=== PATIENT | male | born 1995 | race Caucasian/White ===

== ENCOUNTER 2017-08-02 13:32 | Emergency (ER) | payer BC, OTHER ==
[~2017-08-02] VITALS: Ht 172.7 cm; Wt 63.0 kg
[~2017-08-02 13:32] MED LIST: AMOCLASUA; CEPH500 PO; CODACEE120; CODACEE120 PO; HYDACE5 PO; IBUP400 PO; INSN100I; INSU7030P SC; INSUASPI; INSUASPI SC; INSULANI SC; METPHE20CR PO; METPHE20ER PO; MUPI2TC TOP; ONDA4ODT MM; OXYACE5T PO; Percocet 5-3251 EACH PO; RXOXYACE PO; SILSUL1TC TOP
[2017-08-02 14:15] LABS: Base Excess Venous -14.7 mmol/L; Bicarbonate Venous 15.2 mmol/L (24.0-30.0); PCO2 Venous 21.5 mmHg (38-42); PO2 Venous 147 mmHg (38-42); pH Blood Venous 7.33 (7.34-7.37)
[2017-08-02 14:25] LABS: BASOPHILS ABSOLUTE AUTO 0.03 K/mm3 (0.00-0.23); BASOPHILS PERCENT AUTO 0 % (0-2); EOSINOPHILS ABSOLUTE AUTO 0.01 K/mm3 (0.00-0.68); EOSINOPHILS PERCENT AUTO 0 % (0-6); IMMATURE GRAN ABSOLUTE AUTO 0.04 K/mm3 (0.00-0.10); IMMATURE GRAN PERCENT AUTO 1 % (0-1); LYMPHOCYTES ABSOLUTE AUTO 2.33 K/mm3 (0.84-5.20); LYMPHOCYTES PERCENT AUTO 30 % (21-46); MONOCYTES ABSOLUTE AUTO 0.41 K/mm3 (0.16-1.47); MONOCYTES PERCENT AUTO 5 % (4-13); Mean Corpuscular HGB 30.8 pg (26.0-34.0); Mean Corpuscular HGB Conc 33.3 g/dL (31.5-36.5); Mean Corpuscular Volume 92 fL (80-100); NEUTROPHILS ABSOLUTE AUTO 5.07 K/mm3 (1.96-9.15); NEUTROPHILS PERCENT AUTO 64 % (41-73); Platelet Count 312 K/mm3 (150-400); RDW Coefficient Variation 12.1 % (11.7-14.2); RDW Standard Deviation 42.2 fL (35.1-46.3); Red Blood Cell Count 4.87 M/mm3 (4.30-5.90); White Blood Cell Count 7.89 K/mm3 (4.00-11.30)
[2017-08-02 14:36] LABS: Source, Urine Clean Catch
[2017-08-02 14:39] LABS: Alanine Aminotransfer (ALT/SGP 100 U/L (12-78); Albumin, Blood 3.7 g/dL (3.4-5.0); Alk Phos 101 U/L (50-136); Anion Gap 22 mmol/L (6-16); Aspartate Aminotrans (AST/SGOT 56 U/L (12-37); Beta-hydroxybutyrate 0.1 mg/dL (0.2-2.8); Blood Urea Nitrogen 8 mg/dL (8-24); Bun/Creatinine Ratio 11.9 (12.0-20.0); CO2, Blood 12 mmol/L (21-32); Calcium, Blood 8.5 mg/dL (8.5-10.1); Chloride, Blood 100 mmol/L (98-108); Creatinine, Blood 0.67 mg/dL (0.60-1.20); Globulin, Blood 3.6 g/dL (2.2-4.0); Glomerular Filtration Rate >60 (60-); Glucose, Blood 234 mg/dL (70-99); Sodium, Blood 134 mmol/L (136-145); Total Protein, Blood 7.3 g/dL (6.4-8.2)
[2017-08-02 14:44] LABS: Appearance, Urine Clear (Clear); Bilirubin, Urine Neg (Neg); Blood, Urine Neg (Neg); Color, Urine Yellow (P-Yellow); Glucose Qualitative, Urine 4+ (Neg); Ketones, Urine 4+ (Neg); Leukocyte Esterase, Urine Neg (Neg); Nitrite, Urine Neg (Neg); Protein, Urine 1+ (Neg); Specific Gravity, Urine 1.025 (1.003-1.022); Urobilinogen, Urine NORM (Normal)
[2017-08-02] MEDS ORDERED: Zofran4 MG PO (15:10)
[2017-08-02] MEDS ORDERED: INSULANPEN SC (15:22)
[2017-08-02] MEDS ORDERED: Novolog100 UNIT/2 (15:23)
[2017-08-02 16:15] LABS: Calcium, Ionized (POC) 1.09 mmol/L (1.10-1.46); Chloride (POC) 105 mmol/L (98-108); Creatinine (POC) 0.6 mg/dL (0.8-1.3); Glucose (ISTAT POC) 133 mg/dL (70-99); Hemoglobin (POC) 12.6 g/dL (13.5-17.5); Potassium (POC) 3.7 mmol/L (3.5-5.5); Sodium (POC) 136 mmol/L (135-148); Total CO2 (POC) 16 mmol/L (21-32)
== END 2017-08-02 16:35 | disposition home or self-care (01) ==
LOC: ER 13:32
PROVIDERS: Emergency Medicine; Physician Assistant
DX: E10.65 Type 1 diabetes mellitus with hyperglycemia (principal); E86.0 Dehydration; Z79.4 Long term (current) use of insulin; Z79.899 Other long term (current) drug therapy
CPT/HCPCS: 36415; 80047; 80053; 82010; 82803; 82947; 85014; 85025; 96360; 96361; 99283; J7030

== ENCOUNTER 2018-07-15 21:24 | Observation (INO) | payer BC, OTHER ==
[~2018-07-15] VITALS: Ht 172.7 cm; Wt 65.5 kg
[~2018-07-15 21:24] MED LIST changes: +INSULANPEN SC; +Novolog100 UNIT/2; +Zofran4 MG PO
[2018-07-15 21:48] LABS: BASOPHILS ABSOLUTE AUTO 0.07 K/mm3 (0.00-0.23); BASOPHILS PERCENT AUTO 1 % (0-2); EOSINOPHILS ABSOLUTE AUTO 0.08 K/mm3 (0.00-0.68); EOSINOPHILS PERCENT AUTO 1 % (0-6); Hematocrit 47.1 % (37.0-53.0); Hemoglobin 15.7 g/dL (13.5-17.5); IMMATURE GRAN ABSOLUTE AUTO 0.04 K/mm3 (0.00-0.10); IMMATURE GRAN PERCENT AUTO 0 % (0-1); LYMPHOCYTES ABSOLUTE AUTO 4.93 K/mm3 (0.84-5.20); LYMPHOCYTES PERCENT AUTO 43 % (21-46); MONOCYTES ABSOLUTE AUTO 0.58 K/mm3 (0.16-1.47); MONOCYTES PERCENT AUTO 5 % (4-13); Mean Corpuscular HGB 30.8 pg (26.0-34.0); Mean Corpuscular HGB Conc 33.3 g/dL (31.5-36.5); Mean Corpuscular Volume 92 fL (80-100); Mean Platelet Volume 9.4 fL (9.1-12.4); NEUTROPHILS ABSOLUTE AUTO 5.76 K/mm3 (1.96-9.15); NEUTROPHILS PERCENT AUTO 50 % (41-73); Platelet Count 337 K/mm3 (150-400); RDW Coefficient Variation 11.9 % (11.7-14.2); RDW Standard Deviation 41.1 fL (35.1-46.3); White Blood Cell Count 11.46 K/mm3 (4.00-11.30)
[2018-07-15 22:10] LABS: Alanine Aminotransfer (ALT/SGP 63 U/L (12-78); Albumin, Blood 3.9 g/dL (3.4-5.0); Albumin/Globulin Ratio 1.3 (0.8-1.8); Alk Phos 109 U/L (50-136); Anion Gap 23 mmol/L (6-16); Aspartate Aminotrans (AST/SGOT 43 U/L (12-37); Bilirubin, Total 1.2 mg/dL (0.1-1.0); Blood Urea Nitrogen 13 mg/dL (8-24); Bun/Creatinine Ratio 17.1 (12.0-20.0); CO2, Blood 15 mmol/L (21-32); Calcium, Blood 8.7 mg/dL (8.5-10.1); Chloride, Blood 95 mmol/L (98-108); Creatinine, Blood 0.76 mg/dL (0.60-1.20); Glomerular Filtration Rate >60 (60-); Glucose, Blood 402 mg/dL (70-99); Potassium, Blood 3.6 mmol/L (3.5-5.5); Sodium, Blood 133 mmol/L (136-145); Total Protein, Blood 6.9 g/dL (6.4-8.2)
--- NOTE | 2018-07-16 00:55 | NUR ---
ASSUMED PT CARE AT 0015 PT TRANSFERRED FROM ED ON STRETCHER. PT ADMITTED SECONDARY TO DKA. PER REPORT PT'S LAST BLOOD SUGARS WAS 350 AT 2330 AND PT WAS STARTED ON INSULIN GTT AT 3 UNITS/HR. UPON ARRIVAL TO ICU; REPORTING OFF RN STATED PT'S LAST BS WAS 241. INSULIN TITRATED DOWN TO 1 UNIT/HR AND D5 1/2NS STARTED AT 75MLS/HR. PT ARRIVED WITH 20G TO UPPER RIGHT FOREARM; PATENT AND INFUSING. A SECOND 20G IV WAS STARTED TO PT'S RIGHT LOWER FOREARM D/T ORDERS FOR POTASSIUM, INSULIN, AND FLUIDS. SBP 110-120'S. NSR WITH HR 80'S. AFEBRILE 97.8. LUNG SOUNDS CLEAR T/O WITH NORMAL RESPIRATORY EFFORT. ABDOMEN IS SOFT, NON-TENDER WITH ACTIVE BTX4; PT STATES HE IS VERY HUNGRY, BUT HAS BEEN EDUCATED ABOUT NPO STATUS UNTIL BLOOD SUGARS STABILIZE. NO EDEMA NOTED. PERIPHERAL PULSES ARE PALPABLE AND STRONG. DENIES ANY NUMBNESS/TINGLING. PT'S MOM AT BEDSIDE TO ANSWER HEALTH HISTORY QUESTIONS. PT STATES HE BARELY CHECKS HIS BS AT HOME AND THAT HE JUST ADMINISTERS HIS NOVOLOG TWICE DAILY WITH ADDITIONAL NOVOLOG ACCORDING TO HIS CARB COUNTING, WHICH PT STATES HE HASN'T BEEN COUNTING CARBS MUCH LATELY. PT ALSO STATES HE TAKES LANTUS AT BEDTIME. PT DENIES ANY RECENT SICKNESS AND STATES THIS IS HIS FIRST TIME "FEELING LIKE THIS". PT IS CURRENTLY RESTING IN BED WITH CALL LIGHT IN REACH.
[2018-07-16 04:17] LABS: Hematocrit 42.3 % (37.0-53.0); Hemoglobin 14.3 g/dL (13.5-17.5); Mean Corpuscular HGB 31.1 pg (26.0-34.0); Mean Corpuscular HGB Conc 33.8 g/dL (31.5-36.5); Mean Corpuscular Volume 92 fL (80-100); Mean Platelet Volume 9.1 fL (9.1-12.4); Platelet Count 264 K/mm3 (150-400); RDW Coefficient Variation 11.9 % (11.7-14.2); RDW Standard Deviation 40.6 fL (35.1-46.3); White Blood Cell Count 9.09 K/mm3 (4.00-11.30)
[2018-07-16 04:36] LABS: Anion Gap 12 mmol/L (6-16); Blood Urea Nitrogen 11 mg/dL (8-24); Bun/Creatinine Ratio 15.9 (12.0-20.0); CO2, Blood 22 mmol/L (21-32); Calcium, Blood 8.1 mg/dL (8.5-10.1); Chloride, Blood 103 mmol/L (98-108); Creatinine, Blood 0.69 mg/dL (0.60-1.20); Glomerular Filtration Rate >60 (60-); Glucose, Blood 154 mg/dL (70-99); Potassium, Blood 4.3 mmol/L (3.5-5.5); Sodium, Blood 137 mmol/L (136-145)
[2018-07-16 04:40] LABS: Alanine Aminotransfer (ALT/SGP 55 U/L (12-78); Albumin, Blood 3.3 g/dL (3.4-5.0); Albumin/Globulin Ratio 1.3 (0.8-1.8); Alk Phos 86 U/L (50-136); Anion Gap 11 mmol/L (6-16); Aspartate Aminotrans (AST/SGOT 35 U/L (12-37); Bilirubin, Total 0.8 mg/dL (0.1-1.0); Blood Urea Nitrogen 11 mg/dL (8-24); Bun/Creatinine Ratio 15.9 (12.0-20.0); CO2, Blood 22 mmol/L (21-32); Chloride, Blood 103 mmol/L (98-108); Creatinine, Blood 0.69 mg/dL (0.60-1.20); Globulin, Blood 2.6 g/dL (2.2-4.0); Glomerular Filtration Rate >60 (60-); Glucose, Blood 152 mg/dL (70-99); Potassium, Blood 4.3 mmol/L (3.5-5.5); Sodium, Blood 136 mmol/L (136-145); Total Protein, Blood 5.9 g/dL (6.4-8.2)
--- NOTE | 2018-07-16 06:23 | NUR ---
CALL OUT TO DR. ZAMUDIO CONTINUE INSULIN GTT AND D5 1/2NS UNTIL NEXT ANION GAP RESULTS. NO NEW ORDERS
--- NOTE | 2018-07-16 07:01 | NUR ---
END OF SHIFT SUMMARY PT HAS REMAINED ON INSULIN GTT AND D5 1/2 NS AT 75MLS/HR. PT HAS SLEPT T/O SHIFT. ANION GAP IS NOW CLOSED WITH CO2>20. DR. ZAMUDIO AWARE AND WANTS TO WAIT TO DISCONTINUE FLUIDS UNTIL NEXT ANION GAP LAB DRAW. PT APPEARS COMFORTABLE AT THIS TIME.
--- NOTE | 2018-07-16 08:08 | NUR ---
CONSENT FOR CARE Obtained consent from pt to assist in care with primary RN for DOS 07/16/18
--- NOTE | 2018-07-16 09:16 | NUR ---
0730: CARE ASSUMED. 0800: ASSESSMENT COMPLETED, PT AWAKE, ORIENTED X4, CALM AND COOPERATIVE WITH CARE. VSS, PT DENIES NAUSEA, ABD PAIN, OR OTHER C/O, STATES HE IS FEELING BETTER THIS AM. INSULIN GTT AT 1U/HR, D5 0.45%NS 75ML/HR, BOTH INFUSING WITHOUT DIFFICULTY. CBG'S STABLE, WILL CONTINUE TO MONITOR ORDERED. PT DENIES NEEDS.
--- NOTE | 2018-07-16 10:15 | NUR ---
1000: PT RESTING IN BED, SLEEPING ON AND OFF. VSS, PT DENIES C/O, CBG'S 120-140 WITH INSULIN GTT AT 1U/HR, D5 0.45%NS CONTINUES TO INFUSE AT 75ML/HR. 1015: DR. PATEL AT BEDSIDE.
[2018-07-16 11:11] LABS: Anion Gap 12 mmol/L (6-16); Blood Urea Nitrogen 10 mg/dL (8-24); Bun/Creatinine Ratio 14.3 (12.0-20.0); CO2, Blood 22 mmol/L (21-32); Calcium, Blood 8.1 mg/dL (8.5-10.1); Chloride, Blood 104 mmol/L (98-108); Glomerular Filtration Rate >60 (60-); Glucose, Blood 138 mg/dL (70-99); Potassium, Blood 4.1 mmol/L (3.5-5.5); Sodium, Blood 138 mmol/L (136-145)
--- NOTE | 2018-07-16 11:34 | NUR ---
1130: LAB RESULTS RECEIVED, DR. PATEL NOTIFIED, NEW ORDERS. INSULIN GTT DC'D AT THIS TIME, CBG 145. PT SITTING IN BED WATCHING TV, MOM AT BEDSIDE. LUNCH TRAY GIVEN, AC/HS INSULIN ORDERS INITIATED. PT DENIES NEEDS OR C/O AT THIS TIME, VSS.
--- NOTE | 2018-07-16 13:10 | NUR ---
PATIENT CALLED STATING THAT HE FELT LIKE HIS BLOOD SUGAR WAS HIGH. BS TAKEN- 416. INFORMED PRIMARY NURSE AND CALLED DR. PATEL TO INFORM. ALSO INFORMED THAT IT DID NOT LOOK LIKE PATIENT HAD RECEIVED ANY LONG ACTING INSULIN PRIOR TO INSULIN DRIP BEING TURNED OFF. ORDERED TO GIVE 15 UNITS OF REGULAR INSULIN AND RECHECK BLOOD SUGAR IN ONE HOUR.
--- NOTE | 2018-07-16 14:25 | NUR ---
1415: CBG DOWN TO 353 AFTER 15U HUMALOG, PT DENIES NAUSEA, STATES HE IS FEELING BETTER. WILL RECHECK CBG IN 1 HOUR.
--- NOTE | 2018-07-16 15:54 | NUR ---
1520: CBG 200 AT THIS TIME, PT SLEEPING, RESPIRATIONS EVEN AND UNLABORED. MOM AT BEDSIDE.
[2018-07-16 16:44] LABS: Anion Gap 11 mmol/L (6-16); Blood Urea Nitrogen 11 mg/dL (8-24); Bun/Creatinine Ratio 13.9 (12.0-20.0); CO2, Blood 24 mmol/L (21-32); Calcium, Blood 8.6 mg/dL (8.5-10.1); Chloride, Blood 103 mmol/L (98-108); Creatinine, Blood 0.79 mg/dL (0.60-1.20); Glomerular Filtration Rate >60 (60-); Glucose, Blood 177 mg/dL (70-99); Potassium, Blood 4.2 mmol/L (3.5-5.5); Sodium, Blood 138 mmol/L (136-145)
--- NOTE | 2018-07-16 16:46 | NUR ---
1645: CBG 151 AT THIS TIME, NO ADDITIONAL INSULIN ADMINISTERED. VSS, PT UP TO VOID, DENIES NAUSEA OR C/O AT THIS TIME. PT WATCHING TV, MOM REMAINS AT BEDSIDE.
--- NOTE | 2018-07-16 17:52 | NUR ---
1750: PT SITTING UP IN BED EATING DINNER, STATES HIS BG "FEELS HIGH." CBG CHECKED, NOW 236 PT IS IN THE MIDDLE OF EATING DINNER, NO INTERVENTIONS AT THIS TIME. WILL CONTINUE TO MONITOR. PT DENIES OTHER NEEDS, IS ALERT AND ORIENTED X4.
--- NOTE | 2018-07-16 18:39 | NUR ---
1835: PT SITTING IN BED WATCHING TV, DENIES C/O, STATES HE IS FEELING FINE. ATE 100% OF DINNER WITHOUT C/O NAUSEA OR ABDOMINAL PAIN, DENIES NEEDS OR C/O AT THIS TIME. REPORT TO ONCOMING SHIFT.
--- NOTE | 2018-07-16 19:38 | NUR ---
ASSUMED PT CARE AT 1915 PT HAD A CHANGE IN STATUS TO MED NO TELE; PT REQUESTED TO TAKE A SHOWER. RETRIEVED VS AND SET UP SHOWER ROOM. HAD PT PLACE NON-SKID SOCKS ON FEET AND WALKED TO SHOWER. WRAPPED PERIPHERAL IV'S ON RIGHT ARM AND ASKED PT TO CALL WHEN HE WAS DONE SO HE COULD BE ASSISTED BACK TO BED. CHECK BS; 343; PT HAS LONG ACTING INSULIN COVERAGE, WELL HUMALOG LOW SS COVERAGE. PT DENIES PAIN OR ANY DISCOMFORT AT THIS TIME.
[2018-07-16 22:30] LABS: Anion Gap 10 mmol/L (6-16); Blood Urea Nitrogen 13 mg/dL (8-24); Bun/Creatinine Ratio 15.1 (12.0-20.0); CO2, Blood 26 mmol/L (21-32); Calcium, Blood 8.7 mg/dL (8.5-10.1); Chloride, Blood 101 mmol/L (98-108); Creatinine, Blood 0.86 mg/dL (0.60-1.20); Glomerular Filtration Rate >60 (60-); Glucose, Blood 198 mg/dL (70-99); Potassium, Blood 4.1 mmol/L (3.5-5.5); Sodium, Blood 137 mmol/L (136-145)
--- NOTE | 2018-07-16 23:22 | NUR ---
PLACED CALL TO HOSPITALIST PT ASKED IF HIS BLOOD SUGAR COULD BE CHECKED BECAUSE HE FELT IT WAS HIGH. BLOOD SUGAR WAS 245; CALLED HOSPITALIST FOR INSULIN COVERAGE. TELEPHONE ORDERS TO ADMINSITER SHORT ACTING ACCORDING TO LOW SS. PT RECEIVED 2 UNITS OF HUMALOG FOR COVERAGE.
[2018-07-17 04:19] LABS: Hematocrit 44.6 % (37.0-53.0); Hemoglobin 14.6 g/dL (13.5-17.5); Mean Corpuscular HGB 30.6 pg (26.0-34.0); Mean Corpuscular HGB Conc 32.7 g/dL (31.5-36.5); Mean Corpuscular Volume 94 fL (80-100); Mean Platelet Volume 8.9 fL (9.1-12.4); Platelet Count 239 K/mm3 (150-400); RDW Coefficient Variation 12.2 % (11.7-14.2); RDW Standard Deviation 42.5 fL (35.1-46.3); Red Blood Cell Count 4.77 M/mm3 (4.30-5.90)
[2018-07-17 04:44] LABS: Albumin, Blood 3.2 g/dL (3.4-5.0); Anion Gap 6 mmol/L (6-16); Anion Gap 7 mmol/L (6-16); Blood Urea Nitrogen 14 mg/dL (8-24); Bun/Creatinine Ratio 17.4 (12.0-20.0); Bun/Creatinine Ratio 18.1 (12.0-20.0); CO2, Blood 29 mmol/L (21-32); CO2, Blood 30 mmol/L (21-32); Calcium, Blood 8.4 mg/dL (8.5-10.1); Calcium, Blood 8.5 mg/dL (8.5-10.1); Chloride, Blood 106 mmol/L (98-108); Creatinine, Blood 0.77 mg/dL (0.60-1.20); Glomerular Filtration Rate >60 (60-); Glucose, Blood 91 mg/dL (70-99); Glucose, Blood 93 mg/dL (70-99); Phosphorus, Blood 4.7 mg/dL (2.5-4.9); Potassium, Blood 3.7 mmol/L (3.5-5.5); Potassium, Blood 3.8 mmol/L (3.5-5.5); Sodium, Blood 142 mmol/L (136-145)
--- NOTE | 2018-07-17 05:47 | NUR ---
END OF SHIFT SUMMARY CHECK BLOOD SUGAR TWICE DURING SHIFT; ONE AT 1999, WHICH WAS 343; RECEIVED LONG ACTING INSULIN, WELL 6 UNITS SHORT ACTING. PT CALLED ME IN ABOUT 2300 AND STATED HIS BLOOD SUGAR WAS HIGH AGAIN; RECHECKED AND BS WAS 245. CALLED HOSPITALIST FOR INSULIN ORDERS; RECEIVED ORDERS TO GIVE A ONE TIME DOSE OF SHORT ACTING ACCORDING TO LOW COVERAGE CHART; THEREFORE, PT RECEIVED TWO UNITS OF SHORT ACTING INSULIN. NO OTHER ISSUES ALL NIGHT. GLUCOSE ON THIS AM LABS WERE IN THE 90'S. PT RECEIVED A SHOWER AT THE BEGINNING OF SHIFT, LINENS WERE CHANGED, AND ONE PERIPHERAL IV WAS D/C'D. PT REMAINS MEDICAL FLOOR STATUS WITH NO TELE. PT HOPES TO BE DISCHARGED HOME TODAY. PT SLEEPING COMFORTABLY; ABLE TO REPOSITION SELF, WELL UTILIZE CALL LIGHT APPROPRIATELY. NO SIGNS OF DISTRESS OR DISCOMFORT AT THIS TIME.
--- NOTE | 2018-07-17 07:32 | NUR ---
START OF SHIFT NOTE: PATIENT IS A+Ox4, DENIES PAIN, SMILING, INDEPENDENT IN ROOM, LS CLEAR, NSR, VSS, AFEBRILE, CALL LIGHT IN REACH, WILL CONTINUE TO MONITOR.
--- NOTE | 2018-07-17 09:00 | NUR ---
DR. HOTRATE IN TO SEE PATIENT, POSSIBLE DISCHARGE TO HOME.
[2018-07-17] MEDS ORDERED: ACET325 PO (09:16)
[2018-07-17] MEDS ORDERED: ONDA4ODT PO (09:19)
[2018-07-17] MEDS ORDERED: LISI5 PO (09:21)
--- NOTE | 2018-07-17 09:57 | NUR ---
PATIENT DISCHARGED TO HOME, RECEIVED DISCHARGE INSTRUCTIONS, VERBAL AND WRITTEN WERE EXPLAINED, PATIENT VERBALIZED UNDERSTANDING AND SIGNED DISCHARGE INSTRUCTIONS, PIV REMOVED, PATIENT TOLERATED WELL, AWAITING HIS MOTHER'S ARRIVAL TO PROVIDE RIDE HOME.
--- NOTE | 2018-07-17 10:22 | NUR ---
PATIENT WAS PICKED UP BY HIS MOTHER AND LEFT THE HOSPITAL INDEPENDENTLY AT 10:21, ALL BELONGINGS WITH PATIENT.
== END 2018-07-17 10:28 | disposition home or self-care (01) ==
LOC: ER 21:24 → ICUW 21:25
PROVIDERS: Emergency Medicine; Family Medicine; ADMIT Internal Medicine
DX: E10.10 Type 1 diabetes mellitus with ketoacidosis without coma (principal); E86.0 Dehydration; E87.6 Hypokalemia; Z23 Encounter for immunization
CPT/HCPCS: 36415; 80048; 80053; 80069; 82947; 83036; 84443; 85025; 85027; 90686; 96372; 99285; G0008; G0378; J1650; J1815; J3480; J7030; J7042

== ENCOUNTER 2019-05-15 01:21 | Emergency (ER) | payer BC, OTHER ==
[~2019-05-15] VITALS: Ht 175.3 cm; Wt 70.3 kg
[~2019-05-15 01:21] MED LIST changes: +ACET325 PO; +LISI5 PO; +ONDA4ODT PO
[2019-05-15 01:45] LABS: Source, Urine Clean Catch
[2019-05-15 01:47] LABS: Bilirubin, Urine Neg (Neg); Blood, Urine 4+ (Neg); Glucose Qualitative, Urine 4+ (Neg); Ketones, Urine 4+ (Neg); Leukocyte Esterase, Urine Neg (Neg); Nitrite, Urine Neg (Neg); Protein, Urine 1+ (Neg); Urobilinogen, Urine NORM (Normal)
[2019-05-15] MEDS ORDERED: NOVOLOG FL100 UNIT/1 SC (01:48)
[2019-05-15] MEDS ORDERED: BASAGLAR K100 UNIT/1 SC (01:49)
[2019-05-15 01:57] LABS: Appearance, Urine Clear (Clear); Bacteria Few /hpf; Color, Urine Yellow (P-Yellow); Red Blood Cells, Urine 25-50 /hpf (0-2); Squamous Epithelial Cells Not Seen /hpf (Few); White Blood Cells, Urine 0-2 /hpf (0-5)
[2019-05-15 02:15] LABS: Base Excess Venous -3.6 mmol/L; PCO2 Venous 35.7 mmHg (38-42); PO2 Venous 136 mmHg (38-42); pH Blood Venous 7.39 (7.34-7.37)
[2019-05-15 02:18] LABS: BASOPHILS ABSOLUTE AUTO 0.03 K/mm3 (0.00-0.23); BASOPHILS PERCENT AUTO 0 % (0-2); EOSINOPHILS ABSOLUTE AUTO 0.02 K/mm3 (0.00-0.68); EOSINOPHILS PERCENT AUTO 0 % (0-6); Hemoglobin 15.1 g/dL (13.5-17.5); IMMATURE GRAN ABSOLUTE AUTO 0.04 K/mm3 (0.00-0.10); IMMATURE GRAN PERCENT AUTO 0 % (0-1); LYMPHOCYTES ABSOLUTE AUTO 2.38 K/mm3 (0.84-5.20); LYMPHOCYTES PERCENT AUTO 27 % (21-46); MONOCYTES ABSOLUTE AUTO 0.48 K/mm3 (0.16-1.47); MONOCYTES PERCENT AUTO 5 % (4-13); Mean Corpuscular HGB Conc 33.6 g/dL (31.5-36.5); Mean Corpuscular Volume 92 fL (80-100); Mean Platelet Volume 9.3 fL (9.1-12.4); NEUTROPHILS PERCENT AUTO 67 % (41-73); Platelet Count 329 K/mm3 (150-400); RDW Coefficient Variation 11.9 % (11.7-14.2); RDW Standard Deviation 41.1 fL (35.1-46.3); Red Blood Cell Count 4.87 M/mm3 (4.30-5.90); White Blood Cell Count 8.95 K/mm3 (4.00-11.30)
[2019-05-15 02:38] LABS: Alanine Aminotransfer (ALT/SGP 71 U/L (12-78); Albumin, Blood 3.7 g/dL (3.4-5.0); Albumin/Globulin Ratio 1.1 (0.8-1.8); Alk Phos 99 U/L (50-136); Anion Gap 12 mmol/L (6-16); Aspartate Aminotrans (AST/SGOT 38 U/L (12-37); Beta-hydroxybutyrate 19.8 mg/dL (0.2-2.8); Bilirubin, Total 0.8 mg/dL (0.1-1.0); Blood Urea Nitrogen 13 mg/dL (8-24); Bun/Creatinine Ratio 18.8 (12.0-20.0); CO2, Blood 22 mmol/L (21-32); Calcium, Blood 8.8 mg/dL (8.5-10.1); Chloride, Blood 101 mmol/L (98-108); Creatinine, Blood 0.69 mg/dL (0.60-1.20); Globulin, Blood 3.3 g/dL (2.2-4.0); Glomerular Filtration Rate >60 (60-); Glucose, Blood 262 mg/dL (70-99); Sodium, Blood 135 mmol/L (136-145)
[2019-05-15 02:40] LABS: Calcium, Ionized (POC) 1.14 mmol/L (1.10-1.46); Chloride (POC) 99 mmol/L (98-108); Creatinine (POC) 0.6 mg/dL (0.8-1.3); Glucose (ISTAT POC) 228 mg/dL (70-99); Hemoglobin (POC) 15.3 g/dL (13.5-17.5); Potassium (POC) 3.9 mmol/L (3.5-5.5); Sodium (POC) 136 mmol/L (135-148); Total CO2 (POC) 21 mmol/L (21-32)
[2019-05-15 04:35] LABS: Calcium, Ionized (POC) 1.09 mmol/L (1.10-1.46); Chloride (POC) 104 mmol/L (98-108); Creatinine (POC) 0.6 mg/dL (0.8-1.3); Glucose (ISTAT POC) 203 mg/dL (70-99); Hemoglobin (POC) 12.9 g/dL (13.5-17.5); Potassium (POC) 3.6 mmol/L (3.5-5.5); Sodium (POC) 138 mmol/L (135-148); Total CO2 (POC) 21 mmol/L (21-32)
== END 2019-05-15 05:15 | disposition home or self-care (01) ==
LOC: ER 01:21
PROVIDERS: Emergency Medicine
DX: E10.65 Type 1 diabetes mellitus with hyperglycemia (principal); Z79.899 Other long term (current) drug therapy
CPT/HCPCS: 36415; 80047; 80053; 81001; 82010; 82803; 82947; 85014; 85025; 96360; 96361; 99283-25; J1815; J7030

== ENCOUNTER 2019-05-22 06:11 | Emergency (ER) | payer BC, OTHER ==
[~2019-05-22] VITALS: Ht 177.8 cm; Wt 70.3 kg
[~2019-05-22 06:11] MED LIST changes: +BASAGLAR K100 UNIT/1 SC; +NOVOLOG FL100 UNIT/1 SC
[2019-05-22 06:53] LABS: BASOPHILS ABSOLUTE AUTO 0.03 K/mm3 (0.00-0.23); BASOPHILS PERCENT AUTO 0 % (0-2); EOSINOPHILS ABSOLUTE AUTO 0.07 K/mm3 (0.00-0.68); EOSINOPHILS PERCENT AUTO 1 % (0-6); Hematocrit 44.3 % (37.0-53.0); Hemoglobin 14.8 g/dL (13.5-17.5); IMMATURE GRAN ABSOLUTE AUTO 0.02 K/mm3 (0.00-0.10); IMMATURE GRAN PERCENT AUTO 0 % (0-1); LYMPHOCYTES ABSOLUTE AUTO 1.96 K/mm3 (0.84-5.20); LYMPHOCYTES PERCENT AUTO 22 % (21-46); MONOCYTES ABSOLUTE AUTO 0.42 K/mm3 (0.16-1.47); MONOCYTES PERCENT AUTO 5 % (4-13); Mean Corpuscular HGB 31.3 pg (26.0-34.0); Mean Corpuscular HGB Conc 33.4 g/dL (31.5-36.5); Mean Corpuscular Volume 94 fL (80-100); NEUTROPHILS ABSOLUTE AUTO 6.57 K/mm3 (1.96-9.15); NEUTROPHILS PERCENT AUTO 73 % (41-73); Platelet Count 347 K/mm3 (150-400); RDW Coefficient Variation 12.1 % (11.7-14.2); RDW Standard Deviation 42.1 fL (35.1-46.3); Red Blood Cell Count 4.73 M/mm3 (4.30-5.90); White Blood Cell Count 9.07 K/mm3 (4.00-11.30)
[2019-05-22 06:55] LABS: Chloride (POC) 100 mmol/L (98-108); Creatinine (POC) 0.7 mg/dL (0.8-1.3); Glucose (ISTAT POC) 271 mg/dL (70-99); Potassium (POC) 3.8 mmol/L (3.5-5.5); Sodium (POC) 137 mmol/L (135-148); Total CO2 (POC) 23 mmol/L (21-32)
[2019-05-22 06:55] LABS: Base Excess Venous -1.6 mmol/L; Bicarbonate Venous 23.1 mmol/L (24.0-30.0); PCO2 Venous 40.9 mmHg (38-42); PO2 Venous 157 mmHg (38-42); pH Blood Venous 7.37 (7.34-7.37)
[2019-05-22 07:07] LABS: Alanine Aminotransfer (ALT/SGP 63 U/L (12-78); Albumin, Blood 3.9 g/dL (3.4-5.0); Albumin/Globulin Ratio 1.1 (0.8-1.8); Alk Phos 103 U/L (50-136); Anion Gap 8 mmol/L (6-16); Aspartate Aminotrans (AST/SGOT 33 U/L (12-37); Bilirubin, Total 0.7 mg/dL (0.1-1.0); Blood Urea Nitrogen 27 mg/dL (8-24); Bun/Creatinine Ratio 32.8 (12.0-20.0); CO2, Blood 26 mmol/L (21-32); Chloride, Blood 103 mmol/L (98-108); Creatinine, Blood 0.82 mg/dL (0.60-1.20); Globulin, Blood 3.4 g/dL (2.2-4.0); Glomerular Filtration Rate >60 (60-); Glucose, Blood 265 mg/dL (70-99); Potassium, Blood 3.8 mmol/L (3.5-5.5); Sodium, Blood 137 mmol/L (136-145); Total Protein, Blood 7.3 g/dL (6.4-8.2)
[2019-05-22] MEDS ORDERED: ONDA4ODT SL (07:52)
[2019-05-22 08:14] LABS: U Amphetamine Screen Not Detected; U Barbituate Screen Not Detected; U Benzodiazapine Screen Not Detected; U Buprenorphine Screen Not Detected; U Cannabinoids Screen DETECTED; U Cocaine Screen Not Detected; U Methadone Screen Not Detected; U Methamphetamine Screen Not Detected; U Opiates Screen Not Detected; U Oxycodone Screen Not Detected; U Phencyclidine Screen Not Detected; U Propoxyphene Screen Not Detected
== END 2019-05-22 08:10 | disposition home or self-care (01) ==
LOC: ER 06:11
PROVIDERS: Emergency Medicine
DX: E10.65 Type 1 diabetes mellitus with hyperglycemia (principal); F90.9 Attention-deficit hyperactivity disorder, unspecified type; Z79.899 Other long term (current) drug therapy
CPT/HCPCS: 36415; 80047; 80053; 82803; 82947; 85014; 85025; 96361; 96374; 99284-25; J1815; J2405; J7030

== ENCOUNTER 2019-06-05 10:42 | Emergency (ER) | payer BC, OTHER ==
[~2019-06-05] VITALS: Ht 177.8 cm; Wt 70.3 kg
[~2019-06-05 10:42] MED LIST changes: +ONDA4ODT SL
[2019-06-05 11:08] LABS: BASOPHILS ABSOLUTE AUTO 0.02 K/mm3 (0.00-0.23); BASOPHILS PERCENT AUTO 0 % (0-2); EOSINOPHILS PERCENT AUTO 0 % (0-6); Hematocrit 46.9 % (37.0-53.0); Hemoglobin 15.6 g/dL (13.5-17.5); IMMATURE GRAN ABSOLUTE AUTO 0.03 K/mm3 (0.00-0.10); IMMATURE GRAN PERCENT AUTO 0 % (0-1); LYMPHOCYTES ABSOLUTE AUTO 1.17 K/mm3 (0.84-5.20); LYMPHOCYTES PERCENT AUTO 12 % (21-46); MONOCYTES ABSOLUTE AUTO 0.18 K/mm3 (0.16-1.47); MONOCYTES PERCENT AUTO 2 % (4-13); Mean Corpuscular HGB 30.7 pg (26.0-34.0); Mean Corpuscular HGB Conc 33.3 g/dL (31.5-36.5); Mean Corpuscular Volume 92 fL (80-100); NEUTROPHILS ABSOLUTE AUTO 8.04 K/mm3 (1.96-9.15); NEUTROPHILS PERCENT AUTO 85 % (41-73); Platelet Count 408 K/mm3 (150-400); RDW Coefficient Variation 11.8 % (11.7-14.2); RDW Standard Deviation 40.2 fL (35.1-46.3); Red Blood Cell Count 5.08 M/mm3 (4.30-5.90); White Blood Cell Count 9.44 K/mm3 (4.00-11.30)
[2019-06-05 11:15] LABS: Base Excess Venous -1.5 mmol/L; Bicarbonate Venous 23.7 mmol/L (24.0-30.0); PCO2 Venous 34.6 mmHg (38-42); PO2 Venous 140 mmHg (38-42); pH Blood Venous 7.43 (7.34-7.37)
[2019-06-05 11:28] LABS: Alanine Aminotransfer (ALT/SGP 82 U/L (12-78); Albumin/Globulin Ratio 1.1 (0.8-1.8); Alk Phos 119 U/L (50-136); Anion Gap 10 mmol/L (6-16); Aspartate Aminotrans (AST/SGOT 60 U/L (12-37); Beta-hydroxybutyrate 17.4 mg/dL (0.2-2.8); Bilirubin, Total 0.8 mg/dL (0.1-1.0); Blood Urea Nitrogen 15 mg/dL (8-24); Bun/Creatinine Ratio 25.3 (12.0-20.0); CO2, Blood 23 mmol/L (21-32); Calcium, Blood 9.7 mg/dL (8.5-10.1); Chloride, Blood 104 mmol/L (98-108); Creatinine, Blood 0.59 mg/dL (0.60-1.20); Globulin, Blood 3.8 g/dL (2.2-4.0); Glomerular Filtration Rate >60 (60-); Glucose, Blood 174 mg/dL (70-99); Sodium, Blood 137 mmol/L (136-145); Total Protein, Blood 7.8 g/dL (6.4-8.2)
[2019-06-05] MEDS ORDERED: PROM25 PO (12:44)
[2019-06-05] MEDS ORDERED: Omeprazole20 M1 PO (15:24)
== END 2019-06-05 12:54 | disposition home or self-care (01) ==
LOC: ER 10:42
PROVIDERS: Emergency Medicine
DX: E10.65 Type 1 diabetes mellitus with hyperglycemia (principal); Z79.899 Other long term (current) drug therapy
CPT/HCPCS: 36415; 80053; 82010; 82803; 82947; 85025; 96361; 96374; 96375; 99284-25; J2405; J2550; J7030

== ENCOUNTER 2019-06-05 14:18 | Emergency (ER) | payer BC, OTHER ==
[~2019-06-05] VITALS: Ht 177.8 cm; Wt 74.8 kg
[~2019-06-05 14:18] MED LIST changes: +PROM25 PO
[2019-06-05] MEDS ORDERED: Omeprazole20 M1 PO (15:24)
== END 2019-06-05 15:24 | disposition home or self-care (01) ==
LOC: ER 14:18
DX: K21.9 Gastro-esophageal reflux disease without esophagitis (principal); E11.9 Type 2 diabetes mellitus without complications; Z79.899 Other long term (current) drug therapy; Z79.4 Long term (current) use of insulin
CPT/HCPCS: 99284

== ENCOUNTER 2019-06-05 20:06 | Emergency (ER) | payer BC, OTHER ==
[~2019-06-05] VITALS: Ht 175.3 cm; Wt 68.0 kg
[~2019-06-05 20:06] MED LIST changes: +Omeprazole20 M1 PO
[2019-06-05 21:46] LABS: BASOPHILS ABSOLUTE AUTO 0.01 K/mm3 (0.00-0.23); BASOPHILS PERCENT AUTO 0 % (0-2); EOSINOPHILS PERCENT AUTO 0 % (0-6); Hemoglobin 14.3 g/dL (13.5-17.5); IMMATURE GRAN ABSOLUTE AUTO 0.02 K/mm3 (0.00-0.10); IMMATURE GRAN PERCENT AUTO 0 % (0-1); LYMPHOCYTES ABSOLUTE AUTO 1.19 K/mm3 (0.84-5.20); LYMPHOCYTES PERCENT AUTO 11 % (21-46); MONOCYTES ABSOLUTE AUTO 0.23 K/mm3 (0.16-1.47); MONOCYTES PERCENT AUTO 2 % (4-13); Mean Corpuscular HGB 31.1 pg (26.0-34.0); Mean Corpuscular HGB Conc 33.3 g/dL (31.5-36.5); Mean Corpuscular Volume 94 fL (80-100); Mean Platelet Volume 9.1 fL (9.1-12.4); NEUTROPHILS ABSOLUTE AUTO 9.06 K/mm3 (1.96-9.15); NEUTROPHILS PERCENT AUTO 86 % (41-73); Platelet Count 337 K/mm3 (150-400); RDW Coefficient Variation 11.9 % (11.7-14.2); RDW Standard Deviation 41.4 fL (35.1-46.3); White Blood Cell Count 10.51 K/mm3 (4.00-11.30)
[2019-06-05 22:10] LABS: Alanine Aminotransfer (ALT/SGP 67 U/L (12-78); Albumin, Blood 3.6 g/dL (3.4-5.0); Albumin/Globulin Ratio 1.1 (0.8-1.8); Alk Phos 107 U/L (50-136); Anion Gap 11 mmol/L (6-16); Aspartate Aminotrans (AST/SGOT 39 U/L (12-37); Blood Urea Nitrogen 14 mg/dL (8-24); Bun/Creatinine Ratio 17.5 (12.0-20.0); CO2, Blood 21 mmol/L (21-32); Calcium, Blood 9.1 mg/dL (8.5-10.1); Chloride, Blood 103 mmol/L (98-108); Globulin, Blood 3.3 g/dL (2.2-4.0); Glomerular Filtration Rate >60 (60-); Glucose, Blood 243 mg/dL (70-99); Potassium, Blood 3.9 mmol/L (3.5-5.5); Sodium, Blood 135 mmol/L (136-145); Total Protein, Blood 6.9 g/dL (6.4-8.2)
[2019-06-05 22:18] LABS: Beta-hydroxybutyrate 25.1 mg/dL (0.2-2.8)
== END 2019-06-05 22:44 | disposition home or self-care (01) ==
LOC: ER 20:06
PROVIDERS: Physician Assistant
DX: E10.65 Type 1 diabetes mellitus with hyperglycemia (principal); K52.9 Noninfective gastroenteritis and colitis, unspecified; K20.9 Esophagitis, unspecified; Z79.899 Other long term (current) drug therapy
CPT/HCPCS: 36415; 80053; 82010; 82947; 83690; 85025; 96360; 99284-25; J7120

== ENCOUNTER 2019-06-07 08:08 | Emergency (ER) | payer BC, OTHER ==
[~2019-06-07] VITALS: Ht 175.3 cm; Wt 68.0 kg
[2019-06-07 09:19] LABS: Source, Urine Clean Catch
[2019-06-07 09:22] LABS: Bilirubin, Urine Neg (Neg); Blood, Urine Neg (Neg); Glucose Qualitative, Urine 4+ (Neg); Ketones, Urine 4+ (Neg); Leukocyte Esterase, Urine Neg (Neg); Nitrite, Urine Neg (Neg); Protein, Urine 1+ (Neg); Specific Gravity, Urine 1.015 (1.003-1.022); Urobilinogen, Urine 1+ (Normal)
[2019-06-07 09:24] LABS: BASOPHILS ABSOLUTE AUTO 0.01 K/mm3 (0.00-0.23); BASOPHILS PERCENT AUTO 0 % (0-2); EOSINOPHILS PERCENT AUTO 0 % (0-6); Hematocrit 41.1 % (37.0-53.0); Hemoglobin 13.5 g/dL (13.5-17.5); IMMATURE GRAN ABSOLUTE AUTO 0.03 K/mm3 (0.00-0.10); IMMATURE GRAN PERCENT AUTO 0 % (0-1); LYMPHOCYTES ABSOLUTE AUTO 1.06 K/mm3 (0.84-5.20); LYMPHOCYTES PERCENT AUTO 11 % (21-46); MONOCYTES ABSOLUTE AUTO 0.19 K/mm3 (0.16-1.47); MONOCYTES PERCENT AUTO 2 % (4-13); Mean Corpuscular HGB 30.9 pg (26.0-34.0); Mean Corpuscular HGB Conc 32.8 g/dL (31.5-36.5); Mean Corpuscular Volume 94 fL (80-100); Mean Platelet Volume 9.1 fL (9.1-12.4); NEUTROPHILS ABSOLUTE AUTO 8.43 K/mm3 (1.96-9.15); NEUTROPHILS PERCENT AUTO 87 % (41-73); Platelet Count 304 K/mm3 (150-400); RDW Coefficient Variation 11.8 % (11.7-14.2); RDW Standard Deviation 40.8 fL (35.1-46.3); Red Blood Cell Count 4.37 M/mm3 (4.30-5.90); White Blood Cell Count 9.72 K/mm3 (4.00-11.30)
[2019-06-07 09:30] LABS: Appearance, Urine Clear (Clear); Color, Urine Yellow (P-Yellow)
[2019-06-07 09:41] LABS: U Amphetamine Screen Not Detected; U Barbituate Screen DETECTED; U Benzodiazapine Screen Not Detected; U Buprenorphine Screen Not Detected; U Cannabinoids Screen DETECTED; U Cocaine Screen Not Detected; U Methadone Screen Not Detected; U Methamphetamine Screen Not Detected; U Opiates Screen Not Detected; U Oxycodone Screen Not Detected; U Phencyclidine Screen Not Detected; U Propoxyphene Screen Not Detected
[2019-06-07 09:48] LABS: Alanine Aminotransfer (ALT/SGP 59 U/L (12-78); Albumin, Blood 3.4 g/dL (3.4-5.0); Albumin/Globulin Ratio 1.1 (0.8-1.8); Alk Phos 95 U/L (50-136); Anion Gap 10 mmol/L (6-16); Aspartate Aminotrans (AST/SGOT 42 U/L (12-37); Bilirubin, Total 0.7 mg/dL (0.1-1.0); Blood Urea Nitrogen 18 mg/dL (8-24); Bun/Creatinine Ratio 25.8 (12.0-20.0); CO2, Blood 23 mmol/L (21-32); Calcium, Blood 8.4 mg/dL (8.5-10.1); Chloride, Blood 103 mmol/L (98-108); Glomerular Filtration Rate >60 (60-); Glucose, Blood 209 mg/dL (70-99); Potassium, Blood 3.9 mmol/L (3.5-5.5); Sodium, Blood 136 mmol/L (136-145); Total Protein, Blood 6.4 g/dL (6.4-8.2)
[2019-06-07] MEDS ORDERED: Norco 5-325 Ta1 EACH PO (11:05)
== END 2019-06-07 11:32 | disposition home or self-care (01) ==
LOC: ER 08:08
PROVIDERS: Emergency Medicine; Physician Assistant
DX: R07.81 Pleurodynia (principal); E10.65 Type 1 diabetes mellitus with hyperglycemia; Z79.899 Other long term (current) drug therapy; F90.9 Attention-deficit hyperactivity disorder, unspecified type
CPT/HCPCS: 36415; 71046; 80053; 82947; 84484; 85025; 93005; 93010; 96361; 96374; 96375; 99285-25; J1170; J2405; J7120

== ENCOUNTER 2019-08-01 08:28 | Emergency (ER) | payer BC, OTHER ==
[~2019-08-01] VITALS: Ht 177.8 cm; Wt 68.0 kg
[~2019-08-01 08:28] MED LIST changes: +Norco 5-325 Ta1 EACH PO
[2019-08-01 09:17] LABS: Source, Urine Clean Catch
[2019-08-01 09:18] LABS: BASOPHILS ABSOLUTE AUTO 0.02 K/mm3 (0.00-0.23); BASOPHILS PERCENT AUTO 0 % (0-2); EOSINOPHILS ABSOLUTE AUTO 0.02 K/mm3 (0.00-0.68); EOSINOPHILS PERCENT AUTO 0 % (0-6); Hematocrit 43.6 % (37.0-53.0); Hemoglobin 14.5 g/dL (13.5-17.5); IMMATURE GRAN ABSOLUTE AUTO 0.01 K/mm3 (0.00-0.10); IMMATURE GRAN PERCENT AUTO 0 % (0-1); LYMPHOCYTES ABSOLUTE AUTO 1.41 K/mm3 (0.84-5.20); LYMPHOCYTES PERCENT AUTO 20 % (21-46); MONOCYTES ABSOLUTE AUTO 0.33 K/mm3 (0.16-1.47); MONOCYTES PERCENT AUTO 5 % (4-13); Mean Corpuscular HGB 30.2 pg (26.0-34.0); Mean Corpuscular HGB Conc 33.3 g/dL (31.5-36.5); Mean Corpuscular Volume 91 fL (80-100); Mean Platelet Volume 9.5 fL (9.1-12.4); NEUTROPHILS ABSOLUTE AUTO 5.27 K/mm3 (1.96-9.15); NEUTROPHILS PERCENT AUTO 75 % (41-73); Platelet Count 304 K/mm3 (150-400); RDW Coefficient Variation 11.6 % (11.7-14.2); RDW Standard Deviation 39.1 fL (35.1-46.3); White Blood Cell Count 7.06 K/mm3 (4.00-11.30)
[2019-08-01 09:19] LABS: Bicarbonate Venous 26.6 mmol/L (24.0-30.0); PCO2 Venous 44.2 mmHg (38-42); PO2 Venous 130 mmHg (38-42); pH Blood Venous 7.41 (7.34-7.37)
[2019-08-01 09:21] LABS: Appearance, Urine Clear (Clear); Bilirubin, Urine Neg (Neg); Blood, Urine Neg (Neg); Color, Urine Yellow (P-Yellow); Glucose Qualitative, Urine 4+ (Neg); Ketones, Urine Neg (Neg); Leukocyte Esterase, Urine Neg (Neg); Nitrite, Urine Neg (Neg); Protein, Urine 1+ (Neg); Urobilinogen, Urine NORM (Normal); pH, Urine 6.5 (5.0-8.0)
[2019-08-01 09:42] LABS: Alanine Aminotransfer (ALT/SGP 49 U/L (12-78); Albumin, Blood 3.6 g/dL (3.4-5.0); Albumin/Globulin Ratio 1.1 (0.8-1.8); Alk Phos 103 U/L (50-136); Anion Gap 6 mmol/L (6-16); Aspartate Aminotrans (AST/SGOT 34 U/L (12-37); Bilirubin, Total 0.5 mg/dL (0.1-1.0); Blood Urea Nitrogen 20 mg/dL (8-24); Bun/Creatinine Ratio 34.9 (12.0-20.0); CO2, Blood 26 mmol/L (21-32); Calcium, Blood 8.6 mg/dL (8.5-10.1); Chloride, Blood 105 mmol/L (98-108); Creatinine, Blood 0.57 mg/dL (0.60-1.20); Globulin, Blood 3.3 g/dL (2.2-4.0); Glomerular Filtration Rate >60 (60-); Glucose, Blood 170 mg/dL (70-99); Potassium, Blood 4.1 mmol/L (3.5-5.5); Sodium, Blood 137 mmol/L (136-145); Total Protein, Blood 6.9 g/dL (6.4-8.2)
[2019-08-01] MEDS ORDERED: ONDA4ODT MM (10:02)
[2019-08-01] MEDS ORDERED: SUCR1 PO (13:35)
== END 2019-08-01 10:22 | disposition home or self-care (01) ==
LOC: ER 08:28
PROVIDERS: Emergency Medicine
DX: E10.65 Type 1 diabetes mellitus with hyperglycemia (principal); K52.9 Noninfective gastroenteritis and colitis, unspecified; Z79.899 Other long term (current) drug therapy
CPT/HCPCS: 36415; 80053; 82010; 82803; 85025; 96361; 96374; 99283-25; J2405; J7030

== ENCOUNTER 2019-08-01 12:56 | Emergency (ER) | payer BC, OTHER ==
[~2019-08-01] VITALS: Ht 177.8 cm; Wt 70.3 kg
[2019-08-01] MEDS ORDERED: SUCR1 PO (13:35)
== END 2019-08-01 13:40 | disposition home or self-care (01) ==
LOC: ER 12:56
DX: K20.9 Esophagitis, unspecified (principal); E11.9 Type 2 diabetes mellitus without complications; Z79.899 Other long term (current) drug therapy; Z79.4 Long term (current) use of insulin
CPT/HCPCS: 99283

== ENCOUNTER 2019-08-13 06:07 | Emergency (ER) | payer BC, OTHER ==
[~2019-08-13] VITALS: Ht 177.8 cm; Wt 72.6 kg
[~2019-08-13 06:07] MED LIST changes: +SUCR1 PO
[2019-08-13 06:32] LABS: Base Excess Venous -1.4 mmol/L; Bicarbonate Venous 23.3 mmol/L (24.0-30.0); PCO2 Venous 40.8 mmHg (38-42); PO2 Venous 182 mmHg (38-42); pH Blood Venous 7.37 (7.34-7.37)
[2019-08-13 06:39] LABS: BASOPHILS ABSOLUTE AUTO 0.05 K/mm3 (0.00-0.23); BASOPHILS PERCENT AUTO 1 % (0-2); EOSINOPHILS ABSOLUTE AUTO 0.07 K/mm3 (0.00-0.68); EOSINOPHILS PERCENT AUTO 1 % (0-6); Hematocrit 47.3 % (37.0-53.0); Hemoglobin 15.5 g/dL (13.5-17.5); IMMATURE GRAN ABSOLUTE AUTO 0.03 K/mm3 (0.00-0.10); IMMATURE GRAN PERCENT AUTO 0 % (0-1); LYMPHOCYTES ABSOLUTE AUTO 2.53 K/mm3 (0.84-5.20); LYMPHOCYTES PERCENT AUTO 27 % (21-46); MONOCYTES ABSOLUTE AUTO 0.41 K/mm3 (0.16-1.47); MONOCYTES PERCENT AUTO 4 % (4-13); Mean Corpuscular HGB 29.7 pg (26.0-34.0); Mean Corpuscular HGB Conc 32.8 g/dL (31.5-36.5); Mean Corpuscular Volume 91 fL (80-100); Mean Platelet Volume 9.3 fL (9.1-12.4); NEUTROPHILS ABSOLUTE AUTO 6.19 K/mm3 (1.96-9.15); NEUTROPHILS PERCENT AUTO 67 % (41-73); Platelet Count 321 K/mm3 (150-400); RDW Coefficient Variation 11.9 % (11.7-14.2); RDW Standard Deviation 39.5 fL (35.1-46.3); Red Blood Cell Count 5.22 M/mm3 (4.30-5.90); White Blood Cell Count 9.28 K/mm3 (4.00-11.30)
[2019-08-13 06:59] LABS: Alanine Aminotransfer (ALT/SGP 62 U/L (12-78); Albumin, Blood 3.8 g/dL (3.4-5.0); Albumin/Globulin Ratio 1.1 (0.8-1.8); Anion Gap 11 mmol/L (6-16); Aspartate Aminotrans (AST/SGOT 52 U/L (12-37); Bilirubin, Total 0.4 mg/dL (0.1-1.0); Blood Urea Nitrogen 21 mg/dL (8-24); CO2, Blood 23 mmol/L (21-32); Calcium, Blood 9.2 mg/dL (8.5-10.1); Chloride, Blood 104 mmol/L (98-108); Creatinine, Blood 0.68 mg/dL (0.60-1.20); Globulin, Blood 3.5 g/dL (2.2-4.0); Glomerular Filtration Rate >60 (60-); Glucose, Blood 153 mg/dL (70-99); Potassium, Blood 4.1 mmol/L (3.5-5.5); Sodium, Blood 138 mmol/L (136-145); Total Protein, Blood 7.3 g/dL (6.4-8.2)
[2019-08-13 07:00] LABS: Alk Phos 99 U/L (50-136)
[2019-08-13] MEDS ORDERED: METO10 PO (07:41)
[2019-08-13] MEDS ORDERED: PROM25S PR (17:59)
== END 2019-08-13 08:13 | disposition home or self-care (01) ==
LOC: ER 06:07
PROVIDERS: Emergency Medicine
DX: R11.2 Nausea with vomiting, unspecified (principal); E10.9 Type 1 diabetes mellitus without complications; F90.9 Attention-deficit hyperactivity disorder, unspecified type; Z79.899 Other long term (current) drug therapy
CPT/HCPCS: 36415; 80053; 82803; 85025; 96361; 96374; 96375; 99283-25; J2405; J2765; J7030

== ENCOUNTER 2019-08-13 13:51 | Emergency (ER) | payer BC, OTHER ==
[~2019-08-13] VITALS: Ht 177.8 cm; Wt 72.6 kg
[~2019-08-13 13:51] MED LIST changes: +METO10 PO
[2019-08-13 17:09] LABS: Anion Gap 12 mmol/L (6-16); Blood Urea Nitrogen 16 mg/dL (8-24); Bun/Creatinine Ratio 27.2 (12.0-20.0); CO2, Blood 20 mmol/L (21-32); Calcium, Blood 9.1 mg/dL (8.5-10.1); Chloride, Blood 101 mmol/L (98-108); Creatinine, Blood 0.59 mg/dL (0.60-1.20); Glomerular Filtration Rate >60 (60-); Glucose, Blood 283 mg/dL (70-99); Potassium, Blood 4.3 mmol/L (3.5-5.5); Sodium, Blood 133 mmol/L (136-145)
[2019-08-13] MEDS ORDERED: PROM25S PR (17:59)
== END 2019-08-13 18:08 | disposition home or self-care (01) ==
LOC: ER 13:51
PROVIDERS: Emergency Medicine
DX: R11.15 Cyclical vomiting syndrome unrelated to migraine (principal); E10.9 Type 1 diabetes mellitus without complications; F90.9 Attention-deficit hyperactivity disorder, unspecified type; Z79.899 Other long term (current) drug therapy; Z79.4 Long term (current) use of insulin
CPT/HCPCS: 36415; 80048; 82800; 96361; 96374; 96375; 99283-25; J0780; J1200; J7030

== ENCOUNTER 2019-08-14 13:14 | Inpatient (IN) | payer BC, OTHER ==
[~2019-08-14] VITALS: Ht 177.8 cm; Wt 76.9 kg
[~2019-08-14 13:14] MED LIST changes: +PROM25S PR
[2019-08-14 14:50] LABS: Alanine Aminotransfer (ALT/SGP 60 U/L (12-78); Albumin, Blood 4.3 g/dL (3.4-5.0); Albumin/Globulin Ratio 1.2 (0.8-1.8); Alk Phos 95 U/L (50-136); Anion Gap 12 mmol/L (6-16); Aspartate Aminotrans (AST/SGOT 31 U/L (12-37); Blood Urea Nitrogen 15 mg/dL (8-24); Bun/Creatinine Ratio 21.9 (12.0-20.0); CO2, Blood 22 mmol/L (21-32); Calcium, Blood 9.5 mg/dL (8.5-10.1); Chloride, Blood 100 mmol/L (98-108); Creatinine, Blood 0.68 mg/dL (0.60-1.20); Globulin, Blood 3.6 g/dL (2.2-4.0); Glomerular Filtration Rate >60 (60-); Glucose, Blood 204 mg/dL (70-99); Potassium, Blood 3.9 mmol/L (3.5-5.5); Sodium, Blood 134 mmol/L (136-145); Total Protein, Blood 7.9 g/dL (6.4-8.2)
[2019-08-14 16:03] LABS: Base Excess Venous -1.8 mmol/L; Bicarbonate Venous 22.5 mmol/L (24.0-30.0); PCO2 Venous 46.5 mmHg (38-42); PO2 Venous 59.3 mmHg (38-42); pH Blood Venous 7.33 (7.34-7.37)
--- NOTE | 2019-08-14 18:51 | NUR ---
ER ADMIT- PT ARRIVED TO ROOM 303 VIA [place] FROM ED AT 1843. PT INDEP INTO BED. ORIENTED TO ROOM. WILL GIVE REPORT TO NIGHT RN.
[2019-08-15 00:09] LABS: U Amphetamine Screen Not Detected; U Barbituate Screen Not Detected; U Benzodiazapine Screen Not Detected; U Buprenorphine Screen Not Detected; U Cannabinoids Screen DETECTED; U Cocaine Screen Not Detected; U Methadone Screen Not Detected; U Methamphetamine Screen Not Detected; U Opiates Screen Not Detected; U Oxycodone Screen Not Detected; U Propoxyphene Screen Not Detected
--- NOTE | 2019-08-15 04:25 | NUR ---
END OF SHIFT: 1914: ARRIVED TO FLOOR JUST PRIOR TO SHIFT CHANGE PER REPORT. HE WAS ACTIVELY VOMITING AT THAT TIME. ADMISSION WAS COMPLETED AND ZOFRAN WAS GIVEN PER EMAR. PT ASKING TO GO INTO SHOWER. NOTED THAT PATIENT WAS DIAPHORETIC AND DRINKING ALOT OF ICE WATER. EDUCATED PT THAT HE SHOULD LAY OFF THE WATER TIL HE STOPS VOMITING BUT PATIENT CONTINUES TO DRINK. 2100: A POC FSBS = 414 PT GIVEN INSULIN PER EMAR. HE RECEIVED A GI COCKTAIL AND BENEDRYL WELL ADDITIONAL ZOFRAN. WE MADE HIM NPO AND HE STOPPED VOMITING. HE SLEPT FOR A WHILE. ABOUT 0330 PATIENT ASKS IF HE CAN SHOWER. AFTER SHOWERING PT STARTED TO VOMIT AGAIN AND PATIENT RECEVED REGLAN PER EMAR. 0400: PT ASKS FOR INSULIN. HE HAS CHECKED HIS OWN BLOOD SUGAR AND HE STATES IT IS 309 AND RISING. EDUCATED PATEINT THAT WE WILL RECHECK HIS CBG AFTER 5AM PT DECALRED THAT HE WAS LEAVING AND CALLED HIM MOM. HE SIGNED AMA PAPERS AND LEFT THE FLOOR. SEVERAL MOMENTS LATER HE RETURNED STATING THAT HIS MOM HAD FORCED HIM TO COME BACK IN. WILL RECHECK CBG AT 5AM,
[2019-08-15 04:49] LABS: Hematocrit 41.1 % (37.0-53.0); Hemoglobin 13.3 g/dL (13.5-17.5); Mean Corpuscular HGB 30.4 pg (26.0-34.0); Mean Corpuscular HGB Conc 32.4 g/dL (31.5-36.5); Mean Corpuscular Volume 94 fL (80-100); Mean Platelet Volume 9.4 fL (9.1-12.4); Platelet Count 320 K/mm3 (150-400); RDW Coefficient Variation 12.2 % (11.7-14.2); RDW Standard Deviation 42.5 fL (35.1-46.3); Red Blood Cell Count 4.38 M/mm3 (4.30-5.90); White Blood Cell Count 14.79 K/mm3 (4.00-11.30)
[2019-08-15 05:13] LABS: Anion Gap 21 mmol/L (6-16); Blood Urea Nitrogen 12 mg/dL (8-24); Bun/Creatinine Ratio 14.8 (12.0-20.0); CO2, Blood 12 mmol/L (21-32); Chloride, Blood 99 mmol/L (98-108); Creatinine, Blood 0.81 mg/dL (0.60-1.20); Glomerular Filtration Rate >60 (60-); Glucose, Blood 427 mg/dL (70-99); Magnesium, Blood 1.7 mg/dL (1.6-2.4); Potassium, Blood 4.5 mmol/L (3.5-5.5); Sodium, Blood 132 mmol/L (136-145)
[2019-08-15 07:29] LABS: Glucose, Blood 474 mg/dL (70-99)
--- NOTE | 2019-08-15 07:42 | NUR ---
BLOOD GLUCOSE 474 THIS AM, GLUCOSE PREVISOULY 471 AND 12 UNITS HUMALOG GIVEN 0526 BY NIGHT RN. ANION GAP OF 21. SPOKE WITH DR PATEL WHO REPORTS GIVE HIM AN EXTRA 10 UNITS HUMALOG NOW AND GIVE SCHEDULED LONG ACTING INSULIN.
[2019-08-15 08:26] LABS: Base Excess Venous -23.5 mmol/L; Bicarbonate Venous 9.4 mmol/L (24.0-30.0); PCO2 Venous 22.7 mmHg (38-42); PO2 Venous 83.7 mmHg (38-42)
[2019-08-15 08:27] LABS: pH Blood Venous 7.07 (7.34-7.37)
--- NOTE | 2019-08-15 08:35 | NUR ---
REPORT CALLED TO KAVITHA IN ICU. PT TRANSFERED TO ICU 9 AT 0828 VIA W/C. PT NOTIFIED FAMILY.
--- NOTE | 2019-08-15 09:23 | NUR ---
ARRIVAL TO ICU 0830 - PT ARRIVED TO ICU FROM MEDICAL FLOOR AT THIS TIME. NAUSEA CONTROLLED. PT A/O X 3, CALM AND COOPERATIVE. INSULIN GTT AND MIV WITH K STARTED AT PT ARRIVAL. TEMP 98.0. [place], HR 100-115. ANBX INFUSING. WILL MONITOR AND TITRATE INSULIN GTT ABLE.
[2019-08-15 09:51] LABS: Magnesium, Blood 1.9 mg/dL (1.6-2.4)
[2019-08-15 10:09] LABS: Base Excess Venous -22.9 mmol/L; Bicarbonate Venous 9.9 mmol/L (24.0-30.0); PO2 Venous 87.5 mmHg (38-42); pH Blood Venous 7.15 (7.34-7.37)
[2019-08-15 10:12] LABS: Anion Gap 27 mmol/L (6-16); Blood Urea Nitrogen 15 mg/dL (8-24); Bun/Creatinine Ratio 16.8 (12.0-20.0); CO2, Blood 7 mmol/L (21-32); Chloride, Blood 99 mmol/L (98-108); Glomerular Filtration Rate >60 (60-); Glucose, Blood 470 mg/dL (70-99); Phosphorus, Blood 3.8 mg/dL (2.5-4.9); Potassium, Blood 4.9 mmol/L (3.5-5.5); Sodium, Blood 133 mmol/L (136-145)
[2019-08-15 10:52] LABS: Anion Gap 23 mmol/L (6-16); Blood Urea Nitrogen 14 mg/dL (8-24); Bun/Creatinine Ratio 15.9 (12.0-20.0); CO2, Blood 7 mmol/L (21-32); Calcium, Blood 8.2 mg/dL (8.5-10.1); Chloride, Blood 106 mmol/L (98-108); Creatinine, Blood 0.88 mg/dL (0.60-1.20); Glomerular Filtration Rate >60 (60-); Glucose, Blood 283 mg/dL (70-99); Potassium, Blood 4.5 mmol/L (3.5-5.5); Sodium, Blood 136 mmol/L (136-145)
--- NOTE | 2019-08-15 12:38 | NUR ---
REASSESSMENT D5 1/2 NS STARTED AT 150 ML/HR. INSULIN GTT AT 0.5 UNITS/HR. PT COMPLAING OF NAUSEA. ZOFRAN AND PHENERGAN IVP GIVEN AND PT NOW SLEEPING. RESPIRATORY PANEL AND BLOOD CULTURES OBTAINED; BOTH PENDING. MOM AT BEDSIDE AND UPDATED. REMAINS SINUSTACH. TEMP 99.0. NS WITH K INFUSING WELL D5 1/2 NS. WILL CONTINUE TO MONITOR.
[2019-08-15 12:48] LABS: Anion Gap 17 mmol/L (6-16); Blood Urea Nitrogen 13 mg/dL (8-24); Bun/Creatinine Ratio 15.2 (12.0-20.0); CO2, Blood 11 mmol/L (21-32); Chloride, Blood 107 mmol/L (98-108); Creatinine, Blood 0.86 mg/dL (0.60-1.20); Glomerular Filtration Rate >60 (60-); Glucose, Blood 199 mg/dL (70-99); Potassium, Blood 4.4 mmol/L (3.5-5.5); Sodium, Blood 135 mmol/L (136-145)
[2019-08-15 13:22] LABS: Adenovirus Not Detected (NOT DETECT); Bordetella pertussis Not Detected (NOT DETECT); Chlamydophila pneumoniae Not Detected (NOT DETECT); Coronavirus 229E Not Detected (NOT DETECT); Coronavirus HKU1 Not Detected (NOT DETECT); Coronavirus NL63 Not Detected (NOT DETECT); Coronavirus OC43 Not Detected (NOT DETECT); Human Metapneumovirus Not Detected (NOT DETECT); Human Rhinovirus/Enterovirus Not Detected (NOT DETECT); Influenza A Not Detected (NOT DETECT); Influenza A/2009-H1 Not Detected (NOT DETECT); Influenza A/H1 Not Detected (NOT DETECT); Influenza A/H3 Not Detected (NOT DETECT); Influenza B Not Detected (NOT DETECT); Mycoplasma pneumoniae Not Detected (NOT DETECT); Parainfluenza Virus 1 Not Detected (NOT DETECT); Parainfluenza Virus 2 Not Detected (NOT DETECT); Parainfluenza Virus 3 Not Detected (NOT DETECT); Parainfluenza Virus 4 Not Detected (NOT DETECT); Respiratory Syncytial Virus Not Detected (NOT DETECT)
[2019-08-15 13:57] LABS: Source, Urine Voided
[2019-08-15 14:06] LABS: Bilirubin, Urine Neg (Neg); Blood, Urine Neg (Neg); Glucose Qualitative, Urine 4+ (Neg); Ketones, Urine 4+ (Neg); Leukocyte Esterase, Urine Neg (Neg); Nitrite, Urine Neg (Neg); Protein, Urine Neg (Neg); Specific Gravity, Urine 1.025 (1.003-1.022); Urobilinogen, Urine NORM (Normal)
[2019-08-15 14:43] LABS: Appearance, Urine Clear (Clear); Color, Urine Yellow (P-Yellow)
[2019-08-15 16:30] LABS: Anion Gap 14 mmol/L (6-16); Blood Urea Nitrogen 9 mg/dL (8-24); Bun/Creatinine Ratio 12.1 (12.0-20.0); CO2, Blood 15 mmol/L (21-32); Calcium, Blood 7.8 mg/dL (8.5-10.1); Chloride, Blood 105 mmol/L (98-108); Creatinine, Blood 0.74 mg/dL (0.60-1.20); Glomerular Filtration Rate >60 (60-); Glucose, Blood 239 mg/dL (70-99); Potassium, Blood 4.2 mmol/L (3.5-5.5); Sodium, Blood 134 mmol/L (136-145)
--- NOTE | 2019-08-15 18:03 | NUR ---
SHIFT SUMMARY PT ARRIVED FROM MEDICAL FLOOR AT 0830 TODAY. HAS BEEN ON INSULIN GTT SINCE ARRIVAL. GAP DECREASING; LABS SLOWLY IMPROVING. PT HAS BEEN NAUSEATED OFF/ON DURING SHIFT; RECEIVED PHENERGAN, ZOFRAN, AND COMPAZINE. D5 1/S NS INFUSING AT 150 ML/HR AND NS WITH KCL INFUSING AT 200 ML/HR PER ORDERS. CURRENTLY IN NSR, HR 90S AND BP WNL. LOW GRADE TEMP THROUGHOUT SHIFT; 99.2. WILL GIVE BEDSIDE, HANDOFF REPORT TO NOC RN.
[2019-08-15 20:08] LABS: Base Excess Venous -7.7 mmol/L; PCO2 Venous 32.1 mmHg (38-42); PO2 Venous 176 mmHg (38-42); pH Blood Venous 7.35 (7.34-7.37)
--- NOTE | 2019-08-15 20:25 | NUR ---
ASSUMED CARE OF PATIENT AT 1900. BEDSIDE REPORT GIVEN, I-TRACE PERFORMED, DOUBLE CHECK OF INSULIN GTT PERFORMED. PT AFFECT IS FLAT/WITHDRAWN. RESPONSES ARE ONE WORD OR SHORT STATEMENT. PT NOT ENGAGING. MOTHER, STEP FATHER, AUNT JOINED IN ROOM AFTER REPORT, MINI REPORT GIVEN TO FAMILY. MOTHER STATES ANGER AT SITUATION LEADING TO PT BEING IN ICU, AND STATES WILL FILE COMPLAINT. THERAPEUTIC LISTENING PERFORMED WITH FAMILY, GIVING SPACE TO VENT.
[2019-08-15 20:34] LABS: Anion Gap 10 mmol/L (6-16); Blood Urea Nitrogen 8 mg/dL (8-24); Bun/Creatinine Ratio 10.8 (12.0-20.0); CO2, Blood 19 mmol/L (21-32); Calcium, Blood 7.9 mg/dL (8.5-10.1); Chloride, Blood 108 mmol/L (98-108); Creatinine, Blood 0.74 mg/dL (0.60-1.20); Glomerular Filtration Rate >60 (60-); Glucose, Blood 187 mg/dL (70-99); Phosphorus, Blood 1.6 mg/dL (2.5-4.9); Potassium, Blood 3.9 mmol/L (3.5-5.5); Sodium, Blood 137 mmol/L (136-145)
--- NOTE | 2019-08-15 23:07 | NUR ---
REPORTED LAB VALUES TO DR. BECK, RECEIVED ORDERS TO TRANSITION OFF INSULIN GTT, WITH CHANGE OF FLUIDS AND INSULIN. PT HAS HAD MUSCLE PAIN, TYLENOL GIVEN WITH SOME RELIEF. PT IMMEDIATELY HAD NAUSEA, COMPAZINE GIVEN TO GOOD EFFECT, BUT PT IS DROWSY. PT STILL DESIRES TO AMBULATE WHEN MORE AWAKE, AND THEN TAKE SHOWER. WILL FOLLOW UP.
[2019-08-16 00:47] LABS: Anion Gap 8 mmol/L (6-16); Blood Urea Nitrogen 8 mg/dL (8-24); Bun/Creatinine Ratio 10.7 (12.0-20.0); CO2, Blood 21 mmol/L (21-32); Calcium, Blood 7.9 mg/dL (8.5-10.1); Chloride, Blood 107 mmol/L (98-108); Creatinine, Blood 0.75 mg/dL (0.60-1.20); Glomerular Filtration Rate >60 (60-); Glucose, Blood 191 mg/dL (70-99); Potassium, Blood 3.9 mmol/L (3.5-5.5); Sodium, Blood 136 mmol/L (136-145)
[2019-08-16 03:31] LABS: BASOPHILS ABSOLUTE AUTO 0.02 K/mm3 (0.00-0.23); BASOPHILS PERCENT AUTO 0 % (0-2); EOSINOPHILS ABSOLUTE AUTO 0.01 K/mm3 (0.00-0.68); EOSINOPHILS PERCENT AUTO 0 % (0-6); Hematocrit 37.8 % (37.0-53.0); Hemoglobin 12.6 g/dL (13.5-17.5); IMMATURE GRAN ABSOLUTE AUTO 0.04 K/mm3 (0.00-0.10); IMMATURE GRAN PERCENT AUTO 0 % (0-1); LYMPHOCYTES ABSOLUTE AUTO 2.24 K/mm3 (0.84-5.20); LYMPHOCYTES PERCENT AUTO 20 % (21-46); MONOCYTES PERCENT AUTO 6 % (4-13); Mean Corpuscular HGB 30.8 pg (26.0-34.0); Mean Corpuscular HGB Conc 33.3 g/dL (31.5-36.5); Mean Corpuscular Volume 92 fL (80-100); Mean Platelet Volume 8.7 fL (9.1-12.4); NEUTROPHILS ABSOLUTE AUTO 8.13 K/mm3 (1.96-9.15); NEUTROPHILS PERCENT AUTO 73 % (41-73); Platelet Count 273 K/mm3 (150-400); RDW Coefficient Variation 12.3 % (11.7-14.2); RDW Standard Deviation 42.1 fL (35.1-46.3); Red Blood Cell Count 4.09 M/mm3 (4.30-5.90); White Blood Cell Count 11.14 K/mm3 (4.00-11.30)
[2019-08-16 03:50] LABS: Magnesium, Blood 1.7 mg/dL (1.6-2.4)
[2019-08-16 03:52] LABS: Alanine Aminotransfer (ALT/SGP 44 U/L (12-78); Albumin, Blood 3.1 g/dL (3.4-5.0); Albumin/Globulin Ratio 1.1 (0.8-1.8); Alk Phos 71 U/L (50-136); Anion Gap 7 mmol/L (6-16); Aspartate Aminotrans (AST/SGOT 28 U/L (12-37); Blood Urea Nitrogen 7 mg/dL (8-24); CO2, Blood 23 mmol/L (21-32); Calcium, Blood 8.3 mg/dL (8.5-10.1); Chloride, Blood 106 mmol/L (98-108); Globulin, Blood 2.8 g/dL (2.2-4.0); Glomerular Filtration Rate >60 (60-); Glucose, Blood 191 mg/dL (70-99); Potassium, Blood 3.6 mmol/L (3.5-5.5); Sodium, Blood 136 mmol/L (136-145); Total Protein, Blood 5.9 g/dL (6.4-8.2)
--- NOTE | 2019-08-16 07:00 | NUR ---
BEDSIDE REPORT WITH NOC RN. ASSUMED PT CARE.
--- NOTE | 2019-08-16 07:48 | NUR ---
PT MEDICATED WITH INSULIN AND CARAFATE PER EMAR. COMPAZINE PROVIDED FOR A COMPLAINT OF NAUSEA. ASSESSMENT CHARTED. PT UP TO COMMODE, JEFF WNL.
--- NOTE | 2019-08-16 08:50 | NUR ---
PT SLEEPING, RESP EVEN AND NON LABORED. SPOKE WITH MOTHER ON PHONE AND UPDATED HER ON PT THIS AM.
--- NOTE | 2019-08-16 09:14 | NUR ---
ISTRATE TO ROOM. PLAN TO TX IN HOUSE. RE-EVAL FOR DC TMRW.
--- NOTE | 2019-08-16 09:25 | NUR ---
PT MEDICATED WITH SCHED LISINOPRIL, LEVAQUIN STARTED. DR PATEL AT [facility]. PT STATES HE FEELS "LIKE A 100 BUCKS" LABS WNL. PT NAUSEA IMPROVED. STILL NO APPETITE. TOLERATES PO MEDS WELL. PLAN FOR DC WHEN MOTHER GETS HERE. PT AGREEABLE.
[2019-08-16] MEDS ORDERED: Humalog100 UNIT/3 SC (09:29)
[2019-08-16] MEDS ORDERED: ACET325 PO (09:30)
[2019-08-16] MEDS ORDERED: LEVO750 PO (09:31)
[2019-08-16] MEDS ORDERED: ONDA4ODT MM (09:31)
[2019-08-16] MEDS ORDERED: Pantoprazole So20 MG PO (09:32)
[2019-08-16] MEDS ORDERED: PROC25S PR (09:33)
[2019-08-16] MEDS ORDERED: PROM25S PR (09:34)
[2019-08-16] MEDS ORDERED: SUCR1 PO (09:34)
[2019-08-16] MEDS ORDERED: Florastor250 MG PO (09:35)
--- NOTE | 2019-08-16 11:00 | NUR ---
PT DC HOME WITH MOM. ALERT AND ORIENTED. UNDERSTANDS INSTRUCTIONS AND F/U INFO. ALL IVS REMOVED, ALL BELONGINGS SENT HOME.
== END 2019-08-16 11:00 | disposition home or self-care (01) | DRG 640 ==
LOC: ER 13:14 → MEDS 13:15 → ICUW 08-15 08:38
PROVIDERS: Family Medicine; Physician Assistant; ADMIT Internal Medicine
DX: E86.0 Dehydration (principal); E10.10 Type 1 diabetes mellitus with ketoacidosis without coma; E87.1 Hypo-osmolality and hyponatremia; R11.15 Cyclical vomiting syndrome unrelated to migraine; F12.10 Cannabis abuse, uncomplicated
CPT/HCPCS: 0099U; 36415; 71045; 80048; 80053; 81003; 82010; 82803; 82947; 83036; 83735; 84100; 84145; 85025; 85027; 93005; 93010; 96361; 96372; 96374; 96375; 96376; 99285-25; A9270; A9270-GY; C9113; G0378; J0780; J1200; J1650; J1815; J1956; J2405; J2550; J3480; J7030; J7042

== ENCOUNTER 2019-10-06 13:37 | Emergency (ER) | payer BC, OTHER ==
[~2019-10-06] VITALS: Ht 175.3 cm; Wt 70.3 kg
[~2019-10-06 13:37] MED LIST changes: +Florastor250 MG PO; +Humalog100 UNIT/3 SC; +LEVO750 PO; +PROC25S PR; +Pantoprazole So20 MG PO
[2019-10-06 15:37] LABS: BASOPHILS ABSOLUTE AUTO 0.02 K/mm3 (0.00-0.23); BASOPHILS PERCENT AUTO 0 % (0-2); EOSINOPHILS ABSOLUTE AUTO 0.01 K/mm3 (0.00-0.68); EOSINOPHILS PERCENT AUTO 0 % (0-6); Hematocrit 43.3 % (37.0-53.0); Hemoglobin 14.5 g/dL (13.5-17.5); IMMATURE GRAN ABSOLUTE AUTO 0.02 K/mm3 (0.00-0.10); IMMATURE GRAN PERCENT AUTO 0 % (0-1); LYMPHOCYTES ABSOLUTE AUTO 1.93 K/mm3 (0.84-5.20); LYMPHOCYTES PERCENT AUTO 22 % (21-46); MONOCYTES ABSOLUTE AUTO 0.45 K/mm3 (0.16-1.47); MONOCYTES PERCENT AUTO 5 % (4-13); Mean Corpuscular HGB 30.8 pg (26.0-34.0); Mean Corpuscular HGB Conc 33.5 g/dL (31.5-36.5); Mean Corpuscular Volume 92 fL (80-100); NEUTROPHILS ABSOLUTE AUTO 6.41 K/mm3 (1.96-9.15); NEUTROPHILS PERCENT AUTO 73 % (41-73); Platelet Count 333 K/mm3 (150-400); RDW Coefficient Variation 12.5 % (11.7-14.2); RDW Standard Deviation 42.5 fL (35.1-46.3); Red Blood Cell Count 4.71 M/mm3 (4.30-5.90); White Blood Cell Count 8.84 K/mm3 (4.00-11.30)
[2019-10-06 15:57] LABS: Alanine Aminotransfer (ALT/SGP 62 U/L (12-78); Albumin, Blood 3.4 g/dL (3.4-5.0); Alk Phos 102 U/L (50-136); Anion Gap 10 mmol/L (6-16); Aspartate Aminotrans (AST/SGOT 46 U/L (12-37); Beta-hydroxybutyrate 43.4 mg/dL (0.2-2.8); Bilirubin, Total 1.1 mg/dL (0.1-1.0); Blood Urea Nitrogen 11 mg/dL (8-24); Bun/Creatinine Ratio 16.9 (12.0-20.0); CO2, Blood 23 mmol/L (21-32); Calcium, Blood 8.8 mg/dL (8.5-10.1); Chloride, Blood 100 mmol/L (98-108); Creatinine, Blood 0.65 mg/dL (0.60-1.20); Globulin, Blood 3.3 g/dL (2.2-4.0); Glomerular Filtration Rate >60 (60-); Glucose, Blood 124 mg/dL (70-99); Potassium, Blood 3.8 mmol/L (3.5-5.5); Sodium, Blood 133 mmol/L (136-145); Total Protein, Blood 6.7 g/dL (6.4-8.2)
[2019-10-06 16:04] LABS: Base Excess Venous -2.8 mmol/L; PCO2 Venous 40.3 mmHg (38-42); PO2 Venous 51.4 mmHg (38-42); pH Blood Venous 7.36 (7.34-7.37)
== END 2019-10-06 16:49 | disposition home or self-care (01) ==
LOC: ER 13:37
PROVIDERS: Physician Assistant
DX: E11.10 Type 2 diabetes mellitus with ketoacidosis without coma (principal); F90.9 Attention-deficit hyperactivity disorder, unspecified type; Z79.4 Long term (current) use of insulin; Z79.899 Other long term (current) drug therapy
CPT/HCPCS: 36415; 80053; 82010; 82803; 82947; 85025; 93005; 93010; 96360; 99284-25; J7030

== ENCOUNTER 2019-11-15 19:05 | Emergency (ER) | payer BC, OTHER ==
[~2019-11-15 19:05] MED LIST changes: -BASAGLAR K100 UNIT/1 SC; +FAMO20 PO; -Humalog100 UNIT/3 SC; -LISI5 PO
[2019-11-15 19:52] LABS: BASOPHILS ABSOLUTE AUTO 0.03 K/mm3 (0.00-0.23); BASOPHILS PERCENT AUTO 0 % (0-2); EOSINOPHILS ABSOLUTE AUTO 0.01 K/mm3 (0.00-0.68); EOSINOPHILS PERCENT AUTO 0 % (0-6); Hematocrit 47.2 % (37.0-53.0); Hemoglobin 15.5 g/dL (13.5-17.5); IMMATURE GRAN ABSOLUTE AUTO 0.06 K/mm3 (0.00-0.10); IMMATURE GRAN PERCENT AUTO 1 % (0-1); LYMPHOCYTES ABSOLUTE AUTO 2.35 K/mm3 (0.84-5.20); LYMPHOCYTES PERCENT AUTO 18 % (21-46); MONOCYTES ABSOLUTE AUTO 0.74 K/mm3 (0.16-1.47); MONOCYTES PERCENT AUTO 6 % (4-13); Mean Corpuscular HGB 30.6 pg (26.0-34.0); Mean Corpuscular HGB Conc 32.8 g/dL (31.5-36.5); Mean Corpuscular Volume 93 fL (80-100); Mean Platelet Volume 9.3 fL (9.1-12.4); NEUTROPHILS ABSOLUTE AUTO 9.57 K/mm3 (1.96-9.15); NEUTROPHILS PERCENT AUTO 75 % (41-73); Platelet Count 381 K/mm3 (150-400); RDW Coefficient Variation 13.1 % (11.7-14.2); RDW Standard Deviation 44.9 fL (35.1-46.3); Red Blood Cell Count 5.07 M/mm3 (4.30-5.90); White Blood Cell Count 12.76 K/mm3 (4.00-11.30)
[2019-11-15 20:11] LABS: Alanine Aminotransfer (ALT/SGP 57 U/L (12-78); Albumin, Blood 3.7 g/dL (3.4-5.0); Alk Phos 108 U/L (50-136); Anion Gap 14 mmol/L (6-16); Aspartate Aminotrans (AST/SGOT 49 U/L (12-37); Bilirubin, Total 1.6 mg/dL (0.1-1.0); Blood Urea Nitrogen 11 mg/dL (8-24); Bun/Creatinine Ratio 16.2 (12.0-20.0); CO2, Blood 26 mmol/L (21-32); Calcium, Blood 9.3 mg/dL (8.5-10.1); Chloride, Blood 95 mmol/L (98-108); Creatinine, Blood 0.68 mg/dL (0.60-1.20); Globulin, Blood 3.6 g/dL (2.2-4.0); Glomerular Filtration Rate >60 (60-); Glucose, Blood 232 mg/dL (70-99); Sodium, Blood 135 mmol/L (136-145); Total Protein, Blood 7.3 g/dL (6.4-8.2)
[2019-11-15] MEDS ORDERED: ONDA4ODT MM (20:56)
== END 2019-11-15 22:25 | disposition home or self-care (01) ==
PROVIDERS: Emergency Medicine
DX: E10.65 Type 1 diabetes mellitus with hyperglycemia (principal); Z79.899 Other long term (current) drug therapy

== ENCOUNTER 2019-11-18 10:04 | Inpatient (IN) | payer BC, OTHER ==
[~2019-11-18] VITALS: Ht 175.3 cm; Wt 62.8 kg
[2019-11-18 10:30] LABS: Base Excess Venous -16.2 mmol/L; Bicarbonate Venous 14.1 mmol/L (24.0-30.0); PCO2 Venous 23 mmHg (38-42); PO2 Venous 136 mmHg (38-42); pH Blood Venous 7.28 (7.34-7.37)
[2019-11-18 10:31] LABS: BASOPHILS ABSOLUTE AUTO 0.03 K/mm3 (0.00-0.23); BASOPHILS PERCENT AUTO 0 % (0-2); EOSINOPHILS ABSOLUTE AUTO 0.01 K/mm3 (0.00-0.68); EOSINOPHILS PERCENT AUTO 0 % (0-6); Hematocrit 46.9 % (37.0-53.0); Hemoglobin 15.4 g/dL (13.5-17.5); IMMATURE GRAN ABSOLUTE AUTO 0.13 K/mm3 (0.00-0.10); IMMATURE GRAN PERCENT AUTO 1 % (0-1); LYMPHOCYTES ABSOLUTE AUTO 2.75 K/mm3 (0.84-5.20); LYMPHOCYTES PERCENT AUTO 20 % (21-46); MONOCYTES ABSOLUTE AUTO 0.65 K/mm3 (0.16-1.47); MONOCYTES PERCENT AUTO 5 % (4-13); Mean Corpuscular HGB 30.8 pg (26.0-34.0); Mean Corpuscular HGB Conc 32.8 g/dL (31.5-36.5); Mean Corpuscular Volume 94 fL (80-100); Mean Platelet Volume 8.8 fL (9.1-12.4); NEUTROPHILS ABSOLUTE AUTO 10.51 K/mm3 (1.96-9.15); NEUTROPHILS PERCENT AUTO 75 % (41-73); Platelet Count 373 K/mm3 (150-400); RDW Coefficient Variation 12.5 % (11.7-14.2); RDW Standard Deviation 43.6 fL (35.1-46.3); White Blood Cell Count 14.08 K/mm3 (4.00-11.30)
[2019-11-18 10:47] LABS: Alanine Aminotransfer (ALT/SGP 59 U/L (12-78); Albumin, Blood 3.6 g/dL (3.4-5.0); Alk Phos 128 U/L (50-136); Anion Gap 24 mmol/L (6-16); Aspartate Aminotrans (AST/SGOT 67 U/L (12-37); Bilirubin, Total 1.1 mg/dL (0.1-1.0); Blood Urea Nitrogen 9 mg/dL (8-24); Bun/Creatinine Ratio 12.5 (12.0-20.0); CO2, Blood 12 mmol/L (21-32); Calcium, Blood 8.7 mg/dL (8.5-10.1); Chloride, Blood 93 mmol/L (98-108); Creatinine, Blood 0.72 mg/dL (0.60-1.20); Globulin, Blood 3.6 g/dL (2.2-4.0); Glomerular Filtration Rate >60 (60-); Glucose, Blood 298 mg/dL (70-99); Potassium, Blood 4.3 mmol/L (3.5-5.5); Sodium, Blood 129 mmol/L (136-145); Total Protein, Blood 7.2 g/dL (6.4-8.2)
[2019-11-18] MEDS ORDERED: BASAGLAR K100 UNIT/1 SC (12:31)
[2019-11-18] MEDS ORDERED: Lisinopril2.5 MG PO (12:31)
[2019-11-18] MEDS ORDERED: ONDA4ODT SL (12:32)
[2019-11-18] MEDS ORDERED: NOVOLOG100 UNIT/1 SC (12:33)
[2019-11-18] MEDS ORDERED: Metoclopramide10 MG PO (12:34)
--- NOTE | 2019-11-18 12:52 | NUR ---
ARRIVAL TO UNIT PT. ARRIVES TO ICU AT THIS TIME. ABLE TO STAND AND TRANSFER SELF TO BED. PT. VSS UPON ARRIVAL. PT REPORTS "BOXER FRACTURE" TO RIGHT ARM, SOFT CAST IN PLACE. FINGERS WARM DISTAL WITH GOOD CAP REFILL. PT. REPORTS N/V X5 DAYS. INSULIN GTT STARTED AT 1U/HR AND D5 1/2NS STARTED AT 200ML/HR PER DR. ORDER. PT REPORTS PAIN OF 3/10 STOMACH PAIN AT THIS TIME. CALL LIGHT IN REACH, BED IN LOW POSITION.
--- NOTE | 2019-11-18 14:00 | NUR ---
PT REMAINS DROWSY SINCE ARRIVAL. ICE CHIPS PROVIDED, NO FURTHER NAUSEA OR VOMITING SINCE ARRIVAL. PT REMAINS ON 1U INSULIN GTT AND D5 1/2NS
[2019-11-18 14:34] LABS: Anion Gap 12 mmol/L (6-16); Blood Urea Nitrogen 8 mg/dL (8-24); Bun/Creatinine Ratio 11.6 (12.0-20.0); CO2, Blood 20 mmol/L (21-32); Calcium, Blood 7.6 mg/dL (8.5-10.1); Chloride, Blood 102 mmol/L (98-108); Creatinine, Blood 0.69 mg/dL (0.60-1.20); Glomerular Filtration Rate >60 (60-); Glucose, Blood 129 mg/dL (70-99); Potassium, Blood 3.7 mmol/L (3.5-5.5); Sodium, Blood 134 mmol/L (136-145)
--- NOTE | 2019-11-18 17:07 | NUR ---
PT. MARKETING COMMUNICATIONS ASSISTANT FROM [facility] CALLED FOR AN UPDATE PT. APPROVED FOR HER TO BE UPDATED. CONCERNS REGARDING PT SOCIAL BEHAVIOR AND NEED FOR SWIMMING POOL MAINTENANCE SUPERVISOR FOR GUIDENCE ON FOOD ONCE DISCHARGED.
--- NOTE | 2019-11-18 18:01 | NUR ---
SHIFT SUMMARY PT. REMAINS VERY DROWSY AND WITHDRAWN SINCE ARRIVAL TO ICU. PT. VSS. INSULIN GTT AND D5 1/2 NS CONTINUE TO INFUSE. PLAN FOR DRIPS TO CONTINUE T/O THE NIGHT AND TRANSITION TOMORROW. PER DR. BROWN SLIDING SCALE COVERAGE ORDERED IF PT WANTS TO EAT THIS EVENING. PT STILL HAS NOT VOIDED AND REPORTS HE DOES NOT HAVE TO, DRTonya AWARE, IF NEEDED BLADDER SCAN CAN BE DONE THIS PM. PT. AFEBRILE. NO ACUTE CHANGES. BG STABLE. REPORT TO ONCOMING RN.
--- NOTE | 2019-11-18 19:48 | NUR ---
ASSESSMENT/ASSUMED CARE PT SLEEPING, AWAKENS EASILY. DENIES PAIN OR DISCOMFORT. LUNGS CLEAR ON ROOMAIR. RESP EVEN AND NONLAOBORED. HEART RATE REGULAR. BT+ HYPERACTIVE. C/O NAUSEA, MED WITH REGLAN. RIGHT ARM WITH SPLINT AND RODOLFO WRAP DUE TO FX. CAP REFILL BRISK. IV 20G RIGHT AC WITH D5 1/2 NS AT 200 ML/HR, SITE CLEAR. IV 20G TO LEFT FOREARM WITH INSULIN GTT CURRENTLY AT 1 UUNIT/HR, SITE CLEAR. PT MOVING SELF AROUND IN BED.
[2019-11-18 19:52] LABS: U Amphetamine Screen Not Detected; U Barbituate Screen Not Detected; U Cannabinoids Screen DETECTED; U Methamphetamine Screen Not Detected
[2019-11-18 19:53] LABS: U Benzodiazapine Screen Not Detected; U Buprenorphine Screen Not Detected; U Cocaine Screen Not Detected; U Methadone Screen Not Detected; U Opiates Screen Not Detected; U Oxycodone Screen Not Detected; U Phencyclidine Screen Not Detected; U Propoxyphene Screen Not Detected
[2019-11-18 20:43] LABS: Anion Gap 10 mmol/L (6-16); Blood Urea Nitrogen 7 mg/dL (8-24); CO2, Blood 23 mmol/L (21-32); Chloride, Blood 100 mmol/L (98-108); Glomerular Filtration Rate >60 (60-); Glucose, Blood 151 mg/dL (70-99); Potassium, Blood 3.5 mmol/L (3.5-5.5); Sodium, Blood 133 mmol/L (136-145)
[2019-11-18 20:55] LABS: Source, Urine Clean Catch
[2019-11-18 20:59] LABS: Bilirubin, Urine Neg (Neg); Blood, Urine Neg (Neg); Glucose Qualitative, Urine 4+ (Neg); Ketones, Urine 4+ (Neg); Leukocyte Esterase, Urine Neg (Neg); Nitrite, Urine Neg (Neg); Protein, Urine Neg (Neg); Specific Gravity, Urine 1.015 (1.003-1.022); Urobilinogen, Urine NORM (Normal)
[2019-11-18 21:02] LABS: Appearance, Urine Clear (Clear); Color, Urine Yellow (P-Yellow)
--- NOTE | 2019-11-19 03:30 | NUR ---
PT UP TO VOID. BACK TO BED. C/O "HEARTBURN" CALL OUT TO DR ZAMUDIO.
[2019-11-19 04:04] LABS: Anion Gap 5 mmol/L (6-16); Blood Urea Nitrogen 4 mg/dL (8-24); Bun/Creatinine Ratio 7.3 (12.0-20.0); CO2, Blood 28 mmol/L (21-32); Calcium, Blood 7.8 mg/dL (8.5-10.1); Chloride, Blood 102 mmol/L (98-108); Creatinine, Blood 0.55 mg/dL (0.60-1.20); Glomerular Filtration Rate >60 (60-); Glucose, Blood 149 mg/dL (70-99); Sodium, Blood 135 mmol/L (136-145)
--- NOTE | 2019-11-19 05:19 | NUR ---
LAB POTASSIUM 3.0, RECEIVED ORDER FOR KCL 40 MEQ IV TIMES ONE
--- NOTE | 2019-11-19 05:50 | NUR ---
SHIFT SUMMARY PT SLEPT MOST OF THE NIGHT. TURNING AND MOVING SELF IN BED. STANDING UP TO VOID. SAT UP IN A CHAIR FOR AWHILE WATCHING TV. D5 1/2 AT 200 ML/HR CONT DUE TO INSULIN GTT. INSULIN GTT TITRATED DURING THE NIGHT TO KEEP BLOOD GLUCOSE 90-150. CURRENTLY INSULIN IS AT 2 UNITS/HR. POSTASSIUM LEVEL THIS AM 3.0, KCL 40 MEQ IV INFUSING. VSS. PT MED ONCE DURING THE NIGHT FOR NAUSEA WITH REGLAN WITH GOOD RESULTS. PT C/O "HEARTBURN" THIS MORNING AND MED WITH GI COCKTAIL. REPORT TO ON COMING NURSE.
--- NOTE | 2019-11-19 09:00 | NUR ---
CARE ASSUMED CARE AND REPORT ASSUMED FROM ADRIAN FROST. PT SLEEPING BUT EASILY AWAKENS. WILL ADMINISTER NPH AND HUMALOG INSULIN AND THEN FEED HIM BREAKFAST. WILL TURN INSULIN GTT AND D5 1/2 NS OFF AFTER 1 HOUR. VSS. AFEBRILE. PT HAS FLAT AFFECT. DENIES NAUSEA AND DENIES PAIN.
--- NOTE | 2019-11-19 11:36 | NUR ---
REASSESSMENT INSULIN GTT OFF AT 1000. PT RECEIVED KCL 20 MEQ IV AND THEN KCL 40 MEQ PO WITH BREAKFAST. IS SLOWING MUNCHING ON HIS BREAKFAST; REPORTS HE USUALLY DOES NOT EAT BREAKFAST. UPDATED MOM ON PT STATUS. PT NOW MEDICAL WITH NO TELEMETRY. VS REMAIN STABLE. AFEBRILE. PT INDEPENDENT IN ROOM. DIETARY VISITED AT BEDSIDE WITH PT AND DISCUSSED CARBOHYDRATE INTAKE. HAD DISCUSSION WITH PT REGARDING THE IMPORTANCE OF A HEALTHY DIET, LIFESTYLE, AND PERSISTANT COMPLIANCE OF BLOOD SUGAR MONITORING AND INSULIN DOSAGING. PT DISPLAYS UNDERSTANDING. WILL CONTINUE TO MONITOR.
--- NOTE | 2019-11-19 14:34 | NUR ---
DISCHARGE DISCHARGE INSTRUCTIONS REVIEWED WITH PT ALONG WITH MEDICATIONS AND INSULIN REGIMEN. PT DISPLAYS UNDERSTANDING. PERIPHERL IVS REMOVED. PT WHEELED TO CAR WHERE MOM PICKED HIM UP. SCRIPTS CALLED INTO [facility] AT [facility].
== END 2019-11-19 14:30 | disposition home or self-care (01) | DRG 639 ==
LOC: ER 10:04 → ICUW 11:25
PROVIDERS: Physician Assistant; ADMIT Hospitalist
DX: E10.10 Type 1 diabetes mellitus with ketoacidosis without coma (principal); F90.9 Attention-deficit hyperactivity disorder, unspecified type; I10 Essential (primary) hypertension; D72.829 Elevated white blood cell count, unspecified; R80.9 Proteinuria, unspecified
CPT/HCPCS: 36415; 71046; 80048; 80053; 81003; 82803; 82947; 85025; 93005; 93010; 96361; 96374; 99285-25; A9270; A9270-GY; J1815; J1885; J2405; J2765; J3480; J7030; J7042

== ENCOUNTER → 2019-12-08 | Outpatient (CLI) | payer BC, OTHER ==
[~2019-12-08] MED LIST changes: +BASAGLAR K100 UNIT/1 SC; +Lisinopril2.5 MG PO; +Metoclopramide10 MG PO; +NOVOLOG100 UNIT/1 SC
[2019-12-09 20:11] LABS: CHLAMYDIA TRACHOMATIS, NAA Negative (Negative); NEISSERIA GONORRHOEAE, NAA Negative (Negative)
== END | disposition home or self-care (01) ==
LOC: LAB 16:46 → LAB SHORT 16:46
PROVIDERS: Nurse Practitioner Family
DX: R36.9 Urethral discharge, unspecified (principal); R30.0 Dysuria
CPT/HCPCS: 87086; 87491; 87591

== ENCOUNTER 2020-02-05 14:46 | Emergency (ER) | payer BC, OTHER ==
[~2020-02-05] VITALS: Ht 175.3 cm; Wt 72.6 kg
[~2020-02-05 14:46] MED LIST changes: +NOVOLOG FL100 UNIT/3 SC; -NOVOLOG100 UNIT/1 SC
[2020-02-05 15:25] LABS: BASOPHILS ABSOLUTE AUTO 0.01 K/mm3 (0.00-0.23); BASOPHILS PERCENT AUTO 0 % (0-2); EOSINOPHILS PERCENT AUTO 0 % (0-6); Hematocrit 43.4 % (37.0-53.0); Hemoglobin 14.3 g/dL (13.5-17.5); IMMATURE GRAN ABSOLUTE AUTO 0.02 K/mm3 (0.00-0.10); IMMATURE GRAN PERCENT AUTO 0 % (0-1); LYMPHOCYTES ABSOLUTE AUTO 0.89 K/mm3 (0.84-5.20); LYMPHOCYTES PERCENT AUTO 12 % (21-46); MONOCYTES ABSOLUTE AUTO 0.12 K/mm3 (0.16-1.47); MONOCYTES PERCENT AUTO 2 % (4-13); Mean Corpuscular HGB 31.6 pg (26.0-34.0); Mean Corpuscular HGB Conc 32.9 g/dL (31.5-36.5); Mean Corpuscular Volume 96 fL (80-100); Mean Platelet Volume 9.1 fL (9.1-12.4); NEUTROPHILS ABSOLUTE AUTO 6.14 K/mm3 (1.96-9.15); NEUTROPHILS PERCENT AUTO 86 % (41-73); Platelet Count 268 K/mm3 (150-400); RDW Coefficient Variation 12.3 % (11.7-14.2); RDW Standard Deviation 43.7 fL (35.1-46.3); Red Blood Cell Count 4.52 M/mm3 (4.30-5.90); White Blood Cell Count 7.18 K/mm3 (4.00-11.30)
[2020-02-05 15:42] LABS: Alanine Aminotransfer (ALT/SGP 137 U/L (12-78); Albumin, Blood 3.7 g/dL (3.4-5.0); Albumin/Globulin Ratio 1.2 (0.8-1.8); Alk Phos 112 U/L (50-136); Anion Gap 9 mmol/L (6-16); Aspartate Aminotrans (AST/SGOT 86 U/L (12-37); Bilirubin, Total 0.6 mg/dL (0.1-1.0); Blood Urea Nitrogen 14 mg/dL (8-24); Bun/Creatinine Ratio 21.7 (12.0-20.0); CO2, Blood 25 mmol/L (21-32); Calcium, Blood 8.5 mg/dL (8.5-10.1); Chloride, Blood 103 mmol/L (98-108); Creatinine, Blood 0.65 mg/dL (0.60-1.20); Globulin, Blood 3.1 g/dL (2.2-4.0); Glomerular Filtration Rate >60 (60-); Glucose, Blood 313 mg/dL (70-99); Potassium, Blood 4.3 mmol/L (3.5-5.5); Sodium, Blood 137 mmol/L (136-145); Total Protein, Blood 6.8 g/dL (6.4-8.2)
[2020-02-05 16:26] LABS: Source, Urine Clean Catch
[2020-02-05 16:32] LABS: Appearance, Urine Clear (Clear); Bilirubin, Urine Neg (Neg); Blood, Urine Neg (Neg); Color, Urine Yellow (P-Yellow); Glucose Qualitative, Urine 4+ (Neg); Ketones, Urine 4+ (Neg); Leukocyte Esterase, Urine Neg (Neg); Nitrite, Urine Neg (Neg); Protein, Urine Neg (Neg); Specific Gravity, Urine 1.015 (1.003-1.022); Urobilinogen, Urine NORM (Normal); pH, Urine 6.5 (5.0-8.0)
== END 2020-02-05 18:25 | disposition home or self-care (01) ==
LOC: ER 14:46
PROVIDERS: Emergency Medicine
DX: K52.9 Noninfective gastroenteritis and colitis, unspecified (principal); E86.0 Dehydration; E11.65 Type 2 diabetes mellitus with hyperglycemia; I10 Essential (primary) hypertension; Z79.4 Long term (current) use of insulin
CPT/HCPCS: 36415; 80053; 81003; 82947; 85025; 96361; 96374; 99284-25; J2405; J7030

== ENCOUNTER 2020-02-07 12:14 | Observation (INO) | payer BC, OTHER ==
[~2020-02-07] VITALS: Ht 175.3 cm; Wt 67.2 kg
[2020-02-07 12:50] LABS: BASOPHILS ABSOLUTE AUTO 0.02 K/mm3 (0.00-0.23); BASOPHILS PERCENT AUTO 0 % (0-2); EOSINOPHILS PERCENT AUTO 0 % (0-6); Hematocrit 49.3 % (37.0-53.0); Hemoglobin 15.9 g/dL (13.5-17.5); IMMATURE GRAN ABSOLUTE AUTO 0.06 K/mm3 (0.00-0.10); IMMATURE GRAN PERCENT AUTO 0 % (0-1); LYMPHOCYTES ABSOLUTE AUTO 2.22 K/mm3 (0.84-5.20); LYMPHOCYTES PERCENT AUTO 15 % (21-46); MONOCYTES ABSOLUTE AUTO 0.71 K/mm3 (0.16-1.47); MONOCYTES PERCENT AUTO 5 % (4-13); Mean Corpuscular HGB 31.2 pg (26.0-34.0); Mean Corpuscular HGB Conc 32.3 g/dL (31.5-36.5); Mean Corpuscular Volume 97 fL (80-100); Mean Platelet Volume 9.1 fL (9.1-12.4); NEUTROPHILS ABSOLUTE AUTO 11.67 K/mm3 (1.96-9.15); NEUTROPHILS PERCENT AUTO 80 % (41-73); Platelet Count 412 K/mm3 (150-400); RDW Coefficient Variation 12.3 % (11.7-14.2); White Blood Cell Count 14.68 K/mm3 (4.00-11.30)
[2020-02-07 12:54] LABS: Source, Urine Clean Catch
[2020-02-07 12:58] LABS: Appearance, Urine Clear (Clear); Bilirubin, Urine Neg (Neg); Blood, Urine Neg (Neg); Color, Urine Yellow (P-Yellow); Glucose Qualitative, Urine 4+ (Neg); Ketones, Urine 4+ (Neg); Leukocyte Esterase, Urine Neg (Neg); Nitrite, Urine Neg (Neg); Protein, Urine 1+ (Neg); Specific Gravity, Urine 1.025 (1.003-1.022); Urobilinogen, Urine NORM (Normal)
[2020-02-07 13:08] LABS: Base Excess Venous -10.3 mmol/L; Bicarbonate Venous 17.5 mmol/L (24.0-30.0); PCO2 Venous 29.1 mmHg (38-42); PO2 Venous 79.4 mmHg (38-42); pH Blood Venous 7.34 (7.34-7.37)
[2020-02-07 13:16] LABS: Alanine Aminotransfer (ALT/SGP 156 U/L (12-78); Albumin/Globulin Ratio 1.2 (0.8-1.8); Alk Phos 117 U/L (50-136); Anion Gap 21 mmol/L (6-16); Aspartate Aminotrans (AST/SGOT 101 U/L (12-37); Bilirubin, Total 1.5 mg/dL (0.1-1.0); Blood Urea Nitrogen 11 mg/dL (8-24); Bun/Creatinine Ratio 14.5 (12.0-20.0); CO2, Blood 16 mmol/L (21-32); Chloride, Blood 94 mmol/L (98-108); Creatinine, Blood 0.76 mg/dL (0.60-1.20); Globulin, Blood 3.4 g/dL (2.2-4.0); Glomerular Filtration Rate >60 (60-); Glucose, Blood 334 mg/dL (70-99); Potassium, Blood 3.8 mmol/L (3.5-5.5); Sodium, Blood 131 mmol/L (136-145); Total Protein, Blood 7.4 g/dL (6.4-8.2)
[2020-02-07] MEDS ORDERED: LISI5 PO ×2 (14:58)
--- NOTE | 2020-02-07 17:26 | NUR ---
NEW ER ADMIT APPROX 1600. PT IS A/O X4, PLEASANT/COOPERATIVE. STATE STOMACH CONTINUES NAUSEAOUS, PRN ZOFRAN GIVEN @ ARRIVAL TO . EMESIS BAG PROVIDED. HE STATE N/V X 2 DAYS. SCHEDULED REGLAN GIVEN. NS INFUSION @ 75 ML/HR STARTED. ICE CHIPS PROVIDED TO SOOTHE SORE THROAT. HX TYPE 1 DM, BLOOD SUGAR 111 @ THIS TIME. PT REQUEST SHOWER. IND IN ROOM. VSS.
[2020-02-07 17:39] LABS: Blood Urea Nitrogen 10 mg/dL (8-24); Bun/Creatinine Ratio 15.4 (12.0-20.0); CO2, Blood 20 mmol/L (21-32); Calcium, Blood 8.2 mg/dL (8.5-10.1); Creatinine, Blood 0.65 mg/dL (0.60-1.20); Glomerular Filtration Rate >60 (60-); Glucose, Blood 124 mg/dL (70-99)
[2020-02-07 17:52] LABS: Anion Gap 14 mmol/L (6-16); Chloride, Blood 103 mmol/L (98-108); Sodium, Blood 137 mmol/L (136-145)
--- NOTE | 2020-02-08 01:51 | NUR ---
24 year old MAle type 1 IDDM continues with poor oral intake nausae & had emisis when he did take bites of food. Statred IV protonix & has AC reglan, IVF NS at 75 ml hour. No diarrhea. Mom in & supportive. PT asking like age Peer if he can be DC home soon but unable to tolerate oral intake currently.
[2020-02-08 05:37] LABS: Hematocrit 40.1 % (37.0-53.0); Hemoglobin 13.4 g/dL (13.5-17.5); Mean Corpuscular HGB 31.7 pg (26.0-34.0); Mean Corpuscular HGB Conc 33.4 g/dL (31.5-36.5); Mean Corpuscular Volume 95 fL (80-100); Mean Platelet Volume 8.5 fL (9.1-12.4); Platelet Count 278 K/mm3 (150-400); RDW Coefficient Variation 12.5 % (11.7-14.2); RDW Standard Deviation 43.5 fL (35.1-46.3); Red Blood Cell Count 4.23 M/mm3 (4.30-5.90); White Blood Cell Count 9.16 K/mm3 (4.00-11.30)
--- NOTE | 2020-02-08 05:47 | NUR ---
PT continues unable to tolerate oral intake. PT medicated with oral zofran x 2 with minimal helpful effect. PT took 2 showers & both tomes had emisis after getting back to bed. Protonix IV given last night this am, continues on IVF.
[2020-02-08 06:08] LABS: Alanine Aminotransfer (ALT/SGP 112 U/L (12-78); Albumin, Blood 2.8 g/dL (3.4-5.0); Albumin/Globulin Ratio 1.1 (0.8-1.8); Alk Phos 85 U/L (50-136); Anion Gap 10 mmol/L (6-16); Aspartate Aminotrans (AST/SGOT 66 U/L (12-37); Bilirubin, Total 1.1 mg/dL (0.1-1.0); Blood Urea Nitrogen 9 mg/dL (8-24); Bun/Creatinine Ratio 11.2 (12.0-20.0); CO2, Blood 23 mmol/L (21-32); Calcium, Blood 7.8 mg/dL (8.5-10.1); Chloride, Blood 104 mmol/L (98-108); Globulin, Blood 2.6 g/dL (2.2-4.0); Glomerular Filtration Rate >60 (60-); Glucose, Blood 83 mg/dL (70-99); Magnesium, Blood 1.7 mg/dL (1.6-2.4); Potassium, Blood 3.6 mmol/L (3.5-5.5); Sodium, Blood 137 mmol/L (136-145); Total Protein, Blood 5.4 g/dL (6.4-8.2)
--- NOTE | 2020-02-08 08:17 | NUR ---
BLOOD SUGAR 67, PT GIVEN OJ. STATE "I'M FINE", REFUSES BF STATE NO APPETITE. STATE NO NAUSEA @ THIS TIME. ENCOURAGED HIM TO SIP OJ & EAT TO KEEP UP BLOOD SUGAR. HE IS SOMEWHAT FLAT/WITHDRAWN, STATE WANT TO GO HOME.
--- NOTE | 2020-02-08 11:27 | NUR ---
DISCHARGE PT CONTINUES TO STATE NO NAUSEA, STATE FEELING IMPROVED, READY TO GO HOME. DR BONILLA NOTIFIED, IN TO ASSESS, STATE OK TO GO HOME & F/U w PCP, APPT SCHEDULED BY [facility]. IV D/C INTACT. D/C INSTRUCT PROVIDED. PT SHOWER & DRESS, GATHER BELONGINGS. CHOOSE TO AMBULATE FROM HOSP ESCORTED BY ASSISTANT PROFESSOR OF NURSING. HIS FRIEND IS WAITING @ PT ENTRANCE FOR TRANSPORTATION HOME. PT IS PLEASANT/APPRECIATIVE.
== END 2020-02-08 11:25 | disposition home or self-care (01) ==
LOC: ER 12:14 → MEDS 12:15
PROVIDERS: Emergency Medicine; Nurse Practitioner Acute Care; Physician Assistant; ADMIT Internal Medicine
DX: E10.10 Type 1 diabetes mellitus with ketoacidosis without coma (principal); E87.1 Hypo-osmolality and hyponatremia; E86.0 Dehydration; R65.10 Systemic inflammatory response syndrome (SIRS) of non-infectious origin without acute organ dysfunction; R80.9 Proteinuria, unspecified; I10 Essential (primary) hypertension; Z79.4 Long term (current) use of insulin
CPT/HCPCS: 36415; 80048; 80053; 82803; 82947; 83690; 83735; 85025; 85027; 96361; 96372; 96374; 96375; 96376; 99285-25; A9270-GY; C9113; G0378; J1650; J2405; J7030; J7120

== ENCOUNTER 2020-02-10 09:01 | Observation (INO) | payer BC, OTHER ==
[~2020-02-10] VITALS: Ht 175.3 cm; Wt 66.0 kg
[~2020-02-10 09:01] MED LIST changes: +LISI5 PO
[2020-02-10 09:27] LABS: BASOPHILS ABSOLUTE AUTO 0.02 K/mm3 (0.00-0.23); BASOPHILS PERCENT AUTO 0 % (0-2); EOSINOPHILS ABSOLUTE AUTO 0.01 K/mm3 (0.00-0.68); EOSINOPHILS PERCENT AUTO 0 % (0-6); Hematocrit 49.9 % (37.0-53.0); Hemoglobin 16.4 g/dL (13.5-17.5); IMMATURE GRAN ABSOLUTE AUTO 0.03 K/mm3 (0.00-0.10); IMMATURE GRAN PERCENT AUTO 0 % (0-1); LYMPHOCYTES ABSOLUTE AUTO 1.67 K/mm3 (0.84-5.20); LYMPHOCYTES PERCENT AUTO 20 % (21-46); MONOCYTES ABSOLUTE AUTO 0.46 K/mm3 (0.16-1.47); MONOCYTES PERCENT AUTO 5 % (4-13); Mean Corpuscular HGB 31.2 pg (26.0-34.0); Mean Corpuscular HGB Conc 32.9 g/dL (31.5-36.5); Mean Corpuscular Volume 95 fL (80-100); Mean Platelet Volume 8.7 fL (9.1-12.4); NEUTROPHILS ABSOLUTE AUTO 6.34 K/mm3 (1.96-9.15); NEUTROPHILS PERCENT AUTO 74 % (41-73); Platelet Count 423 K/mm3 (150-400); RDW Standard Deviation 42.9 fL (35.1-46.3); Red Blood Cell Count 5.26 M/mm3 (4.30-5.90); White Blood Cell Count 8.53 K/mm3 (4.00-11.30)
[2020-02-10 09:56] LABS: Alanine Aminotransfer (ALT/SGP 134 U/L (12-78); Albumin, Blood 4.1 g/dL (3.4-5.0); Albumin/Globulin Ratio 1.1 (0.8-1.8); Alk Phos 118 U/L (50-136); Anion Gap 19 mmol/L (6-16); Aspartate Aminotrans (AST/SGOT 99 U/L (12-37); Bilirubin, Total 1.9 mg/dL (0.1-1.0); Blood Urea Nitrogen 11 mg/dL (8-24); Bun/Creatinine Ratio 14.3 (12.0-20.0); CO2, Blood 19 mmol/L (21-32); Calcium, Blood 9.3 mg/dL (8.5-10.1); Chloride, Blood 92 mmol/L (98-108); Creatinine, Blood 0.77 mg/dL (0.60-1.20); Globulin, Blood 3.7 g/dL (2.2-4.0); Glomerular Filtration Rate >60 (60-); Glucose, Blood 405 mg/dL (70-99); Potassium, Blood 4.1 mmol/L (3.5-5.5); Sodium, Blood 130 mmol/L (136-145); Total Protein, Blood 7.8 g/dL (6.4-8.2)
[2020-02-10 10:05] LABS: Beta-hydroxybutyrate 84.8 mg/dL (0.2-2.8)
[2020-02-10 11:17] LABS: Source, Urine Clean Catch
[2020-02-10 11:20] LABS: Bilirubin, Urine Neg (Neg); Blood, Urine Neg (Neg); Glucose Qualitative, Urine 4+ (Neg); Ketones, Urine 4+ (Neg); Leukocyte Esterase, Urine Neg (Neg); Nitrite, Urine Neg (Neg); Protein, Urine Neg (Neg); Specific Gravity, Urine 1.015 (1.003-1.022); Urobilinogen, Urine NORM (Normal)
[2020-02-10 11:31] LABS: U Amphetamine Screen Not Detected
[2020-02-10 11:32] LABS: U Barbituate Screen Not Detected; U Benzodiazapine Screen Not Detected; U Buprenorphine Screen Not Detected; U Cannabinoids Screen DETECTED; U Cocaine Screen Not Detected; U Methadone Screen Not Detected; U Methamphetamine Screen Not Detected; U Opiates Screen Not Detected; U Oxycodone Screen Not Detected; U Phencyclidine Screen Not Detected; U Propoxyphene Screen Not Detected
[2020-02-10 11:33] LABS: Appearance, Urine Clear (Clear); Color, Urine Yellow (P-Yellow)
[2020-02-10] MEDS ORDERED: ONDA4ODT MM (13:04)
[2020-02-10] MEDS ORDERED: METO5A PO (13:05)
--- NOTE | 2020-02-10 13:11 | NUR ---
PT ARRIVED TO UNIT FROM ED. TRANSFERRED TO BED [facility]DEPENDENTLY FROM [facility]. VSS. RR ERROR OF 24; ACTUAL RR 16. RESPIRATIONS E/U ON RA. PT HAS CBG MONITOR IN RUE. IV FLUID INFUSING W/O DIFFICULTY. MOM AT BEDSIDE. TELE PLACED; NSR PER RAQUEL.
[2020-02-10 14:57] LABS: Anion Gap 11 mmol/L (6-16); Blood Urea Nitrogen 10 mg/dL (8-24); Bun/Creatinine Ratio 13.9 (12.0-20.0); CO2, Blood 24 mmol/L (21-32); Chloride, Blood 105 mmol/L (98-108); Creatinine, Blood 0.72 mg/dL (0.60-1.20); Glomerular Filtration Rate >60 (60-); Glucose, Blood 128 mg/dL (70-99); Potassium, Blood 3.9 mmol/L (3.5-5.5)
[2020-02-10 14:58] LABS: Sodium, Blood 140 mmol/L (136-145)
--- NOTE | 2020-02-10 18:03 | NUR ---
SUMMARY NO ACUTE CHANGES SINCE ARRIVING TO UNIT FROM ED. PT TOOK SHOWER, INDEPENDENT IN ROOM. CBG AND VS STABLE. IV FLUIDS INFUSING PER ORDERS. ORDERS TO SALINE LOCK WHEN PT IS TAKING PO. PT HAS DINNER TRAY AT BEDSIDE BUT IS SLEEPING AT THIS TIME. CALL LIGHT IN REACH.
[2020-02-10 19:30] LABS: Anion Gap 13 mmol/L (6-16); Blood Urea Nitrogen 10 mg/dL (8-24); Bun/Creatinine Ratio 14.6 (12.0-20.0); CO2, Blood 21 mmol/L (21-32); Calcium, Blood 8.1 mg/dL (8.5-10.1); Chloride, Blood 100 mmol/L (98-108); Creatinine, Blood 0.69 mg/dL (0.60-1.20); Glomerular Filtration Rate >60 (60-); Glucose, Blood 260 mg/dL (70-99); Potassium, Blood 4.4 mmol/L (3.5-5.5); Sodium, Blood 134 mmol/L (136-145)
[2020-02-11 04:50] LABS: Alanine Aminotransfer (ALT/SGP 91 U/L (12-78); Albumin/Globulin Ratio 1.2 (0.8-1.8); Alk Phos 84 U/L (50-136); Anion Gap 12 mmol/L (6-16); Aspartate Aminotrans (AST/SGOT 44 U/L (12-37); Bilirubin, Total 1.1 mg/dL (0.1-1.0); Blood Urea Nitrogen 8 mg/dL (8-24); Bun/Creatinine Ratio 10.4 (12.0-20.0); CO2, Blood 22 mmol/L (21-32); Calcium, Blood 7.9 mg/dL (8.5-10.1); Chloride, Blood 99 mmol/L (98-108); Creatinine, Blood 0.77 mg/dL (0.60-1.20); Globulin, Blood 2.6 g/dL (2.2-4.0); Glomerular Filtration Rate >60 (60-); Glucose, Blood 168 mg/dL (70-99); Potassium, Blood 3.8 mmol/L (3.5-5.5); Sodium, Blood 133 mmol/L (136-145)
[2020-02-11 05:08] LABS: Total Protein, Blood 5.6 g/dL (6.4-8.2)
--- NOTE | 2020-02-11 05:45 | NUR ---
SHIFT SUMMARY PATIENT PLEASENT AND COOPERATIVE THROUGHOUT THE NIGHT. PATIENT BLOOD SUGAR CHECKED PER ORDERS AND MEDICATED PER EMAR. PATIENT APPEARED TO SLEEP WELL THROUGHOUT MOST OF THE NIGHT. PATIENT WOKE UP AROUND 0200 AND TOOK A SHOWER FOR COMFORT. PATIENT THEN ABLE TO FALL BACK TO SLEEP AND HAS APPEARED TO BE ASLEEP SINCE. PATIENT MEDICATED FOR NAUSEA PER EMAR. IV FLUIDS RUNNING PER ORDERS. VITAL SIGNS CHARTED. WILL CONTINUE TO MONITOR PATIENT AND REPORT TO ONCOMING RN.
--- NOTE | 2020-02-11 07:25 | NUR ---
ASSUMED CARE: PT RESTING QUIETLY IN BED. POULTRY BONER AT BEDSIDE FOR CBG. NO FURTHER NEEDS OR CONCERNS AT THIS TIME.
--- NOTE | 2020-02-11 11:08 | NUR ---
DR GRANT CAME TO SEE PT AND IS AWARE THAT PT DOES NOT HAVE APPETITE. CBGS STABLE AND PT STILL ON FLUIDS WITH D5 IN THEM. DR AWARE THAT PT ATTEMPTED TO EAT YESTERDAY BUT VOMITED. PT DENIES NAUSEA AT THIS TIME. MOTHER CALLED AND SOA ENGINEER GAVE UPDATE
[2020-02-11] MEDS ORDERED: PROM25 PO (11:55)
--- NOTE | 2020-02-11 12:45 | NUR ---
DC INSTRUCTIONS GIVEN TO PT WITH HIS MOTHER IN ROOM. IV DC'D WNL. PT INSTRUCTED TO FOLLOW UP WITH PCP AND TO SEEK MEDICAL ATTENTION IF SYMPTOMS WORSEN OR CONTINUE. DENIED FURTHER NEEDS OR CONCERNS.
== END 2020-02-11 12:15 | disposition home or self-care (01) ==
LOC: ER 09:01 → PCU 09:02
PROVIDERS: Nurse Practitioner Acute Care; Physician Assistant; ADMIT Internal Medicine
DX: E10.10 Type 1 diabetes mellitus with ketoacidosis without coma (principal); E86.0 Dehydration; E87.1 Hypo-osmolality and hyponatremia; R74.0 Nonspecific elevation of levels of transaminase and lactic acid dehydrogenase [LDH]
CPT/HCPCS: 36415; 80048; 80053; 81003; 82010; 82947; 83036; 83735; 85025; 93005; 93010; 96361; 96374; 96375; 96376; 99285-25; A9270; A9270-GY; G0378; J1200; J1815; J2765; J7030; J7042; J7120

== ENCOUNTER 2020-05-27 11:26 | Emergency (ER) | payer BC, OTHER ==
[~2020-05-27] VITALS: Ht 175.3 cm; Wt 63.5 kg
[~2020-05-27 11:26] MED LIST changes: +HUMALOG KW100 UNIT/1 SC; +METO5A PO; +NOVOLOG100 UNIT/2; +PROBIOTIC PO
[2020-05-27 11:58] LABS: BASOPHILS ABSOLUTE AUTO 0.01 K/mm3 (0.00-0.23); BASOPHILS PERCENT AUTO 0 % (0-2); EOSINOPHILS ABSOLUTE AUTO 0.01 K/mm3 (0.00-0.68); EOSINOPHILS PERCENT AUTO 0 % (0-6); Hematocrit 44.7 % (37.0-53.0); Hemoglobin 14.8 g/dL (13.5-17.5); IMMATURE GRAN ABSOLUTE AUTO 0.04 K/mm3 (0.00-0.10); IMMATURE GRAN PERCENT AUTO 0 % (0-1); LYMPHOCYTES ABSOLUTE AUTO 2.07 K/mm3 (0.84-5.20); LYMPHOCYTES PERCENT AUTO 20 % (21-46); MONOCYTES ABSOLUTE AUTO 0.48 K/mm3 (0.16-1.47); MONOCYTES PERCENT AUTO 5 % (4-13); Mean Corpuscular HGB 30.7 pg (26.0-34.0); Mean Corpuscular HGB Conc 33.1 g/dL (31.5-36.5); Mean Corpuscular Volume 93 fL (80-100); Mean Platelet Volume 8.8 fL (9.1-12.4); NEUTROPHILS ABSOLUTE AUTO 7.92 K/mm3 (1.96-9.15); NEUTROPHILS PERCENT AUTO 75 % (41-73); Platelet Count 361 K/mm3 (150-400); RDW Coefficient Variation 11.9 % (11.7-14.2); RDW Standard Deviation 40.9 fL (35.1-46.3); Red Blood Cell Count 4.82 M/mm3 (4.30-5.90); White Blood Cell Count 10.53 K/mm3 (4.00-11.30)
[2020-05-27 12:17] LABS: Alanine Aminotransfer (ALT/SGP 77 U/L (12-78); Albumin, Blood 3.7 g/dL (3.4-5.0); Albumin/Globulin Ratio 1.1 (0.8-1.8); Alk Phos 104 U/L (50-136); Anion Gap 14 mmol/L (6-16); Aspartate Aminotrans (AST/SGOT 39 U/L (12-37); Bilirubin, Total 1.6 mg/dL (0.1-1.0); Blood Urea Nitrogen 7 mg/dL (8-24); Bun/Creatinine Ratio 10.7 (12.0-20.0); CO2, Blood 26 mmol/L (21-32); Calcium, Blood 9.2 mg/dL (8.5-10.1); Chloride, Blood 93 mmol/L (98-108); Creatinine, Blood 0.65 mg/dL (0.60-1.20); Globulin, Blood 3.4 g/dL (2.2-4.0); Glomerular Filtration Rate >60 (60-); Glucose, Blood 269 mg/dL (70-99); Potassium, Blood 3.8 mmol/L (3.5-5.5); Sodium, Blood 133 mmol/L (136-145); Total Protein, Blood 7.1 g/dL (6.4-8.2)
[2020-05-27] MEDS ORDERED: METO10 PO (12:57)
== END 2020-05-27 13:55 | disposition home or self-care (01) ==
LOC: ER 11:26
PROVIDERS: Emergency Medicine
DX: E10.65 Type 1 diabetes mellitus with hyperglycemia (principal); E10.43 Type 1 diabetes mellitus with diabetic autonomic (poly)neuropathy; K31.84 Gastroparesis; I10 Essential (primary) hypertension; F90.9 Attention-deficit hyperactivity disorder, unspecified type; Z79.899 Other long term (current) drug therapy
CPT/HCPCS: 36415; 80053; 85025; 96374; 99284-25; J2765; J7030

== ENCOUNTER 2020-05-28 13:14 | Emergency (ER) | payer BC, OTHER ==
[~2020-05-28] VITALS: Ht 175.3 cm; Wt 63.5 kg
[2020-05-28 15:10] LABS: BASOPHILS ABSOLUTE AUTO 0.02 K/mm3 (0.00-0.23); BASOPHILS PERCENT AUTO 0 % (0-2); EOSINOPHILS ABSOLUTE AUTO 0.01 K/mm3 (0.00-0.68); EOSINOPHILS PERCENT AUTO 0 % (0-6); Hematocrit 45.6 % (37.0-53.0); Hemoglobin 15.3 g/dL (13.5-17.5); IMMATURE GRAN ABSOLUTE AUTO 0.05 K/mm3 (0.00-0.10); IMMATURE GRAN PERCENT AUTO 1 % (0-1); LYMPHOCYTES ABSOLUTE AUTO 2.69 K/mm3 (0.84-5.20); LYMPHOCYTES PERCENT AUTO 32 % (21-46); MONOCYTES ABSOLUTE AUTO 0.56 K/mm3 (0.16-1.47); MONOCYTES PERCENT AUTO 7 % (4-13); Mean Corpuscular HGB 30.1 pg (26.0-34.0); Mean Corpuscular HGB Conc 33.6 g/dL (31.5-36.5); Mean Corpuscular Volume 90 fL (80-100); Mean Platelet Volume 8.5 fL (9.1-12.4); NEUTROPHILS ABSOLUTE AUTO 5.12 K/mm3 (1.96-9.15); NEUTROPHILS PERCENT AUTO 61 % (41-73); Platelet Count 331 K/mm3 (150-400); RDW Coefficient Variation 11.4 % (11.7-14.2); RDW Standard Deviation 37.9 fL (35.1-46.3); Red Blood Cell Count 5.08 M/mm3 (4.30-5.90); White Blood Cell Count 8.45 K/mm3 (4.00-11.30)
[2020-05-28 15:28] LABS: Alanine Aminotransfer (ALT/SGP 61 U/L (12-78); Albumin, Blood 3.4 g/dL (3.4-5.0); Albumin/Globulin Ratio 1.1 (0.8-1.8); Alk Phos 92 U/L (50-136); Anion Gap 15 mmol/L (6-16); Aspartate Aminotrans (AST/SGOT 38 U/L (12-37); Bilirubin, Total 1.3 mg/dL (0.1-1.0); Blood Urea Nitrogen 7 mg/dL (8-24); Bun/Creatinine Ratio 11.5 (12.0-20.0); CO2, Blood 22 mmol/L (21-32); Calcium, Blood 8.8 mg/dL (8.5-10.1); Chloride, Blood 95 mmol/L (98-108); Creatinine, Blood 0.61 mg/dL (0.60-1.20); Glomerular Filtration Rate >60 (60-); Glucose, Blood 162 mg/dL (70-99); Potassium, Blood 4.1 mmol/L (3.5-5.5); Sodium, Blood 132 mmol/L (136-145); Total Protein, Blood 6.4 g/dL (6.4-8.2)
[2020-05-28 15:31] LABS: Base Excess Venous -3.7 mmol/L; Bicarbonate Venous 21.8 mmol/L (24.0-30.0); PCO2 Venous 36.3 mmHg (38-42); PO2 Venous 73.6 mmHg (38-42); pH Blood Venous 7.38 (7.34-7.37)
== END 2020-05-28 16:25 | disposition home or self-care (01) ==
LOC: ER 13:14
PROVIDERS: Emergency Medicine; Physician Assistant
DX: E11.65 Type 2 diabetes mellitus with hyperglycemia (principal); Z79.4 Long term (current) use of insulin; Z79.899 Other long term (current) drug therapy
CPT/HCPCS: 36415; 80053; 82803; 82947; 85025; 99284; J7030

== ENCOUNTER 2020-08-28 08:35 | Inpatient (IN) | payer BC, OTHER ==
[~2020-08-28] VITALS: Ht 175.3 cm; Wt 67.2 kg
[2020-08-28 09:30] LABS: Base Excess Venous -16.4 mmol/L; Bicarbonate Venous 13.9 mmol/L (24.0-30.0); PCO2 Venous 25.1 mmHg (38-42); PO2 Venous 62.5 mmHg (38-42)
[2020-08-28 09:31] LABS: pH Blood Venous 7.24 (7.34-7.37)
[2020-08-28 09:40] LABS: Calcium, Ionized (POC) 1.14 mmol/L (1.10-1.46); Chloride (POC) 93 mmol/L (98-108); Creatinine (POC) 0.9 mg/dL (0.8-1.3); Glucose (ISTAT POC) 399 mg/dL (70-99); Hemoglobin (POC) 20.1 g/dL (13.5-17.5); Potassium (POC) 4.3 mmol/L (3.5-5.5); Sodium (POC) 128 mmol/L (135-148); Total CO2 (POC) 13 mmol/L (21-32)
[2020-08-28 09:48] LABS: BASOPHILS ABSOLUTE AUTO 0.03 K/mm3 (0.00-0.23); BASOPHILS PERCENT AUTO 0 % (0-2); EOSINOPHILS PERCENT AUTO 0 % (0-6); Hematocrit 51.8 % (37.0-53.0); Hemoglobin 17.3 g/dL (13.5-17.5); IMMATURE GRAN ABSOLUTE AUTO 0.11 K/mm3 (0.00-0.10); IMMATURE GRAN PERCENT AUTO 1 % (0-1); LYMPHOCYTES PERCENT AUTO 8 % (21-46); MONOCYTES PERCENT AUTO 4 % (4-13); Mean Corpuscular HGB 30.5 pg (26.0-34.0); Mean Corpuscular HGB Conc 33.4 g/dL (31.5-36.5); Mean Corpuscular Volume 91 fL (80-100); Mean Platelet Volume 9.2 fL (9.1-12.4); NEUTROPHILS ABSOLUTE AUTO 16.19 K/mm3 (1.96-9.15); NEUTROPHILS PERCENT AUTO 87 % (41-73); Platelet Count 422 K/mm3 (150-400); RDW Coefficient Variation 12.5 % (11.7-14.2); RDW Standard Deviation 42.3 fL (35.1-46.3); Red Blood Cell Count 5.68 M/mm3 (4.30-5.90); White Blood Cell Count 18.63 K/mm3 (4.00-11.30)
[2020-08-28 10:10] LABS: Alanine Aminotransfer (ALT/SGP 168 U/L (12-78); Albumin, Blood 4.7 g/dL (3.4-5.0); Albumin/Globulin Ratio 1.1 (0.8-1.8); Alk Phos 129 U/L (50-136); Anion Gap 24 mmol/L (6-16); Aspartate Aminotrans (AST/SGOT 128 U/L (12-37); Bilirubin, Total 1.4 mg/dL (0.1-1.0); Blood Urea Nitrogen 18 mg/dL (8-24); Bun/Creatinine Ratio 19.7 (12.0-20.0); CO2, Blood 13 mmol/L (21-32); Calcium, Blood 9.8 mg/dL (8.5-10.1); Chloride, Blood 90 mmol/L (98-108); Creatinine, Blood 0.92 mg/dL (0.60-1.20); Globulin, Blood 4.1 g/dL (2.2-4.0); Glomerular Filtration Rate >60 (60-); Glucose, Blood 386 mg/dL (70-99); Potassium, Blood 4.2 mmol/L (3.5-5.5); Sodium, Blood 127 mmol/L (136-145); Total Protein, Blood 8.8 g/dL (6.4-8.2)
[2020-08-28 10:16] LABS: Beta-hydroxybutyrate 88.8 mg/dL (0.2-2.8)
[2020-08-28 11:20] LABS: Calcium, Ionized (POC) 0.99 mmol/L (1.10-1.46); Chloride (POC) 100 mmol/L (98-108); Creatinine (POC) 0.8 mg/dL (0.8-1.3); Glucose (ISTAT POC) 195 mg/dL (70-99); Hemoglobin (POC) 15.6 g/dL (13.5-17.5); Potassium (POC) 7.1 mmol/L (3.5-5.5); Sodium (POC) 129 mmol/L (135-148); Total CO2 (POC) 17 mmol/L (21-32)
[2020-08-28] MEDS ORDERED: TRESIBA FL100 UNIT/2 SC ×2 (11:35)
[2020-08-28] MEDS ORDERED: PANTOPRAZOLE SO40 M2 PO (11:35)
[2020-08-28 13:17] LABS: Anion Gap 12 mmol/L (6-16); Blood Urea Nitrogen 14 mg/dL (8-24); Bun/Creatinine Ratio 18.1 (12.0-20.0); CO2, Blood 20 mmol/L (21-32); Calcium, Blood 8.4 mg/dL (8.5-10.1); Chloride, Blood 100 mmol/L (98-108); Creatinine, Blood 0.78 mg/dL (0.60-1.20); Glomerular Filtration Rate >60 (60-); Glucose, Blood 182 mg/dL (70-99); Magnesium, Blood 1.8 mg/dL (1.6-2.4); Phosphorus, Blood 2.6 mg/dL (2.5-4.9); Potassium, Blood 4.7 mmol/L (3.5-5.5); Sodium, Blood 132 mmol/L (136-145)
[2020-08-28 13:51] LABS: Source, Urine Clean Catch
[2020-08-28 13:55] LABS: Bilirubin, Urine Neg (Neg); Blood, Urine Neg (Neg); Glucose Qualitative, Urine 4+ (Neg); Ketones, Urine 4+ (Neg); Leukocyte Esterase, Urine Neg (Neg); Nitrite, Urine Neg (Neg); Protein, Urine 1+ (Neg); Urobilinogen, Urine NORM (Normal)
[2020-08-28 13:57] LABS: Appearance, Urine Clear (Clear); Color, Urine Yellow (P-Yellow)
[2020-08-28 16:25] LABS: Anion Gap 9 mmol/L (6-16); Blood Urea Nitrogen 11 mg/dL (8-24); Bun/Creatinine Ratio 15.5 (12.0-20.0); CO2, Blood 23 mmol/L (21-32); Calcium, Blood 8.7 mg/dL (8.5-10.1); Chloride, Blood 104 mmol/L (98-108); Creatinine, Blood 0.71 mg/dL (0.60-1.20); Glomerular Filtration Rate >60 (60-); Glucose, Blood 128 mg/dL (70-99); Potassium, Blood 3.9 mmol/L (3.5-5.5); Sodium, Blood 136 mmol/L (136-145)
--- NOTE | 2020-08-28 19:18 | NUR ---
PT ARRIVED IN THE UNIT VIA STRETCHER WILD JIMENEZ, REPORT RECEIVED FROM MERLY FROST. PT WAS ABLE TO AMBULATE SAFELY TO TRANSFER TO ICU BED. PT IS ALERT AND ORIENTED AT BASELINE, MINIMALLY CONVERSIVE, MOSTLY ANSWERS CLOSE ENDED QUESTIONS. VITALS HRR SR/ST 90-110'S, BP SYSTOLIC 130'S-150'S, SATS ABOVE 95% ON RA, AFEBRILE. PT WAS ON D5 1/2NS WITH 10 MEQ AT 125MLS/HR, INSULIN GTT AT 1U/HR, LAST CBG WAS 147 GTT TURNED UP TO 2U/HR. PT C/O NAUSEA AND CHEST/MID ABDOMEN PAIN8/10 POSS DUE TO VOMITING CALLED PROVIDER PRASHANT AND MADE AWARE GOT AN ORDER FOR MAALOX AND ZOFRAN. PT ALSO REFUSED TO EAT AND DRINK AT THIS TIME. NO OTHER ISSUES REPORTED, REPORT GIVEN TO SELINA FROST NOC SHIFT NURSE
[2020-08-28 19:41] LABS: U Amphetamine Screen Not Detected; U Barbituate Screen Not Detected; U Benzodiazapine Screen Not Detected; U Buprenorphine Screen Not Detected; U Cannabinoids Screen DETECTED; U Cocaine Screen Not Detected; U Methadone Screen Not Detected; U Methamphetamine Screen Not Detected; U Opiates Screen Not Detected; U Oxycodone Screen Not Detected; U Phencyclidine Screen Not Detected; U Propoxyphene Screen Not Detected
--- NOTE | 2020-08-28 20:23 | NUR ---
08/28 @ 20:10 PT. LEFT [facility] WHILE EDUCATING PATIENT ON NEED TO DO HOURLY BLOOD SUGARS PT. STATES "F*CK THAT AND F*CK YOU, I WANT TO LEAVE. TAKE MY IV OUT AND I'LL GO HOME." ATTEMPTED REDIRECTION, EDUCATION, FAILED. PT. STATES "I DON'T CARE, WHY DO YOU?" EXPLAINED NEED TO MAINTAIN BLOOD SUGARS TO AVOID ACIDOSIS, EXPLAINED RISKS OF LEAVING HOSPITAL INCLUDING POSSIBLE WORSENING BLOOD SUGARS, ACIDOSIS, RESPIRATORY FAILURE, AND , PT. STATES "F*CK YOU I'M LEAVING." WHEN ASKED IF PATIENT HAD A RIDE, PT RESPONDED "I DON'T NEED A RIDE," ATTEMPTED REDIRECTION, PT SAT UP AND STARTED PULLING AT IV, REMOVED BOTH MYSELF, AND ESCORTED PATIENT TO THE DOOR AFTER A FEW MORE EXPLATIVES. INFORMED HOSPITALIST, PRASHANT, DATA ANALYST ETL DEVELOPER, CHARGE NURSE, AND LETTUCE TRIMMER OF SITUATION.
[2020-08-28 20:51] LABS: Anion Gap 6 mmol/L (6-16); Blood Urea Nitrogen 10 mg/dL (8-24); Bun/Creatinine Ratio 14.2 (12.0-20.0); CO2, Blood 26 mmol/L (21-32); Calcium, Blood 8.4 mg/dL (8.5-10.1); Chloride, Blood 103 mmol/L (98-108); Creatinine, Blood 0.71 mg/dL (0.60-1.20); Glomerular Filtration Rate >60 (60-); Glucose, Blood 140 mg/dL (70-99); Potassium, Blood 3.7 mmol/L (3.5-5.5); Sodium, Blood 135 mmol/L (136-145)
== END 2020-08-28 20:15 | disposition left against medical advice (07) | DRG 638 ==
LOC: ER 08:35 → ERHOLD 11:31 → ICUE 17:32
PROVIDERS: Emergency Medicine; ADMIT Internal Medicine
DX: E10.10 Type 1 diabetes mellitus with ketoacidosis without coma (principal); E87.1 Hypo-osmolality and hyponatremia; E11.65 Type 2 diabetes mellitus with hyperglycemia; E86.0 Dehydration; I10 Essential (primary) hypertension; E83.39 Other disorders of phosphorus metabolism; E87.5 Hyperkalemia; Z91.14 Patient's other noncompliance with medication regimen; Z53.29 Procedure and treatment not carried out because of patient's decision for other reasons
CPT/HCPCS: 36415; 80047; 80048; 80053; 82010; 82803; 82947; 83735; 84100; 85014; 85025; 96361; 96374; 99285-25; A9270; J1815; J2405; J7030; J7060

== ENCOUNTER 2020-08-29 07:38 | Emergency (ER) | payer BC, OTHER ==
[~2020-08-29] VITALS: Ht 177.8 cm; Wt 72.6 kg
[~2020-08-29 07:38] MED LIST changes: +PANTOPRAZOLE SO40 M2 PO; +TRESIBA FL100 UNIT/2 SC
[2020-08-29 08:15] LABS: Base Excess Venous -3.8 mmol/L; Bicarbonate Venous 21.7 mmol/L (24.0-30.0); PCO2 Venous 37.6 mmHg (38-42); PO2 Venous 111 mmHg (38-42); pH Blood Venous 7.37 (7.34-7.37)
[2020-08-29 08:17] LABS: BASOPHILS ABSOLUTE AUTO 0.01 K/mm3 (0.00-0.23); BASOPHILS PERCENT AUTO 0 % (0-2); EOSINOPHILS PERCENT AUTO 0 % (0-6); Hematocrit 43.9 % (37.0-53.0); Hemoglobin 14.4 g/dL (13.5-17.5); IMMATURE GRAN ABSOLUTE AUTO 0.03 K/mm3 (0.00-0.10); IMMATURE GRAN PERCENT AUTO 0 % (0-1); LYMPHOCYTES ABSOLUTE AUTO 1.74 K/mm3 (0.84-5.20); LYMPHOCYTES PERCENT AUTO 15 % (21-46); MONOCYTES ABSOLUTE AUTO 0.64 K/mm3 (0.16-1.47); MONOCYTES PERCENT AUTO 5 % (4-13); Mean Corpuscular HGB 30.2 pg (26.0-34.0); Mean Corpuscular HGB Conc 32.8 g/dL (31.5-36.5); Mean Corpuscular Volume 92 fL (80-100); NEUTROPHILS ABSOLUTE AUTO 9.49 K/mm3 (1.96-9.15); NEUTROPHILS PERCENT AUTO 80 % (41-73); Platelet Count 328 K/mm3 (150-400); RDW Coefficient Variation 12.5 % (11.7-14.2); RDW Standard Deviation 42.1 fL (35.1-46.3); Red Blood Cell Count 4.77 M/mm3 (4.30-5.90); White Blood Cell Count 11.91 K/mm3 (4.00-11.30)
[2020-08-29 08:42] LABS: Alanine Aminotransfer (ALT/SGP 115 U/L (12-78); Albumin, Blood 3.6 g/dL (3.4-5.0); Albumin/Globulin Ratio 1.2 (0.8-1.8); Alk Phos 98 U/L (50-136); Anion Gap 10 mmol/L (6-16); Aspartate Aminotrans (AST/SGOT 82 U/L (12-37); Bilirubin, Total 1.2 mg/dL (0.1-1.0); Blood Urea Nitrogen 12 mg/dL (8-24); Bun/Creatinine Ratio 16.6 (12.0-20.0); CO2, Blood 23 mmol/L (21-32); Calcium, Blood 8.7 mg/dL (8.5-10.1); Chloride, Blood 98 mmol/L (98-108); Creatinine, Blood 0.72 mg/dL (0.60-1.20); Globulin, Blood 3.1 g/dL (2.2-4.0); Glomerular Filtration Rate >60 (60-); Glucose, Blood 336 mg/dL (70-99); Potassium, Blood 4.1 mmol/L (3.5-5.5); Sodium, Blood 131 mmol/L (136-145)
[2020-08-29 08:51] LABS: Total Protein, Blood 6.7 g/dL (6.4-8.2)
[2020-08-29 10:01] LABS: Source, Urine Clean Catch
[2020-08-29 10:09] LABS: Bilirubin, Urine Neg (Neg); Blood, Urine Neg (Neg); Glucose Qualitative, Urine 4+ (Neg); Ketones, Urine 4+ (Neg); Leukocyte Esterase, Urine Neg (Neg); Nitrite, Urine Neg (Neg); Protein, Urine 1+ (Neg); Specific Gravity, Urine 1.015 (1.003-1.022); Urobilinogen, Urine NORM (Normal)
[2020-08-29 10:13] LABS: Appearance, Urine Clear (Clear); Color, Urine Yellow (P-Yellow)
[2020-08-30] MEDS ORDERED: METO10 PO (12:55)
[2020-09-01] MEDS ORDERED: REGLAN PO (10:19)
[2020-09-01] MEDS ORDERED: HALO2 PO (10:19)
== END 2020-08-29 09:51 | disposition home or self-care (01) ==
LOC: ER 07:38
PROVIDERS: Emergency Medicine
DX: E10.65 Type 1 diabetes mellitus with hyperglycemia (principal); R11.2 Nausea with vomiting, unspecified; I10 Essential (primary) hypertension; Z79.899 Other long term (current) drug therapy
CPT/HCPCS: 36415; 80053; 82803; 82947; 85025; 96374; 99284-25; J1815; J2765; J7030

== ENCOUNTER 2020-08-30 11:06 | Emergency (ER) | payer BC, OTHER ==
[~2020-08-30] VITALS: Ht 175.3 cm; Wt 72.6 kg
[2020-08-30 11:41] LABS: Bicarbonate Venous 23.7 mmol/L (24.0-30.0); PCO2 Venous 30.9 mmHg (38-42); PO2 Venous 138 mmHg (38-42); pH Blood Venous 7.46 (7.34-7.37)
[2020-08-30 11:50] LABS: BASOPHILS ABSOLUTE AUTO 0.01 K/mm3 (0.00-0.23); BASOPHILS PERCENT AUTO 0 % (0-2); EOSINOPHILS PERCENT AUTO 0 % (0-6); Hemoglobin 15.2 g/dL (13.5-17.5); IMMATURE GRAN ABSOLUTE AUTO 0.02 K/mm3 (0.00-0.10); IMMATURE GRAN PERCENT AUTO 0 % (0-1); LYMPHOCYTES ABSOLUTE AUTO 1.49 K/mm3 (0.84-5.20); LYMPHOCYTES PERCENT AUTO 17 % (21-46); MONOCYTES ABSOLUTE AUTO 0.46 K/mm3 (0.16-1.47); MONOCYTES PERCENT AUTO 5 % (4-13); Mean Corpuscular HGB 30.6 pg (26.0-34.0); Mean Corpuscular HGB Conc 33.8 g/dL (31.5-36.5); Mean Corpuscular Volume 91 fL (80-100); Mean Platelet Volume 8.8 fL (9.1-12.4); NEUTROPHILS ABSOLUTE AUTO 6.85 K/mm3 (1.96-9.15); NEUTROPHILS PERCENT AUTO 78 % (41-73); Platelet Count 361 K/mm3 (150-400); RDW Coefficient Variation 12.3 % (11.7-14.2); RDW Standard Deviation 40.7 fL (35.1-46.3); Red Blood Cell Count 4.97 M/mm3 (4.30-5.90); White Blood Cell Count 8.83 K/mm3 (4.00-11.30)
[2020-08-30 12:02] LABS: Alanine Aminotransfer (ALT/SGP 146 U/L (12-78); Albumin, Blood 3.6 g/dL (3.4-5.0); Alk Phos 105 U/L (50-136); Anion Gap 16 mmol/L (6-16); Aspartate Aminotrans (AST/SGOT 173 U/L (12-37); Bilirubin, Total 1.4 mg/dL (0.1-1.0); Blood Urea Nitrogen 12 mg/dL (8-24); Bun/Creatinine Ratio 16.6 (12.0-20.0); CO2, Blood 23 mmol/L (21-32); Calcium, Blood 9.1 mg/dL (8.5-10.1); Chloride, Blood 98 mmol/L (98-108); Creatinine, Blood 0.72 mg/dL (0.60-1.20); Globulin, Blood 3.5 g/dL (2.2-4.0); Glomerular Filtration Rate >60 (60-); Glucose, Blood 214 mg/dL (70-99); Potassium, Blood 3.5 mmol/L (3.5-5.5); Sodium, Blood 137 mmol/L (136-145); Total Protein, Blood 7.1 g/dL (6.4-8.2)
[2020-08-30 12:44] LABS: Source, Urine Clean Catch
[2020-08-30] MEDS ORDERED: METO10 PO (12:55)
[2020-08-30 13:00] LABS: Appearance, Urine Clear (Clear); Bilirubin, Urine Neg (Neg); Blood, Urine Neg (Neg); Color, Urine Yellow (P-Yellow); Glucose Qualitative, Urine 4+ (Neg); Ketones, Urine 4+ (Neg); Leukocyte Esterase, Urine Neg (Neg); Nitrite, Urine Neg (Neg); Protein, Urine Neg (Neg); Urobilinogen, Urine NORM (Normal)
[2020-09-01] MEDS ORDERED: HALO2 PO (10:19)
[2020-09-01] MEDS ORDERED: REGLAN PO (10:19)
== END 2020-08-30 14:06 | disposition home or self-care (01) ==
LOC: ER 11:06
PROVIDERS: Emergency Medicine
DX: E86.0 Dehydration (principal); E10.65 Type 1 diabetes mellitus with hyperglycemia; R11.2 Nausea with vomiting, unspecified; R94.5 Abnormal results of liver function studies; I10 Essential (primary) hypertension; Z79.899 Other long term (current) drug therapy
CPT/HCPCS: 36415; 80053; 81003; 82803; 85025; 96361; 96374; 99284-25; J2550; J7030

== ENCOUNTER 2020-09-01 09:31 | Inpatient (IN) | payer BC, OTHER ==
[~2020-09-01] VITALS: Ht 175.3 cm; Wt 63.5 kg
[2020-09-01] MEDS ORDERED: HALO2 PO ×2 (10:19)
[2020-09-01] MEDS ORDERED: REGLAN PO ×2 (10:19)
[2020-09-01 10:21] LABS: Source, Urine Clean Catch
[2020-09-01 10:23] LABS: BASOPHILS ABSOLUTE AUTO 0.07 K/mm3 (0.00-0.23); BASOPHILS PERCENT AUTO 1 % (0-2); EOSINOPHILS ABSOLUTE AUTO 0.02 K/mm3 (0.00-0.68); EOSINOPHILS PERCENT AUTO 0 % (0-6); Hematocrit 51.3 % (37.0-53.0); Hemoglobin 16.5 g/dL (13.5-17.5); IMMATURE GRAN ABSOLUTE AUTO 0.17 K/mm3 (0.00-0.10); IMMATURE GRAN PERCENT AUTO 1 % (0-1); LYMPHOCYTES ABSOLUTE AUTO 2.05 K/mm3 (0.84-5.20); LYMPHOCYTES PERCENT AUTO 17 % (21-46); MONOCYTES ABSOLUTE AUTO 0.54 K/mm3 (0.16-1.47); MONOCYTES PERCENT AUTO 5 % (4-13); Mean Corpuscular HGB 30.6 pg (26.0-34.0); Mean Corpuscular HGB Conc 32.2 g/dL (31.5-36.5); Mean Corpuscular Volume 95 fL (80-100); Mean Platelet Volume 8.9 fL (9.1-12.4); NEUTROPHILS ABSOLUTE AUTO 9.15 K/mm3 (1.96-9.15); NEUTROPHILS PERCENT AUTO 76 % (41-73); Platelet Count 487 K/mm3 (150-400); RDW Coefficient Variation 12.3 % (11.7-14.2); RDW Standard Deviation 43.6 fL (35.1-46.3); Red Blood Cell Count 5.39 M/mm3 (4.30-5.90)
[2020-09-01 10:25] LABS: Appearance, Urine Clear (Clear); Bilirubin, Urine Neg (Neg); Blood, Urine Neg (Neg); Color, Urine Yellow (P-Yellow); Glucose Qualitative, Urine 4+ (Neg); Ketones, Urine 4+ (Neg); Leukocyte Esterase, Urine Neg (Neg); Nitrite, Urine Neg (Neg); Protein, Urine 2+ (Neg); Specific Gravity, Urine 1.025 (1.003-1.022); Urobilinogen, Urine NORM (Normal)
[2020-09-01 10:27] LABS: Bicarbonate Venous 8.9 mmol/L (24.0-30.0); PCO2 Venous 16.5 mmHg (38-42); pH Blood Venous 7.05 (7.34-7.37)
[2020-09-01 10:32] LABS: Bacteria Few /hpf; Granular Casts 0-2 /lpf (0); Red Blood Cells, Urine 0-2 /hpf (0-2); Squamous Epithelial Cells Not Seen /hpf (Few); White Blood Cells, Urine 0-2 /hpf (0-5)
[2020-09-01 10:48] LABS: Alanine Aminotransfer (ALT/SGP 134 U/L (12-78); Albumin, Blood 4.1 g/dL (3.4-5.0); Albumin/Globulin Ratio 1.1 (0.8-1.8); Alk Phos 129 U/L (50-136); Anion Gap 25 mmol/L (6-16); Aspartate Aminotrans (AST/SGOT 77 U/L (12-37); Beta-hydroxybutyrate 106.8 mg/dL (0.2-2.8); Bilirubin, Total 1.2 mg/dL (0.1-1.0); Blood Urea Nitrogen 13 mg/dL (8-24); Bun/Creatinine Ratio 14.6 (12.0-20.0); CO2, Blood 6 mmol/L (21-32); Calcium, Blood 8.7 mg/dL (8.5-10.1); Chloride, Blood 94 mmol/L (98-108); Creatinine, Blood 0.89 mg/dL (0.60-1.20); Globulin, Blood 3.8 g/dL (2.2-4.0); Glomerular Filtration Rate >60 (60-); Glucose, Blood 405 mg/dL (70-99); Potassium, Blood 4.7 mmol/L (3.5-5.5); Sodium, Blood 125 mmol/L (136-145); Total Protein, Blood 7.9 g/dL (6.4-8.2)
--- NOTE | 2020-09-01 13:30 | NUR ---
PT ARRIVED TO ICU 15 FROM ER. PT IS A/O X4. ON NS BOLUS. INSULIN WAS NOT STARTED AND LABS HAVE NOT BEEN DRAWN IN 3.5 HRS. CBG 171, HAVING LAB COME DRAW PT NOW TO EVAL BEFORE CALLING DR. NEWMAN FOR INSULIN AND D5 1/2NS ORDERS. MOM AT BEDSIDE. NO SIGN OF DISTRESS.
[2020-09-01 14:25] LABS: Anion Gap 20 mmol/L (6-16); Blood Urea Nitrogen 12 mg/dL (8-24); Bun/Creatinine Ratio 14.9 (12.0-20.0); CO2, Blood 9 mmol/L (21-32); Calcium, Blood 7.9 mg/dL (8.5-10.1); Chloride, Blood 103 mmol/L (98-108); Glomerular Filtration Rate >60 (60-); Glucose, Blood 180 mg/dL (70-99); Potassium, Blood 4.6 mmol/L (3.5-5.5); Sodium, Blood 132 mmol/L (136-145)
--- NOTE | 2020-09-01 14:34 | NUR ---
CALLED DR. NEWMAN, NEW ORDERS RECEIVED FOR INSULIN AND D5 1/2NS.
--- NOTE | 2020-09-01 18:23 | NUR ---
SUMMARY PT WAS ADMITTED FROM ER THIS AFTERNOON FOR DKA. GLUCOSE HAD CORRECTED WITH ONLY IVF. STARTED INSULIN GTT AND D5 1/2 NS WHEN ARRIVED TO ICU. BMP'S BEING DRAWN Q4HR. PT IS A/O X4. WILL SLEEP WHEN UNDISTURBED. MOM AT BEDSIDE. NO SIGN OF DISTRESS.
[2020-09-01 18:28] LABS: Anion Gap 14 mmol/L (6-16); Blood Urea Nitrogen 9 mg/dL (8-24); Bun/Creatinine Ratio 12.6 (12.0-20.0); CO2, Blood 15 mmol/L (21-32); Calcium, Blood 8.1 mg/dL (8.5-10.1); Chloride, Blood 105 mmol/L (98-108); Creatinine, Blood 0.72 mg/dL (0.60-1.20); Glomerular Filtration Rate >60 (60-); Glucose, Blood 145 mg/dL (70-99); Potassium, Blood 3.9 mmol/L (3.5-5.5); Sodium, Blood 134 mmol/L (136-145)
--- NOTE | 2020-09-01 19:18 | NUR ---
ASSUMED PT CARE AT 1900 FROM [facility] PT LYING IN BED WITH D5 1/2 NS INFUSING AT 100MLS/HR AND INSULIN AT 1 UNIT/HR. BLOOD GLUCOSED CHECKED WITH A RESULT OF 129; THEREFORE, INSULIN GTT DROPPED TO 0.5 UNITS/HR, AND DR. HALL CALLED REGARDING INCREASING FLUIDS. NEW ORDERS TO INCREASE D5 1/2 NS TO A RATE OF 150MLS/HR AND REASSESS FROM THERE. PT IS ALERT AND ORIENTED; ABLE TO MAKE NEEDS KNOWN. PLEASANT AND COOPERATIVE WITH CARES AT THIS TIME. DISCUSSED PT'S RECENT AND FREQUENT ADMISSIONS. PT STATES HE HAS BEEN COMPLIANT WITH HIS MEDS UNTIL HE BEGINS TO NOT FEEL WELL. ASKED IF HE CONSUMES ALCOHOL REGULARLY OR BINGE DRINKS, PT STATES "NO". ALSO ASKED IF HE HAS BEEN GETTING SICK WITH INFECTIONS AND HE JUST SHRUGGED HIS SHOULDERS. EDUCATED REGARDING THE IMPORTANCE OF TAKING MEDICATIONS EVEN WHEN HE IS FEELING SICK IN ORDER TO PREVENT FREQUENT HOSPITALIZATIONS. PT IS VERY FLAT AFFECTED AND DIDN'T SEEM RECEPTIVE TO EDUCATION. PT DOESN'T REALLY ENGAGE IN CONVERSATIONS. HE DOES HAVE A SUBCUTANEOUS GLUCOSE METER TO BACK OF LEFT ARM THAT HE STATES HE CHANGES OUT EVERY 14 DAYS. INQUIRED ABOUT PT SEEING AN LIBRARY CLERICAL ASSISTANT, IN WHICH HE STATED HE DOES. ALSO INQUIRED ABOUT HIM HAVING CONVERSATION WITH HIS LIBRARY CLERICAL ASSISTANT OR PCP REGARDING HIS FREQUENT HOSPITALIZATIONS IN WHICH PT STATED HE HAS HAD THESE CONVERSATIONS, WELL HAS INQUIRED ABOUT AN INSULIN PUMP. HOWEVER, PT STATES HE DOES NOT QUALIFY FOR ONE, BUT DOES NOT KNOW WHY HE DOESN'T QUALIFY FOR ONE. CALL LIGHT WITHIN REACH; WILL CONTINUE TO MONITOR.
[2020-09-01 22:12] LABS: Anion Gap 13 mmol/L (6-16); Blood Urea Nitrogen 9 mg/dL (8-24); Bun/Creatinine Ratio 12.9 (12.0-20.0); CO2, Blood 17 mmol/L (21-32); Chloride, Blood 103 mmol/L (98-108); Glomerular Filtration Rate >60 (60-); Glucose, Blood 190 mg/dL (70-99); Potassium, Blood 3.6 mmol/L (3.5-5.5); Sodium, Blood 133 mmol/L (136-145)
[2020-09-02 02:06] LABS: BASOPHILS ABSOLUTE AUTO 0.01 K/mm3 (0.00-0.23); BASOPHILS PERCENT AUTO 0 % (0-2); EOSINOPHILS ABSOLUTE AUTO 0.02 K/mm3 (0.00-0.68); EOSINOPHILS PERCENT AUTO 0 % (0-6); Hematocrit 38.3 % (37.0-53.0); Hemoglobin 13.2 g/dL (13.5-17.5); IMMATURE GRAN ABSOLUTE AUTO 0.07 K/mm3 (0.00-0.10); IMMATURE GRAN PERCENT AUTO 1 % (0-1); LYMPHOCYTES ABSOLUTE AUTO 2.81 K/mm3 (0.84-5.20); LYMPHOCYTES PERCENT AUTO 34 % (21-46); MONOCYTES ABSOLUTE AUTO 0.59 K/mm3 (0.16-1.47); MONOCYTES PERCENT AUTO 7 % (4-13); Mean Corpuscular HGB 30.6 pg (26.0-34.0); Mean Corpuscular HGB Conc 34.5 g/dL (31.5-36.5); Mean Platelet Volume 8.1 fL (9.1-12.4); NEUTROPHILS ABSOLUTE AUTO 4.75 K/mm3 (1.96-9.15); NEUTROPHILS PERCENT AUTO 58 % (41-73); Platelet Count 312 K/mm3 (150-400); RDW Coefficient Variation 12.1 % (11.7-14.2); RDW Standard Deviation 39.8 fL (35.1-46.3); Red Blood Cell Count 4.32 M/mm3 (4.30-5.90); White Blood Cell Count 8.25 K/mm3 (4.00-11.30)
[2020-09-02 02:07] LABS: Mean Corpuscular Volume 89 fL (80-100)
[2020-09-02 02:21] LABS: Anion Gap 9 mmol/L (6-16); Blood Urea Nitrogen 7 mg/dL (8-24); Bun/Creatinine Ratio 10.8 (12.0-20.0); CO2, Blood 21 mmol/L (21-32); Calcium, Blood 8.1 mg/dL (8.5-10.1); Chloride, Blood 104 mmol/L (98-108); Creatinine, Blood 0.65 mg/dL (0.60-1.20); Glomerular Filtration Rate >60 (60-); Glucose, Blood 203 mg/dL (70-99); Potassium, Blood 3.4 mmol/L (3.5-5.5); Sodium, Blood 134 mmol/L (136-145)
--- NOTE | 2020-09-02 06:31 | NUR ---
END OF SHIFT SUMMARY D5 1/2 NS CONTINUES AT 150MLS/HR; INSULIN GTT AT 2 UNITS/HR WITH STABLE BLOOD SUGARS 170-200'S. LABS SHOWED CORRECTION OF CO2 AND ANION GAP; HOWEVER, PER REPORT, PT WAS TO REMAIN ON INSULIN GTT AND FLUIDS T/O NIGHT AND MD TO REASSESS THIS MORNING. PT HAS BEEN COOPERATIVE WITH CARES. SLEEPING T/O NIGHT. DENIED NAUSEA/VOMITING. NO VOID THIS SHIFT; HOWEVER, URINAL IS AT BEDSIDE. CALL LIGHT IS WITHIN REACH AND PT IS ABLE TO MAKE HIS NEEDS KNOWN.
[2020-09-02 06:40] LABS: Anion Gap 8 mmol/L (6-16); Blood Urea Nitrogen 7 mg/dL (8-24); Bun/Creatinine Ratio 11.3 (12.0-20.0); CO2, Blood 22 mmol/L (21-32); Chloride, Blood 103 mmol/L (98-108); Creatinine, Blood 0.62 mg/dL (0.60-1.20); Glomerular Filtration Rate >60 (60-); Glucose, Blood 163 mg/dL (70-99); Potassium, Blood 3.1 mmol/L (3.5-5.5); Sodium, Blood 133 mmol/L (136-145)
--- NOTE | 2020-09-02 07:30 | NUR ---
PT AWAKENS TO VOICE AND IS A&OX4. APPEARS VERY WITHDRAWN AND AFFECT FLAT. PT REFUSING AM CARE-REQUESTS TO "JUST SLEEP." INSULIN DRIP CONTINUES @ 1 UNIT/HR. CONTINUE HOURLY CBG. WILL ADDRESS RESMUMPTION OF PT HOME MED REGIME WHEN [facility] MD IN TO SEE PT.
[2020-09-02 10:10] LABS: Anion Gap 8 mmol/L (6-16); Blood Urea Nitrogen 6 mg/dL (8-24); Bun/Creatinine Ratio 10.3 (12.0-20.0); CO2, Blood 23 mmol/L (21-32); Calcium, Blood 7.8 mg/dL (8.5-10.1); Chloride, Blood 104 mmol/L (98-108); Creatinine, Blood 0.58 mg/dL (0.60-1.20); Glomerular Filtration Rate >60 (60-); Glucose, Blood 150 mg/dL (70-99); Potassium, Blood 2.9 mmol/L (3.5-5.5); Sodium, Blood 135 mmol/L (136-145)
--- NOTE | 2020-09-02 10:14 | NUR ---
ATTEMPTED TO CONTACT DR. NEWMAN PT IS REQUESTING TO BE "DISCHARGED." ALSO, NEED TO UPDATE MD TO CURRENT CHEMISRTY RESULTS-MESSAGE LEFT.
--- NOTE | 2020-09-02 11:20 | NUR ---
BP TRENDING 170/110'S. PT ANXIOUS ABOUT TAKING THE POTASSIUM-PT STATES "THEY ARE TOO BIG!"
--- NOTE | 2020-09-02 11:22 | NUR ---
PT GIVEN LONG ACTING INSULIN, THEN IVF AND INSULIN DRIP DISCONTINUED AFTER 30 MIN. PT ATE 1/2 OF A YOGURT AND IS DRINKING PLENTY OF WATER WITHOUT DIFFICULTY. GIVEN KCL 80 MEQ PO X 1. RECHECK CHEM PROF @ 1200. ANTICIPATE DISCHARGE LATER THIS AFTERNOON.
--- NOTE | 2020-09-02 12:31 | NUR ---
PT MOTHER HERE TO SEE PT. PT CALLED HER ASKING TO LEAVE AGAINST MEDICAL ADVICE. PT MOTHER IS NOT SUPPORTING THIS IDEA. PT MOTHER EXPLAINED HER PLAN TO GIVE ARIS AN ULTIMATUM. SHE STATES THAT IF HE LEAVES AMA HE WILL "HAVE NO PLACE TO GO." PT MOTHER REPORTS THAT ARIS RELIES ON HER FOR FINANCIAL SUPPORT 100%
[2020-09-02 12:58] LABS: Alanine Aminotransfer (ALT/SGP 72 U/L (12-78); Albumin, Blood 2.7 g/dL (3.4-5.0); Alk Phos 86 U/L (50-136); Anion Gap 8 mmol/L (6-16); Aspartate Aminotrans (AST/SGOT 41 U/L (12-37); Blood Urea Nitrogen 6 mg/dL (8-24); Bun/Creatinine Ratio 10.4 (12.0-20.0); CO2, Blood 24 mmol/L (21-32); Calcium, Blood 7.8 mg/dL (8.5-10.1); Chloride, Blood 100 mmol/L (98-108); Creatinine, Blood 0.58 mg/dL (0.60-1.20); Globulin, Blood 2.7 g/dL (2.2-4.0); Glomerular Filtration Rate >60 (60-); Glucose, Blood 176 mg/dL (70-99); Potassium, Blood 3.2 mmol/L (3.5-5.5); Sodium, Blood 132 mmol/L (136-145); Total Protein, Blood 5.4 g/dL (6.4-8.2)
--- NOTE | 2020-09-02 13:00 | NUR ---
LAB RESULTS PHONED TO AND ORDERS RECEIVED. PT AND MOTHER UPDATED TO PLAN OF CARE. PT IS NOW MEDICAL FLOOR STATUS AND DR. NEWMAN WOULD LIKE FOR PT TO STAY IN THE HOSPITAL AT LEAST FOR OVER NIGHT-IN ORDER TO RECEIVE IV POTASSIUM AND TO SEE HOW PT TOLERATES DIET/RESUMPTION OF HOME INSULIN REGIME. PT IS VERY ANGRY AND AGITATED. HE STATES "I DON'T CARE! I JUST WANT TO GO HOME!" PT MOTHER IS TRYING TO PURSUADE HIM TO BE COMPLIANT WITH PLAN OF CARE. SHE HAS TOLD HIM THAT IF HE LEAVES [facility], HE WILL NOT BE ABLE TO RETURN HOME AND CONTINUE TO RELY ON HER FOR FINANCIAL SUPPORT.
--- NOTE | 2020-09-02 16:44 | NUR ---
PT ABLE TO TOLERATE PO POTASSIUM. IV POTASSIUM INFUSING WITHOUT DIFFICUTLY. PT HAS BEEN VERY COOPERATIVE WITH CARE. HE IS STILL VERY ADAMANT THAT HE WANTS TO GO HOME AFTER THE POTASSIUM IS COMPLETED. PT REPORTS 5/10 BACK PAIN. MED WITH TYLENOL PO AND PROVIDED HEATING PAD. PT HAS BEEN DRINKING LOTS OF WATER, BUT STILL ONLY ABLE TO EAT A FEW BITES OF YOGURT HERE AND THERE. PT GIVEN YOGURT AND JELLO AND ENCOURAGED TO EAT MUCH POSSIBLE. PT MAINTAINS THAT IT IS COMMON FOR HIM TO HAVE DIFFICULTY EATING FOR UP TO A WEEK. WILL CONTINUE TO ENCOURAGE PT TO FOLLOW PLAN OF CARE.
--- NOTE | 2020-09-02 17:02 | NUR ---
PT APPEARS TO BE SLEEPING AT THIS TIME. NO NOTED DISTRESS.
--- NOTE | 2020-09-02 19:06 | NUR ---
PT FATHER IN FOR VISIT AND TO DISCUSS WITH PT COMPLIANCE WITH PLAN OF CARE. AFTER APROX. 30 MINUTE DISCUSSION, PT DECIDED THAT HE WILL COMPLY WITH THE PLAN OF CARE AND STAY OVER NIGHT. PT DOES REQUEST TO BE TRANFERED TO THE MED FLOOR FOR A PRIVATE ROOM WITH BATHROOM. ADRIAN-REINFORCED CONCRETE INSPECTOR NOTIFIED OF PT REQUEST.
--- NOTE | 2020-09-02 20:40 | NUR ---
ASSUMED CARE AND TRANSFER RECEIVED REPORT FROM SANTOSH KHAN. PT IS AWAKE, ALERT AND ORIENTED X 4. HE IS INDEPENDENT IN ROOM. HE IS FRUSTRATED WITH HIS EXPERIENCE IN THE HOSPITAL, AND STRONGLY FEELS HE SHOULD BE DISCHARGED, BUT DOES NOT WANT TO LEAVE AMA. HR AND BP ELEVATED DURING THIS TIME (SEE VITALS). PT HAS POOR APPETITE AND HAS BEEN NOT EATING SOLID FOODS (JUST YOGURT, JELLOW, AND PUDDING). HE SAYS IT IS DIFFICULT FOR HIM WHEN HE IS IN DKA OR HEALING FROM DKA. HE WAS TRANSFERRED TO MEDICAL 342 AFTER EATING DINNER - AND HE WAS ABLE TO EAT 25% OF MEAL (SOLID FOODS) - HE HAS BEEN HYDRATING WELL. PT OUT OF ICU AT ~2034. GAVE REPORT TO SANTOSH JONES.
--- NOTE | 2020-09-02 21:21 | NUR ---
2039 PT RECEIVED FROM ICU 15 VIA WHEELCHAIR FROM ICU; REPORT RECEIVED FROM KIM MERRILL RN; PT ALERT AND ORIENTED X 4; PT DENIES URGE AT MOMENT TO LEAVE AMA; THIS NURSE ENCOUREAGED PT TO CALL IF HE THINKS GETTING ANXIOUS OR AGITATED ABOUT LEAVING AMA WITH ACKNOWLEDGEMENT NOTED.
--- NOTE | 2020-09-03 03:31 | NUR ---
SHIFT SUMMARY: 25 Y/O SLENDER MALE RESTED COMFORTABLY IN BED WITHOUT INCIDENT OR ISSUES TO LEAVE AMA; PT ALERT AND ORIENTED X 4; DENIES PAIN OR NAUSEA; PT EAGER TO RETURN HOME WHEN ABLE IF TOLERATING DIET TODAY; BED LOW POSITION WITH CALL LIGHT AT SIDE.
[2020-09-03 06:09] LABS: Magnesium, Blood 1.8 mg/dL (1.6-2.4)
[2020-09-03 10:33] LABS: Anion Gap 5 mmol/L (6-16); Blood Urea Nitrogen 7 mg/dL (8-24); Bun/Creatinine Ratio 10.2 (12.0-20.0); CO2, Blood 29 mmol/L (21-32); Calcium, Blood 8.7 mg/dL (8.5-10.1); Chloride, Blood 98 mmol/L (98-108); Creatinine, Blood 0.69 mg/dL (0.60-1.20); Glomerular Filtration Rate >60 (60-); Glucose, Blood 140 mg/dL (70-99); Potassium, Blood 3.9 mmol/L (3.5-5.5); Sodium, Blood 132 mmol/L (136-145)
== END 2020-09-03 13:08 | disposition home or self-care (01) | DRG 638 ==
LOC: ER 09:31 → ICUW 10:56 → MEDS 09-02 20:38
PROVIDERS: Emergency Medicine; ADMIT Internal Medicine
DX: E10.10 Type 1 diabetes mellitus with ketoacidosis without coma (principal); E87.1 Hypo-osmolality and hyponatremia; E87.2 Acidosis; E86.0 Dehydration; E87.6 Hypokalemia; I10 Essential (primary) hypertension; F12.129 Cannabis abuse with intoxication, unspecified; Z79.4 Long term (current) use of insulin
CPT/HCPCS: 36415; 80048; 80053; 81001; 82010; 82803; 82947; 83735; 84100; 85025; 93005; 93010; 96360; 96361; 99285-25; A9270; J1650; J1815; J3480; J7030; J7042; J7050

== ENCOUNTER 2020-12-24 17:48 | Emergency (ER) | payer BC, OTHER ==
[~2020-12-24] VITALS: Ht 175.3 cm; Wt 63.5 kg
[~2020-12-24 17:48] MED LIST changes: +HALO2 PO; +REGLAN PO
[2020-12-24 18:40] LABS: BASOPHILS ABSOLUTE AUTO 0.01 K/mm3 (0.00-0.23); BASOPHILS PERCENT AUTO 0 % (0-2); EOSINOPHILS ABSOLUTE AUTO 0.01 K/mm3 (0.00-0.68); EOSINOPHILS PERCENT AUTO 0 % (0-6); Hematocrit 46.4 % (37.0-53.0); Hemoglobin 15.7 g/dL (13.5-17.5); IMMATURE GRAN ABSOLUTE AUTO 0.03 K/mm3 (0.00-0.10); IMMATURE GRAN PERCENT AUTO 0 % (0-1); LYMPHOCYTES ABSOLUTE AUTO 1.21 K/mm3 (0.84-5.20); LYMPHOCYTES PERCENT AUTO 10 % (21-46); MONOCYTES ABSOLUTE AUTO 0.44 K/mm3 (0.16-1.47); MONOCYTES PERCENT AUTO 4 % (4-13); Mean Corpuscular HGB 31.4 pg (26.0-34.0); Mean Corpuscular HGB Conc 33.8 g/dL (31.5-36.5); Mean Corpuscular Volume 93 fL (80-100); Mean Platelet Volume 9.1 fL (9.1-12.4); NEUTROPHILS ABSOLUTE AUTO 10.83 K/mm3 (1.96-9.15); NEUTROPHILS PERCENT AUTO 86 % (41-73); Platelet Count 363 K/mm3 (150-400); RDW Coefficient Variation 12.3 % (11.7-14.2); RDW Standard Deviation 42.2 fL (35.1-46.3); White Blood Cell Count 12.53 K/mm3 (4.00-11.30)
[2020-12-24 19:00] LABS: Alanine Aminotransfer (ALT/SGP 173 U/L (12-78); Albumin, Blood 3.7 g/dL (3.4-5.0); Alk Phos 123 U/L (50-136); Anion Gap 21 mmol/L (6-16); Aspartate Aminotrans (AST/SGOT 106 U/L (12-37); Bilirubin, Total 1.6 mg/dL (0.1-1.0); Blood Urea Nitrogen 14 mg/dL (8-24); Bun/Creatinine Ratio 19.6 (12.0-20.0); CO2, Blood 21 mmol/L (21-32); Calcium, Blood 8.9 mg/dL (8.5-10.1); Chloride, Blood 90 mmol/L (98-108); Creatinine, Blood 0.72 mg/dL (0.60-1.20); Globulin, Blood 3.8 g/dL (2.2-4.0); Glomerular Filtration Rate >60 (60-); Glucose, Blood 354 mg/dL (70-99); Potassium, Blood 3.2 mmol/L (3.5-5.5); Sodium, Blood 132 mmol/L (136-145); Total Protein, Blood 7.5 g/dL (6.4-8.2)
[2020-12-24] MEDS ORDERED: BASAGLAR K100 UNIT/3 SC (19:04)
[2020-12-24 19:05] LABS: Beta-hydroxybutyrate 65.6 mg/dL (0.2-2.8)
[2020-12-24 19:46] LABS: Base Excess Venous -0.1 mmol/L; Bicarbonate Venous 24.3 mmol/L (24.0-30.0); PCO2 Venous 40.3 mmHg (38-42); PO2 Venous 86.7 mmHg (38-42)
== END 2020-12-24 21:30 | disposition home or self-care (01) ==
LOC: ER 17:48
PROVIDERS: Physician Assistant
DX: E11.10 Type 2 diabetes mellitus with ketoacidosis without coma (principal); Z79.4 Long term (current) use of insulin; Z79.899 Other long term (current) drug therapy
CPT/HCPCS: 36415; 80053; 82010; 82803; 82947; 85025; 93005; 93010; 99284-25; J1815; J7030

== ENCOUNTER 2020-12-26 11:26 | Inpatient (IN) | payer BC, OTHER ==
[~2020-12-26] VITALS: Ht 175.3 cm; Wt 63.1 kg
[~2020-12-26 11:26] MED LIST changes: +BASAGLAR K100 UNIT/3 SC
[2020-12-26 11:55] LABS: Base Excess Venous -22.7 mmol/L; Bicarbonate Venous 10.7 mmol/L (24.0-30.0); PCO2 Venous 16.1 mmHg (38-42); PO2 Venous 110 mmHg (38-42)
[2020-12-26 11:56] LABS: pH Blood Venous 7.17 (7.34-7.37)
[2020-12-26 12:04] LABS: BASOPHILS ABSOLUTE AUTO 0.04 K/mm3 (0.00-0.23); BASOPHILS PERCENT AUTO 0 % (0-2); EOSINOPHILS PERCENT AUTO 0 % (0-6); Hematocrit 49.5 % (37.0-53.0); Hemoglobin 16.1 g/dL (13.5-17.5); IMMATURE GRAN ABSOLUTE AUTO 0.26 K/mm3 (0.00-0.10); IMMATURE GRAN PERCENT AUTO 2 % (0-1); LYMPHOCYTES ABSOLUTE AUTO 2.21 K/mm3 (0.84-5.20); LYMPHOCYTES PERCENT AUTO 13 % (21-46); MONOCYTES ABSOLUTE AUTO 1.04 K/mm3 (0.16-1.47); MONOCYTES PERCENT AUTO 6 % (4-13); Mean Corpuscular HGB 31.8 pg (26.0-34.0); Mean Corpuscular HGB Conc 32.5 g/dL (31.5-36.5); Mean Platelet Volume 8.9 fL (9.1-12.4); NEUTROPHILS ABSOLUTE AUTO 13.52 K/mm3 (1.96-9.15); NEUTROPHILS PERCENT AUTO 79 % (41-73); Platelet Count 433 K/mm3 (150-400); RDW Coefficient Variation 12.7 % (11.7-14.2); Red Blood Cell Count 5.07 M/mm3 (4.30-5.90); White Blood Cell Count 17.07 K/mm3 (4.00-11.30)
[2020-12-26 12:51] LABS: Mean Corpuscular Volume 98 fL (80-100)
[2020-12-26 13:11] LABS: Alanine Aminotransfer (ALT/SGP 132 U/L (12-78); Albumin, Blood 3.8 g/dL (3.4-5.0); Alk Phos 145 U/L (50-136); Anion Gap 27 mmol/L (6-16); Aspartate Aminotrans (AST/SGOT 49 U/L (12-37); Bilirubin, Total 1.3 mg/dL (0.1-1.0); Blood Urea Nitrogen 13 mg/dL (8-24); Bun/Creatinine Ratio 15.1 (12.0-20.0); CO2, Blood 7 mmol/L (21-32); Calcium, Blood 8.6 mg/dL (8.5-10.1); Chloride, Blood 92 mmol/L (98-108); Creatinine, Blood 0.86 mg/dL (0.60-1.20); Globulin, Blood 3.9 g/dL (2.2-4.0); Glomerular Filtration Rate >60 (60-); Glucose, Blood 459 mg/dL (70-99); Potassium, Blood 4.9 mmol/L (3.5-5.5); Sodium, Blood 126 mmol/L (136-145); Total Protein, Blood 7.7 g/dL (6.4-8.2)
[2020-12-26 14:22] LABS: Anion Gap 27 mmol/L (6-16); Blood Urea Nitrogen 14 mg/dL (8-24); Bun/Creatinine Ratio 16.7 (12.0-20.0); CO2, Blood 5 mmol/L (21-32); Calcium, Blood 7.9 mg/dL (8.5-10.1); Chloride, Blood 100 mmol/L (98-108); Creatinine, Blood 0.84 mg/dL (0.60-1.20); Glomerular Filtration Rate >60 (60-); Glucose, Blood 545 mg/dL (70-99); Potassium, Blood 5.6 mmol/L (3.5-5.5); Sodium, Blood 132 mmol/L (136-145)
[2020-12-26 14:46] LABS: Base Excess Venous -29.3 mmol/L; Bicarbonate Venous 6.8 mmol/L (24.0-30.0); PCO2 Venous 14.5 mmHg (38-42); PO2 Venous 177 mmHg (38-42); pH Blood Venous 6.93 (7.34-7.37)
--- NOTE | 2020-12-26 17:54 | NUR ---
ADMIT PT ARRIVED TO ICU 1 VIA ER BED AT 1700. PT IS RESTING QUIETLY UPON ARRIVAL. PT AWAKENS TO VERBAL STIMULI. PT IS ALERT, ORIENTED, AND ANSWERS QUESTIONS APPROPRIATELY. PT WITH INSULIN GTT INFUSING AT 6.4 UNITS/HR INITIALLY AND NS AT 200 ML/HR. VITAL SIGNS STABLE. WILL CONTINUE TO MONITOR.
[2020-12-26 18:11] LABS: Base Excess Venous -19.4 mmol/L; Bicarbonate Venous 12.2 mmol/L (24.0-30.0); PCO2 Venous 16.5 mmHg (38-42); PO2 Venous 128 mmHg (38-42); pH Blood Venous 7.27 (7.34-7.37)
[2020-12-26 19:06] LABS: Anion Gap 21 mmol/L (6-16); Blood Urea Nitrogen 15 mg/dL (8-24); CO2, Blood 7 mmol/L (21-32); Calcium, Blood 7.5 mg/dL (8.5-10.1); Chloride, Blood 113 mmol/L (98-108); Creatinine, Blood 0.84 mg/dL (0.60-1.20); Glomerular Filtration Rate >60 (60-); Glucose, Blood 199 mg/dL (70-99); Potassium, Blood 3.9 mmol/L (3.5-5.5); Sodium, Blood 141 mmol/L (136-145)
--- NOTE | 2020-12-26 19:34 | NUR ---
ASSUMED CARE OF PT, BEDSIDE REPORT RECEIVED. PT IS RESTING QUIETLY LYING SUPINE IN BED, DENIES NAUSEA, DENIES CP/PRESSURE, DENIES SOB/DYSPNEA, ANSWERS YES WHEN ASKED IF HE IS JUST FEELING TIRED IT IS NOTED THAT PT MAINTAINS EYES CLOSED AND APPEARS TO SLEEP OTHER THAN NODDING OR SHAKING HEAD YES/NO, HE DENIES PAIN. LUNGS ARE CLEAR THROUGHOUT, SATS MAINTAINING ON ROOM AIR, NO VISIBLE INCREASED WORK OF BREATHING. HRR, SINUS TACH ON MONITOR, RATE 120S, PRESSURES MAINTAINING, SKIN IS PWD, BRISK CAP REFILL, NO EDEMA NOTED. ACTIVE BOWEL TONES NOTED, ABD SOFT, NO GRIMACING/GUARDING WITH LIGHT PALPATION. IV ACCESS NOTED BILAT AC, D51/2NS INFUSING AT 150 ML/HR TO RIGHT AC, INSULIN AT 4 UNITS/HR INFUSING TO LEFT AC, LEFT AC IV FLUSHED AND INSULIN NOW Y-SITE INFUSING WITH D51/2NS. DECREASED TO 2 UNITS/HR AT THIS TIME. WILL MONITOR.
--- NOTE | 2020-12-26 20:24 | NUR ---
POTASSIUM SPOKE WITH DR ZAMUDIO REGARDING PT POTASSIUM LEVELS WELL PREVIOUSLY ORDERED POTASSIUM DOSE THAT WAS CHARTED GIVEN HOWEVER DR PATRICK PLACED ON HOLD BEFORE MORE THAN 10 ML OF DOSE WAS INFUSED. ORDERED TO COMPLETE PREVIOUSLY ORDERED DOSE AT THIS TIME. PREVIOUSLY PROGRAMMED AND CHARTED DOSE IS RESTARTED INFUSING AT THIS TIME.
[2020-12-26 21:06] LABS: Source, Urine Clean Catch
[2020-12-26 21:08] LABS: Bilirubin, Urine Neg (Neg); Blood, Urine Neg (Neg); Glucose Qualitative, Urine 4+ (Neg); Ketones, Urine 4+ (Neg); Leukocyte Esterase, Urine Neg (Neg); Nitrite, Urine Neg (Neg); Protein, Urine 2+ (Neg); Urobilinogen, Urine NORM (Normal)
[2020-12-26 21:14] LABS: Appearance, Urine Clear (Clear); Color, Urine Yellow (P-Yellow)
[2020-12-26 21:15] LABS: Bacteria Mod /hpf; Red Blood Cells, Urine 0-2 /hpf (0-2); Squamous Epithelial Cells Not Seen /hpf (Few); White Blood Cells, Urine 0-2 /hpf (0-5)
[2020-12-26 21:16] LABS: Granular Casts 0-2 /lpf (0)
[2020-12-26 21:26] LABS: U Amphetamine Screen Not Detected; U Barbituate Screen Not Detected; U Benzodiazapine Screen Not Detected; U Buprenorphine Screen Not Detected; U Cannabinoids Screen DETECTED; U Cocaine Screen Not Detected; U Methadone Screen Not Detected; U Methamphetamine Screen Not Detected; U Opiates Screen Not Detected; U Oxycodone Screen Not Detected; U Phencyclidine Screen Not Detected; U Propoxyphene Screen Not Detected
[2020-12-26 21:40] LABS: Base Excess Venous -12.4 mmol/L; Bicarbonate Venous 15.8 mmol/L (24.0-30.0); PO2 Venous 64.6 mmHg (38-42); pH Blood Venous 7.28 (7.34-7.37)
[2020-12-26 22:13] LABS: Anion Gap 13 mmol/L (6-16); Blood Urea Nitrogen 13 mg/dL (8-24); Bun/Creatinine Ratio 16.1 (12.0-20.0); CO2, Blood 16 mmol/L (21-32); Calcium, Blood 7.6 mg/dL (8.5-10.1); Chloride, Blood 113 mmol/L (98-108); Creatinine, Blood 0.81 mg/dL (0.60-1.20); Glomerular Filtration Rate >60 (60-); Glucose, Blood 142 mg/dL (70-99); Potassium, Blood 4.1 mmol/L (3.5-5.5); Sodium, Blood 142 mmol/L (136-145)
[2020-12-27 02:04] LABS: BASOPHILS ABSOLUTE AUTO 0.02 K/mm3 (0.00-0.23); BASOPHILS PERCENT AUTO 0 % (0-2); EOSINOPHILS ABSOLUTE AUTO 0.01 K/mm3 (0.00-0.68); EOSINOPHILS PERCENT AUTO 0 % (0-6); Hematocrit 37.6 % (37.0-53.0); Hemoglobin 12.6 g/dL (13.5-17.5); IMMATURE GRAN ABSOLUTE AUTO 0.09 K/mm3 (0.00-0.10); IMMATURE GRAN PERCENT AUTO 1 % (0-1); LYMPHOCYTES PERCENT AUTO 17 % (21-46); MONOCYTES ABSOLUTE AUTO 1.27 K/mm3 (0.16-1.47); MONOCYTES PERCENT AUTO 11 % (4-13); Mean Corpuscular HGB 31.6 pg (26.0-34.0); Mean Corpuscular HGB Conc 33.5 g/dL (31.5-36.5); Mean Corpuscular Volume 94 fL (80-100); Mean Platelet Volume 8.4 fL (9.1-12.4); NEUTROPHILS ABSOLUTE AUTO 8.75 K/mm3 (1.96-9.15); NEUTROPHILS PERCENT AUTO 72 % (41-73); Platelet Count 279 K/mm3 (150-400); RDW Coefficient Variation 12.5 % (11.7-14.2); RDW Standard Deviation 43.8 fL (35.1-46.3); Red Blood Cell Count 3.99 M/mm3 (4.30-5.90); White Blood Cell Count 12.14 K/mm3 (4.00-11.30)
[2020-12-27 02:08] LABS: Bicarbonate Venous 17.9 mmol/L (24.0-30.0); PCO2 Venous 33.9 mmHg (38-42); pH Blood Venous 7.31 (7.34-7.37)
[2020-12-27 02:19] LABS: Anion Gap 10 mmol/L (6-16); Blood Urea Nitrogen 12 mg/dL (8-24); Bun/Creatinine Ratio 15.6 (12.0-20.0); CO2, Blood 18 mmol/L (21-32); Calcium, Blood 7.3 mg/dL (8.5-10.1); Chloride, Blood 113 mmol/L (98-108); Creatinine, Blood 0.77 mg/dL (0.60-1.20); Glomerular Filtration Rate >60 (60-); Glucose, Blood 181 mg/dL (70-99); Phosphorus, Blood 1.3 mg/dL (2.5-4.9); Potassium, Blood 3.6 mmol/L (3.5-5.5); Sodium, Blood 141 mmol/L (136-145)
[2020-12-27 06:02] LABS: Base Excess Venous -6.2 mmol/L; Bicarbonate Venous 20.1 mmol/L (24.0-30.0); PCO2 Venous 32.7 mmHg (38-42); PO2 Venous 134 mmHg (38-42); pH Blood Venous 7.37 (7.34-7.37)
--- NOTE | 2020-12-27 06:07 | NUR ---
PT RESTS QUIETLY THROUGHOUT SHIFT, DENIES NEEDS OTHER THAN DESIRE TO SLEEP, REPOSITIONS SELF FREQUENTLY AND WELL. INSULIN GTT TITRATED TO 1.5 UNITS/HR AND D5 1/2NS INFUSING AT 200 ML/HR. LUNGS REMAIN CLEAR THROUGHOUT WITH SATS 99-100% ON ROOM AIR, NO VISIBLE INCREASED WORK OF BREATHING IS NOTED THROUGHOUT SHIFT. HEART RATE IS IMPROVED THIS AM, PRESSURES CONTINUE STABLE, SKIN REMAINS PWD WITH BRISK CAP REFILL. PT VOIDED X 1 THIS SHIFT HOWEVER WAS 1250 ML. WILL CONT TO MONITOR AND REPORT TO NEXT SHIFT.
[2020-12-27 06:48] LABS: Anion Gap 9 mmol/L (6-16); Blood Urea Nitrogen 10 mg/dL (8-24); Bun/Creatinine Ratio 14.6 (12.0-20.0); CO2, Blood 20 mmol/L (21-32); Calcium, Blood 7.6 mg/dL (8.5-10.1); Chloride, Blood 112 mmol/L (98-108); Creatinine, Blood 0.69 mg/dL (0.60-1.20); Glomerular Filtration Rate >60 (60-); Glucose, Blood 171 mg/dL (70-99); Potassium, Blood 3.1 mmol/L (3.5-5.5); Sodium, Blood 141 mmol/L (136-145)
--- NOTE | 2020-12-27 07:00 | NUR ---
ASSUMED CARE ASSUMED CARE OF PT AT 0700. PT APPEARS TO BE SLEEPING UPON ENTERING ROOM. AWAKENS EASILY TO VERBAL STIMULUS. PT IN NO APPARENT DISTRESS. DENIES ANY PAIN, DYSPNEA, NAUSEA. STATES HE IS "FEELING BETTER". MONITOR SHOWS SINUS RHYTHM, VITAL SIGNS STABLE, PT ON ROOM AIR. LUNG SOUNDS CLEAR T/O. IV'S TO BILATERAL AC'S. INSULIN GTT INFUSING AT 1.5 UNITS/HR AND D5 1/2NS AT 200ML/HR. PT VOIDING INTO URINAL INDEPENDENTLY, POSITIONING SELF IN BED INDEPENDENTLY. WILL CONTINUE TO MONITOR.
--- NOTE | 2020-12-27 09:57 | NUR ---
PT ABLE TO DRINK A CARTON OF MILK, STATES HE DOES NOT USUALLY HAVE AN APPETITE IN THE MORNINGS. ALSO PROVIDED WITH ICE WATER. PT CONTINUES TO DENY ANY NAUSEA.
[2020-12-27 10:24] LABS: pH Blood Venous 7.37 (7.34-7.37)
[2020-12-27 10:25] LABS: Base Excess Venous -4.8 mmol/L; PCO2 Venous 34.9 mmHg (38-42); PO2 Venous 141 mmHg (38-42)
[2020-12-27 11:21] LABS: Anion Gap 9 mmol/L (6-16); Blood Urea Nitrogen 7 mg/dL (8-24); CO2, Blood 21 mmol/L (21-32); Calcium, Blood 7.7 mg/dL (8.5-10.1); Chloride, Blood 109 mmol/L (98-108); Creatinine, Blood 0.64 mg/dL (0.60-1.20); Glomerular Filtration Rate >60 (60-); Glucose, Blood 179 mg/dL (70-99); Potassium, Blood 3.4 mmol/L (3.5-5.5); Sodium, Blood 139 mmol/L (136-145)
--- NOTE | 2020-12-27 13:11 | NUR ---
DR. TONG ROUNDED ON PT. PLAN FOR DISCHARGE THIS AFTERNOON.
--- NOTE | 2020-12-27 15:09 | NUR ---
DISCHARGE DISCHARGE INSTRUCTIONS PROVIDED TO PATIENT - INSTRUCTED ON IMPORTANCE OF CHECKING BLOOD SUGAR LEVELS AND TAKING INSULIN PRESCRIBED, WELL CESSATION OF MARIJUANA SMOKING. PT VERBALIZED UNDERSTANDING OF INSTRUCTIONS. IV'S REMOVED. PT AMBULATED OUT TO LOBBY WITH LASTING MACHINE OPERATOR HAND METHOD. ALL BELONGINGS SENT HOME WITH PT. DISCUSSED DISCHARGE WITH PT'S MOTHER, VISH.
== END 2020-12-27 15:00 | disposition home or self-care (01) | DRG 638 ==
LOC: ER 11:26 → ERHOLD 13:57 → ICUE 13:57
PROVIDERS: Emergency Medicine; Nurse Practitioner Acute Care; Physician Assistant; ADMIT Family Medicine
DX: E10.10 Type 1 diabetes mellitus with ketoacidosis without coma (principal); E87.1 Hypo-osmolality and hyponatremia; F90.9 Attention-deficit hyperactivity disorder, unspecified type; I10 Essential (primary) hypertension; E86.0 Dehydration; F32.9 Major depressive disorder, single episode, unspecified; K21.9 Gastro-esophageal reflux disease without esophagitis; F41.9 Anxiety disorder, unspecified; F12.10 Cannabis abuse, uncomplicated; Z71.51 Drug abuse counseling and surveillance of drug abuser; Z91.14 Patient's other noncompliance with medication regimen; Z90.89 Acquired absence of other organs; Z79.4 Long term (current) use of insulin; Z79.899 Other long term (current) drug therapy
CPT/HCPCS: 36415; 80048; 80053; 81001; 82010; 82803; 82947; 83735; 84100; 85025; 87040; 87086; 93005; 93010; 96374; 96375; 99285-25; A9270; J0780; J1200; J1650; J1815; J2270; J2405; J3480; J7030; J7042; J7050

== ENCOUNTER 2021-03-13 09:46 | Emergency (ER) | payer BC, OTHER ==
[~2021-03-13] VITALS: Ht 175.3 cm; Wt 63.5 kg
[2021-03-13 10:59] LABS: BASOPHILS ABSOLUTE AUTO 0.02 K/mm3 (0.00-0.23); BASOPHILS PERCENT AUTO 0 % (0-2); EOSINOPHILS ABSOLUTE AUTO 0.01 K/mm3 (0.00-0.68); EOSINOPHILS PERCENT AUTO 0 % (0-6); Hematocrit 45.3 % (37.0-53.0); Hemoglobin 15.4 g/dL (13.5-17.5); IMMATURE GRAN ABSOLUTE AUTO 0.02 K/mm3 (0.00-0.10); IMMATURE GRAN PERCENT AUTO 0 % (0-1); LYMPHOCYTES ABSOLUTE AUTO 1.92 K/mm3 (0.84-5.20); LYMPHOCYTES PERCENT AUTO 20 % (21-46); MONOCYTES ABSOLUTE AUTO 0.73 K/mm3 (0.16-1.47); MONOCYTES PERCENT AUTO 8 % (4-13); Mean Corpuscular HGB 31.2 pg (26.0-34.0); Mean Corpuscular Volume 92 fL (80-100); Mean Platelet Volume 8.8 fL (9.1-12.4); NEUTROPHILS ABSOLUTE AUTO 6.77 K/mm3 (1.96-9.15); NEUTROPHILS PERCENT AUTO 72 % (41-73); Platelet Count 349 K/mm3 (150-400); RDW Coefficient Variation 12.2 % (11.7-14.2); RDW Standard Deviation 41.3 fL (35.1-46.3); Red Blood Cell Count 4.94 M/mm3 (4.30-5.90); White Blood Cell Count 9.47 K/mm3 (4.00-11.30)
[2021-03-13 11:27] LABS: Base Excess Venous -0.7 mmol/L; Bicarbonate Venous 23.8 mmol/L (24.0-30.0); pH Blood Venous 7.39 (7.34-7.37)
[2021-03-13 11:44] LABS: Magnesium, Blood 2.2 mg/dL (1.6-2.4)
[2021-03-13 11:45] LABS: Alanine Aminotransfer (ALT/SGP 118 U/L (12-78); Albumin, Blood 3.5 g/dL (3.4-5.0); Albumin/Globulin Ratio 1.1 (0.8-1.8); Alk Phos 112 U/L (50-136); Anion Gap 13 mmol/L (6-16); Aspartate Aminotrans (AST/SGOT 56 U/L (12-37); Bilirubin, Total 2.2 mg/dL (0.1-1.0); Blood Urea Nitrogen 14 mg/dL (8-24); Bun/Creatinine Ratio 17.8 (12.0-20.0); CO2, Blood 27 mmol/L (21-32); Calcium, Blood 8.8 mg/dL (8.5-10.1); Chloride, Blood 86 mmol/L (98-108); Creatinine, Blood 0.79 mg/dL (0.60-1.20); Globulin, Blood 3.2 g/dL (2.2-4.0); Glomerular Filtration Rate >60 (60-); Glucose, Blood 336 mg/dL (70-99); Potassium, Blood 3.7 mmol/L (3.5-5.5); Sodium, Blood 126 mmol/L (136-145); Total Protein, Blood 6.7 g/dL (6.4-8.2)
[2021-03-13 12:22] LABS: Beta-hydroxybutyrate 56.6 mg/dL (0.2-2.8)
== END 2021-03-13 15:27 | disposition home or self-care (01) ==
LOC: ER 09:46
PROVIDERS: Emergency Medicine Emergency Medical Services
DX: E10.10 Type 1 diabetes mellitus with ketoacidosis without coma (principal); E87.1 Hypo-osmolality and hyponatremia; E86.0 Dehydration; I10 Essential (primary) hypertension; Z79.899 Other long term (current) drug therapy
CPT/HCPCS: 36415; 71045; 80053; 82010; 82803; 82947; 83605; 83735; 85025; 93005; 93010; 96374; 99285-25; A9270; J1815; J2765; J7030

== ENCOUNTER 2021-04-13 18:09 | Inpatient (IN) | payer BC, OTHER ==
[~2021-04-13] VITALS: Ht 175.3 cm; Wt 56.0 kg
[~2021-04-13 18:09] MED LIST changes: -BASAGLAR K100 UNIT/3 SC; -HUMALOG KW100 UNIT/1 SC
[2021-04-13 18:30] LABS: PCO2 Venous 16.3 mmHg (38-42); pH Blood Venous 7.13 (7.34-7.37)
[2021-04-13 18:31] LABS: Base Excess Venous -23.7 mmol/L; Bicarbonate Venous 10.3 mmol/L (24.0-30.0); PO2 Venous 106 mmHg (38-42)
[2021-04-13 18:41] LABS: BASOPHILS ABSOLUTE AUTO 0.04 K/mm3 (0.00-0.23); BASOPHILS PERCENT AUTO 0 % (0-2); EOSINOPHILS PERCENT AUTO 0 % (0-6); Hematocrit 51.3 % (37.0-53.0); Hemoglobin 16.9 g/dL (13.5-17.5); IMMATURE GRAN ABSOLUTE AUTO 0.12 K/mm3 (0.00-0.10); IMMATURE GRAN PERCENT AUTO 1 % (0-1); LYMPHOCYTES ABSOLUTE AUTO 1.42 K/mm3 (0.84-5.20); LYMPHOCYTES PERCENT AUTO 11 % (21-46); MONOCYTES PERCENT AUTO 4 % (4-13); Mean Corpuscular HGB 31.2 pg (26.0-34.0); Mean Corpuscular HGB Conc 32.9 g/dL (31.5-36.5); Mean Corpuscular Volume 95 fL (80-100); Mean Platelet Volume 9.2 fL (9.1-12.4); NEUTROPHILS ABSOLUTE AUTO 11.14 K/mm3 (1.96-9.15); NEUTROPHILS PERCENT AUTO 84 % (41-73); Platelet Count 563 K/mm3 (150-400); RDW Coefficient Variation 12.5 % (11.7-14.2); RDW Standard Deviation 44.4 fL (35.1-46.3); Red Blood Cell Count 5.41 M/mm3 (4.30-5.90); White Blood Cell Count 13.22 K/mm3 (4.00-11.30)
[2021-04-13 19:16] LABS: Source, Urine Voided
[2021-04-13 19:19] LABS: Alanine Aminotransfer (ALT/SGP 169 U/L (12-78); Albumin, Blood 4.1 g/dL (3.4-5.0); Albumin/Globulin Ratio 1.1 (0.8-1.8); Alk Phos 115 U/L (50-136); Aspartate Aminotrans (AST/SGOT 109 U/L (12-37); Bilirubin, Total 1.9 mg/dL (0.1-1.0); Blood Urea Nitrogen 21 mg/dL (8-24); Bun/Creatinine Ratio 20.8 (12.0-20.0); Calcium, Blood 9.5 mg/dL (8.5-10.1); Chloride, Blood 84 mmol/L (98-108); Creatinine, Blood 1.01 mg/dL (0.60-1.20); Globulin, Blood 3.8 g/dL (2.2-4.0); Glomerular Filtration Rate >60 (60-); Potassium, Blood 4.9 mmol/L (3.5-5.5); Sodium, Blood 126 mmol/L (136-145); Total Protein, Blood 7.9 g/dL (6.4-8.2)
[2021-04-13 19:20] LABS: Anion Gap 36 mmol/L (6-16); CO2, Blood 6 mmol/L (21-32); Glucose, Blood 652 mg/dL (70-99)
[2021-04-13 19:26] LABS: Magnesium, Blood 2.3 mg/dL (1.6-2.4)
[2021-04-13 19:34] LABS: Beta-hydroxybutyrate 120.9 mg/dL (0.2-2.8)
[2021-04-13 19:36] LABS: Appearance, Urine Hazy (Clear); Bilirubin, Urine Neg (Neg); Blood, Urine 1+ (Neg); Color, Urine Yellow (P-Yellow); Glucose Qualitative, Urine 4+ (Neg); Ketones, Urine 4+ (Neg); Leukocyte Esterase, Urine Neg (Neg); Nitrite, Urine Neg (Neg); Protein, Urine 1+ (Neg); Urobilinogen, Urine NORM (Normal)
[2021-04-13] MEDS ORDERED: OMEP20ER PO (19:48)
[2021-04-13 19:50] LABS: Bacteria Rare /hpf; Squamous Epithelial Cells Rare /hpf (Few); White Blood Cells, Urine 0-2 /hpf (0-5)
[2021-04-13] MEDS ORDERED: BASAGLAR K100 UNIT/1 SC (20:00)
[2021-04-13] MEDS ORDERED: NOVOLOG FL100 UNIT/3 SC (20:00)
--- NOTE | 2021-04-13 21:45 | NUR ---
PT UP TO ICUW ROOM 16 VIA STRETCHER FROM ED. PT SELF TX TO ICU BED. PLACED ON ALL BEDSIDE [id number]. VSS. NADN. INSULIN GTT @5.7UNITS/HR, WILL TITRATE ACCORDINGLY. BED IN LOWEST POSITION AND CALL LIGHT WITHIN EASY REACH OF PT.
[2021-04-13 22:21] LABS: CO2, Blood 4 mmol/L (21-32); Chloride, Blood 114 mmol/L (98-108); Glucose, Blood 380 mg/dL (70-99)
[2021-04-13 22:32] LABS: Anion Gap 25 mmol/L (6-16); Potassium, Blood 2.8 mmol/L (3.5-5.5); Sodium, Blood 143 mmol/L (136-145)
--- NOTE | 2021-04-13 23:00 | NUR ---
DR. HENRY NOTIFIED OF LOW POTASSIUM. NEW ORDERS RCVD (SEE MAR)
[2021-04-14 04:47] LABS: Potassium, Blood 5.3 mmol/L (3.5-5.5)
[2021-04-14 09:49] LABS: Potassium, Blood 4.1 mmol/L (3.5-5.5)
--- NOTE | 2021-04-14 11:54 | NUR ---
CARE ASSUMED ASSESSMENTS COMPLETED, PT DROWSY BUT ORIENTED AND COOPERATIVE, IRRITABLE AT TIMES. LS CLEAR, HR 110'S SIT, PT DENIES NAUSEA AND PAIN. INSULIN GTT AT 2U/HR ON THIS RN'S ARRIVAL, GLUCOSE LEVEL DECREASED TO 130'S, INSULIN TITRATED TO 1U/HR. D5 1/2 NS WITH 20MEQ KCL INFUSING AT 150ML/HR PER ORDERS. GAP CLOSED, CO2 20, PT REFUSING TO EAT. DR. NEWMAN AT BEDSIDE, AWARE OF PT'S REFUSAL TO EAT, WILL CONTINUE INSULIN GTT UNTIL PT TOLERATES PO. PT STATES HE WILL LEAVE AMA PRIOR TO EATING, HE DOES NOT PLAN TO EAT FOR AT LEAST ONE WEEK D/T ILLNESS. TOLERATING ICE CHIPS AND WATER WITHOUT DIFFICULTY, REFUSING OTHER NUTRITION.
[2021-04-14 14:07] LABS: Potassium, Blood 4.1 mmol/L (3.5-5.5)
--- NOTE | 2021-04-14 17:54 | NUR ---
END OF SHIFT PT REMAINED DROWSY T/O DAY, WAKES EASILY, APPROPRIATE, ORIENTED X4. PT REMAINS ON INSULIN GTT AT 1U/HR AND D5 0.45% NS AT 75ML/HR HE REFUSES TO EAT, STATING HE DOESN'T EAT FOR A WEEK WHEN HE IS SICK WITH DKA, HAS TAKEN ONLY ICE WATER TODAY. DR. NEWMAN AWARE, IV INSULIN, IVF, Q1H CBG'S, AND Q4H SERUM ELECTROLYTE DRAWS CONTINUE PER 'S ORDERS. AGAP CLOSED, LAST CO2 LEVEL 20, RECHECKING LABS NOW. HR 90'S SINUS, OTHER VSS, PT DENIES PAIN, NAUSEA, AND C/O, VOIDING WITHOUT DIFFICLUTY.
[2021-04-14 18:23] LABS: Potassium, Blood 3.8 mmol/L (3.5-5.5)
--- NOTE | 2021-04-15 06:43 | NUR ---
VSS STABLE THROUGHOUT SHIFT. PATIENT REMAINS ON INSULIN GTT, 1U/HR. BLOOD GLUCOSE >150 ALL NIGHT. PT DID NOT EAT OR DRINK THROUGHOUT THE NIGHT.
--- NOTE | 2021-04-15 09:25 | NUR ---
REPORT RECIEVED FROM SUSTAINABLE DESIGN CONSULTANT RN. PATIENT IS ALERT AND ORIENTED. HIS BLOOD SUGARS THIS MORNING HAVE BEEN 155 AND 153. HIS LUNGS ARE CLEAR, BOWEL TONES ARE ACTIVE. VSS. NO COMPLAINTS OF N/V AND/OR PAIN. HE DECLINES HIS JELLO AND BROTH. ENCOURAGED TO TRY CRANBERRY JUICE AND HIS ARCHER ENSURE PLACED IN CUPS WITH ICE. HE WANTS REAL FOOD. CLAIMS TO HAVE HAD SOME BROTH, BUT IT DOES LOOK LIKE ANY IS OUT OF THE CUP. HE IS A BIT FRUSTRATED AT THIS TIME. HE MADE A COMMENT ABOUT LEAVING.
[2021-04-15] MEDS ORDERED: LISI5 PO (16:17)
--- NOTE | 2021-04-15 16:46 | NUR ---
1640 DC'D PATIENT TO HOME AFTER GOING OVER DC TO HOME PAPERWORK. DC'D BOTH PIV IN RIGHT ARM. HIS CBG WAS 91, SO HE WAS GIVEN WHOLE MILK TO DRINK BEFORE BEING DC'D TO HOME. RADIO DESPATCHER WALKED HIM DOWN TO HIS RIDE ONCE THEY ARRIVED TO PICK HIM UP FROM HOSPITAL.
== END 2021-04-15 16:55 | disposition home or self-care (01) | DRG 638 ==
LOC: ER 18:09 → ICUW 20:50
PROVIDERS: Emergency Medicine; Internal Medicine; ADMIT Internal Medicine
DX: E10.10 Type 1 diabetes mellitus with ketoacidosis without coma (principal); E87.1 Hypo-osmolality and hyponatremia; E86.0 Dehydration; I10 Essential (primary) hypertension; F12.10 Cannabis abuse, uncomplicated; Z98.890 Other specified postprocedural states; Z79.899 Other long term (current) drug therapy
CPT/HCPCS: 36415; 80051; 80053; 81001; 82010; 82803; 82947; 83735; 84100; 85025; 96374; 99285-25; J1815; J2405; J3480; J7030; J7042

== ENCOUNTER 2021-07-30 09:35 | Inpatient (IN) | payer BC, OTHER ==
[~2021-07-30] VITALS: Ht 177.8 cm; Wt 60.8 kg
[~2021-07-30 09:35] MED LIST changes: +OMEP20ER PO
[2021-07-30 10:45] LABS: Base Excess Venous -23.1 mmol/L; Bicarbonate Venous 10.2 mmol/L (24.0-30.0); PCO2 Venous 20.2 mmHg (38-42); pH Blood Venous 7.11 (7.34-7.37)
[2021-07-30 11:08] LABS: BASOPHILS ABSOLUTE AUTO 0.02 K/mm3 (0.00-0.23); BASOPHILS PERCENT AUTO 0 % (0-2); EOSINOPHILS PERCENT AUTO 0 % (0-6); Hematocrit 50.6 % (37.0-53.0); Hemoglobin 16.7 g/dL (13.5-17.5); IMMATURE GRAN ABSOLUTE AUTO 0.12 K/mm3 (0.00-0.10); IMMATURE GRAN PERCENT AUTO 1 % (0-1); LYMPHOCYTES ABSOLUTE AUTO 1.48 K/mm3 (0.84-5.20); LYMPHOCYTES PERCENT AUTO 8 % (21-46); MONOCYTES ABSOLUTE AUTO 0.81 K/mm3 (0.16-1.47); MONOCYTES PERCENT AUTO 5 % (4-13); Mean Corpuscular HGB 32.1 pg (26.0-34.0); Mean Corpuscular Volume 97 fL (80-100); Mean Platelet Volume 9.6 fL (9.1-12.4); NEUTROPHILS ABSOLUTE AUTO 15.57 K/mm3 (1.96-9.15); NEUTROPHILS PERCENT AUTO 87 % (41-73); Platelet Count 460 K/mm3 (150-400); RDW Standard Deviation 43.6 fL (35.1-46.3); Red Blood Cell Count 5.21 M/mm3 (4.30-5.90)
[2021-07-30 11:32] LABS: Alanine Aminotransfer (ALT/SGP 251 U/L (12-78); Albumin, Blood 4.3 g/dL (3.4-5.0); Albumin/Globulin Ratio 1.2 (0.8-1.8); Alk Phos 142 U/L (50-136); Anion Gap 35 mmol/L (6-16); Aspartate Aminotrans (AST/SGOT 146 U/L (12-37); Bilirubin, Total 1.9 mg/dL (0.1-1.0); Blood Urea Nitrogen 28 mg/dL (8-24); Bun/Creatinine Ratio 25.9 (12.0-20.0); CO2, Blood 7 mmol/L (21-32); Calcium, Blood 9.2 mg/dL (8.5-10.1); Chloride, Blood 83 mmol/L (98-108); Creatinine, Blood 1.08 mg/dL (0.60-1.20); Globulin, Blood 3.7 g/dL (2.2-4.0); Glomerular Filtration Rate >60 (60-); Glucose, Blood 678 mg/dL (70-99); Potassium, Blood 5.2 mmol/L (3.5-5.5); Sodium, Blood 125 mmol/L (136-145)
[2021-07-30 11:59] LABS: Source, Urine Clean Catch
[2021-07-30 12:02] LABS: Bilirubin, Urine Neg (Neg); Blood, Urine 3+ (Neg); Glucose Qualitative, Urine 4+ (Neg); Ketones, Urine 4+ (Neg); Leukocyte Esterase, Urine Neg (Neg); Nitrite, Urine Neg (Neg); Protein, Urine Neg (Neg); Urobilinogen, Urine NORM (Normal)
[2021-07-30 12:12] LABS: Appearance, Urine Clear (Clear); Color, Urine Pale Yellow (P-Yellow); Squamous Epithelial Cells Rare /hpf (Few); White Blood Cells, Urine 0-2 /hpf (0-5)
[2021-07-30 12:13] LABS: Bacteria Rare /hpf
[2021-07-30 12:19] LABS: Beta-hydroxybutyrate 116.8 mg/dL (0.2-2.8)
[2021-07-30 15:47] LABS: Glucose, Blood 328 mg/dL (70-99)
[2021-07-30 15:59] LABS: Albumin, Blood 3.7 g/dL (3.4-5.0); Anion Gap 27 mmol/L (6-16); Blood Urea Nitrogen 28 mg/dL (8-24); Bun/Creatinine Ratio 26.9 (12.0-20.0); CO2, Blood 6 mmol/L (21-32); Calcium, Blood 8.1 mg/dL (8.5-10.1); Chloride, Blood 103 mmol/L (98-108); Creatinine, Blood 1.04 mg/dL (0.60-1.20); Glomerular Filtration Rate >60 (60-); Glucose, Blood 319 mg/dL (70-99); Phosphorus, Blood 4.1 mg/dL (2.5-4.9); Potassium, Blood 4.1 mmol/L (3.5-5.5); Sodium, Blood 136 mmol/L (136-145)
[2021-07-30 16:22] LABS: Influenza A, PCR NEGATIVE (NEGATIVE); Influenza B, PCR NEGATIVE (NEGATIVE); Resp Syncytial Virus, PCR NEGATIVE (NEGATIVE); SARS-Cov-2 (COVID-19) PCR, MMC NEGATIVE (NEGATIVE)
--- NOTE | 2021-07-30 16:30 | NUR ---
ICU ADMISSION: REPORT RECEIVED FROM LENORE Mars RN IN ED. PT ARRIVED TO ICU-02 AT APPROX 1525. ON ARRIVAL, THE PT IS A&O TO ALL, ABLE TO TRANSFER HIMSELF FROM GURNEY TO BED BY ROLLING. INSULIN INFUSING AT 6 UNITS/HR, DECREASED TO 3 UNITS/HR AFTER CBG NOTED TO BE DECREASED TO 338. PRIOR CBG TAKEN IN ED AT APPROX 1250 WAS > 500. LS ARE CLEAR T/O, PT TACHYPNEIC W/ EXERTION. MONITOR SHOWS ST W/ HR 130s, BP STABLE. NPO R/T NAUSEA & CURRENT DKA. NO VOID SINCE ARRIVAL TO UNIT. SKIN CONDITION OVERALL INTACT. ADMISSION COMPLETED PER PT STATEMENTS. WILL CONTINUE TO MONITOR & UPDATE NEEDED.
--- NOTE | 2021-07-30 17:55 | NUR ---
SHIFT SUMMARY: NO ACUTE CHANGES SINCE PRIOR UPDATE. PT REMAINS A&O, DROWSY, BUT AWAKENS EASILY TO VERBAL STIMULUS. LS CLEAR T/O, PT ON RA W/ O2 SATS > 95%. MONITOR SHOWS ST W/ HR 120s, BP STABLE. PT STS FEELING THIRSTY, TOLERATING SMALL SIPS OF WATER TO WET MOUTH. NO VOID SINCE ADMISSION. SKIN OVERALL INTACT, PT REPOSITIONS SELF W/O DIFFICULTY. INSULIN CURRENTLY INFUSING AT 2 UNITS/HR, D5NS W/ 20 MEQ KCL INFUSING AT 200 ML/HR. WILL CONTINUE TO MONITOR & REPORT OFF TO ONCOMING RN.
[2021-07-30 18:11] LABS: Albumin, Blood 3.1 g/dL (3.4-5.0); Anion Gap 20 mmol/L (6-16); Blood Urea Nitrogen 24 mg/dL (8-24); Bun/Creatinine Ratio 28.5 (12.0-20.0); CO2, Blood 11 mmol/L (21-32); Calcium, Blood 7.4 mg/dL (8.5-10.1); Chloride, Blood 102 mmol/L (98-108); Creatinine, Blood 0.84 mg/dL (0.60-1.20); Glomerular Filtration Rate >60 (60-); Glucose, Blood 251 mg/dL (70-99); Phosphorus, Blood 2.3 mg/dL (2.5-4.9); Potassium, Blood 4.5 mmol/L (3.5-5.5); Sodium, Blood 133 mmol/L (136-145)
--- NOTE | 2021-07-30 19:10 | NUR ---
Assumed care. Report received from jaiden RN. PT sleeping in bed at this time, on room air. Insulin running at 3 unit/hr in L/ac IV, D5/NS 200 ml/hr in SHANKAR PG. Call light within reach, no acute needs at this time, will continue to monitor.
[2021-07-30 20:58] LABS: Albumin, Blood 3.1 g/dL (3.4-5.0); Anion Gap 18 mmol/L (6-16); Blood Urea Nitrogen 21 mg/dL (8-24); Bun/Creatinine Ratio 25.9 (12.0-20.0); CO2, Blood 11 mmol/L (21-32); Calcium, Blood 7.3 mg/dL (8.5-10.1); Chloride, Blood 105 mmol/L (98-108); Creatinine, Blood 0.81 mg/dL (0.60-1.20); Glomerular Filtration Rate >60 (60-); Glucose, Blood 257 mg/dL (70-99); Phosphorus, Blood 1.3 mg/dL (2.5-4.9); Potassium, Blood 3.9 mmol/L (3.5-5.5); Sodium, Blood 134 mmol/L (136-145)
[2021-07-31 03:41] LABS: BASOPHILS ABSOLUTE AUTO 0.01 K/mm3 (0.00-0.23); BASOPHILS PERCENT AUTO 0 % (0-2); EOSINOPHILS PERCENT AUTO 0 % (0-6); Hematocrit 36.2 % (37.0-53.0); Hemoglobin 12.6 g/dL (13.5-17.5); IMMATURE GRAN ABSOLUTE AUTO 0.07 K/mm3 (0.00-0.10); IMMATURE GRAN PERCENT AUTO 1 % (0-1); LYMPHOCYTES ABSOLUTE AUTO 1.76 K/mm3 (0.84-5.20); LYMPHOCYTES PERCENT AUTO 13 % (21-46); MONOCYTES ABSOLUTE AUTO 1.29 K/mm3 (0.16-1.47); MONOCYTES PERCENT AUTO 10 % (4-13); Mean Corpuscular HGB 32.4 pg (26.0-34.0); Mean Corpuscular HGB Conc 34.8 g/dL (31.5-36.5); Mean Corpuscular Volume 93 fL (80-100); Mean Platelet Volume 8.6 fL (9.1-12.4); NEUTROPHILS ABSOLUTE AUTO 10.32 K/mm3 (1.96-9.15); NEUTROPHILS PERCENT AUTO 77 % (41-73); Platelet Count 286 K/mm3 (150-400); RDW Coefficient Variation 11.9 % (11.7-14.2); RDW Standard Deviation 41.1 fL (35.1-46.3); Red Blood Cell Count 3.89 M/mm3 (4.30-5.90); White Blood Cell Count 13.45 K/mm3 (4.00-11.30)
[2021-07-31 03:59] LABS: Anion Gap 9 mmol/L (6-16); Blood Urea Nitrogen 16 mg/dL (8-24); Bun/Creatinine Ratio 22.1 (12.0-20.0); CO2, Blood 22 mmol/L (21-32); Calcium, Blood 7.5 mg/dL (8.5-10.1); Chloride, Blood 105 mmol/L (98-108); Creatinine, Blood 0.72 mg/dL (0.60-1.20); Glomerular Filtration Rate >60 (60-); Glucose, Blood 133 mg/dL (70-99); Magnesium, Blood 1.7 mg/dL (1.6-2.4); Potassium, Blood 3.4 mmol/L (3.5-5.5); Sodium, Blood 136 mmol/L (136-145)
--- NOTE | 2021-07-31 06:14 | NUR ---
Shift summary. Pt slept in bed throughout shift. Pt alert and oriented when aroused. PICC in KIARRA and IV in L/ac WNL. Insulin running at 1 unit/hr, D5 1/2 NS at 100 ml/hr. Pt to be switched off of insulin drip this am per Dr. Dawson. See nurse notify for details. Stable VS throughout shift, see shift assessment for further details. Will continue to monitor and report off to dayshift RN.
--- NOTE | 2021-07-31 07:45 | NUR ---
ASSUMED CARE / DR WEAVER: REPORT RECEIVED FROM REILLY Reyes RN. ASSUMED CARE OF THIS PT AT APPROX 0700. ON ASSESSMENT, THE PT IS RESTING QUIETLY. HE AWAKENS EASILY TO VERBAL STIMULUS & IS ORIENTED TO ALL AT THAT TIME. LS ARE CLEAR T/O, PT ON RA W/ O2 SATS > 95%. MONITOR SHOWS SR W/ HR 80-90s, BP STABLE. PT DENIES HAVING ANY APPETITE AT THIS TIME. NO URINARY VOID DURING PERSONNEL RECRUITER. SKIN CONDITION OVERALL INTACT, PT REPOSITIONS SELF W/O DIFFICULTY. DR WEAVER AT BEDSIDE TO EVAL PT THIS AM. ORDERS PLACED FOR PT's AM DOSE OF INSULIN GLARGINE. HE WOULD LIKE THE INSULIN DRIP TO BE STOPPED ONE HOUR AFTER GLARGINE ADMINISTERED. APPROX 30 MINS AFTER, GLUCOSE LEVEL CAN BE CHECKED & IF STABLE, D5 1/2 NS CAN BE TURNED OFF. 60 MEW KCL REPLETION ALSO ORDERED FOR POTASSIUM LEVEL 3.4 ON AM LABS. THE PT MAY STATUS CHANGE THIS AFTERNOON TO MEDICAL W/O TELE IF GLUCOSE LEVEL REMAINS STABLE. WILL CONTINUE TO MONITOR & UPDATE NEEDED.
--- NOTE | 2021-07-31 17:03 | NUR ---
SHIFT SUMMARY / TRANSFER TO MEDICAL FLOOR: NO ACUTE CHANGES SINCE PRIOR UPDATES. PT REMAINS A&O, COOPERATIVE W/ CARE, FLAT AFFECT OVERALL. LS CLEAR T/O, PT ON RA W/ O2 SATS > 95%. MONITOR SHOWS SR W/ HR 80s, SBP 150s, HOME DOSE LISINOPRIL TO START TOMORROW AM. PT TOLERATING PO INTAKE OF WATER WELL, DENIES HAVING ANY APPETITE. MEDICATED PER EMAR FOR NAUSEA x1. PT VOIDS LARGE AMNTS OF URINE W/O DIFFICULTY, URINE IS DARK IN COLOR & CONCENTRATED. SKIN OVERALL INTACT, PT REPOSITIONS SELF FOR COMFORT. REPORT HAS BEEN GIVEN TO JOANN Mars RN TO ASSUME CARE. PT TRANSFERRED TO ROOM 304 AT APPROX 1655. CHART, BELONGINGS & MEDICATIONS TAKEN W/ PT AT THIS TIME.
--- NOTE | 2021-07-31 17:16 | NUR ---
PT ARRIVED TO UNIT AT 1710. AOX4 AND COOPERATIVE OF CARE. PT DOES NOT TALK A LOT AND IS A BIT WITHDRAWN. PT INDEPENDENT IN ROOM CALL LIGHT WITHIN REACH. NO DISTRESS NOTED WILL CONTINUE TO MONITOR.
[2021-07-31 18:02] LABS: Albumin, Blood 2.7 g/dL (3.4-5.0); Anion Gap 8 mmol/L (6-16); Blood Urea Nitrogen 12 mg/dL (8-24); Bun/Creatinine Ratio 18.2 (12.0-20.0); CO2, Blood 23 mmol/L (21-32); Calcium, Blood 7.8 mg/dL (8.5-10.1); Chloride, Blood 104 mmol/L (98-108); Creatinine, Blood 0.66 mg/dL (0.60-1.20); Glomerular Filtration Rate >60 (60-); Glucose, Blood 217 mg/dL (70-99); Phosphorus, Blood 1.1 mg/dL (2.5-4.9); Potassium, Blood 3.5 mmol/L (3.5-5.5); Sodium, Blood 135 mmol/L (136-145)
[2021-08-01 04:50] LABS: BASOPHILS PERCENT AUTO 0 % (0-2); EOSINOPHILS ABSOLUTE AUTO 0.01 K/mm3 (0.00-0.68); EOSINOPHILS PERCENT AUTO 0 % (0-6); Hematocrit 36.1 % (37.0-53.0); Hemoglobin 12.1 g/dL (13.5-17.5); IMMATURE GRAN ABSOLUTE AUTO 0.01 K/mm3 (0.00-0.10); IMMATURE GRAN PERCENT AUTO 0 % (0-1); LYMPHOCYTES ABSOLUTE AUTO 2.15 K/mm3 (0.84-5.20); LYMPHOCYTES PERCENT AUTO 36 % (21-46); MONOCYTES ABSOLUTE AUTO 0.36 K/mm3 (0.16-1.47); MONOCYTES PERCENT AUTO 6 % (4-13); Mean Corpuscular HGB 31.3 pg (26.0-34.0); Mean Corpuscular HGB Conc 33.5 g/dL (31.5-36.5); Mean Corpuscular Volume 93 fL (80-100); Mean Platelet Volume 8.7 fL (9.1-12.4); NEUTROPHILS ABSOLUTE AUTO 3.48 K/mm3 (1.96-9.15); NEUTROPHILS PERCENT AUTO 58 % (41-73); Platelet Count 211 K/mm3 (150-400); RDW Coefficient Variation 11.8 % (11.7-14.2); RDW Standard Deviation 39.9 fL (35.1-46.3); Red Blood Cell Count 3.87 M/mm3 (4.30-5.90); White Blood Cell Count 6.01 K/mm3 (4.00-11.30)
--- NOTE | 2021-08-01 04:56 | NUR ---
PT IS A/OX4. THE PATIENT DID REFUSE HIS BEDTIME HEPARIN INJECTION. HE IS STEADY ON HIS FEET AND INDEPENDENT IN THE ROOM. HE DID HAVE C/O OF BACK PAIN; THE ATTENDING WAS NOTIFIED AND Q6 PRN TYLENOL WAS ORDERED. BACK PAIN WAS RESOLVED. CALL LIGHT IS WITHIN REACH AND WE'LL CONTINUE TO MONITOR.
[2021-08-01 09:05] LABS: Albumin, Blood 2.9 g/dL (3.4-5.0); Anion Gap 9 mmol/L (6-16); Blood Urea Nitrogen 13 mg/dL (8-24); Bun/Creatinine Ratio 18.2 (12.0-20.0); CO2, Blood 25 mmol/L (21-32); Calcium, Blood 8.2 mg/dL (8.5-10.1); Chloride, Blood 97 mmol/L (98-108); Creatinine, Blood 0.72 mg/dL (0.60-1.20); Glomerular Filtration Rate >60 (60-); Glucose, Blood 286 mg/dL (70-99); Phosphorus, Blood 1.6 mg/dL (2.5-4.9); Potassium, Blood 3.8 mmol/L (3.5-5.5); Sodium, Blood 131 mmol/L (136-145)
[2021-08-01] MEDS ORDERED: ONDA4 PO (09:56)
[2021-08-01] MEDS ORDERED: PANT20 PO (09:56)
--- NOTE | 2021-08-01 11:29 | NUR ---
PT AOX4 AND COOPERATIVE OF CARE. PT DISCHARGED AT 1020 AND WAS INDEPENDENT IN ROOM. BLOOD SUGARS ARE UNDER CONTROL. PT HAD PAPERWORK REVIEWED AND EDUCATIONAL MATERIAL SENT WITH PT. PT ESCORTED OUT VIA WHEEL CHAIR TO [facility]. NO DISTRESS NOTED.
--- NOTE | 2021-08-01 14:45 | NUR ---
Per Dr. Agueda Cadet discharge appropriate. Patient does not oppose discharge. Date of discharge: 08/01/2021 Date of admission: 07/30/2021 Provisional diagnosis at time of admission: Diabetic Ketoacidosis Final Diagnosis at time of discharge: Diabetic Ketoacidosis Location: Patient is discharged home to his residence: [address] [place] [address] Transportation provided by: Private vehicle DME Ordered: None needed; patient is independent and able to completed ADL's without assistance. Follow-ups needed: [facility] will contact patient to schedule. Reinforced to patient the need to schedule PCP follow up after discharge from hospital; and telehealth/phone call is an option. Confirmed numbers: Patient: [phone] Mother Frances Prince: [phone] Provider/PCP: Vern Rosenberg MD When: WITHIN 1 WEEK Specialty: N/A When: N/A Comment: Patient lives with his mother Frances Perdomo. Patient is presently unemployed. 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 Patient is not a . Patient has a stable support system. No barriers to discharge.
== END 2021-08-01 11:01 | disposition home or self-care (01) | DRG 638 ==
LOC: ER 09:35 → ICUW 12:11 → ICUE 12:11 → MEDS 07-31 16:58
PROVIDERS: Emergency Medicine; Physician Assistant; ADMIT Family Medicine
DX: E10.10 Type 1 diabetes mellitus with ketoacidosis without coma (principal); E87.1 Hypo-osmolality and hyponatremia; Z20.822 Contact with and (suspected) exposure to COVID-19; I10 Essential (primary) hypertension; E86.0 Dehydration; Z90.89 Acquired absence of other organs; Z79.899 Other long term (current) drug therapy
CPT/HCPCS: 0241U; 36415; 80048; 80053; 80069; 81001; 82010; 82803; 82947; 83036; 83735; 85025; 93005; 93010; 96374; 99285-25; A9270; C1751; C9113; J1644; J1815; J2405; J2765; J3480; J7030; J7042; J7050; J7060

== ENCOUNTER 2021-10-23 20:54 | Inpatient (IN) | payer BC, OTHER ==
[~2021-10-23] VITALS: Ht 177.8 cm; Wt 56.7 kg
[~2021-10-23 20:54] MED LIST changes: +ONDA4 PO; +PANT20 PO
[2021-10-23] MEDS ORDERED: Phenergan25 M1 PO (21:27)
[2021-10-23] MEDS ORDERED: REGLAN1011 PO (21:27)
[2021-10-23 21:45] LABS: Calcium, Ionized (POC) 1.12 mmol/L (1.10-1.46); Chloride (POC) 94 mmol/L (98-108); Creatinine (POC) 1.1 mg/dL (0.8-1.3); Glucose (ISTAT POC) 385 mg/dL (70-99); Hemoglobin (POC) 18.7 g/dL (13.5-17.5); Potassium (POC) 3.9 mmol/L (3.5-5.5); Sodium (POC) 129 mmol/L (135-148); Total CO2 (POC) 10 mmol/L (21-32)
[2021-10-23 21:48] LABS: Base Excess Venous -17.5 mmol/L; Bicarbonate Venous 13.5 mmol/L (24.0-30.0); PCO2 Venous 21.2 mmHg (38-42); PO2 Venous 66.8 mmHg (38-42); pH Blood Venous 7.26 (7.34-7.37)
[2021-10-23 21:56] LABS: BASOPHILS ABSOLUTE AUTO 0.04 K/mm3 (0.00-0.23); BASOPHILS PERCENT AUTO 0 % (0-2); EOSINOPHILS PERCENT AUTO 0 % (0-6); Hemoglobin 17.2 g/dL (13.5-17.5); IMMATURE GRAN ABSOLUTE AUTO 0.12 K/mm3 (0.00-0.10); IMMATURE GRAN PERCENT AUTO 1 % (0-1); LYMPHOCYTES ABSOLUTE AUTO 1.33 K/mm3 (0.84-5.20); LYMPHOCYTES PERCENT AUTO 8 % (21-46); MONOCYTES ABSOLUTE AUTO 0.71 K/mm3 (0.16-1.47); MONOCYTES PERCENT AUTO 4 % (4-13); Mean Corpuscular HGB 31.8 pg (26.0-34.0); Mean Corpuscular HGB Conc 34.4 g/dL (31.5-36.5); Mean Corpuscular Volume 92 fL (80-100); Mean Platelet Volume 8.8 fL (9.1-12.4); NEUTROPHILS ABSOLUTE AUTO 14.76 K/mm3 (1.96-9.15); NEUTROPHILS PERCENT AUTO 87 % (41-73); Platelet Count 561 K/mm3 (150-400); RDW Coefficient Variation 12.2 % (11.7-14.2); RDW Standard Deviation 42.2 fL (35.1-46.3); Red Blood Cell Count 5.41 M/mm3 (4.30-5.90); White Blood Cell Count 16.96 K/mm3 (4.00-11.30)
[2021-10-23 22:25] LABS: Alanine Aminotransfer (ALT/SGP 225 U/L (12-78); Albumin, Blood 4.5 g/dL (3.4-5.0); Alk Phos 140 U/L (50-136); Anion Gap 29 mmol/L (6-16); Aspartate Aminotrans (AST/SGOT 118 U/L (12-37); Bilirubin, Total 1.6 mg/dL (0.1-1.0); Blood Urea Nitrogen 25 mg/dL (8-24); Bun/Creatinine Ratio 23.6 (12.0-20.0); CO2, Blood 10 mmol/L (21-32); Calcium, Blood 9.5 mg/dL (8.5-10.1); Chloride, Blood 89 mmol/L (98-108); Creatinine, Blood 1.06 mg/dL (0.60-1.20); Globulin, Blood 4.5 g/dL (2.2-4.0); Glomerular Filtration Rate >60 (60-); Glucose, Blood 383 mg/dL (70-99); Magnesium, Blood 2.3 mg/dL (1.6-2.4); Potassium, Blood 3.7 mmol/L (3.5-5.5); Sodium, Blood 128 mmol/L (136-145)
[2021-10-23 22:40] LABS: Beta-hydroxybutyrate 78.2 mg/dL (0.2-2.8)
[2021-10-24 00:33] LABS: Anion Gap 14 mmol/L (6-16); Blood Urea Nitrogen 22 mg/dL (8-24); Bun/Creatinine Ratio 28.3 (12.0-20.0); CO2, Blood 18 mmol/L (21-32); Calcium, Blood 7.7 mg/dL (8.5-10.1); Chloride, Blood 104 mmol/L (98-108); Creatinine, Blood 0.78 mg/dL (0.60-1.20); Glomerular Filtration Rate >60 (60-); Glucose, Blood 115 mg/dL (70-99); Potassium, Blood 3.7 mmol/L (3.5-5.5); Sodium, Blood 136 mmol/L (136-145)
[2021-10-24 03:46] LABS: BASOPHILS ABSOLUTE AUTO 0.01 K/mm3 (0.00-0.23); BASOPHILS PERCENT AUTO 0 % (0-2); EOSINOPHILS PERCENT AUTO 0 % (0-6); Hemoglobin 12.8 g/dL (13.5-17.5); IMMATURE GRAN ABSOLUTE AUTO 0.05 K/mm3 (0.00-0.10); IMMATURE GRAN PERCENT AUTO 0 % (0-1); LYMPHOCYTES PERCENT AUTO 15 % (21-46); MONOCYTES ABSOLUTE AUTO 1.15 K/mm3 (0.16-1.47); MONOCYTES PERCENT AUTO 9 % (4-13); Mean Corpuscular HGB 31.9 pg (26.0-34.0); Mean Corpuscular HGB Conc 34.6 g/dL (31.5-36.5); Mean Corpuscular Volume 92 fL (80-100); Mean Platelet Volume 8.5 fL (9.1-12.4); NEUTROPHILS ABSOLUTE AUTO 9.84 K/mm3 (1.96-9.15); NEUTROPHILS PERCENT AUTO 75 % (41-73); Platelet Count 379 K/mm3 (150-400); RDW Coefficient Variation 12.1 % (11.7-14.2); RDW Standard Deviation 41.7 fL (35.1-46.3); Red Blood Cell Count 4.01 M/mm3 (4.30-5.90); White Blood Cell Count 13.05 K/mm3 (4.00-11.30)
[2021-10-24 04:14] LABS: Alanine Aminotransfer (ALT/SGP 143 U/L (12-78); Albumin, Blood 3.1 g/dL (3.4-5.0); Albumin/Globulin Ratio 1.1 (0.8-1.8); Alk Phos 89 U/L (50-136); Anion Gap 9 mmol/L (6-16); Aspartate Aminotrans (AST/SGOT 67 U/L (12-37); Bilirubin, Total 1.2 mg/dL (0.1-1.0); Blood Urea Nitrogen 18 mg/dL (8-24); Bun/Creatinine Ratio 24.9 (12.0-20.0); CO2, Blood 20 mmol/L (21-32); Calcium, Blood 7.8 mg/dL (8.5-10.1); Chloride, Blood 104 mmol/L (98-108); Creatinine, Blood 0.72 mg/dL (0.60-1.20); Globulin, Blood 2.8 g/dL (2.2-4.0); Glomerular Filtration Rate >60 (60-); Glucose, Blood 156 mg/dL (70-99); Potassium, Blood 4.2 mmol/L (3.5-5.5); Sodium, Blood 133 mmol/L (136-145)
[2021-10-24 04:16] LABS: Total Protein, Blood 5.9 g/dL (6.4-8.2)
--- NOTE | 2021-10-24 06:01 | NUR ---
PT TO TX TO ICU @ 0215 - ASSUMED CARE. SHIFT SUMMARY: PT VERY WITHDRAWN AND DID NOT WANT TO PARTICIPATE IN EDUCATION, CARE PLAN OR TX PLAN FOR DKA. TRIED TO FINISH ADMISSION ASSESSMENT BUT PT WITHDRAWN AND DID NOT WANT TO ANSWER ANY QUESTIONS. CAN MOVE ALL EXT AND REPOSITION SELF INDEPDENTLY IN BED. ON ROOM AIR, WITH NON PRODUCTIVE COUGH. BP AND HR STABLE, NORMAL SINUS RHYTHM TO SINUS TACH. PULSES ARE PALPABLE. PER KEEP PT ON INSULIN AND D5 1/2 NS WITH 20 K+ OVERNIGHT. PER PT CAN HAVE WATER. Q1 CBG CHECKS WITH INSULIN DRIP - TITRATING TO MAINTAIN GLUCOSE LESS THAN 150. CURRENTLY PATIENT IS RESTING COMFORTABLY IN BED, CALL LIGHT WITHIN REACH.
--- NOTE | 2021-10-24 09:25 | NUR ---
PT RESTING IN BED. WILL NOT OPEN EYE'S, VERY MINIMAL VERBAL RESPONSE. PT APPEARS AGITATED WITH STAFF BUT WILL NOT CONVERSE. PT REFUSES BREAKFAST. GAVE GLARGINE INSULIN AND WILL TITRATE INSULIN GTT OFF AFTER AN HOUR WELL D5 1/2NS WITH KCL.
[2021-10-24 13:10] LABS: Anion Gap 8 mmol/L (6-16); Blood Urea Nitrogen 11 mg/dL (8-24); Bun/Creatinine Ratio 20.8 (12.0-20.0); CO2, Blood 23 mmol/L (21-32); Calcium, Blood 7.7 mg/dL (8.5-10.1); Chloride, Blood 103 mmol/L (98-108); Creatinine, Blood 0.53 mg/dL (0.60-1.20); Glomerular Filtration Rate >60 (60-); Glucose, Blood 178 mg/dL (70-99); Potassium, Blood 3.9 mmol/L (3.5-5.5); Sodium, Blood 134 mmol/L (136-145)
--- NOTE | 2021-10-24 18:25 | NUR ---
SUMMARY PT RESTING IN BED. HAS KEPT TO HIMSELF ALL DAY. REFUSES CARE AT TIMES. DOESN'T WANT TO EAT. MOM THAT IS AT BEDSIDE SAYS THIS IS TYPICAL AFTER HE HAS AN EPISODE OF DKA. SHE STATES SOMETIMES HE WON'T EAT MUCH FOR A WEEK. MONITORING GLUCOSE. INSULIN GTT OFF THIS AM. PT IS DRINKING WATER. C/O OF BACK PAIN, CALLED DR. WEAVER WHO ORDERED IBUPROFEN. NO SIGN OF DISTRESS. WILL BE MOVING TO MEDICAL FLOOR ROOM 334.
--- NOTE | 2021-10-24 19:20 | NUR ---
PT ARRIVED TO UNIT REPORT GIVEN TO NIGHT NURSE.
--- NOTE | 2021-10-25 05:15 | NUR ---
SHIFT SUMMARY PT DRY HEAVING OCCASIONALLY AND HAS BEEN MEDICATED TWICE FOR NAUSEA PER EMAR. PT GIVEN ICE WATER AND EXTRA PILLOWS AND BLANKETS. PT HAVING BACK PAIN. PHARMACY WILL SEND MEDICATION DOWN FOR PT. PT SLEPT OFF AND ON THROUGHOUT THE SHIFT. PT HAS VOMIT BAG AND CALL LIGHT WITHIN REACH. WILL CONTINUE TO MONITOR.
[2021-10-25 05:19] LABS: BASOPHILS ABSOLUTE AUTO 0.01 K/mm3 (0.00-0.23); BASOPHILS PERCENT AUTO 0 % (0-2); EOSINOPHILS ABSOLUTE AUTO 0.01 K/mm3 (0.00-0.68); EOSINOPHILS PERCENT AUTO 0 % (0-6); Hematocrit 34.9 % (37.0-53.0); Hemoglobin 11.9 g/dL (13.5-17.5); IMMATURE GRAN ABSOLUTE AUTO 0.03 K/mm3 (0.00-0.10); IMMATURE GRAN PERCENT AUTO 0 % (0-1); LYMPHOCYTES ABSOLUTE AUTO 1.76 K/mm3 (0.84-5.20); LYMPHOCYTES PERCENT AUTO 23 % (21-46); MONOCYTES ABSOLUTE AUTO 0.59 K/mm3 (0.16-1.47); MONOCYTES PERCENT AUTO 8 % (4-13); Mean Corpuscular HGB 31.9 pg (26.0-34.0); Mean Corpuscular HGB Conc 34.1 g/dL (31.5-36.5); Mean Corpuscular Volume 94 fL (80-100); Mean Platelet Volume 8.8 fL (9.1-12.4); NEUTROPHILS ABSOLUTE AUTO 5.15 K/mm3 (1.96-9.15); NEUTROPHILS PERCENT AUTO 68 % (41-73); Platelet Count 272 K/mm3 (150-400); RDW Coefficient Variation 12.1 % (11.7-14.2); RDW Standard Deviation 42.1 fL (35.1-46.3); Red Blood Cell Count 3.73 M/mm3 (4.30-5.90); White Blood Cell Count 7.55 K/mm3 (4.00-11.30)
[2021-10-25 06:02] LABS: Anion Gap 10 mmol/L (6-16); Blood Urea Nitrogen 10 mg/dL (8-24); Bun/Creatinine Ratio 17.1 (12.0-20.0); CO2, Blood 23 mmol/L (21-32); Calcium, Blood 8.1 mg/dL (8.5-10.1); Chloride, Blood 100 mmol/L (98-108); Creatinine, Blood 0.58 mg/dL (0.60-1.20); Glomerular Filtration Rate >60 (60-); Glucose, Blood 279 mg/dL (70-99); Potassium, Blood 4.1 mmol/L (3.5-5.5); Sodium, Blood 133 mmol/L (136-145)
[2021-10-25 12:37] LABS: Anion Gap 7 mmol/L (6-16); Blood Urea Nitrogen 11 mg/dL (8-24); Bun/Creatinine Ratio 18.4 (12.0-20.0); CO2, Blood 26 mmol/L (21-32); Calcium, Blood 8.4 mg/dL (8.5-10.1); Chloride, Blood 101 mmol/L (98-108); Glomerular Filtration Rate >60 (60-); Glucose, Blood 113 mg/dL (70-99); Potassium, Blood 3.4 mmol/L (3.5-5.5); Sodium, Blood 134 mmol/L (136-145)
--- NOTE | 2021-10-25 15:30 | NUR ---
DISCHARGE PT DISCHARGED @ THIS TIME, A&O X4. PROVIDED W/ VERBAL AND WRITTEN D/C INSTRUCTION. PT VERBALIZED UNDERSTANDING. IVX2 DC'ED. PT ESCORTED OUT BY [facility], PT ABLE TO AMBULATE TO [facility]. FRIEND PROVIDED TRANSPORT.VSS.
== END 2021-10-25 15:42 | disposition home or self-care (01) | DRG 638 ==
LOC: ER 20:54 → MEDS 10-24 01:23 → ICUW 10-24 01:23 → MEDS 10-24 18:51
PROVIDERS: Family Medicine; Physician Assistant; Student in an Organized Health Care Education/Training Program; ADMIT Internal Medicine
DX: E10.10 Type 1 diabetes mellitus with ketoacidosis without coma (principal); E87.3 Alkalosis; K92.0 Hematemesis; E87.1 Hypo-osmolality and hyponatremia; I10 Essential (primary) hypertension; F90.9 Attention-deficit hyperactivity disorder, unspecified type; F32.A Depression, unspecified; K21.9 Gastro-esophageal reflux disease without esophagitis; F12.10 Cannabis abuse, uncomplicated; E86.0 Dehydration; Z90.89 Acquired absence of other organs; Z79.4 Long term (current) use of insulin; Z71.51 Drug abuse counseling and surveillance of drug abuser; Z91.14 Patient's other noncompliance with medication regimen; Z79.899 Other long term (current) drug therapy
CPT/HCPCS: 36415; 80047; 80048; 80053; 82010; 82803; 82947; 83690; 83735; 85014; 85025; 86850; 86900; 86901; 93005; 93010; 96365; 96366; 96375; 99285-25; A9270; C9113; J1650; J1815; J2405; J3475; J3480; J7030; J7042

== ENCOUNTER 2021-12-29 19:42 | Emergency (ER) | payer BC, OTHER ==
[~2021-12-29] VITALS: Ht 175.3 cm; Wt 65.8 kg
[~2021-12-29 19:42] MED LIST changes: +Phenergan25 M1 PO; +REGLAN1011 PO
[2021-12-29 20:06] LABS: BASOPHILS ABSOLUTE AUTO 0.02 K/mm3 (0.00-0.23); BASOPHILS PERCENT AUTO 0 % (0-2); EOSINOPHILS ABSOLUTE AUTO 0.01 K/mm3 (0.00-0.68); EOSINOPHILS PERCENT AUTO 0 % (0-6); Hematocrit 42.5 % (37.0-53.0); Hemoglobin 14.8 g/dL (13.5-17.5); IMMATURE GRAN ABSOLUTE AUTO 0.03 K/mm3 (0.00-0.10); IMMATURE GRAN PERCENT AUTO 0 % (0-1); LYMPHOCYTES ABSOLUTE AUTO 3.13 K/mm3 (0.84-5.20); LYMPHOCYTES PERCENT AUTO 29 % (21-46); MONOCYTES PERCENT AUTO 7 % (4-13); Mean Corpuscular HGB Conc 34.8 g/dL (31.5-36.5); Mean Corpuscular Volume 89 fL (80-100); Mean Platelet Volume 8.6 fL (9.1-12.4); NEUTROPHILS ABSOLUTE AUTO 6.91 K/mm3 (1.96-9.15); NEUTROPHILS PERCENT AUTO 63 % (41-73); Platelet Count 371 K/mm3 (150-400); RDW Coefficient Variation 11.4 % (11.7-14.2); Red Blood Cell Count 4.78 M/mm3 (4.30-5.90)
[2021-12-29 20:36] LABS: Albumin, Blood 3.4 g/dL (3.4-5.0); Beta-hydroxybutyrate 37.8 mg/dL (0.2-2.8); Bilirubin, Total 1.6 mg/dL (0.1-1.0); Bun/Creatinine Ratio 20.2 (12.0-20.0); Calcium, Blood 9.1 mg/dL (8.5-10.1); Creatinine, Blood 0.65 mg/dL (0.60-1.20); Globulin, Blood 3.5 g/dL (2.2-4.0); Potassium, Blood 3.7 mmol/L (3.5-5.5); Total Protein, Blood 6.9 g/dL (6.4-8.2)
== END 2021-12-29 22:33 | disposition home or self-care (01) ==
LOC: ER 19:42
PROVIDERS: Student in an Organized Health Care Education/Training Program
DX: E10.65 Type 1 diabetes mellitus with hyperglycemia (principal); R11.0 Nausea; Z79.4 Long term (current) use of insulin; Z79.899 Other long term (current) drug therapy
CPT/HCPCS: 36415; 80053; 82010; 82947; 85025; J7030

== ENCOUNTER 2022-02-19 15:23 | Emergency (ER) | payer OTHER | END 2022-02-19 21:34 | disposition home or self-care (01) | LOC: ER 15:23 | DX: R11.2 Nausea with vomiting, unspecified (principal); E10.65 Type 1 diabetes mellitus with hyperglycemia; E86.0 Dehydration; F12.90 Cannabis use, unspecified, uncomplicated; I10 Essential (primary) hypertension; Z79.4 Long term (current) use of insulin; Z79.899 Other long term (current) drug therapy ==

== ENCOUNTER 2022-04-18 17:57 | Emergency (ER) | payer OTHER ==
[~2022-04-18] VITALS: Ht 175.3 cm; Wt 68.0 kg
[~2022-04-18 17:57] MED LIST changes: +CAPSAICIN60 G1 TOP; +PROM12.5S PR; +PROMETHAZINE12.5 M1 PO
[2022-04-18 19:25] LABS: Bicarbonate Venous 23.8 mmol/L (24.0-30.0); PCO2 Venous 30.4 mmHg (38-42); pH Blood Venous 7.46 (7.34-7.37)
[2022-04-18 19:39] LABS: BASOPHILS ABSOLUTE AUTO 0.01 K/mm3 (0.00-0.23); BASOPHILS PERCENT AUTO 0 % (0-2); EOSINOPHILS PERCENT AUTO 0 % (0-6); Hematocrit 45.8 % (37.0-53.0); Hemoglobin 16.1 g/dL (13.5-17.5); IMMATURE GRAN ABSOLUTE AUTO 0.06 K/mm3 (0.00-0.10); IMMATURE GRAN PERCENT AUTO 0 % (0-1); LYMPHOCYTES ABSOLUTE AUTO 2.17 K/mm3 (0.84-5.20); LYMPHOCYTES PERCENT AUTO 14 % (21-46); MONOCYTES ABSOLUTE AUTO 0.87 K/mm3 (0.16-1.47); MONOCYTES PERCENT AUTO 6 % (4-13); Mean Corpuscular HGB 31.5 pg (26.0-34.0); Mean Corpuscular HGB Conc 35.2 g/dL (31.5-36.5); Mean Corpuscular Volume 90 fL (80-100); NEUTROPHILS PERCENT AUTO 80 % (41-73); Platelet Count 398 K/mm3 (150-400); RDW Coefficient Variation 11.9 % (11.7-14.2); RDW Standard Deviation 39.5 fL (35.1-46.3); Red Blood Cell Count 5.11 M/mm3 (4.30-5.90); White Blood Cell Count 15.41 K/mm3 (4.00-11.30)
[2022-04-18 20:10] LABS: Albumin, Blood 4.3 g/dL (3.4-5.0); Albumin/Globulin Ratio 1.2 (0.8-1.8); Beta-hydroxybutyrate 26.7 mg/dL (0.2-2.8); Bilirubin, Total 1.3 mg/dL (0.1-1.0); Bun/Creatinine Ratio 22.8 (12.0-20.0); Creatinine, Blood 0.83 mg/dL (0.60-1.20); Globulin, Blood 3.5 g/dL (2.2-4.0); Total Protein, Blood 7.8 g/dL (6.4-8.2)
[2022-04-18] MEDS ORDERED: ONDA4ODT MM (21:13)
== END 2022-04-18 21:18 | disposition home or self-care (01) ==
LOC: ER 17:57
PROVIDERS: Physician Assistant
DX: R11.2 Nausea with vomiting, unspecified (principal); E11.9 Type 2 diabetes mellitus without complications; Z79.899 Other long term (current) drug therapy; Z79.4 Long term (current) use of insulin
CPT/HCPCS: 36415; 80053; 82010; 82803; 82947; 85025; 93005; 93010; 96360; 96361; 99283-25; J7030

== ENCOUNTER 2022-04-19 16:25 | Inpatient (IN) | payer OTHER ==
[~2022-04-19] VITALS: Ht 175.3 cm; Wt 60.9 kg
[2022-04-19 17:13] LABS: BASOPHILS ABSOLUTE AUTO 0.07 K/mm3 (0.00-0.23); BASOPHILS PERCENT AUTO 0 % (0-2); EOSINOPHILS ABSOLUTE AUTO 0.01 K/mm3 (0.00-0.68); EOSINOPHILS PERCENT AUTO 0 % (0-6); Hematocrit 50.2 % (37.0-53.0); Hemoglobin 16.1 g/dL (13.5-17.5); IMMATURE GRAN ABSOLUTE AUTO 0.69 K/mm3 (0.00-0.10); IMMATURE GRAN PERCENT AUTO 3 % (0-1); LYMPHOCYTES ABSOLUTE AUTO 1.83 K/mm3 (0.84-5.20); LYMPHOCYTES PERCENT AUTO 8 % (21-46); MONOCYTES ABSOLUTE AUTO 1.17 K/mm3 (0.16-1.47); MONOCYTES PERCENT AUTO 5 % (4-13); Mean Corpuscular HGB 31.6 pg (26.0-34.0); Mean Corpuscular HGB Conc 32.1 g/dL (31.5-36.5); NEUTROPHILS PERCENT AUTO 83 % (41-73); Platelet Count 477 K/mm3 (150-400); RDW Standard Deviation 43.9 fL (35.1-46.3); Red Blood Cell Count 5.09 M/mm3 (4.30-5.90); White Blood Cell Count 21.67 K/mm3 (4.00-11.30)
[2022-04-19 17:17] LABS: Base Excess Venous -29.6 mmol/L; Mean Corpuscular Volume 99 fL (80-100); PCO2 Venous 17.1 mmHg (38-42)
[2022-04-19 18:12] LABS: Albumin, Blood 4.2 g/dL (3.4-5.0); Albumin/Globulin Ratio 1.2 (0.8-1.8); Beta-hydroxybutyrate 100.2 mg/dL (0.2-2.8); Bilirubin, Total 0.8 mg/dL (0.1-1.0); Bun/Creatinine Ratio 27.7 (12.0-20.0); Calcium, Blood 8.7 mg/dL (8.5-10.1); Creatinine, Blood 0.9 mg/dL (0.60-1.20); Globulin, Blood 3.4 g/dL (2.2-4.0); Potassium, Blood 5.7 mmol/L (3.5-5.5); Total Protein, Blood 7.6 g/dL (6.4-8.2)
[2022-04-19 19:43] LABS: Influenza A, PCR NEGATIVE (NEGATIVE); Influenza B, PCR NEGATIVE (NEGATIVE); Resp Syncytial Virus, PCR NEGATIVE (NEGATIVE); SARS-Cov-2 (COVID-19) PCR, MMC NEGATIVE (NEGATIVE)
[2022-04-19 21:26] LABS: Calcium, Blood 8.3 mg/dL (8.5-10.1); Creatinine, Blood 0.78 mg/dL (0.60-1.20); Potassium, Blood 4.1 mmol/L (3.5-5.5)
[2022-04-19 22:26] LABS: Source, Urine Clean Catch
[2022-04-19 22:32] LABS: Appearance, Urine Clear (Clear); Bilirubin, Urine Neg (Neg); Blood, Urine 2+ (Neg); Color, Urine Pale Yellow (P-Yellow); Glucose Qualitative, Urine 4+ (Neg); Ketones, Urine 4+ (Neg); Leukocyte Esterase, Urine Neg (Neg); Nitrite, Urine Neg (Neg); Protein, Urine 2+ (Neg); Urobilinogen, Urine NORM (Normal)
[2022-04-19 22:38] LABS: Amorphous Light (0-Heavy); Bacteria Not Seen /hpf; Red Blood Cells, Urine 0-2 /hpf (0-2); Squamous Epithelial Cells Rare /hpf (Few); White Blood Cells, Urine 0-2 /hpf (0-5)
[2022-04-19 22:44] LABS: U Amphetamine Screen Not Detected; U Barbituate Screen Not Detected; U Benzodiazapine Screen Not Detected; U Buprenorphine Screen Not Detected; U Cannabinoids Screen Not Detected; U Cocaine Screen Not Detected; U Methadone Screen Not Detected; U Methamphetamine Screen Not Detected; U Opiates Screen Not Detected; U Oxycodone Screen Not Detected; U Phencyclidine Screen Not Detected; U Propoxyphene Screen Not Detected
[2022-04-20 03:34] LABS: BASOPHILS ABSOLUTE AUTO 0.01 K/mm3 (0.00-0.23); BASOPHILS PERCENT AUTO 0 % (0-2); EOSINOPHILS PERCENT AUTO 0 % (0-6); Hematocrit 34.9 % (37.0-53.0); Hemoglobin 12.2 g/dL (13.5-17.5); IMMATURE GRAN PERCENT AUTO 1 % (0-1); LYMPHOCYTES ABSOLUTE AUTO 1.69 K/mm3 (0.84-5.20); LYMPHOCYTES PERCENT AUTO 13 % (21-46); MONOCYTES ABSOLUTE AUTO 1.26 K/mm3 (0.16-1.47); MONOCYTES PERCENT AUTO 10 % (4-13); Mean Corpuscular HGB 31.7 pg (26.0-34.0); Mean Corpuscular Volume 91 fL (80-100); Mean Platelet Volume 8.4 fL (9.1-12.4); NEUTROPHILS ABSOLUTE AUTO 9.55 K/mm3 (1.96-9.15); NEUTROPHILS PERCENT AUTO 76 % (41-73); Platelet Count 274 K/mm3 (150-400); RDW Coefficient Variation 11.8 % (11.7-14.2); RDW Standard Deviation 39.3 fL (35.1-46.3); Red Blood Cell Count 3.85 M/mm3 (4.30-5.90); White Blood Cell Count 12.61 K/mm3 (4.00-11.30)
[2022-04-20 03:34] LABS: Base Excess Venous -6.8 mmol/L; Bicarbonate Venous 19.7 mmol/L (24.0-30.0); PCO2 Venous 31.4 mmHg (38-42); pH Blood Venous 7.38 (7.34-7.37)
[2022-04-20 04:38] LABS: Albumin, Blood 2.7 g/dL (3.4-5.0); Albumin/Globulin Ratio 1.1 (0.8-1.8); Bilirubin, Total 1.2 mg/dL (0.1-1.0); Bun/Creatinine Ratio 25.8 (12.0-20.0); Calcium, Blood 8.1 mg/dL (8.5-10.1); Creatinine, Blood 0.66 mg/dL (0.60-1.20); Globulin, Blood 2.4 g/dL (2.2-4.0); Potassium, Blood 3.7 mmol/L (3.5-5.5); Total Protein, Blood 5.1 g/dL (6.4-8.2)
--- NOTE | 2022-04-20 06:21 | NUR ---
SHIFT SUMMARY: GENERAL: PATIENT ADMITTED ONTO UNIT AT APPROX 2130. SLEPT FOR MOST OF THE NIGHT. MOSTLY UNEVENTFUL. HEENT: WDL. NEURO: LETHARGIC UPON ADMISSION. SINCE THEN HAS IMPROVED AND PATIENT'S MENTATION SEEMS CLEAR. HE INITIALLY COULDN'T OR WAS UNWILLING TO RECALL MONTH/YEAR. OTHERWISE ORIENTED. AFEBRILE IN ICU. CARDS: INITIALLY ST WITH RATES IN THE 120S; MAX RATE 170S WITH ACTIVITY. BP SLIGHTLY ELEVATED AT TIMES. NO EDEMA. RESP: RA; WDL. MS/INTEG: GOOD STRENGTH DEMONSTRATED. NO SKIN CONCERNS. GI/: VOIDS ONCE SPONTANEOUSLY INTO URINAL. NO BM SINCE ADMIT. ENDO: GLUCOSE CHECKS Q1HR; PATIENT IS ON INSULIN GTT.
[2022-04-20 08:23] LABS: Albumin, Blood 2.6 g/dL (3.4-5.0); Anion Gap 15 mmol/L (6-16); Blood Urea Nitrogen 14 mg/dL (8-24); Bun/Creatinine Ratio 23.5 (12.0-20.0); CO2, Blood 21 mmol/L (21-32); Calcium, Blood 7.9 mg/dL (8.5-10.1); Chloride, Blood 100 mmol/L (98-108); Glomerular Filtration Rate 138 (60-); Glucose, Blood 203 mg/dL (70-99); Phosphorus, Blood 1.7 mg/dL (2.5-4.9); Potassium, Blood 3.5 mmol/L (3.5-5.5); Sodium, Blood 136 mmol/L (136-145)
--- NOTE | 2022-04-20 09:51 | NUR ---
AM NOTE... ASSUMED CARE OF PT AT 0700. THE PT IS A&Ox4 AND SBA WHEN UP IN THE ROOM. THE PT WAS ADMITTED FOR DKA AND IS CURRENTLY ON A BICARB DRIP WITH D5 AND 1/2NS RUNNING AT 125MLS/HR. THE INSULIN DRIP WAS ON STANDBY D/T LOWER CBGs PER NOC SHIFT RN REPORT. THE PT C/O OF NAUSEA BUT DENIES ANY VOMITTING AT THIS TIME. BT PRESENT AND HYPOACTIVE, ABD IS SOFT BUT TENDER TO PALPATION PER THE PT. THE PT IS IN SR IN THE 90'S BP STABLE. NO EDEMA IS NOTE ON ASSESSMENT. O2 SATS ARE >95% L/S CLEAR T/O. RR IS 14-18. 0830 DR. WEAVER AT THE BEDSIDE TO ASSESS THE PT. NEW ORDERES TO D/C THE BICARB DRIP AND START D5 1/2 NS AT 150MLS/HR. INSULIN DRIP WAS RESTARTED AND TITRATED UP TO 2UNITS/HR. WILL CONTINUE TO MONITOR.
[2022-04-20 12:36] LABS: Albumin, Blood 2.6 g/dL (3.4-5.0); Anion Gap 10 mmol/L (6-16); Blood Urea Nitrogen 11 mg/dL (8-24); Bun/Creatinine Ratio 19.4 (12.0-20.0); CO2, Blood 23 mmol/L (21-32); Calcium, Blood 8.2 mg/dL (8.5-10.1); Chloride, Blood 103 mmol/L (98-108); Creatinine, Blood 0.57 mg/dL (0.60-1.20); Glomerular Filtration Rate 140 (60-); Glucose, Blood 148 mg/dL (70-99); Phosphorus, Blood 1.1 mg/dL (2.5-4.9); Potassium, Blood 3.8 mmol/L (3.5-5.5); Sodium, Blood 136 mmol/L (136-145)
--- NOTE | 2022-04-20 17:05 | NUR ---
SHIFT SUMMARY... NO ACUTE NEGATIVE CHANGES NOTED THIS SHIFT. THE PT'S VS HAVE BEEN STABLE. THE PT CONTINUES ON THE INSULIN DRIP AT 1.5UNITS/HR, D5 1.2 NS IS RUNNING AT 150MLS/HR. THE PT'S PHOS AND K+ ARE CURRRENTLY BEING REPLACED WITH LABS TO FOLLOW. THE PT HAS BEEN UP TO THE CHAIR AND THE SIDE OF THE BED TO VOID 3 TIMES THIS SHIFT WITHOUT ANY ISSUE. THE PT'S MOTHER IS AT THE BEDSIDE WITH THE PT, PER THE PT'S MOTHER THE PT DOES NOT EAT SOLID FOODS VERY MUCH AT BASELINE MOST DAYS HE IS ONLY ABLE TO TOLERATE CLEAR LIQUIDS. PLAN OF CARE IS TO START THE PT ON A CLEAR LIQUID DIET AND ADVANCE TOLERATED TO TRANSITION OFF THE INSULIN DRIP. CALL LIGHT IN REACH WILL CONTINUE TO MONITOR UNTIL REPORT IS GIVEN TO ONCOMING RN.
[2022-04-20 18:42] LABS: Albumin, Blood 2.7 g/dL (3.4-5.0); Anion Gap 8 mmol/L (6-16); Blood Urea Nitrogen 7 mg/dL (8-24); Bun/Creatinine Ratio 12.8 (12.0-20.0); CO2, Blood 25 mmol/L (21-32); Calcium, Blood 7.7 mg/dL (8.5-10.1); Chloride, Blood 102 mmol/L (98-108); Creatinine, Blood 0.55 mg/dL (0.60-1.20); Glomerular Filtration Rate 142 (60-); Glucose, Blood 145 mg/dL (70-99); Potassium, Blood 3.4 mmol/L (3.5-5.5); Sodium, Blood 135 mmol/L (136-145)
--- NOTE | 2022-04-20 19:15 | NUR ---
ASSUMED CARE OF PT @1900. PT IS SLEEPING. INSULIN INFUSING @1U/HR, D5 150MLS/HR, TKO 10MLS/HR. CONTINUOUS CARDIAC MONITORING. ON ASSESSMENT PT STATES HE IS HAVING STOMACH PAIN BUT DECLINES NAUSEA MEDICATION AND SCHEDULED CARAFATE. PT DOES NOT WANT TO EAT ANYTHING BUT WILL DRINK LIQUIDS IF NECCESSARY. BED IN LOWEST POSITION AND CALL LIGHT IN REACH.
--- NOTE | 2022-04-20 21:15 | NUR ---
PT'S MOTHER CALLED IN FOR UPDATE AND STATES THAT ARIS DOES NOT USUALLY EAT DURING HIS EPISODES OF DKA. GAVE UPDATE AND WILL CALL WITH ANY CHANGES.
[2022-04-20 21:24] LABS: Bun/Creatinine Ratio 12.4 (12.0-20.0); Calcium, Blood 7.9 mg/dL (8.5-10.1); Creatinine, Blood 0.56 mg/dL (0.60-1.20); Potassium, Blood 3.2 mmol/L (3.5-5.5)
[2022-04-21 03:18] LABS: BASOPHILS ABSOLUTE AUTO 0.01 K/mm3 (0.00-0.23); BASOPHILS PERCENT AUTO 0 % (0-2); EOSINOPHILS ABSOLUTE AUTO 0.01 K/mm3 (0.00-0.68); EOSINOPHILS PERCENT AUTO 0 % (0-6); Hematocrit 33.4 % (37.0-53.0); Hemoglobin 11.9 g/dL (13.5-17.5); IMMATURE GRAN ABSOLUTE AUTO 0.02 K/mm3 (0.00-0.10); IMMATURE GRAN PERCENT AUTO 0 % (0-1); LYMPHOCYTES ABSOLUTE AUTO 2.12 K/mm3 (0.84-5.20); LYMPHOCYTES PERCENT AUTO 26 % (21-46); MONOCYTES ABSOLUTE AUTO 0.74 K/mm3 (0.16-1.47); MONOCYTES PERCENT AUTO 9 % (4-13); Mean Corpuscular HGB Conc 35.6 g/dL (31.5-36.5); Mean Corpuscular Volume 90 fL (80-100); Mean Platelet Volume 8.3 fL (9.1-12.4); NEUTROPHILS ABSOLUTE AUTO 5.22 K/mm3 (1.96-9.15); NEUTROPHILS PERCENT AUTO 64 % (41-73); Platelet Count 205 K/mm3 (150-400); RDW Coefficient Variation 11.6 % (11.7-14.2); RDW Standard Deviation 38.4 fL (35.1-46.3); Red Blood Cell Count 3.72 M/mm3 (4.30-5.90); White Blood Cell Count 8.12 K/mm3 (4.00-11.30)
[2022-04-21 03:33] LABS: Albumin, Blood 2.4 g/dL (3.4-5.0); Anion Gap 9 mmol/L (6-16); Blood Urea Nitrogen 5 mg/dL (8-24); Bun/Creatinine Ratio 10.3 (12.0-20.0); CO2, Blood 27 mmol/L (21-32); Calcium, Blood 7.9 mg/dL (8.5-10.1); Chloride, Blood 99 mmol/L (98-108); Creatinine, Blood 0.49 mg/dL (0.60-1.20); Glomerular Filtration Rate 147 (60-); Glucose, Blood 226 mg/dL (70-99); Magnesium, Blood 1.5 mg/dL (1.6-2.4); Phosphorus, Blood 2.6 mg/dL (2.5-4.9); Potassium, Blood 3.7 mmol/L (3.5-5.5); Sodium, Blood 135 mmol/L (136-145)
--- NOTE | 2022-04-21 06:13 | NUR ---
SUMMARY: NEURO/PSYCH/MOBILITY: PT IS A&O X4 WHEN HE IS NOT SLEEPING. ABLE TO STAND AT EDGE OF BED AND USE URINAL. PT DENIES PAIN. COOPERATIVE AND PLEASANT. PERRL. RESP: LUNG THOMPSON REMAIN CLEAR THROUGHOUT. RR <20. SPO2 >94% ON RA. CARDIAC: CONTINUOUS CARDIAC MONITORING. HR 80'S. SBP 130-140'S. GI: PT COMPLAINS OF OFF AND ON NAUSEA, STOMACH PAIN, AND HEARTBURN. PT DOES NOT WANT ANYTHING PO. PT AND MOM STATE THIS IS USUAL FOR HIM. NO BM THIS SHIFT OR EMESIS. : PT VOIDING INDEPENDENTLY IN URINAL. SKIN: ASSESSMENT REMAINS UNCHANGED. MAGNESIUM 1.5 AT MORNING LABS. MAGNESIUM INFUSING. INSULIN AND D5W ON SB.
--- NOTE | 2022-04-21 07:11 | NUR ---
TOOK OVER CARE OF PT AT 0650, PT RESTING ON RA.
[2022-04-21] MEDS ORDERED: Carafate1 GM/10 ML PO (09:38)
--- NOTE | 2022-04-21 10:04 | NUR ---
PT DISCHARGED WITH ALL PERSONAL BELONGINGS
== END 2022-04-21 10:15 | disposition home or self-care (01) | DRG 638 ==
LOC: ER 16:25 → ICUW 20:25
PROVIDERS: Family Medicine; Physician Assistant; Student in an Organized Health Care Education/Training Program; ADMIT Internal Medicine
DX: E10.10 Type 1 diabetes mellitus with ketoacidosis without coma (principal); R65.10 Systemic inflammatory response syndrome (SIRS) of non-infectious origin without acute organ dysfunction; J06.9 Acute upper respiratory infection, unspecified; I10 Essential (primary) hypertension; E86.0 Dehydration; K21.9 Gastro-esophageal reflux disease without esophagitis; Z79.4 Long term (current) use of insulin; F32.A Depression, unspecified; Z79.899 Other long term (current) drug therapy; Z90.89 Acquired absence of other organs
CPT/HCPCS: 0241U; 36415; 51702; 71046; 80048; 80053; 80069; 81001; 82010; 82803; 82947; 83735; 85025; 93005; 93010; 96361; 96374; 96375; 99285-25; A9270; C1751; C9113; J1650; J1815; J2405; J2765; J3475; J3480; J7042; J7050; J7060; J7120

== ENCOUNTER 2022-06-26 12:47 | Emergency (ER) | payer BC, OTHER ==
[~2022-06-26] VITALS: Ht 177.8 cm; Wt 59.0 kg
[~2022-06-26 12:47] MED LIST changes: +Carafate1 GM/10 ML PO
[2022-06-26 13:28] LABS: BASOPHILS ABSOLUTE AUTO 0.02 K/mm3 (0.00-0.23); BASOPHILS PERCENT AUTO 0 % (0-2); EOSINOPHILS ABSOLUTE AUTO 0.03 K/mm3 (0.00-0.68); EOSINOPHILS PERCENT AUTO 0 % (0-6); Hemoglobin 16.4 g/dL (13.5-17.5); IMMATURE GRAN ABSOLUTE AUTO 0.03 K/mm3 (0.00-0.10); IMMATURE GRAN PERCENT AUTO 0 % (0-1); LYMPHOCYTES ABSOLUTE AUTO 3.43 K/mm3 (0.84-5.20); LYMPHOCYTES PERCENT AUTO 38 % (21-46); MONOCYTES ABSOLUTE AUTO 0.62 K/mm3 (0.16-1.47); MONOCYTES PERCENT AUTO 7 % (4-13); Mean Corpuscular HGB 31.3 pg (26.0-34.0); Mean Corpuscular HGB Conc 35.7 g/dL (31.5-36.5); Mean Corpuscular Volume 88 fL (80-100); Mean Platelet Volume 8.5 fL (9.1-12.4); NEUTROPHILS ABSOLUTE AUTO 4.83 K/mm3 (1.96-9.15); NEUTROPHILS PERCENT AUTO 54 % (41-73); Platelet Count 439 K/mm3 (150-400); RDW Standard Deviation 39.1 fL (35.1-46.3); Red Blood Cell Count 5.24 M/mm3 (4.30-5.90); White Blood Cell Count 8.96 K/mm3 (4.00-11.30)
[2022-06-26 13:46] LABS: Albumin, Blood 3.8 g/dL (3.4-5.0); Albumin/Globulin Ratio 1.1 (0.8-1.8); Bun/Creatinine Ratio 20.3 (12.0-20.0); Creatinine, Blood 0.74 mg/dL (0.60-1.20); Globulin, Blood 3.6 g/dL (2.2-4.0); Potassium, Blood 3.6 mmol/L (3.5-5.5); Total Protein, Blood 7.4 g/dL (6.4-8.2)
[2022-06-26] MEDS ORDERED: PROM12.5S PR (17:24)
[2022-06-26] MEDS ORDERED: METO10 PO (17:24)
[2022-06-26] MEDS ORDERED: ONDA4ODT MM (17:28)
== END 2022-06-26 18:06 | disposition home or self-care (01) ==
LOC: ER 12:47
PROVIDERS: Physician Assistant
DX: E86.0 Dehydration (principal); I10 Essential (primary) hypertension; E10.9 Type 1 diabetes mellitus without complications; R19.7 Diarrhea, unspecified; B34.9 Viral infection, unspecified; F17.200 Nicotine dependence, unspecified, uncomplicated; Z79.4 Long term (current) use of insulin; Z79.899 Other long term (current) drug therapy
CPT/HCPCS: 36415; 80053; 83690; 85025; 96361; 96374; 99283-25; J2765; J7030

== ENCOUNTER 2022-08-07 15:32 | Emergency (ER) | payer BC, OTHER ==
[~2022-08-07] VITALS: Ht 175.3 cm; Wt 61.2 kg
[2022-08-07 15:59] LABS: Base Excess Venous 5.4 mmol/L; Bicarbonate Venous 29.1 mmol/L (24.0-30.0); PCO2 Venous 37.4 mmHg (38-42); pH Blood Venous 7.49 (7.34-7.37)
[2022-08-07 16:00] LABS: BASOPHILS ABSOLUTE AUTO 0.01 K/mm3 (0.00-0.23); BASOPHILS PERCENT AUTO 0 % (0-2); EOSINOPHILS ABSOLUTE AUTO 0.01 K/mm3 (0.00-0.68); EOSINOPHILS PERCENT AUTO 0 % (0-6); Hematocrit 45.9 % (37.0-53.0); Hemoglobin 16.1 g/dL (13.5-17.5); IMMATURE GRAN ABSOLUTE AUTO 0.05 K/mm3 (0.00-0.10); IMMATURE GRAN PERCENT AUTO 0 % (0-1); LYMPHOCYTES ABSOLUTE AUTO 2.29 K/mm3 (0.84-5.20); LYMPHOCYTES PERCENT AUTO 18 % (21-46); MONOCYTES ABSOLUTE AUTO 0.75 K/mm3 (0.16-1.47); MONOCYTES PERCENT AUTO 6 % (4-13); Mean Corpuscular HGB 31.3 pg (26.0-34.0); Mean Corpuscular HGB Conc 35.1 g/dL (31.5-36.5); Mean Corpuscular Volume 89 fL (80-100); Mean Platelet Volume 8.9 fL (9.1-12.4); NEUTROPHILS ABSOLUTE AUTO 9.89 K/mm3 (1.96-9.15); NEUTROPHILS PERCENT AUTO 76 % (41-73); Platelet Count 400 K/mm3 (150-400); RDW Coefficient Variation 11.7 % (11.7-14.2); RDW Standard Deviation 38.2 fL (35.1-46.3); Red Blood Cell Count 5.15 M/mm3 (4.30-5.90)
[2022-08-07 16:15] LABS: Albumin, Blood 3.9 g/dL (3.4-5.0); Albumin/Globulin Ratio 1.1 (0.8-1.8); Bilirubin, Total 1.8 mg/dL (0.1-1.0); Bun/Creatinine Ratio 21.5 (12.0-20.0); Calcium, Blood 9.1 mg/dL (8.5-10.1); Creatinine, Blood 0.75 mg/dL (0.60-1.20); Globulin, Blood 3.7 g/dL (2.2-4.0); Magnesium, Blood 1.9 mg/dL (1.6-2.4); Potassium, Blood 3.5 mmol/L (3.5-5.5); Total Protein, Blood 7.6 g/dL (6.4-8.2)
[2022-08-07 18:32] LABS: Influenza A, PCR NEGATIVE (NEGATIVE); Influenza B, PCR NEGATIVE (NEGATIVE); Resp Syncytial Virus, PCR NEGATIVE (NEGATIVE); SARS-Cov-2 (COVID-19) PCR, MMC NEGATIVE (NEGATIVE)
[2022-08-07 18:37] LABS: Source, Urine Clean Catch
[2022-08-07 18:42] LABS: Appearance, Urine Clear (Clear); Bilirubin, Urine Neg (Neg); Blood, Urine Neg (Neg); Color, Urine Yellow (P-Yellow); Glucose Qualitative, Urine 4+ (Neg); Ketones, Urine 4+ (Neg); Leukocyte Esterase, Urine Neg (Neg); Nitrite, Urine Neg (Neg); Protein, Urine Neg (Neg); Urobilinogen, Urine NORM (Normal)
[2022-08-07] MEDS ORDERED: ONDA4ODT MM (19:41)
== END 2022-08-07 20:02 | disposition home or self-care (01) ==
LOC: ER 15:32
PROVIDERS: Emergency Medicine; Physician Assistant
DX: R11.2 Nausea with vomiting, unspecified (principal); E11.9 Type 2 diabetes mellitus without complications; F17.290 Nicotine dependence, other tobacco product, uncomplicated; Z79.899 Other long term (current) drug therapy; Z79.4 Long term (current) use of insulin; Z20.822 Contact with and (suspected) exposure to COVID-19
CPT/HCPCS: 0241U; 71046; 80053; 81003; 82803; 82947; 83735; 85025; 96361; 96374; 99284-25; J2405; J7030

== ENCOUNTER 2022-08-09 09:17 | Emergency (ER) | payer BC, OTHER ==
[~2022-08-09] VITALS: Ht 175.3 cm; Wt 68.0 kg
[2022-08-09 10:05] LABS: Calcium, Ionized (POC) 1.01 mmol/L (1.10-1.46); Chloride (POC) 87 mmol/L (98-108); Creatinine (POC) 0.7 mg/dL (0.8-1.3); Glucose (ISTAT POC) 251 mg/dL (70-99); Potassium (POC) 3.7 mmol/L (3.5-5.5); Sodium (POC) 128 mmol/L (135-148); Total CO2 (POC) 25 mmol/L (21-32)
[2022-08-09 10:13] LABS: Base Excess Venous 3.5 mmol/L; Bicarbonate Venous 27.3 mmol/L (24.0-30.0); PCO2 Venous 40.8 mmHg (38-42); pH Blood Venous 7.44 (7.34-7.37)
[2022-08-09 10:24] LABS: BASOPHILS ABSOLUTE AUTO 0.02 K/mm3 (0.00-0.23); BASOPHILS PERCENT AUTO 0 % (0-2); EOSINOPHILS ABSOLUTE AUTO 0.02 K/mm3 (0.00-0.68); EOSINOPHILS PERCENT AUTO 0 % (0-6); Hematocrit 43.5 % (37.0-53.0); Hemoglobin 14.8 g/dL (13.5-17.5); IMMATURE GRAN ABSOLUTE AUTO 0.02 K/mm3 (0.00-0.10); IMMATURE GRAN PERCENT AUTO 0 % (0-1); LYMPHOCYTES ABSOLUTE AUTO 2.25 K/mm3 (0.84-5.20); LYMPHOCYTES PERCENT AUTO 31 % (21-46); MONOCYTES ABSOLUTE AUTO 0.57 K/mm3 (0.16-1.47); MONOCYTES PERCENT AUTO 8 % (4-13); Mean Corpuscular HGB 30.6 pg (26.0-34.0); Mean Corpuscular Volume 90 fL (80-100); Mean Platelet Volume 8.7 fL (9.1-12.4); NEUTROPHILS ABSOLUTE AUTO 4.47 K/mm3 (1.96-9.15); NEUTROPHILS PERCENT AUTO 61 % (41-73); NRBC ABSOLUTE 0.02 K/mm3 (0.00-0.02); NRBC Auto 0.3 /100 WBC (0.0-0.2); Platelet Count 347 K/mm3 (150-400); RDW Coefficient Variation 11.6 % (11.7-14.2); RDW Standard Deviation 38.3 fL (35.1-46.3); Red Blood Cell Count 4.83 M/mm3 (4.30-5.90); White Blood Cell Count 7.35 K/mm3 (4.00-11.30)
[2022-08-09 10:34] LABS: Albumin, Blood 3.3 g/dL (3.4-5.0); Bilirubin, Total 1.7 mg/dL (0.1-1.0); Bun/Creatinine Ratio 16.7 (12.0-20.0); Calcium, Blood 8.7 mg/dL (8.5-10.1); Creatinine, Blood 0.66 mg/dL (0.60-1.20); Globulin, Blood 3.3 g/dL (2.2-4.0); Potassium, Blood 3.6 mmol/L (3.5-5.5); Total Protein, Blood 6.6 g/dL (6.4-8.2)
[2022-08-09 10:53] LABS: International Normalized Ratio 1.04; Prothrombin Time Results 10.9 Sec (9.7-11.5)
[2022-08-09 10:58] LABS: Source, Urine Clean Catch
[2022-08-09 11:06] LABS: Appearance, Urine Clear (Clear); Bilirubin, Urine Neg (Neg); Blood, Urine Neg (Neg); Color, Urine Yellow (P-Yellow); Glucose Qualitative, Urine 4+ (Neg); Ketones, Urine 4+ (Neg); Leukocyte Esterase, Urine Neg (Neg); Nitrite, Urine Neg (Neg); Protein, Urine 1+ (Neg); Urobilinogen, Urine 2+ (Normal)
[2022-08-09 11:19] LABS: U Amphetamine Screen Not Detected; U Barbituate Screen Not Detected; U Benzodiazapine Screen Not Detected; U Buprenorphine Screen Not Detected; U Cannabinoids Screen DETECTED; U Cocaine Screen Not Detected; U Methadone Screen Not Detected; U Methamphetamine Screen Not Detected; U Opiates Screen Not Detected; U Oxycodone Screen Not Detected; U Phencyclidine Screen Not Detected; U Propoxyphene Screen Not Detected
[2022-08-09] MEDS ORDERED: Reglan10 MG PO (12:17)
== END 2022-08-09 12:20 | disposition home or self-care (01) ==
LOC: ER 09:17
PROVIDERS: Emergency Medicine
DX: E10.65 Type 1 diabetes mellitus with hyperglycemia (principal); E10.9 Type 1 diabetes mellitus without complications; I10 Essential (primary) hypertension; F17.200 Nicotine dependence, unspecified, uncomplicated; Z79.4 Long term (current) use of insulin; Z79.899 Other long term (current) drug therapy
CPT/HCPCS: 36415; 80047; 80053; 82803; 83735; 85014; 85025; 85610; A9270; J1200; J2765; J7030

== ENCOUNTER 2022-08-27 11:53 | Emergency (ER) | payer BC, OTHER ==
[~2022-08-27] VITALS: Ht 170.2 cm; Wt 61.2 kg
[~2022-08-27 11:53] MED LIST changes: +Reglan10 MG PO
[2022-08-27 12:42] LABS: BASOPHILS ABSOLUTE AUTO 0.02 K/mm3 (0.00-0.23); BASOPHILS PERCENT AUTO 0 % (0-2); EOSINOPHILS ABSOLUTE AUTO 0.01 K/mm3 (0.00-0.68); EOSINOPHILS PERCENT AUTO 0 % (0-6); Hematocrit 47.3 % (37.0-53.0); Hemoglobin 16.1 g/dL (13.5-17.5); IMMATURE GRAN ABSOLUTE AUTO 0.03 K/mm3 (0.00-0.10); IMMATURE GRAN PERCENT AUTO 0 % (0-1); LYMPHOCYTES ABSOLUTE AUTO 2.21 K/mm3 (0.84-5.20); LYMPHOCYTES PERCENT AUTO 25 % (21-46); MONOCYTES ABSOLUTE AUTO 0.33 K/mm3 (0.16-1.47); MONOCYTES PERCENT AUTO 4 % (4-13); Mean Corpuscular HGB 31.1 pg (26.0-34.0); Mean Corpuscular Volume 92 fL (80-100); Mean Platelet Volume 9.3 fL (9.1-12.4); NEUTROPHILS ABSOLUTE AUTO 6.32 K/mm3 (1.96-9.15); NEUTROPHILS PERCENT AUTO 71 % (41-73); Platelet Count 321 K/mm3 (150-400); RDW Coefficient Variation 11.9 % (11.7-14.2); RDW Standard Deviation 40.4 fL (35.1-46.3); Red Blood Cell Count 5.17 M/mm3 (4.30-5.90); White Blood Cell Count 8.92 K/mm3 (4.00-11.30)
[2022-08-27 12:57] LABS: Albumin, Blood 3.9 g/dL (3.4-5.0); Albumin/Globulin Ratio 1.1 (0.8-1.8); Bilirubin, Total 1.4 mg/dL (0.1-1.0); Bun/Creatinine Ratio 18.1 (12.0-20.0); Calcium, Blood 9.4 mg/dL (8.5-10.1); Creatinine, Blood 0.77 mg/dL (0.60-1.20); Globulin, Blood 3.5 g/dL (2.2-4.0); Potassium, Blood 3.8 mmol/L (3.5-5.5); Total Protein, Blood 7.4 g/dL (6.4-8.2)
[2022-08-27] MEDS ORDERED: ONDA4ODT MM (13:05)
== END 2022-08-27 13:34 | disposition home or self-care (01) ==
LOC: ER 11:53
PROVIDERS: Emergency Medicine
DX: E10.65 Type 1 diabetes mellitus with hyperglycemia (principal); R11.2 Nausea with vomiting, unspecified; I10 Essential (primary) hypertension; F17.290 Nicotine dependence, other tobacco product, uncomplicated
CPT/HCPCS: 36415; 80053; 82947; 83735; 85025; 96361; 96374; 99284-25; J2405; J7120

== ENCOUNTER → 2022-08-31 | Outpatient (CLI) | payer BC, OTHER ==
[2022-08-31 13:54] LABS: BASOPHILS ABSOLUTE AUTO 0.02 K/mm3 (0.00-0.23); BASOPHILS PERCENT AUTO 0 % (0-2); EOSINOPHILS ABSOLUTE AUTO 0.01 K/mm3 (0.00-0.68); EOSINOPHILS PERCENT AUTO 0 % (0-6); Hematocrit 44.4 % (37.0-53.0); Hemoglobin 15.3 g/dL (13.5-17.5); IMMATURE GRAN ABSOLUTE AUTO 0.04 K/mm3 (0.00-0.10); IMMATURE GRAN PERCENT AUTO 1 % (0-1); LYMPHOCYTES ABSOLUTE AUTO 2.26 K/mm3 (0.84-5.20); LYMPHOCYTES PERCENT AUTO 34 % (21-46); MONOCYTES ABSOLUTE AUTO 0.37 K/mm3 (0.16-1.47); MONOCYTES PERCENT AUTO 6 % (4-13); Mean Corpuscular HGB 30.6 pg (26.0-34.0); Mean Corpuscular HGB Conc 34.5 g/dL (31.5-36.5); Mean Corpuscular Volume 89 fL (80-100); Mean Platelet Volume 8.5 fL (9.1-12.4); NEUTROPHILS ABSOLUTE AUTO 3.97 K/mm3 (1.96-9.15); NEUTROPHILS PERCENT AUTO 60 % (41-73); Platelet Count 353 K/mm3 (150-400); RDW Coefficient Variation 11.8 % (11.7-14.2); RDW Standard Deviation 37.7 fL (35.1-46.3); White Blood Cell Count 6.67 K/mm3 (4.00-11.30)
[2022-08-31 14:08] LABS: Albumin, Blood 3.4 g/dL (3.4-5.0); Albumin/Globulin Ratio 1.1 (0.8-1.8); Bun/Creatinine Ratio 6.6 (12.0-20.0); Calcium, Blood 9.1 mg/dL (8.5-10.1); Creatinine, Blood 1.36 mg/dL (0.60-1.20); Globulin, Blood 3.2 g/dL (2.2-4.0); Potassium, Blood 4.2 mmol/L (3.5-5.5); Total Protein, Blood 6.6 g/dL (6.4-8.2)
== END | disposition home or self-care (01) ==
LOC: LAB 13:48 → LAB SHORT 13:48
PROVIDERS: Physician Assistant
DX: E10.65 Type 1 diabetes mellitus with hyperglycemia (principal)
CPT/HCPCS: 80053; 85025

== ENCOUNTER 2022-12-14 15:48 | Emergency (ER) | payer OTHER ==
[~2022-12-14] VITALS: Ht 172.7 cm; Wt 61.2 kg
[~2022-12-14 15:48] MED LIST changes: +Glucagon Emergen1 MG IJ; +INSULIN GL100 UNIT/3; +TRAZ50 PO
[2022-12-14 16:39] LABS: BASOPHILS ABSOLUTE AUTO 0.02 K/mm3 (0.00-0.23); BASOPHILS PERCENT AUTO 0 % (0-2); EOSINOPHILS ABSOLUTE AUTO 0.02 K/mm3 (0.00-0.68); EOSINOPHILS PERCENT AUTO 0 % (0-6); Hematocrit 45.7 % (37.0-53.0); Hemoglobin 15.9 g/dL (13.5-17.5); IMMATURE GRAN ABSOLUTE AUTO 0.02 K/mm3 (0.00-0.10); IMMATURE GRAN PERCENT AUTO 0 % (0-1); LYMPHOCYTES ABSOLUTE AUTO 2.87 K/mm3 (0.84-5.20); LYMPHOCYTES PERCENT AUTO 29 % (21-46); MONOCYTES ABSOLUTE AUTO 0.58 K/mm3 (0.16-1.47); MONOCYTES PERCENT AUTO 6 % (4-13); Mean Corpuscular HGB Conc 34.8 g/dL (31.5-36.5); Mean Corpuscular Volume 89 fL (80-100); Mean Platelet Volume 8.6 fL (9.1-12.4); NEUTROPHILS ABSOLUTE AUTO 6.35 K/mm3 (1.96-9.15); NEUTROPHILS PERCENT AUTO 64 % (41-73); Platelet Count 416 K/mm3 (150-400); RDW Coefficient Variation 12.3 % (11.7-14.2); RDW Standard Deviation 40.8 fL (35.1-46.3); Red Blood Cell Count 5.13 M/mm3 (4.30-5.90); White Blood Cell Count 9.86 K/mm3 (4.00-11.30)
[2022-12-14 16:54] LABS: Base Excess Venous 6.1 mmol/L; Bicarbonate Venous 29.4 mmol/L (24.0-30.0); PCO2 Venous 41.1 mmHg (38-42); pH Blood Venous 7.47 (7.34-7.37)
[2022-12-14 16:56] LABS: Source, Urine Clean Catch
[2022-12-14 17:02] LABS: Appearance, Urine Clear (Clear); Bilirubin, Urine Neg (Neg); Blood, Urine Neg (Neg); Color, Urine Yellow (P-Yellow); Glucose Qualitative, Urine 4+ (Neg); Ketones, Urine 4+ (Neg); Leukocyte Esterase, Urine Neg (Neg); Nitrite, Urine Neg (Neg); Protein, Urine Neg (Neg); Urobilinogen, Urine NORM (Normal)
[2022-12-14 17:05] LABS: Albumin, Blood 3.5 g/dL (3.4-5.0); Albumin/Globulin Ratio 1.1 (0.8-1.8); Bilirubin, Total 1.3 mg/dL (0.1-1.0); Bun/Creatinine Ratio 13.6 (12.0-20.0); Calcium, Blood 8.9 mg/dL (8.5-10.1); Creatinine, Blood 0.74 mg/dL (0.60-1.20); Globulin, Blood 3.2 g/dL (2.2-4.0); Potassium, Blood 3.4 mmol/L (3.5-5.5); Total Protein, Blood 6.7 g/dL (6.4-8.2)
[2022-12-14] MEDS ORDERED: METO10 PO (18:20)
[2022-12-14 18:30] VITALS: BP 122/87
== END 2022-12-14 18:49 | disposition home or self-care (01) ==
LOC: ER 15:48
PROVIDERS: Emergency Medicine
DX: E86.0 Dehydration (principal); E10.65 Type 1 diabetes mellitus with hyperglycemia; I10 Essential (primary) hypertension; F17.290 Nicotine dependence, other tobacco product, uncomplicated; Z79.4 Long term (current) use of insulin; Z79.899 Other long term (current) drug therapy
CPT/HCPCS: 80053; 81003; 82803; 82947; 85025; 96361; 96374; 99284-25; J2405; J7030

== ENCOUNTER 2022-12-17 10:01 | Emergency (ER) | payer OTHER ==
[~2022-12-17] VITALS: Ht 172.7 cm; Wt 61.2 kg
[2022-12-17 11:03] LABS: Base Excess Venous 3.8 mmol/L; Bicarbonate Venous 26.4 mmol/L (24.0-30.0); PCO2 Venous 46.9 mmHg (38-42)
[2022-12-17 11:09] LABS: BASOPHILS ABSOLUTE AUTO 0.02 K/mm3 (0.00-0.23); BASOPHILS PERCENT AUTO 0 % (0-2); EOSINOPHILS ABSOLUTE AUTO 0.03 K/mm3 (0.00-0.68); EOSINOPHILS PERCENT AUTO 1 % (0-6); Hematocrit 45.5 % (37.0-53.0); Hemoglobin 15.8 g/dL (13.5-17.5); IMMATURE GRAN ABSOLUTE AUTO 0.02 K/mm3 (0.00-0.10); IMMATURE GRAN PERCENT AUTO 0 % (0-1); LYMPHOCYTES ABSOLUTE AUTO 1.99 K/mm3 (0.84-5.20); LYMPHOCYTES PERCENT AUTO 31 % (21-46); MONOCYTES PERCENT AUTO 5 % (4-13); Mean Corpuscular HGB 31.2 pg (26.0-34.0); Mean Corpuscular HGB Conc 34.7 g/dL (31.5-36.5); Mean Corpuscular Volume 90 fL (80-100); Mean Platelet Volume 8.5 fL (9.1-12.4); NEUTROPHILS ABSOLUTE AUTO 4.12 K/mm3 (1.96-9.15); NEUTROPHILS PERCENT AUTO 64 % (41-73); Platelet Count 346 K/mm3 (150-400); RDW Coefficient Variation 12.5 % (11.7-14.2); RDW Standard Deviation 41.3 fL (35.1-46.3); Red Blood Cell Count 5.06 M/mm3 (4.30-5.90); White Blood Cell Count 6.48 K/mm3 (4.00-11.30)
[2022-12-17 11:39] LABS: Albumin, Blood 3.4 g/dL (3.4-5.0); Calcium, Blood 8.9 mg/dL (8.5-10.1); Creatinine, Blood 0.78 mg/dL (0.60-1.20); Globulin, Blood 3.3 g/dL (2.2-4.0); Potassium, Blood 3.8 mmol/L (3.5-5.5); Total Protein, Blood 6.7 g/dL (6.4-8.2)
[2022-12-17 11:53] LABS: Beta-hydroxybutyrate 40.5 mg/dL (0.2-2.8); Magnesium, Blood 1.9 mg/dL (1.6-2.4)
[2022-12-17 12:50] LABS: Source, Urine Clean Catch
[2022-12-17 12:59] LABS: Appearance, Urine Clear (Clear); Bilirubin, Urine Neg (Neg); Blood, Urine Neg (Neg); Color, Urine Yellow (P-Yellow); Glucose Qualitative, Urine 4+ (Neg); Ketones, Urine 3+ (Neg); Leukocyte Esterase, Urine Neg (Neg); Nitrite, Urine Neg (Neg); Protein, Urine Neg (Neg); Urobilinogen, Urine NORM (Normal)
[2022-12-17] MEDS ORDERED: ONDA4ODT MM (13:10)
[2022-12-17] MEDS ORDERED: PROM12.5S PR (13:10)
[2022-12-17] MEDS ORDERED: METO10 PO (13:10)
[2022-12-17 13:55] VITALS: BP 115/65
== END 2022-12-17 13:56 | disposition home or self-care (01) ==
LOC: ER 10:01
PROVIDERS: Student in an Organized Health Care Education/Training Program
DX: R11.2 Nausea with vomiting, unspecified (principal); E86.0 Dehydration; E10.65 Type 1 diabetes mellitus with hyperglycemia; I10 Essential (primary) hypertension; F17.290 Nicotine dependence, other tobacco product, uncomplicated; Z79.4 Long term (current) use of insulin; Z79.899 Other long term (current) drug therapy
CPT/HCPCS: 80053; 81003; 82010; 82803; 82947; 83735; 85025; 93005; 93010; 96361; 96374; 99284-25; J2765; J7030

== ENCOUNTER 2023-03-31 10:41 | Inpatient (IN) | payer OTHER ==
[2023-03-31] VITALS (17 sets, daily range): BP systolic 105–150; BP diastolic 48–76
[~2023-03-31] VITALS: Ht 177.8 cm; Wt 70.8 kg
[2023-03-31 11:10] LABS: Calcium, Ionized (POC) 0.96 mmol/L (1.10-1.46); Chloride (POC) 79 mmol/L (98-108); Creatinine (POC) 2.8 mg/dL (0.8-1.3); Glucose (ISTAT POC) >700 mg/dL (70-99); Potassium (POC) 6.8 mmol/L (3.5-5.5); Sodium (POC) 106 mmol/L (135-148); Total CO2 (POC) 6 mmol/L (21-32)
[2023-03-31 11:10] LABS: Calcium, Ionized (POC) 1.03 mmol/L (1.10-1.46); Chloride (POC) 79 mmol/L (98-108); Glucose (ISTAT POC) >700 mg/dL (70-99); Potassium (POC) 6.8 mmol/L (3.5-5.5); Sodium (POC) 106 mmol/L (135-148); Total CO2 (POC) 6 mmol/L (21-32)
[2023-03-31 11:14] LABS: BASOPHILS ABSOLUTE AUTO 0.03 K/mm3 (0.00-0.23); BASOPHILS PERCENT AUTO 0 % (0-2); EOSINOPHILS ABSOLUTE AUTO 0.01 K/mm3 (0.00-0.68); EOSINOPHILS PERCENT AUTO 0 % (0-6); Hematocrit 41.7 % (37.0-53.0); IMMATURE GRAN ABSOLUTE AUTO 0.37 K/mm3 (0.00-0.10); IMMATURE GRAN PERCENT AUTO 2 % (0-1); LYMPHOCYTES ABSOLUTE AUTO 2.95 K/mm3 (0.84-5.20); LYMPHOCYTES PERCENT AUTO 14 % (21-46); MONOCYTES ABSOLUTE AUTO 1.89 K/mm3 (0.16-1.47); MONOCYTES PERCENT AUTO 9 % (4-13); Mean Corpuscular HGB 31.3 pg (26.0-34.0); Mean Corpuscular HGB Conc 31.2 g/dL (31.5-36.5); Mean Corpuscular Volume 101 fL (80-100); Mean Platelet Volume 10.7 fL (9.1-12.4); NEUTROPHILS ABSOLUTE AUTO 16.02 K/mm3 (1.96-9.15); NEUTROPHILS PERCENT AUTO 75 % (41-73); Platelet Count 361 K/mm3 (150-400); RDW Coefficient Variation 11.9 % (11.7-14.2); RDW Standard Deviation 44.4 fL (35.1-46.3); Red Blood Cell Count 4.15 M/mm3 (4.30-5.90); White Blood Cell Count 21.27 K/mm3 (4.00-11.30)
[2023-03-31 11:41] LABS: Base Excess Venous -32.5 mmol/L; Bicarbonate Venous 4.3 mmol/L (24.0-30.0); PCO2 Venous 19.4 mmHg (38-42)
[2023-03-31 12:05] LABS: Source, Urine Clean Catch
[2023-03-31 12:05] LABS: Calcium, Ionized (POC) 0.93 mmol/L (1.10-1.46); Chloride (POC) 86 mmol/L (98-108); Creatinine (POC) 2.7 mg/dL (0.8-1.3); Glucose (ISTAT POC) >700 mg/dL (70-99); Hemoglobin (POC) 12.6 g/dL (13.5-17.5); Potassium (POC) 6.2 mmol/L (3.5-5.5); Sodium (POC) 113 mmol/L (135-148); Total CO2 (POC) 6 mmol/L (21-32)
[2023-03-31 12:08] LABS: Appearance, Urine Clear (Clear); Bilirubin, Urine Neg (Neg); Blood, Urine 3+ (Neg); Glucose Qualitative, Urine 4+ (Neg); Ketones, Urine 3+ (Neg); Leukocyte Esterase, Urine Neg (Neg); Nitrite, Urine Neg (Neg); Protein, Urine 1+ (Neg); Specific Gravity, Urine 1.015 (1.003-1.022); Urobilinogen, Urine NORM (Normal)
[2023-03-31 12:18] LABS: Color, Urine Pale Yellow (P-Yellow)
[2023-03-31 12:19] LABS: Bacteria Rare /hpf; Red Blood Cells, Urine 0-2 /hpf (0-2); Squamous Epithelial Cells Not Seen /hpf (Few); White Blood Cells, Urine 0-2 /hpf (0-5)
[2023-03-31 12:34] LABS: Alanine Aminotransfer (ALT/SGP 55 U/L (12-78); Albumin, Blood 3.4 g/dL (3.4-5.0); Albumin/Globulin Ratio 1.1 (0.8-1.8); Alk Phos 131 U/L (50-136); Anion Gap 39 mmol/L (6-16); Aspartate Aminotrans (AST/SGOT 39 U/L (12-37); Beta-hydroxybutyrate >138.0 mg/dL (0.2-2.8); Bilirubin, Total 0.8 mg/dL (0.1-1.0); Blood Urea Nitrogen 92 mg/dL (8-24); Bun/Creatinine Ratio 35.7 (12.0-20.0); CO2, Blood 3 mmol/L (21-32); Chloride, Blood 68 mmol/L (98-108); Creatinine, Blood 2.58 mg/dL (0.60-1.20); Glomerular Filtration Rate 34 (60-); Glucose, Blood 1360 mg/dL (70-99); Potassium, Blood 6.9 mmol/L (3.5-5.5); Sodium, Blood 110 mmol/L (136-145); Total Protein, Blood 6.4 g/dL (6.4-8.2)
[2023-03-31 13:25] LABS: PO2 Arterial 230 mmHg (80-100)
[2023-03-31 13:27] LABS: PCO2 Arterial 17.4 mmHg (35-45); pH Blood Arterial 6.81 (7.35-7.45)
[2023-03-31 14:26] LABS: Magnesium, Blood 3.4 mg/dL (1.6-2.4)
[2023-03-31 14:57] LABS: Albumin, Blood 2.8 g/dL (3.4-5.0); Albumin/Globulin Ratio 1.1 (0.8-1.8); Calcium, Blood 6.9 mg/dL (8.5-10.1); Creatinine, Blood 2.29 mg/dL (0.60-1.20); Globulin, Blood 2.6 g/dL (2.2-4.0); Phosphorus, Blood 9.9 mg/dL (2.5-4.9); Potassium, Blood 4.8 mmol/L (3.5-5.5); Total Protein, Blood 5.4 g/dL (6.4-8.2)
[2023-03-31 15:09] LABS: PO2 Arterial 181 mmHg (80-100)
[2023-03-31 15:10] LABS: PCO2 Arterial 18.7 mmHg (35-45)
[2023-03-31 17:13] LABS: Bun/Creatinine Ratio 37.6 (12.0-20.0); Creatinine, Blood 2.1 mg/dL (0.60-1.20); Potassium, Blood 3.7 mmol/L (3.5-5.5)
[2023-03-31 17:32] LABS: PCO2 Arterial 17.5 mmHg (35-45); PO2 Arterial 169 mmHg (80-100); pH Blood Arterial 7.04 (7.35-7.45)
[2023-03-31] MEDS ORDERED: HUMALOG100 UNIT/1 SC (17:50)
--- NOTE | 2023-03-31 18:29 | NUR ---
PT ARRIVAL.... PT ARRIVED TO THE UNIT AT 1353, HE WAS INTUBATED WITH 8.0 24 AT THE TEETH. PT WAS NOT SEDATED AND UNRESPONSIVE. PT'S PUPILS WERE 4 AND VERY SLUGGISH. L/S WERE CLEAR T/O RR IN THE 30'S. PT IS ON LEVOPHED AT 7MCG TO KEEP MAPS>65 PER ARTLINE TO THE LEFT RADIAL. RIGHT IJ CENTRAL LINES IS IN PLACE. A RECTAL TEMP PROBE WAS PLACED AND SHOWED A CORE TEMP OF 84.4 DEGREES F. CHRISTIANA HUGGER WAS PLACED ON THE PT AND WARMED LR WAS STARTED AT 500MLS/HR PER PROVIDER'S ORDERS. SHORTLY AFTER ARRIVING TO THE UNIT THE PT CONVERTED FROM SINUS TACH IN THE 100'S-120'S TO AFIB WITH RVR IN THE 120'S-160'S, THE LEVOPHED WAS TITRATED UP TO 10MCG/MIN TO KEEP MAPS>65 DURING THIS TIME. THE PT WAS TITRATED OFF OF THE LEVOHPHED AND ON TO ELISE AT 200MCG/MIN TO KEEP MAPS>65 AT 1640 THE PT CONVERTED BACK TO SINUS IN THE 80'S-90'S, ELISE CONTINUES TO BE RUNNING AT 200MCG/MIN. AROUND THIS TIME THE PT STARTED TO OPEN HIS EYES AND WAKE UP, HE WOULD TRACK MOVMENT BUT NOT FOLLOW COMMANDS, HE BECAME DYSSYNCHRONOUS WITH THE VENT, HE WAS STARTED ON SEDATION WITH PROPOFOL UP TO 60MCG/KG AND FENTANYL DRIP AT 50MCG/HR, MAGY WAS USED AFTER THE SEDATION DID NOT IMPROVE SYNCHRONY WITH THE VENT. THE PT'S FAMILY WAS AT THE BEDSIDE AND FULLY UPDATED BY STAFF. THE INSULIN DRIP CONTINUES TO RUN AT 3UNITS/HR. VALENCIA IS PATENT AND DRAINING TO GRAVITY. WILL CONTINUE TO MONITOR UNTIL REPORT IS GIVEN TO ONCOMING RN.
[2023-03-31 18:31] LABS: PCO2 Arterial 15.1 mmHg (35-45); PO2 Arterial 165 mmHg (80-100); pH Blood Arterial 7.08 (7.35-7.45)
[2023-03-31 18:40] LABS: Bun/Creatinine Ratio 37.6 (12.0-20.0); Calcium, Blood 6.9 mg/dL (8.5-10.1); Creatinine, Blood 1.97 mg/dL (0.60-1.20); Potassium, Blood 4.2 mmol/L (3.5-5.5)
[2023-03-31 20:05] LABS: Glucose, Blood 710 mg/dL (70-99)
[2023-03-31 20:58] LABS: Bun/Creatinine Ratio 37.3 (12.0-20.0); Calcium, Blood 6.7 mg/dL (8.5-10.1); Creatinine, Blood 1.85 mg/dL (0.60-1.20); Potassium, Blood 5.7 mmol/L (3.5-5.5)
[2023-03-31 21:34] LABS: PCO2 Arterial 14.7 mmHg (35-45); PO2 Arterial 157 mmHg (80-100); pH Blood Arterial 7.18 (7.35-7.45)
[2023-03-31 22:01] LABS: Glucose, Blood 569 mg/dL (70-99)
[2023-03-31 23:00] LABS: Bun/Creatinine Ratio 38.1 (12.0-20.0); Calcium, Blood 6.9 mg/dL (8.5-10.1); Creatinine, Blood 1.68 mg/dL (0.60-1.20); Potassium, Blood 5.4 mmol/L (3.5-5.5)
[2023-03-31 23:58] LABS: Magnesium, Blood 2.3 mg/dL (1.6-2.4)
[2023-04-01] VITALS (22 sets, daily range): BP systolic 101–139; BP diastolic 38–72
[2023-04-01 00:58] LABS: Bun/Creatinine Ratio 37.2 (12.0-20.0); Calcium, Blood 7.2 mg/dL (8.5-10.1); Creatinine, Blood 1.56 mg/dL (0.60-1.20); Potassium, Blood 4.9 mmol/L (3.5-5.5)
[2023-04-01 05:46] LABS: Magnesium, Blood 2.3 mg/dL (1.6-2.4)
[2023-04-01 05:49] LABS: Albumin, Blood 2.4 g/dL (3.4-5.0); Albumin/Globulin Ratio 1.1 (0.8-1.8); Bilirubin, Total 0.8 mg/dL (0.1-1.0); Bun/Creatinine Ratio 34.3 (12.0-20.0); Calcium, Blood 7.6 mg/dL (8.5-10.1); Creatinine, Blood 1.34 mg/dL (0.60-1.20); Globulin, Blood 2.2 g/dL (2.2-4.0); Phosphorus, Blood 0.5 mg/dL (2.5-4.9); Potassium, Blood 4.1 mmol/L (3.5-5.5); Total Protein, Blood 4.6 g/dL (6.4-8.2)
--- NOTE | 2023-04-01 07:17 | NUR ---
SHIFT SUMMARY PT REMAINS SEDATED LIGHTLY, INCREASED SEDATION NEEDED, PRN ATIVAN USED NEEDED. FOLLOWS COMMANDS, OPENS EYES, MOVES HEAD BACK AND FORTH, MOVING ALL EXTREMETIES INDEPENDENTLY. ST 110-115, BP SUPPORTED WITH ELISE-SYNEPHRINE. ABLE TO TITRATE ELISE DOWN BP IS MAINTAINING WELL. VENT SETTINGS RATE DECREASED TO 26 WHEN ABG SHOWED PH > 7.1. ALL OTHER VENT SETTINGS UNCHANGED. LUNGS CTA. OGT CLAMPED. VALENCIA WITH NEARLY 4 LITERS URINE OUT. SKIN WARM, DRY, INTACT. RIJ QUAD LUMEN CENTRAL LINE INFUSING CONTINUOUSLY. RIGHT AND LEFT AC PIV BOTH SL, BOTH HAVE GOOD BLOOD RETURN. ANGEL TO LEFT FOREARM, POSITIONAL AT TIMES. CORE TEMP MEASURED WITH RECTAL PROBE. CHRISTIANA HUGGER REMOVED, TEMP MAINTAINS WNL. MOTHER, FATHER, STEP-FATHER, UNCLE AND GIRLFRIEND ALL AT BEDSIDE, ALL UPDATED ON POC AND QUESTIONS ANSWERED. BLOOD GLUCOSE DECREASED TO < 300 WITH INSULIN DRIP. IVF CHANGED BASED ON CHEMISTRY RESULTS. CONTACTED DR. ZEE Redman FOR ORDERD AND TO CONVEY CRITICAL LABS. DR. WEAVER TO BEDSIDE THIS AM, UPDATED ON POC, ORDERS RECIEVED AND ENTERED. REPORT GIVEN TO GUANAKITO RN. POC ONGOING.
[2023-04-01 07:40] LABS: Albumin, Blood 2.4 g/dL (3.4-5.0); Anion Gap 17 mmol/L (6-16); Blood Urea Nitrogen 43 mg/dL (8-24); Bun/Creatinine Ratio 34.4 (12.0-20.0); CO2, Blood 10 mmol/L (21-32); Calcium, Blood 7.5 mg/dL (8.5-10.1); Chloride, Blood 115 mmol/L (98-108); Creatinine, Blood 1.25 mg/dL (0.60-1.20); Glomerular Filtration Rate 82 (60-); Glucose, Blood 279 mg/dL (70-99); Phosphorus, Blood 0.6 mg/dL (2.5-4.9); Potassium, Blood 3.9 mmol/L (3.5-5.5); Sodium, Blood 142 mmol/L (136-145)
[2023-04-01 07:55] LABS: BASOPHILS PERCENT AUTO 0 % (0-2); EOSINOPHILS PERCENT AUTO 0 % (0-6); Hematocrit 28.8 % (37.0-53.0); Hemoglobin 10.7 g/dL (13.5-17.5); IMMATURE GRAN ABSOLUTE AUTO 0.07 K/mm3 (0.00-0.10); IMMATURE GRAN PERCENT AUTO 1 % (0-1); LYMPHOCYTES ABSOLUTE AUTO 1.09 K/mm3 (0.84-5.20); LYMPHOCYTES PERCENT AUTO 11 % (21-46); MONOCYTES ABSOLUTE AUTO 1.26 K/mm3 (0.16-1.47); MONOCYTES PERCENT AUTO 12 % (4-13); Mean Corpuscular HGB 31.5 pg (26.0-34.0); Mean Corpuscular HGB Conc 37.2 g/dL (31.5-36.5); Mean Corpuscular Volume 85 fL (80-100); Mean Platelet Volume 9.8 fL (9.1-12.4); NEUTROPHILS ABSOLUTE AUTO 7.71 K/mm3 (1.96-9.15); NEUTROPHILS PERCENT AUTO 76 % (41-73); Platelet Count 209 K/mm3 (150-400); RDW Coefficient Variation 11.5 % (11.7-14.2); RDW Standard Deviation 35.4 fL (35.1-46.3); White Blood Cell Count 10.13 K/mm3 (4.00-11.30)
[2023-04-01 07:57] LABS: PCO2 Arterial 16 mmHg (35-45); PO2 Arterial 163 mmHg (80-100); pH Blood Arterial 7.35 (7.35-7.45)
--- NOTE | 2023-04-01 08:24 | NUR ---
ASSUMPTION OF CARE REPORT RECEIVED FROM NOC RN. PT RESTING IN BED, RESPONSIVE TO VERBAL STIMULI. HR 100-120'S SINUS TACH. NEOSYNEPHRINE TITRATED OFF, MAP 65. PT INTUBATED AND SEDATED, PROPOFOL INFUSING AT 50MCG, FENTANYL INFUSING AT 100MCG. VENTILATOR SETTINGS AC/VC 24/570/5/25%, OXYGEN SATURATION > 95%. RIJ IN PLACE INFUSING, PIV TO LAC AND RAC SL. VALENCIA PATENT DRAINING TO GRAVITY. ART LINE IN PLACE TO LEFT RADIAL ARTERY. OG TUBE CLAMPED. FAMILY AT THE BEDSIDE.
[2023-04-01 10:03] LABS: Magnesium, Blood 2.1 mg/dL (1.6-2.4)
[2023-04-01 10:04] LABS: Albumin, Blood 2.4 g/dL (3.4-5.0); Bilirubin, Total 0.7 mg/dL (0.1-1.0); Calcium, Blood 7.4 mg/dL (8.5-10.1); Creatinine, Blood 1.25 mg/dL (0.60-1.20); Globulin, Blood 2.4 g/dL (2.2-4.0); Phosphorus, Blood 2.9 mg/dL (2.5-4.9); Total Protein, Blood 4.8 g/dL (6.4-8.2)
[2023-04-01 10:06] LABS: Potassium, Blood 6.1 mmol/L (3.5-5.5)
--- NOTE | 2023-04-01 10:35 | NUR ---
PT UPDATE DR. KOCH AT THE BEDSIDE. INFOMRED OF MOST RECENT LABS, PT TEMPERATURE, CURRENT VS, AND PT MAP'S IN THE 50'S. NEW ORDERS GIVEN FOR LITER BOLUS OF LR, RESTARTED INSULIN DRIP, KPHOS DC'D AT THIS TIME. ELISE DRIP CURRENTLY AT 275 MCG/MIN.
[2023-04-01 15:04] LABS: PO2 Arterial 158 mmHg (80-100); pH Blood Arterial 7.37 (7.35-7.45)
[2023-04-01 15:05] LABS: PCO2 Arterial 19 mmHg (35-45)
[2023-04-01 16:01] LABS: Calcium, Blood 7.3 mg/dL (8.5-10.1); Creatinine, Blood 1.15 mg/dL (0.60-1.20); Magnesium, Blood 2.1 mg/dL (1.6-2.4); Phosphorus, Blood 1.2 mg/dL (2.5-4.9); Potassium, Blood 4.4 mmol/L (3.5-5.5)
--- NOTE | 2023-04-01 17:34 | NUR ---
SHIFT SUMMARY PT INTUBATED, PROPOFOL ON STANDBY, PT RESPONSIVE TO NOXIOUS STIMULI. HR 100-120'S SINUS TACH, MAP > 65, ELISE ON SB. VENTILATOR SETTINGS AC/VC 16/500/5/25%, OXYGEN SATURATION > 95%. ART LINE IN PLACE TO LEFT RADIAL, ADEQUATE WAVEFORM. RIJ CENTRAL LINE IN PLACE, PIV TO RAC AND LAC SALINE LOCKED. VALENCIA PATENT DRAINING TO GRAVITY. PT HAD TMAX OF 100.3, FAN AND COLD TOWEL USED TO BRING TEMPERATURE DOWN. TEMPERATURE CURRENTLY 99.0. AT THIS TIME ALL DRIPS ARE OFF, LONG ACTING INSULIN GIVEN PER ORDERS TO MAINTAIN BLOOD GLUCOSE BETWEEN 140-180. PT FAMILY AT THE BEDSIDE.
[2023-04-01 18:40] LABS: Bun/Creatinine Ratio 22.3 (12.0-20.0); Calcium, Blood 7.7 mg/dL (8.5-10.1); Creatinine, Blood 1.12 mg/dL (0.60-1.20); Magnesium, Blood 2.3 mg/dL (1.6-2.4); Phosphorus, Blood 2.6 mg/dL (2.5-4.9); Potassium, Blood 4.8 mmol/L (3.5-5.5)
[2023-04-01 23:39] LABS: Creatinine, Blood 0.95 mg/dL (0.60-1.20); Phosphorus, Blood 1.8 mg/dL (2.5-4.9); Potassium, Blood 4.8 mmol/L (3.5-5.5)
[2023-04-02] VITALS (33 sets, daily range): BP systolic 105–149; BP diastolic 55–89
[2023-04-02 02:41] LABS: Bun/Creatinine Ratio 20.3 (12.0-20.0); Calcium, Blood 7.7 mg/dL (8.5-10.1); Creatinine, Blood 0.89 mg/dL (0.60-1.20); Magnesium, Blood 2.1 mg/dL (1.6-2.4); Phosphorus, Blood 1.7 mg/dL (2.5-4.9); Potassium, Blood 4.6 mmol/L (3.5-5.5)
--- NOTE | 2023-04-02 06:41 | NUR ---
SHIFT SUMMARY PT REMAINED OFF SEDATION UNTIL 0400 (TOTAL OF 12 HOURS). BECAME VERY AGITATED PULLING AT RESTRAINTS AND ATTEMPTING TO THRUST ETT OUT OF MOUTH. DID NOT FOLLOW COMMANDS OR OPEN EYES AT THAT TIME. DOES MOVE ALL EXTREMETIES. PROPOFOL STARTED AT 10 AND INCREASED UP TO 30 WHEN FAMILY ARRIVED PT BECAME MORE RESTLESS. ENCOURAGED FAMILY TO NOT STIMULATE PT AT THIS TIME. INSULIN DRIP TITRATED APPROPRIATE TO MAINTAIN BLOOD GLUCOSE AT TARGET OF 140-180. GLUCOSE RANGE 170'S TO 250. SEE ICU FLOWSHEET FOR INDIVIDUAL TITRATIONS. ST, ARTERIAL BP ELEVATED PRIOR TO SEDATION BEING RESUMED, SLOWLY COMING DOWN. VENT 16/500/5/25%, LUNGS CTA. OGT WITH GLUCERNA 1.2 AT 30 WITH A GOAL OF 45ML/HR. BS NORMOACTIVE. VALENCIA PATENT AND DRAINING CLEAR YELLOW URINE, 2 LITERS UO THIS SHIFT. SKIN INTACT, EDEMA DECREASING, TEMP SLIGHTLY ELEVATED TO 100, FAN PLACED ON PT AND COVERS REMOVED. PIV X2, IVPB INFUSING. RIJ QLC, FLUSHES AND WITHDRAWS BLOOD WELL. A LINE TO LEFT FOREARM, GOOD WAVEFORM, USED FOR ALL LAB DRAWS. MOTHER, FATHER, STEP-FATHER, GIRLFRIEND AND SISTER ALL UPDATED ON POC AT THE BEDSIDE. POC ONGOING.
[2023-04-02 06:45] LABS: Magnesium, Blood 2.1 mg/dL (1.6-2.4)
[2023-04-02 06:46] LABS: Bun/Creatinine Ratio 16.7 (12.0-20.0); Calcium, Blood 8.2 mg/dL (8.5-10.1); Creatinine, Blood 0.84 mg/dL (0.60-1.20); Phosphorus, Blood 1.4 mg/dL (2.5-4.9); Potassium, Blood 3.9 mmol/L (3.5-5.5)
--- NOTE | 2023-04-02 07:00 | NUR ---
ASSUMPTION OF CARE PT RECEIVING PROPOFOL 25MCG/KG/MIN AND INSULIN 1UNIT/HR. HE REMAINS INTUBATED WITH VENT SETTINGS AC/VC 16/500/5/25%. HE GRIMACES AND WITHDRAWS DURING NOXIOUS STIMULI. LUNGS ARE CLEAR THROUGHOUT. SINUS TACH ON MONITOR WITH RATE IN 110S. L RADIAL ART LINE WITH SBP 160S. TUBE FEEDING VIA OGT. VALENCIA PATENT AND DRAINING TO GRAVITY. MOTHER AND GIRLFRIEND AT BEDSIDE. SEE SHIFT ASSESSMENT.
--- NOTE | 2023-04-02 10:55 | NUR ---
EXTUBATED/UPDATE PROPOFOL TURNED OFF. PT BEGINS TO INTERMITTENTLY OPEN EYES BUT DOES NOT TRACK MOVEMENTS. HE PULLS AGAINST WITH RESTRAINTS, KICKS LOWER EXTREMITIES. OCCASIONALLY TRIES TO SIT UP. EXTUBATED AT 1055 AND PLACED ON 2L NC. PT REMAINS SOMNOLENT. OCCASIONALLY OPENING EYES, STRONGLY PULLING AGAINST RESTRAINTS AND SWINGING LEGS. PT NOT REDIRECTABLE AT THIS TIME. FAMILY AT BEDSIDE.
[2023-04-02 11:02] LABS: Bun/Creatinine Ratio 16.2 (12.0-20.0); Calcium, Blood 7.7 mg/dL (8.5-10.1); Creatinine, Blood 0.74 mg/dL (0.60-1.20); Phosphorus, Blood 1.5 mg/dL (2.5-4.9); Potassium, Blood 3.4 mmol/L (3.5-5.5)
[2023-04-02 11:03] LABS: Magnesium, Blood 1.7 mg/dL (1.6-2.4)
[2023-04-02 12:35] LABS: Vancomycin, Trough 12.4 ug/mL (5.0-10.0)
--- NOTE | 2023-04-02 17:34 | NUR ---
SHIFT SUMMARY PT EXTUBATED AT 1055 THIS AM. HE IS NOW ON RA WITH SPO2 >95%. HE OCCASIONALLY OPENS EYES BUT DOES NOT TRACK MOVEMENTS. HE GRIMACES, WITHDRAWS FROM PAINFUL STIMULI AND WILL OCCASIONALLY SAY "STOP" OR "NO" DURING CARE. PT PLACED IN YAMIL VEST DUE TO ATTEMPTING TO SIT UP AND SWING LEGS. HE IS NOT REDIRECTABLE. FACE, HANDS AND LEGS REMAIN EDEMATOUS. VALENCIA PATENT AND DRAINING TO GRAVITY. VSS THROUGHOUT THE SHIFT. L RADIAL ART LINE REMOVED. RIJ REMAINS IN PLACE. Q2 CBG AND INSULIN. FAMILY HAS BEEN AT BEDSIDE THROUGHOUT THE DAY.
--- NOTE | 2023-04-02 20:00 | NUR ---
ASSUMED CARE OF PT AT 1900. REPORT RECEIVED AT BEDSIDE. PT PRESENTS IN BED. MOVES FREQUENTLY IN BED. DOES NOT RESPOND TO QUESTIONS OR REQUESTS. YAMIL VEST ON SECONDARY TO IMPULSIVENESS AND HIGH FALL RISK. PT'S MOTHER AND PT'S GIRLFRIEND IN FOR VISIT. MANY QUESTIONS ASKED BY MOM CONCERNING PT. ANSWERED THOSE QUESTIONS FOR HER. WILL REVIEW CHART AND PLAN OF CARE FOR THIS PT.
--- NOTE | 2023-04-02 23:00 | NUR ---
PT FREQUENTLY PULLING OFF HIS OXIMETER, AND GETTING HIS LEADS DISCONNECTED FROM TURNING IN BED WITHOUT REGARD TO PROTECTING ANY LINES. PT'S FAMILY HAVE GONE HOME. PT WILL NOT FOLLOW ANY COMMANDS. WHEN ASKED TO SQUEEZE FINGERS, PT JUST SAYS 'NO'. PT CONTINUES ON ROOM AIR. MAINTAINS SATURATIONS > 90 PERCENT. WILL CONTINUE TO MONITOR.
[2023-04-03] VITALS (35 sets, daily range): BP systolic 102–138; BP diastolic 64–93
[2023-04-03 00:26] LABS: Bun/Creatinine Ratio 11.4 (12.0-20.0); Calcium, Blood 7.8 mg/dL (8.5-10.1); Creatinine, Blood 0.7 mg/dL (0.60-1.20); Magnesium, Blood 1.8 mg/dL (1.6-2.4); Phosphorus, Blood 1.8 mg/dL (2.5-4.9); Potassium, Blood 3.6 mmol/L (3.5-5.5)
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
[2023-04-03 05:12] LABS: BASOPHILS ABSOLUTE AUTO 0.01 K/mm3 (0.00-0.23); BASOPHILS PERCENT AUTO 0 % (0-2); EOSINOPHILS ABSOLUTE AUTO 0.02 K/mm3 (0.00-0.68); EOSINOPHILS PERCENT AUTO 0 % (0-6); Hematocrit 26.8 % (37.0-53.0); Hemoglobin 9.3 g/dL (13.5-17.5); IMMATURE GRAN ABSOLUTE AUTO 0.01 K/mm3 (0.00-0.10); IMMATURE GRAN PERCENT AUTO 0 % (0-1); LYMPHOCYTES ABSOLUTE AUTO 1.37 K/mm3 (0.84-5.20); LYMPHOCYTES PERCENT AUTO 16 % (21-46); MONOCYTES ABSOLUTE AUTO 0.71 K/mm3 (0.16-1.47); MONOCYTES PERCENT AUTO 8 % (4-13); Mean Corpuscular HGB 31.1 pg (26.0-34.0); Mean Corpuscular HGB Conc 34.7 g/dL (31.5-36.5); NEUTROPHILS ABSOLUTE AUTO 6.35 K/mm3 (1.96-9.15); NEUTROPHILS PERCENT AUTO 75 % (41-73); Platelet Count 109 K/mm3 (150-400); RDW Coefficient Variation 12.3 % (11.7-14.2); RDW Standard Deviation 39.9 fL (35.1-46.3); Red Blood Cell Count 2.99 M/mm3 (4.30-5.90); White Blood Cell Count 8.47 K/mm3 (4.00-11.30)
[2023-04-03 05:15] LABS: Mean Corpuscular Volume 90 fL (80-100)
[2023-04-03 05:32] LABS: Albumin, Blood 2.1 g/dL (3.4-5.0); Albumin/Globulin Ratio 0.8 (0.8-1.8); Bilirubin, Total 0.9 mg/dL (0.1-1.0); Bun/Creatinine Ratio 11.3 (12.0-20.0); Calcium, Blood 7.9 mg/dL (8.5-10.1); Creatinine, Blood 0.71 mg/dL (0.60-1.20); Globulin, Blood 2.8 g/dL (2.2-4.0); Magnesium, Blood 1.9 mg/dL (1.6-2.4); Phosphorus, Blood 1.8 mg/dL (2.5-4.9); Potassium, Blood 3.5 mmol/L (3.5-5.5); Total Protein, Blood 4.9 g/dL (6.4-8.2)
--- NOTE | 2023-04-03 06:45 | NUR ---
PT HAS BEEN ABLE TO MOVE HIMSELF ABOUT IN BED ON HIS OWN. HAS REMAINED SAFE WITH YAMIL VEST IN PLACE. PT'S STEP DAD HAD COME IN TO SEE HIM. PT DID NOT RESPOND TO HIM AT THAT THIME. DR WEAVER COMES TO SEE PT THIS MORNING, AND AFTER SOME STIMULI, DOES SIT UP IN BED. WILL NOT VERBALIZE ANY TO QUESTIONS. WILL CONTINUE TO MONITOR PT, AND WILL REPORT OFF TO ONCOMING RN.
--- NOTE | 2023-04-03 07:00 | NUR ---
ASSUMPTION OF CARE PT REMAINS SOMNOLENT. HE OCCASIONALLY WAKENS, OPENS EYES AND SAYS SHORT PHRASES INCLUDING "LEAVE ME ALONE" AND "STOP". PT REPOSITIONS SELF FREQUENTLY BUT IS NOT FOLLOWING COMMANDS. LUNGS ARE CLEAR THROUGHOUT. NSR ON MONITOR WITH RATE IN 90S. SBP 120S. EDEMA IMPROVED TODAY. HE REMAINS NPO AT THIS TIME. VALENCIA PATENT AND DRAINING TO GRAVITY. GIRLFRIEND AND FATHER AT BEDSIDE, UPDATED ON PT CONDITION.
--- NOTE | 2023-04-03 09:34 | NUR ---
UPDATE PT'S GIRLFRIEND STS PT REQUESTED WATER. ICE WATER PROVIDED, PT SAT UP IN BED INDEPENDENTLY AND DRANK WATER WITHOUT DIFFICULTY. PT DOES NOT PARTICIPATE IN CONVERSATION WITH STAFF AT THIS TIME.
--- NOTE | 2023-04-03 11:59 | NUR ---
UPDATE PT MORE ALERT BUT MINIMALLY INTERACTIVE WITH STAFF. HE DOES NOT PARTICIPATE IN CONVERSATION BUT ASKS GIRLFRIEND FOR WATER AND WHEN ASKED IF HE WANTS HIS LUNCH TRAY HE SAYS "NO". PT COOPERATIVE WITH CARE. LINENS CHANGED AND PT ASSISTED WITH REPOSITIONING AND FOLLOWED COMMANDS. GIRLFRIEND AND SISTER AT BEDSIDE.
[2023-04-03 12:10] LABS: IMMATURE RETIC FRACTION 2.3 % (2.3-16.0); RETIC HGB EQUIVALENT 32.4 pg (28.20-36.60); RETICULOCYTE ABSOLUTE 0.0284 M/mm3 (0.0200-0.1100); RETICULOCYTE COUNT PERCENT 0.97 % (0.50-2.50)
--- NOTE | 2023-04-03 12:10 | NUR ---
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 MOTHER STS PROVIDER CAN SEE PT'S BLOOD GLUCOSE LEVELS AND THAT "HIS GLUCOSE WAS PERFECT" AND THEN IT "JUST STARTED GOING UP". SHE STS THAT [employer] SAL[employer] ENGINEER BELIEVES PT WAS ATTEMPTING TO USE INSULIN PUMP AND THERE WAS A MALFUNCTION WITH THE CANNULA RESULTING IN PT NOT RECEIVING ADMINISTERED INSULIN.
[2023-04-03 12:22] LABS: Vancomycin, Trough 14.3 ug/mL (5.0-10.0)
--- NOTE | 2023-04-03 16:31 | NUR ---
SHIFT SUMMARY PT MORE ALERT THIS SHIFT. HE REMAINS DROWSY BUT WILL RESPOND TO VERBAL STIMULI. HE ANSWERS SOME QUESTIONS WITH FEW WORD SENTENCES. HE FOLLOWS SOME VERBAL COMMANDS TO ASSIST WITH CARE. HE HAS BEEN REPOSITIONING SELF THROUGHOUT THE DAY WITHOUT DIFFICULTY. SINUS RHYTHM ON MONITOR WITH RATE IN 90S. BP STABLE WITH MAP >65. FACIAL EDEMA REDUCING, HANDS AND FEET REMAIN UNCHANGED. LUNGS ARE CLEAR THROUGHOUT. HE DRANK WATER TODAY BUT HAS DECLINED MORE FLUIDS. VALENCIA REMOVED. PT UNABLE TO VOID AND "DOESN'T NEED TO". BLADDER SCAN 212ML. CENTRAL LINE REMAINS IN PLACE. FAMILY AT BEDSIDE THROUGHOUT THE DAY AND UPDATED ON PLAN OF CARE.
--- NOTE | 2023-04-03 20:00 | NUR ---
ASSESSMENT/ASSUMED CARE PT SLEEPING, FAMILY AT BEDSIDE. PT AWAKENS TO VERBAL STIMULI. FOLLOWING INSTRUCTIONS BUT SLOWLY. DENIES PAIN OR DISCOMFORT. PT MOVING AND TURNING SELF IN BED. LUNGS CLEAR ON ROOMAIR. RESP EVEN AND NONLABORED. HEART RATE REGULAR. BP STABLE. EYES SWOLLEN. BT+ HYPOACTIVE. CENTRAL LINE TO RIGHT IJ SALINE LOCKED, SITE CLEAR. PIV TO LEFT AC SALINE LOCKED, SITE CLEAR. ANGEL SITE TO LEFT FOREARM WITH DRSG INTACT. PT SAT AT EDGE OF BED AND TOOK WATER WITHOUT DIFFICULTY. HS MEDS GIVEN. BLOOD GLUCOSE 272, SLIDING AND LONG ACTING INSULIN GIVEN. RIGHT AC WITH DRIED BLISTER NOTED. FAMILY VERY SUPPORTIVE. MOTHER ASKED ABOUT AN EXCUSE FROM JURY DUTY FROM DR WEAVER, COPY OF JURY SUMMONS ON THE FRONT OF THE CHART TO TALK WITH DR WEAVER IN THE AM.
--- NOTE | 2023-04-03 21:19 | NUR ---
FAMILY WENT HOME FOR NIGHT. BED ALARM ON. PT MOVING AND TURNING SELF IN BED
--- NOTE | 2023-04-03 22:36 | NUR ---
PT TALKING ON PHONE WITH MOM. TEARFUL
--- NOTE | 2023-04-03 23:15 | NUR ---
FAMILY AT BEDSIDE WITH PT. GIRLFRIEND STAYING THE NIGHT FOR EMOTIONAL SUPPORT
[2023-04-04] VITALS (15 sets, daily range): BP systolic 113–137; BP diastolic 72–91
--- NOTE | 2023-04-04 00:02 | NUR ---
PT EATING JELLO AFTER GIVEN INSULIN FOR BLOOD GLUCOSE 204. GIRLFRIEND AT BEDSIDE FOR EMOTIONAL SUPPORT.
--- NOTE | 2023-04-04 03:56 | NUR ---
PT MORE AWAKE. SITTING UP IN BED MAKEING NEEDS KNOWN. LABS DRAWN VIA CENTRAL LINE, CAPS CHANGED. PT EATING JELLO. BLOOD GLUCOSE 116, NO INSULIN GIVEN.
[2023-04-04 04:01] LABS: BASOPHILS ABSOLUTE AUTO 0.02 K/mm3 (0.00-0.23); BASOPHILS PERCENT AUTO 0 % (0-2); EOSINOPHILS ABSOLUTE AUTO 0.06 K/mm3 (0.00-0.68); EOSINOPHILS PERCENT AUTO 1 % (0-6); Hematocrit 25.8 % (37.0-53.0); Hemoglobin 8.9 g/dL (13.5-17.5); IMMATURE GRAN ABSOLUTE AUTO 0.04 K/mm3 (0.00-0.10); IMMATURE GRAN PERCENT AUTO 0 % (0-1); LYMPHOCYTES ABSOLUTE AUTO 1.56 K/mm3 (0.84-5.20); LYMPHOCYTES PERCENT AUTO 16 % (21-46); MONOCYTES ABSOLUTE AUTO 0.88 K/mm3 (0.16-1.47); MONOCYTES PERCENT AUTO 9 % (4-13); Mean Corpuscular HGB Conc 34.5 g/dL (31.5-36.5); Mean Corpuscular Volume 90 fL (80-100); Mean Platelet Volume 9.7 fL (9.1-12.4); NEUTROPHILS ABSOLUTE AUTO 7.16 K/mm3 (1.96-9.15); NEUTROPHILS PERCENT AUTO 74 % (41-73); Platelet Count 101 K/mm3 (150-400); RDW Coefficient Variation 11.8 % (11.7-14.2); RDW Standard Deviation 38.9 fL (35.1-46.3); Red Blood Cell Count 2.87 M/mm3 (4.30-5.90); White Blood Cell Count 9.72 K/mm3 (4.00-11.30)
[2023-04-04 04:20] LABS: Albumin, Blood 2.1 g/dL (3.4-5.0); Anion Gap 6 mmol/L (6-16); Blood Urea Nitrogen 10 mg/dL (8-24); Bun/Creatinine Ratio 15.1 (12.0-20.0); CO2, Blood 28 mmol/L (21-32); Calcium, Blood 7.9 mg/dL (8.5-10.1); Chloride, Blood 106 mmol/L (98-108); Creatinine, Blood 0.66 mg/dL (0.60-1.20); Glomerular Filtration Rate 133 (60-); Glucose, Blood 119 mg/dL (70-99); Magnesium, Blood 1.9 mg/dL (1.6-2.4); Phosphorus, Blood 1.9 mg/dL (2.5-4.9); Potassium, Blood 3.7 mmol/L (3.5-5.5); Sodium, Blood 140 mmol/L (136-145)
--- NOTE | 2023-04-04 04:35 | NUR ---
LABS CALLED TO DR ZAMUDIO FOR PHOS 1.9. ORDER RECEIVED
--- NOTE | 2023-04-04 05:33 | NUR ---
SHIFT SUMMARY PT RESTING QUIELTY DURING THE NIGHT. GIRLFRIEND AT BEDSIDE FOR EMOTIONAL SUPPORT. PT INTERACTING AND TALKING MORE THIS MORNING. SPEECH IS STILL SLOW, BUT APPROP. PHOS 1.9 THIS AM, 20MMOL KPHOS INFUSING. VSS, HEART RATE IN THE 90'S, SPO2 IN THE MID 90'S ON ROOMAIR. BLOOD GLUCOSE Q4HR, COVERED TWICE DURING THE NIGHT WITH INSULIN PER SLIDING SCALE. PT TAKING JELLO AND CLEAR JUICE WITHOUT DIFFICULTY. CENTRAL LINE TO RIGHT IJ INTACT WITH KPHOS INFUSING. DECREASED FACIAL SWELLING DURING THE NIGHT, BUT CONT EDEMA TO BILAT HANDS AND FEET. PT TURNING AND MOVING SELF IN BED. REPORT TO ON COMING NURSE
[2023-04-04] MEDS ORDERED: HUMALOG KW100 UNIT/1 SC (12:27)
[2023-04-04] MEDS ORDERED: INSULANPEN SC ×2 (12:30→12:31)
--- NOTE | 2023-04-04 13:15 | NUR ---
DISCHARGE PT AND PT MOTHER VERBALIZED ALL DISCHARGE INSTRUCTIONS INCLUDING MEDICATIONS AND FOLLOW UP APPOINTMENTS. PT DRESSED SELF IN ROOM. PT DISCHARGED TO RIDE HOME AT 1315 VIA WHEELCHAIR. ALL PT BELONGINGS SENT WITH PT.
== END 2023-04-04 13:15 | disposition home or self-care (01) | DRG 637 ==
LOC: ER 10:41 → ICUE 12:50
PROVIDERS: Family Medicine; Physician Assistant; Student in an Organized Health Care Education/Training Program; ADMIT Family Medicine
PROC: 5A1945Z Respiratory Ventilation, 24-96 Consecutive Hours (ICD-10-PCS; principal; 2023-03-31)
PROC: 0BH17EZ Insertion of Endotracheal Airway into Trachea, Via Natural or Artificial Opening (ICD-10-PCS; 2023-03-31)
PROC: 03HC33Z Insertion of Infusion Device into Left Radial Artery, Percutaneous Approach (ICD-10-PCS; 2023-03-31)
PROC: 3E033XZ Introduction of Vasopressor into Peripheral Vein, Percutaneous Approach (ICD-10-PCS; 2023-03-31)
PROC: 0DH67UZ Insertion of Feeding Device into Stomach, Via Natural or Artificial Opening (ICD-10-PCS; 2023-03-31)
PROC: 02HV33Z Insertion of Infusion Device into Superior Vena Cava, Percutaneous Approach (ICD-10-PCS; 2023-03-31)
DX: E10.10 Type 1 diabetes mellitus with ketoacidosis without coma (principal); G93.41 Metabolic encephalopathy; J96.90 Respiratory failure, unspecified, unspecified whether with hypoxia or hypercapnia; E87.1 Hypo-osmolality and hyponatremia; N17.9 Acute kidney failure, unspecified; R57.9 Shock, unspecified; F90.9 Attention-deficit hyperactivity disorder, unspecified type; E83.51 Hypocalcemia; I10 Essential (primary) hypertension; K21.9 Gastro-esophageal reflux disease without esophagitis; I48.91 Unspecified atrial fibrillation; E87.5 Hyperkalemia; F17.290 Nicotine dependence, other tobacco product, uncomplicated; E83.39 Other disorders of phosphorus metabolism; T68.XXXA Hypothermia, initial encounter; E86.0 Dehydration; D64.9 Anemia, unspecified; F32.A Depression, unspecified; Z79.4 Long term (current) use of insulin; Z79.899 Other long term (current) drug therapy; Z90.89 Acquired absence of other organs
CPT/HCPCS: 31500; 36556; 36620; 51702; 70450; 71045; 80047; 80048; 80053; 80069; 80202; 81001; 82010; 82330; 82435; 82803; 82947; 83036; 83605; 83735; 84100; 84132; 84295; 85014; 85025; 85045; 87040; 93005; 93010; 93306; 94002; 94003; 94644; 94664; 96365-59; 96366-59; 96375-59; 99291-25; 99292; A9270; C9113; J0612; J1644; J1815; J2060; J2371; J2543; J2704; J3010; J3370; J3475; J3480; J7030; J7040; J7042; J7050; J7060; J7120

== ENCOUNTER 2023-04-10 18:23 | Emergency (ER) | payer OTHER ==
[~2023-04-10] VITALS: Ht 175.3 cm; Wt 56.7 kg
[~2023-04-10 18:23] MED LIST changes: +HUMALOG KW100 UNIT/1 SC; +HUMALOG100 UNIT/1 SC
[2023-04-10 19:00] LABS: BASOPHILS ABSOLUTE AUTO 0.04 K/mm3 (0.00-0.23); BASOPHILS PERCENT AUTO 1 % (0-2); EOSINOPHILS ABSOLUTE AUTO 0.04 K/mm3 (0.00-0.68); EOSINOPHILS PERCENT AUTO 1 % (0-6); Hematocrit 38.2 % (37.0-53.0); IMMATURE GRAN ABSOLUTE AUTO 0.06 K/mm3 (0.00-0.10); IMMATURE GRAN PERCENT AUTO 1 % (0-1); LYMPHOCYTES ABSOLUTE AUTO 2.98 K/mm3 (0.84-5.20); LYMPHOCYTES PERCENT AUTO 36 % (21-46); MONOCYTES ABSOLUTE AUTO 0.84 K/mm3 (0.16-1.47); MONOCYTES PERCENT AUTO 10 % (4-13); Mean Corpuscular HGB 30.4 pg (26.0-34.0); Mean Corpuscular Volume 89 fL (80-100); Mean Platelet Volume 8.3 fL (9.1-12.4); NEUTROPHILS ABSOLUTE AUTO 4.34 K/mm3 (1.96-9.15); NEUTROPHILS PERCENT AUTO 52 % (41-73); Platelet Count 921 K/mm3 (150-400); RDW Coefficient Variation 12.3 % (11.7-14.2); RDW Standard Deviation 39.8 fL (35.1-46.3); Red Blood Cell Count 4.28 M/mm3 (4.30-5.90)
[2023-04-10 19:43] LABS: Albumin/Globulin Ratio 0.7 (0.8-1.8); Beta-hydroxybutyrate 50.1 mg/dL (0.2-2.8); Bilirubin, Total 0.4 mg/dL (0.1-1.0); Calcium, Blood 9.2 mg/dL (8.5-10.1); Creatinine, Blood 0.75 mg/dL (0.60-1.20); Globulin, Blood 4.6 g/dL (2.2-4.0); Potassium, Blood 4.3 mmol/L (3.5-5.5); Total Protein, Blood 7.6 g/dL (6.4-8.2)
[2023-04-10 20:20] LABS: Base Excess Venous -3.8 mmol/L; Bicarbonate Venous 22.1 mmol/L (24.0-30.0); PCO2 Venous 30.9 mmHg (38-42); pH Blood Venous 7.43 (7.34-7.37)
[2023-04-10 23:15] VITALS: BP 138/96
== END 2023-04-10 23:54 | disposition home or self-care (01) ==
LOC: ER 18:23
PROVIDERS: Physician Assistant
DX: R11.2 Nausea with vomiting, unspecified (principal); E10.10 Type 1 diabetes mellitus with ketoacidosis without coma; I10 Essential (primary) hypertension; F17.290 Nicotine dependence, other tobacco product, uncomplicated; Z79.4 Long term (current) use of insulin
CPT/HCPCS: 80053; 81000; 82010; 82803; 82947; 85025; 93005; 93010; 96360; 96361; 99285-25; J7030

== ENCOUNTER 2023-04-13 16:02 | Emergency (ER) | payer OTHER ==
[~2023-04-13] VITALS: Ht 175.3 cm; Wt 59.0 kg
[2023-04-13 16:23] LABS: Base Excess Venous 5.7 mmol/L; Bicarbonate Venous 29.4 mmol/L (24.0-30.0); PCO2 Venous 36.1 mmHg (38-42); pH Blood Venous 7.51 (7.34-7.37)
[2023-04-13 16:29] LABS: BASOPHILS ABSOLUTE AUTO 0.04 K/mm3 (0.00-0.23); BASOPHILS PERCENT AUTO 1 % (0-2); EOSINOPHILS ABSOLUTE AUTO 0.01 K/mm3 (0.00-0.68); EOSINOPHILS PERCENT AUTO 0 % (0-6); Hematocrit 36.3 % (37.0-53.0); Hemoglobin 12.6 g/dL (13.5-17.5); IMMATURE GRAN ABSOLUTE AUTO 0.03 K/mm3 (0.00-0.10); IMMATURE GRAN PERCENT AUTO 0 % (0-1); LYMPHOCYTES ABSOLUTE AUTO 2.55 K/mm3 (0.84-5.20); LYMPHOCYTES PERCENT AUTO 35 % (21-46); MONOCYTES ABSOLUTE AUTO 0.55 K/mm3 (0.16-1.47); MONOCYTES PERCENT AUTO 8 % (4-13); Mean Corpuscular HGB 30.7 pg (26.0-34.0); Mean Corpuscular HGB Conc 34.7 g/dL (31.5-36.5); Mean Corpuscular Volume 89 fL (80-100); Mean Platelet Volume 8.3 fL (9.1-12.4); NEUTROPHILS ABSOLUTE AUTO 4.19 K/mm3 (1.96-9.15); NEUTROPHILS PERCENT AUTO 57 % (41-73); Platelet Count 798 K/mm3 (150-400); RDW Coefficient Variation 12.2 % (11.7-14.2); RDW Standard Deviation 39.5 fL (35.1-46.3); White Blood Cell Count 7.37 K/mm3 (4.00-11.30)
[2023-04-13 16:58] LABS: Albumin, Blood 2.8 g/dL (3.4-5.0); Albumin/Globulin Ratio 0.7 (0.8-1.8); Bilirubin, Total 0.3 mg/dL (0.1-1.0); Calcium, Blood 9.2 mg/dL (8.5-10.1); Creatinine, Blood 0.7 mg/dL (0.60-1.20); Globulin, Blood 3.8 g/dL (2.2-4.0); Potassium, Blood 3.9 mmol/L (3.5-5.5); Total Protein, Blood 6.6 g/dL (6.4-8.2)
[2023-04-13 17:10] LABS: Calcium, Ionized (POC) 1.03 mmol/L (1.10-1.46); Chloride (POC) 98 mmol/L (98-108); Creatinine (POC) 0.6 mg/dL (0.8-1.3); Glucose (ISTAT POC) 176 mg/dL (70-99); Hemoglobin (POC) 11.2 g/dL (13.5-17.5); Potassium (POC) 3.6 mmol/L (3.5-5.5); Sodium (POC) 134 mmol/L (135-148); Total CO2 (POC) 25 mmol/L (21-32)
[2023-04-13 18:43] LABS: Source, Urine Clean Catch
[2023-04-13 18:52] LABS: Bilirubin, Urine Neg (Neg); Blood, Urine Neg (Neg); Glucose Qualitative, Urine 2+ (Neg); Ketones, Urine 3+ (Neg); Leukocyte Esterase, Urine Neg (Neg); Nitrite, Urine Neg (Neg); Protein, Urine Neg (Neg); Urobilinogen, Urine NORM (Normal)
[2023-04-13 18:56] LABS: Appearance, Urine Clear (Clear); Color, Urine Yellow (P-Yellow)
[2023-04-13 19:30] VITALS: BP 116/80
== END 2023-04-13 19:39 | disposition home or self-care (01) ==
LOC: ER 16:02
PROVIDERS: Physician Assistant
DX: E10.65 Type 1 diabetes mellitus with hyperglycemia (principal); R11.2 Nausea with vomiting, unspecified; F90.9 Attention-deficit hyperactivity disorder, unspecified type; I10 Essential (primary) hypertension; K21.9 Gastro-esophageal reflux disease without esophagitis; F32.A Depression, unspecified; F17.290 Nicotine dependence, other tobacco product, uncomplicated; Z79.899 Other long term (current) drug therapy; Z79.4 Long term (current) use of insulin
CPT/HCPCS: 71046; 80047; 80053; 81003; 82010; 82803; 82947; 83735; 85014; 85025; 93005; 93010; 96361; 96374; 96375; 99284-25; J2405; J2765; J7030

== ENCOUNTER 2023-05-16 16:55 | Emergency (ER) | payer OTHER ==
[~2023-05-16] VITALS: Ht 172.7 cm; Wt 59.0 kg
[2023-05-16 17:30] LABS: Base Excess Venous 4.4 mmol/L; Bicarbonate Venous 27.5 mmol/L (24.0-30.0); PCO2 Venous 46.7 mmHg (38-42)
[2023-05-16 17:32] LABS: BASOPHILS ABSOLUTE AUTO 0.03 K/mm3 (0.00-0.23); BASOPHILS PERCENT AUTO 1 % (0-2); EOSINOPHILS ABSOLUTE AUTO 0.03 K/mm3 (0.00-0.68); EOSINOPHILS PERCENT AUTO 1 % (0-6); Hematocrit 40.3 % (37.0-53.0); Hemoglobin 13.8 g/dL (13.5-17.5); IMMATURE GRAN PERCENT AUTO 0 % (0-1); LYMPHOCYTES ABSOLUTE AUTO 2.76 K/mm3 (0.84-5.20); LYMPHOCYTES PERCENT AUTO 46 % (21-46); MONOCYTES ABSOLUTE AUTO 0.34 K/mm3 (0.16-1.47); MONOCYTES PERCENT AUTO 6 % (4-13); Mean Corpuscular HGB 29.9 pg (26.0-34.0); Mean Corpuscular HGB Conc 34.2 g/dL (31.5-36.5); Mean Corpuscular Volume 87 fL (80-100); Mean Platelet Volume 9.4 fL (9.1-12.4); NEUTROPHILS ABSOLUTE AUTO 2.83 K/mm3 (1.96-9.15); NEUTROPHILS PERCENT AUTO 47 % (41-73); Platelet Count 344 K/mm3 (150-400); RDW Coefficient Variation 11.9 % (11.7-14.2); RDW Standard Deviation 38.6 fL (35.1-46.3); Red Blood Cell Count 4.61 M/mm3 (4.30-5.90); White Blood Cell Count 5.99 K/mm3 (4.00-11.30)
[2023-05-16 18:04] LABS: Albumin, Blood 3.5 g/dL (3.4-5.0); Beta-hydroxybutyrate 8.8 mg/dL (0.2-2.8); Bilirubin, Total 0.7 mg/dL (0.1-1.0); Bun/Creatinine Ratio 12.3 (12.0-20.0); Creatinine, Blood 0.73 mg/dL (0.60-1.20); Globulin, Blood 3.5 g/dL (2.2-4.0); Potassium, Blood 4.6 mmol/L (3.5-5.5)
[2023-05-16 20:03] VITALS: BP 122/97
== END 2023-05-16 20:17 | disposition home or self-care (01) ==
LOC: ER 16:55
PROVIDERS: Student in an Organized Health Care Education/Training Program
DX: R11.2 Nausea with vomiting, unspecified (principal); Z79.899 Other long term (current) drug therapy; Z79.4 Long term (current) use of insulin; E10.65 Type 1 diabetes mellitus with hyperglycemia; I10 Essential (primary) hypertension; K21.9 Gastro-esophageal reflux disease without esophagitis; F17.290 Nicotine dependence, other tobacco product, uncomplicated
CPT/HCPCS: 80053; 82010; 82803; 85025; 99283

== ENCOUNTER 2023-05-23 10:12 | Emergency (ER) | payer OTHER ==
[~2023-05-23] VITALS: Ht 172.7 cm; Wt 59.0 kg
[2023-05-23 10:55] LABS: BASOPHILS ABSOLUTE AUTO 0.04 K/mm3 (0.00-0.23); BASOPHILS PERCENT AUTO 1 % (0-2); EOSINOPHILS ABSOLUTE AUTO 0.02 K/mm3 (0.00-0.68); EOSINOPHILS PERCENT AUTO 0 % (0-6); Hematocrit 44.3 % (37.0-53.0); Hemoglobin 14.9 g/dL (13.5-17.5); IMMATURE GRAN ABSOLUTE AUTO 0.01 K/mm3 (0.00-0.10); IMMATURE GRAN PERCENT AUTO 0 % (0-1); LYMPHOCYTES ABSOLUTE AUTO 2.98 K/mm3 (0.84-5.20); LYMPHOCYTES PERCENT AUTO 50 % (21-46); MONOCYTES ABSOLUTE AUTO 0.32 K/mm3 (0.16-1.47); MONOCYTES PERCENT AUTO 5 % (4-13); Mean Corpuscular HGB 29.5 pg (26.0-34.0); Mean Corpuscular HGB Conc 33.6 g/dL (31.5-36.5); Mean Corpuscular Volume 88 fL (80-100); Mean Platelet Volume 9.3 fL (9.1-12.4); NEUTROPHILS ABSOLUTE AUTO 2.54 K/mm3 (1.96-9.15); NEUTROPHILS PERCENT AUTO 43 % (41-73); Platelet Count 316 K/mm3 (150-400); RDW Coefficient Variation 12.1 % (11.7-14.2); Red Blood Cell Count 5.05 M/mm3 (4.30-5.90); White Blood Cell Count 5.91 K/mm3 (4.00-11.30)
[2023-05-23 11:27] LABS: Albumin/Globulin Ratio 1.1 (0.8-1.8); Bilirubin, Total 0.8 mg/dL (0.1-1.0); Calcium, Blood 9.6 mg/dL (8.5-10.1); Creatinine, Blood 0.86 mg/dL (0.60-1.20); Globulin, Blood 3.7 g/dL (2.2-4.0); Potassium, Blood 4.1 mmol/L (3.5-5.5); Total Protein, Blood 7.7 g/dL (6.4-8.2)
[2023-05-23 11:50] LABS: Magnesium, Blood 1.9 mg/dL (1.6-2.4); Phosphorus, Blood 3.4 mg/dL (2.5-4.9)
[2023-05-23 12:48] LABS: Base Excess Venous 0.6 mmol/L; Bicarbonate Venous 24.9 mmol/L (24.0-30.0); PCO2 Venous 39.6 mmHg (38-42); pH Blood Venous 7.41 (7.34-7.37)
[2023-05-23] MEDS ORDERED: ONDA4ODT MM (13:03)
[2023-05-23 13:39] VITALS: BP 103/72
== END 2023-05-23 13:40 | disposition home or self-care (01) ==
LOC: ER 10:12
PROVIDERS: Student in an Organized Health Care Education/Training Program
DX: E10.65 Type 1 diabetes mellitus with hyperglycemia (principal); E86.0 Dehydration; I10 Essential (primary) hypertension; K21.9 Gastro-esophageal reflux disease without esophagitis; F90.9 Attention-deficit hyperactivity disorder, unspecified type; F17.290 Nicotine dependence, other tobacco product, uncomplicated
CPT/HCPCS: 80053; 82803; 82947; 83735; 84100; 85025; 96360; 99284-25; J7030

== ENCOUNTER 2023-06-15 12:15 | Emergency (ER) | payer OTHER ==
[~2023-06-15] VITALS: Ht 172.7 cm; Wt 63.5 kg
[2023-06-15 13:04] LABS: Base Excess Venous 3.8 mmol/L; Bicarbonate Venous 26.8 mmol/L (24.0-30.0); PCO2 Venous 49.8 mmHg (38-42); pH Blood Venous 7.37 (7.34-7.37)
[2023-06-15 13:20] LABS: BASOPHILS ABSOLUTE AUTO 0.02 K/mm3 (0.00-0.23); BASOPHILS PERCENT AUTO 0 % (0-2); EOSINOPHILS ABSOLUTE AUTO 0.03 K/mm3 (0.00-0.68); EOSINOPHILS PERCENT AUTO 1 % (0-6); Hematocrit 43.8 % (37.0-53.0); Hemoglobin 14.7 g/dL (13.5-17.5); IMMATURE GRAN ABSOLUTE AUTO 0.01 K/mm3 (0.00-0.10); IMMATURE GRAN PERCENT AUTO 0 % (0-1); LYMPHOCYTES ABSOLUTE AUTO 2.43 K/mm3 (0.84-5.20); LYMPHOCYTES PERCENT AUTO 48 % (21-46); MONOCYTES ABSOLUTE AUTO 0.22 K/mm3 (0.16-1.47); MONOCYTES PERCENT AUTO 4 % (4-13); Mean Corpuscular HGB 29.4 pg (26.0-34.0); Mean Corpuscular HGB Conc 33.6 g/dL (31.5-36.5); Mean Corpuscular Volume 88 fL (80-100); Mean Platelet Volume 9.4 fL (9.1-12.4); NEUTROPHILS ABSOLUTE AUTO 2.35 K/mm3 (1.96-9.15); NEUTROPHILS PERCENT AUTO 47 % (41-73); Platelet Count 331 K/mm3 (150-400); RDW Coefficient Variation 12.3 % (11.7-14.2); RDW Standard Deviation 39.6 fL (35.1-46.3); White Blood Cell Count 5.06 K/mm3 (4.00-11.30)
[2023-06-15 13:49] LABS: Albumin, Blood 3.8 g/dL (3.4-5.0); Beta-hydroxybutyrate 11.5 mg/dL (0.2-2.8); Bilirubin, Total 0.7 mg/dL (0.1-1.0); Bun/Creatinine Ratio 24.7 (12.0-20.0); Calcium, Blood 9.2 mg/dL (8.5-10.1); Creatinine, Blood 0.81 mg/dL (0.60-1.20); Globulin, Blood 3.9 g/dL (2.2-4.0); Total Protein, Blood 7.7 g/dL (6.4-8.2)
[2023-06-15 14:30] VITALS: BP 95/64
[2023-06-15] MEDS ORDERED: METO10 PO (14:34)
== END 2023-06-15 14:45 | disposition home or self-care (01) ==
LOC: ER 12:15
PROVIDERS: Student in an Organized Health Care Education/Training Program
DX: E10.65 Type 1 diabetes mellitus with hyperglycemia (principal); R11.0 Nausea; I10 Essential (primary) hypertension; F17.290 Nicotine dependence, other tobacco product, uncomplicated
CPT/HCPCS: 80053; 82010; 82803; 82947; 85025; 93005; 93010; 96361; 96374; 99284-25; J2765; J7030

== ENCOUNTER → 2023-08-05 | Outpatient (CLI) | payer OTHER ==
[2023-08-05 14:17] LABS: BASOPHILS ABSOLUTE AUTO 0.02 K/mm3 (0.00-0.23); BASOPHILS PERCENT AUTO 0 % (0-2); EOSINOPHILS PERCENT AUTO 0 % (0-6); Hematocrit 40.4 % (37.0-53.0); Hemoglobin 13.8 g/dL (13.5-17.5); IMMATURE GRAN ABSOLUTE AUTO 0.03 K/mm3 (0.00-0.10); IMMATURE GRAN PERCENT AUTO 0 % (0-1); LYMPHOCYTES ABSOLUTE AUTO 1.71 K/mm3 (0.84-5.20); LYMPHOCYTES PERCENT AUTO 16 % (21-46); MONOCYTES ABSOLUTE AUTO 0.58 K/mm3 (0.16-1.47); MONOCYTES PERCENT AUTO 6 % (4-13); Mean Corpuscular HGB 29.7 pg (26.0-34.0); Mean Corpuscular HGB Conc 34.2 g/dL (31.5-36.5); Mean Corpuscular Volume 87 fL (80-100); Mean Platelet Volume 9.1 fL (9.1-12.4); NEUTROPHILS ABSOLUTE AUTO 8.24 K/mm3 (1.96-9.15); NEUTROPHILS PERCENT AUTO 78 % (41-73); Platelet Count 306 K/mm3 (150-400); RDW Coefficient Variation 12.6 % (11.7-14.2); Red Blood Cell Count 4.64 M/mm3 (4.30-5.90); White Blood Cell Count 10.58 K/mm3 (4.00-11.30)
[2023-08-05 14:31] LABS: Albumin, Blood 3.6 g/dL (3.4-5.0); Bilirubin, Total 1.1 mg/dL (0.1-1.0); Bun/Creatinine Ratio 17.5 (12.0-20.0); Calcium, Blood 8.9 mg/dL (8.5-10.1); Creatinine, Blood 1.03 mg/dL (0.60-1.20); Globulin, Blood 3.5 g/dL (2.2-4.0); Potassium, Blood 3.6 mmol/L (3.5-5.5); Total Protein, Blood 7.1 g/dL (6.4-8.2)
== END | disposition home or self-care (01) ==
LOC: LAB 14:12 → LAB SHORT 14:12
PROVIDERS: Chiropractor
DX: R11.2 Nausea with vomiting, unspecified (principal)
CPT/HCPCS: 80053; 83690; 85025

== ENCOUNTER 2023-08-07 08:53 | Emergency (ER) | payer OTHER ==
[~2023-08-07] VITALS: Ht 170.2 cm; Wt 61.2 kg
[2023-08-07 09:39] VITALS: BP 140/96
[2023-08-07] MEDS ORDERED: Ondansetron HCl 2 MG / ML 2ML Vial IV PRN (09:45)
[2023-08-07 10:07] LABS: Base Excess Venous 7.4 mmol/L; Bicarbonate Venous 30.6 mmol/L (24.0-30.0); PCO2 Venous 40.8 mmHg (38-42); pH Blood Venous 7.49 (7.34-7.37)
[2023-08-07 10:11] LABS: BASOPHILS ABSOLUTE AUTO 0.02 K/mm3 (0.00-0.23); BASOPHILS PERCENT AUTO 0 % (0-2); EOSINOPHILS ABSOLUTE AUTO 0.01 K/mm3 (0.00-0.68); EOSINOPHILS PERCENT AUTO 0 % (0-6); Hematocrit 37.6 % (37.0-53.0); Hemoglobin 13.1 g/dL (13.5-17.5); IMMATURE GRAN ABSOLUTE AUTO 0.01 K/mm3 (0.00-0.10); IMMATURE GRAN PERCENT AUTO 0 % (0-1); LYMPHOCYTES ABSOLUTE AUTO 1.86 K/mm3 (0.84-5.20); LYMPHOCYTES PERCENT AUTO 25 % (21-46); MONOCYTES ABSOLUTE AUTO 0.39 K/mm3 (0.16-1.47); MONOCYTES PERCENT AUTO 5 % (4-13); Mean Corpuscular HGB 29.4 pg (26.0-34.0); Mean Corpuscular HGB Conc 34.8 g/dL (31.5-36.5); Mean Corpuscular Volume 85 fL (80-100); Mean Platelet Volume 8.9 fL (9.1-12.4); NEUTROPHILS ABSOLUTE AUTO 5.25 K/mm3 (1.96-9.15); NEUTROPHILS PERCENT AUTO 70 % (41-73); Platelet Count 310 K/mm3 (150-400); RDW Coefficient Variation 11.9 % (11.7-14.2); RDW Standard Deviation 36.2 fL (35.1-46.3); Red Blood Cell Count 4.45 M/mm3 (4.30-5.90); White Blood Cell Count 7.54 K/mm3 (4.00-11.30)
[2023-08-07 10:43] LABS: Albumin, Blood 3.3 g/dL (3.4-5.0); Bilirubin, Total 1.2 mg/dL (0.1-1.0); Bun/Creatinine Ratio 21.1 (12.0-20.0); Calcium, Blood 8.3 mg/dL (8.5-10.1); Creatinine, Blood 0.62 mg/dL (0.60-1.20); Globulin, Blood 3.3 g/dL (2.2-4.0); Total Protein, Blood 6.6 g/dL (6.4-8.2)
[2023-08-07 10:46] LABS: Beta-hydroxybutyrate 12.2 mg/dL (0.2-2.8)
[2023-08-07 13:43] LABS: Source, Urine Clean Catch
[2023-08-07 13:50] LABS: Appearance, Urine Clear (Clear); Bilirubin, Urine Neg (Neg); Blood, Urine Neg (Neg); Color, Urine Yellow (P-Yellow); Glucose Qualitative, Urine 2+ (Neg); Ketones, Urine 4+ (Neg); Leukocyte Esterase, Urine Neg (Neg); Nitrite, Urine Neg (Neg); Protein, Urine 2+ (Neg); Specific Gravity, Urine 1.015 (1.003-1.022); Urobilinogen, Urine 3+ (Normal); pH, Urine 6.5 (5.0-8.0)
[2023-08-07 14:02] LABS: Bacteria Rare /hpf; Mucus Mod (0-Heavy); Red Blood Cells, Urine 0-2 /hpf (0-2); Squamous Epithelial Cells Rare /hpf (Few)
[2023-08-09] MEDS ORDERED: PROC5 PO (12:48)
== END 2023-08-07 13:01 | disposition left against medical advice (07) ==
LOC: ER 08:53
PROVIDERS: Student in an Organized Health Care Education/Training Program
DX: R11.2 Nausea with vomiting, unspecified (principal); Z53.29 Procedure and treatment not carried out because of patient's decision for other reasons
CPT/HCPCS: 80053; 81001; 82010; 82803; 82947; 85025; 96374; 99281-25; J2405

== ENCOUNTER 2023-08-08 00:27 | Day surgery (SDC) | payer OTHER ==
[2023-08-08] MEDS ORDERED: Lactated Ringer's 1,000 ML IV SCH ×2 (07:00→16:20)
[2023-08-08 16:03] VITALS: BP 138/100
[2023-08-08 16:59] VITALS: BP 152/94
[2023-08-09] MEDS ORDERED: PROC5 PO (12:48)
== END 2023-08-08 22:59 | disposition home or self-care (01) ==
LOC: ATC 00:27
DX: E86.0 Dehydration (principal); E10.10 Type 1 diabetes mellitus with ketoacidosis without coma; I48.0 Paroxysmal atrial fibrillation; E10.51 Type 1 diabetes mellitus with diabetic peripheral angiopathy without gangrene; F90.9 Attention-deficit hyperactivity disorder, unspecified type; R20.2 Paresthesia of skin; E10.43 Type 1 diabetes mellitus with diabetic autonomic (poly)neuropathy; K31.84 Gastroparesis; Z79.4 Long term (current) use of insulin; Z79.899 Other long term (current) drug therapy
CPT/HCPCS: 96360; J7120

== ENCOUNTER 2023-10-18 02:07 | Day surgery (SDC) | payer OTHER ==
[~2023-10-18 02:07] MED LIST changes: +PROC5 PO
[2023-10-18] MEDS ORDERED: Lactated Ringer's 1,000 ML IV SCH (07:05)
[2023-10-18 13:46] VITALS: BP 125/86
== END 2023-10-18 16:00 | disposition home or self-care (01) ==
LOC: ATC 02:07
DX: E86.0 Dehydration (principal); E10.10 Type 1 diabetes mellitus with ketoacidosis without coma; F90.9 Attention-deficit hyperactivity disorder, unspecified type; K21.9 Gastro-esophageal reflux disease without esophagitis
CPT/HCPCS: 96360; 96361; J7120

== ENCOUNTER 2023-12-08 04:03 | Day surgery (SDC) | payer OTHER ==
[2023-12-08] MEDS ORDERED: Lactated Ringer's 1,000 ML IV SCH (07:15)
[2023-12-08 10:00] VITALS: BP 122/81
== END 2023-12-08 11:07 | disposition home or self-care (01) ==
LOC: ATC 04:03
DX: E86.0 Dehydration (principal); I48.0 Paroxysmal atrial fibrillation; I73.9 Peripheral vascular disease, unspecified; E10.43 Type 1 diabetes mellitus with diabetic autonomic (poly)neuropathy; K31.84 Gastroparesis; F90.9 Attention-deficit hyperactivity disorder, unspecified type
CPT/HCPCS: 96360; J7120

== ENCOUNTER 2023-12-10 02:50 | Day surgery (SDC) | payer OTHER ==
[2023-12-10] MEDS ORDERED: Lactated Ringer's 1,000 ML IV SCH (07:20)
[2023-12-10 10:14] VITALS: BP 121/77
--- NOTE | 2023-12-10 11:06 | NUR ---
PT INTENDED ON RECEIVING 1000ML OF LR BUT REMEMBERED AT 1050 THAT HE HAD A DENTIST APPT TODAY [facility] [place] AT 1115. PT REQUESTED THAT WE STOP THE INFUSION SO HE COULD MAKE DENTIST APPT. 626ML INFUSED. PT RETURING FRIDAY FOR ANOTHER INFUSION
== END 2023-12-10 10:53 | disposition home or self-care (01) ==
LOC: ATC 02:50
DX: E86.0 Dehydration (principal); E10.10 Type 1 diabetes mellitus with ketoacidosis without coma; I48.0 Paroxysmal atrial fibrillation; E10.51 Type 1 diabetes mellitus with diabetic peripheral angiopathy without gangrene; E10.43 Type 1 diabetes mellitus with diabetic autonomic (poly)neuropathy; K31.84 Gastroparesis
CPT/HCPCS: 96360; J7120

== ENCOUNTER 2024-01-08 02:46 | Day surgery (SDC) | payer OTHER ==
[2024-01-08] MEDS ORDERED: Lactated Ringer's 2,000 ML IV SCH (06:45)
[2024-01-08 15:30] VITALS: BP 98/73
== END 2024-01-08 16:30 | disposition home or self-care (01) ==
LOC: ATC 02:46
DX: E86.0 Dehydration (principal); E10.9 Type 1 diabetes mellitus without complications; I48.0 Paroxysmal atrial fibrillation; Z79.4 Long term (current) use of insulin; Z79.899 Other long term (current) drug therapy
CPT/HCPCS: 96360; J7120

== ENCOUNTER 2024-01-12 03:17 | Day surgery (SDC) | payer OTHER ==
[2024-01-12] MEDS ORDERED: Lactated Ringer's 1,000 ML IV SCH (07:05)
[2024-01-12 10:20] VITALS: BP 119/79
== END 2024-01-12 11:10 | disposition home or self-care (01) ==
LOC: ATC 03:17
DX: E86.0 Dehydration (principal); E10.10 Type 1 diabetes mellitus with ketoacidosis without coma; I48.0 Paroxysmal atrial fibrillation; E10.51 Type 1 diabetes mellitus with diabetic peripheral angiopathy without gangrene; F90.9 Attention-deficit hyperactivity disorder, unspecified type
CPT/HCPCS: 96360; J7120

== ENCOUNTER 2024-01-13 08:45 | Day surgery (SDC) | payer OTHER ==
--- NOTE | 2023-12-12 16:09 | NUR ---
PT WAS A NO CALL NO SHOW FOR HIS APPOINTMENT IN THE [facility] TODAY.
[~2024-01-13 08:45] MED LIST changes: +Lactated Ringer's 1,000 ML IV SCH
[2024-01-13] MEDS ORDERED: Lactated Ringer's 1,000 ML IV SCH (11:00)
[2024-01-13 14:01] VITALS: BP 134/94
== END 2024-01-13 14:45 | disposition home or self-care (01) ==
LOC: ATC 08:45
DX: E86.0 Dehydration (principal); E10.65 Type 1 diabetes mellitus with hyperglycemia; F17.210 Nicotine dependence, cigarettes, uncomplicated; Z79.899 Other long term (current) drug therapy
CPT/HCPCS: 96360; J7120

== ENCOUNTER 2024-01-15 17:24 | Emergency (ER) | payer OTHER ==
[~2024-01-15] VITALS: Ht 172.7 cm; Wt 59.0 kg
[~2024-01-15 17:24] MED LIST changes: -Lactated Ringer's 1,000 ML IV SCH
[2024-01-15] MEDS ORDERED: Ondansetron HCl 2 MG / ML 2ML Vial IV ONE (17:40)
[2024-01-15] MEDS ORDERED: NS 1,000 ML IV SCH (17:40)
[2024-01-15 18:14] LABS: Base Excess Venous 4.2 mmol/L; Bicarbonate Venous 27.4 mmol/L (24.0-30.0); PCO2 Venous 44.3 mmHg (38-42); pH Blood Venous 7.42 (7.34-7.37)
[2024-01-15 18:27] LABS: BASOPHILS ABSOLUTE AUTO 0.02 K/mm3 (0.00-0.23); BASOPHILS PERCENT AUTO 0 % (0-2); EOSINOPHILS ABSOLUTE AUTO 0.03 K/mm3 (0.00-0.68); EOSINOPHILS PERCENT AUTO 0 % (0-6); Hematocrit 42.8 % (37.0-53.0); IMMATURE GRAN ABSOLUTE AUTO 0.01 K/mm3 (0.00-0.10); IMMATURE GRAN PERCENT AUTO 0 % (0-1); LYMPHOCYTES ABSOLUTE AUTO 2.85 K/mm3 (0.84-5.20); LYMPHOCYTES PERCENT AUTO 41 % (21-46); MONOCYTES ABSOLUTE AUTO 0.37 K/mm3 (0.16-1.47); MONOCYTES PERCENT AUTO 5 % (4-13); Mean Corpuscular HGB 30.2 pg (26.0-34.0); Mean Corpuscular Volume 86 fL (80-100); Mean Platelet Volume 9.4 fL (9.1-12.4); NEUTROPHILS ABSOLUTE AUTO 3.69 K/mm3 (1.96-9.15); NEUTROPHILS PERCENT AUTO 53 % (41-73); Platelet Count 319 K/mm3 (150-400); RDW Coefficient Variation 12.2 % (11.7-14.2); RDW Standard Deviation 38.6 fL (35.1-46.3); Red Blood Cell Count 4.97 M/mm3 (4.30-5.90); White Blood Cell Count 6.97 K/mm3 (4.00-11.30)
[2024-01-15 18:57] LABS: Albumin, Blood 3.7 g/dL (3.4-5.0); Albumin/Globulin Ratio 1.2 (0.8-1.8); Bilirubin, Total 1.1 mg/dL (0.1-1.0); Bun/Creatinine Ratio 8.9 (12.0-20.0); Calcium, Blood 8.7 mg/dL (8.5-10.1); Creatinine, Blood 0.9 mg/dL (0.60-1.20); Total Protein, Blood 6.7 g/dL (6.4-8.2)
[2024-01-15 19:02] LABS: Source, Urine Clean Catch
[2024-01-15 19:06] LABS: Appearance, Urine Hazy (Clear); Bilirubin, Urine Neg (Neg); Blood, Urine Neg (Neg); Color, Urine Yellow (P-Yellow); Glucose Qualitative, Urine 3+ (Neg); Ketones, Urine 3+ (Neg); Leukocyte Esterase, Urine Neg (Neg); Nitrite, Urine Neg (Neg); Protein, Urine 1+ (Neg); Urobilinogen, Urine 1+ (Normal)
[2024-01-15 19:23] LABS: Amorphous Heavy (0-Heavy); Bacteria Mod /hpf; Mucus Light (0-Heavy); Red Blood Cells, Urine 0-2 /hpf (0-2); Squamous Epithelial Cells Rare /hpf (Few); White Blood Cells, Urine 0-2 /hpf (0-5)
[2024-01-15 19:30] VITALS: BP 116/89
[2024-01-15] MEDS ORDERED: PROC5 PO (19:36)
[2024-01-15] MEDS ORDERED: METO10SY PO (19:36)
== END 2024-01-15 19:43 | disposition home or self-care (01) ==
LOC: ER 17:24
PROVIDERS: Physician Assistant
DX: E10.65 Type 1 diabetes mellitus with hyperglycemia (principal); R11.2 Nausea with vomiting, unspecified; K21.9 Gastro-esophageal reflux disease without esophagitis; E10.43 Type 1 diabetes mellitus with diabetic autonomic (poly)neuropathy; F17.290 Nicotine dependence, other tobacco product, uncomplicated; Z79.4 Long term (current) use of insulin; Z79.85 Long-term (current) use of injectable non-insulin antidiabetic drugs
CPT/HCPCS: 36415; 80053; 81001; 82803; 82947; 83690; 85025; 87086; 96361; 96374; 99283-25; J2405; J7030

== ENCOUNTER 2024-02-01 14:14 | Emergency (ER) | payer OTHER ==
[~2024-02-01] VITALS: Ht 175.3 cm; Wt 59.0 kg
[~2024-02-01 14:14] MED LIST changes: +METO10SY PO
[2024-02-01 14:34] VITALS: BP 130/88
== END 2024-02-01 15:31 | disposition home or self-care (01) ==
LOC: ER 14:14
DX: M25.511 Pain in right shoulder (principal); I10 Essential (primary) hypertension; K21.9 Gastro-esophageal reflux disease without esophagitis; E10.43 Type 1 diabetes mellitus with diabetic autonomic (poly)neuropathy; F17.290 Nicotine dependence, other tobacco product, uncomplicated; V86.56XA Driver of dirt bike or motor/cross bike injured in nontraffic accident, initial encounter; Z79.4 Long term (current) use of insulin; Z79.899 Other long term (current) drug therapy
CPT/HCPCS: 73030

== ENCOUNTER 2024-03-30 01:42 | Day surgery (SDC) | payer OTHER ==
[2024-03-30] MEDS ORDERED: Lactated Ringer's 1,000 ML IV SCH (06:40)
[2024-03-30 10:06] VITALS: BP 121/94
--- NOTE | 2024-03-30 10:13 | NUR ---
PT ARRIVED TO [facility] ROOM 5 VIA WHEELCHAIR PUSHED BY HIS MOTHER. PT HAD EMESIS BAG OF DARK EMESIS WITH FLECKS OF COFFEE GROUND APPEARANCE SEEN. DISCUSSED NEED TO BE EVALUATED IN THE ER BY DOCTOR FOR POSSIBLE GI COMPLICATIONS. NO FOULD SMELL TO EMESIS. PT HAS NOT BEEN ABLE TO EAT FOR A WEEK DUE TO EMESIS. PT CANNOT VERBALIZE THE LAST TIME HE HAD A BOWEL MOVEMENT. PT APPEARS WEAK AND TIRED TODAY. IT IS EVIDENT PT FEELS UNWELL. PT'S MOTHER IS CALLING PCP RIGHT NOW
--- NOTE | 2024-03-30 10:17 | NUR ---
PTS MOTHER IS ALSO REPORTING ONE TOUCH VERIO CBG READING THIS OF 536. PT'S MOTHER UNSURE IF HE GAVE HIMSELF ANY INSULIN OR TREATED THE HIGH BLOOD SUGAR. PT'S MOTHER CHECKING CBG NOW AND IT IS 488. PT'S MOTHER THINKS HE MUST HAVE TAKEN SOME INSULIN SINCE THE CBG IS DOWN. ANAI CARTAGENA RN CALLED MD TO GET ORDER FOR BLOOD DRAW CBG CHECK AND TO DISCUSS PT'S PRESENTATION.
--- NOTE | 2024-03-30 10:30 | NUR ---
ANAI CARTAGENA RN GOT ORDERS FROM PCP FOR CBC, CMP, AND LIVER PANEL. LABS DRAWN FROM PERIPHERAL BUTTERFLY NEEDLE TO RIGHT AC PER PROTOCOL
[2024-03-30 10:41] LABS: BASOPHILS ABSOLUTE AUTO 0.01 K/mm3 (0.00-0.23); BASOPHILS PERCENT AUTO 0 % (0-2); EOSINOPHILS PERCENT AUTO 0 % (0-6); Hematocrit 47.8 % (37.0-53.0); Hemoglobin 17.1 g/dL (13.5-17.5); IMMATURE GRAN ABSOLUTE AUTO 0.04 K/mm3 (0.00-0.10); IMMATURE GRAN PERCENT AUTO 0 % (0-1); LYMPHOCYTES ABSOLUTE AUTO 1.03 K/mm3 (0.84-5.20); LYMPHOCYTES PERCENT AUTO 8 % (21-46); MONOCYTES ABSOLUTE AUTO 0.66 K/mm3 (0.16-1.47); MONOCYTES PERCENT AUTO 5 % (4-13); Mean Corpuscular HGB 30.3 pg (26.0-34.0); Mean Corpuscular HGB Conc 35.8 g/dL (31.5-36.5); Mean Corpuscular Volume 85 fL (80-100); Mean Platelet Volume 9.8 fL (9.1-12.4); NEUTROPHILS ABSOLUTE AUTO 11.02 K/mm3 (1.96-9.15); NEUTROPHILS PERCENT AUTO 86 % (41-73); Platelet Count 307 K/mm3 (150-400); RDW Coefficient Variation 11.6 % (11.7-14.2); RDW Standard Deviation 35.5 fL (35.1-46.3); Red Blood Cell Count 5.65 M/mm3 (4.30-5.90); White Blood Cell Count 12.76 K/mm3 (4.00-11.30)
[2024-03-30 11:05] LABS: Albumin, Blood 4.2 g/dL (3.4-5.0); Bilirubin, Direct 0.2 mg/dL (0.0-0.3); Bilirubin, Total 1.2 mg/dL (0.1-1.0); Bun/Creatinine Ratio 37.7 (12.0-20.0); Calcium, Blood 9.1 mg/dL (8.5-10.1); Creatinine, Blood 1.06 mg/dL (0.60-1.20); Potassium, Blood 3.6 mmol/L (3.5-5.5); Total Protein, Blood 8.2 g/dL (6.4-8.2)
--- NOTE | 2024-03-30 12:12 | NUR ---
SORAYA LIMON WITH [facility] CALLED AND STATED THEY REVIEWED THE STAT LABS THAT WERE DRAWN AND IT APPEARS PT IS SHOWING SIGNS OF DKA. TELEPHONE ORDER GIVEN TO STOP IV FLUIDS AND TRANSFER PT TO ER FOR DKA EVALUATION AND TREATMENT. PT AND MOTHER ADVISED OF [facility] ORDER. PT TAKEN TO ER VIA W/C. COPY OF LABS AND REPORT GIVEN TO ER. 24G IV TO LEFT AC LEFT FOR POSSIBLE TREATMENT IN ER. PT VOIDED 1,000 ML CLEAR YELLOW URINE PRIOR TO LEAVING [facility] FOR ER.
== END 2024-03-30 12:00 | disposition short-term general hospital (02) ==
LOC: ATC 01:42
PROVIDERS: Family Medicine
DX: E86.0 Dehydration (principal); K21.9 Gastro-esophageal reflux disease without esophagitis; E10.319 Type 1 diabetes mellitus with unspecified diabetic retinopathy without macular edema; Z79.4 Long term (current) use of insulin; Z79.899 Other long term (current) drug therapy
CPT/HCPCS: 80053; 82248; 85025; 96360; 96361; J7120

== ENCOUNTER 2024-03-30 11:56 | Inpatient (IN) | payer OTHER ==
[2024-03-30] VITALS (9 sets, daily range): BP systolic 96–130; BP diastolic 63–88
[~2024-03-30] VITALS: Ht 177.8 cm; Wt 54.3 kg
[2024-03-30] MEDS ORDERED: NS 1,000 ML IV SCH (12:05)
[2024-03-30] MEDS ORDERED: Ondansetron HCl 2 MG / ML 2ML Vial IV ONE (12:05)
[2024-03-30] MEDS ORDERED: Lactated Ringer's 1,000 ML IV ONE (12:25)
[2024-03-30 12:30] LABS: Base Excess Venous -4.2 mmol/L; Bicarbonate Venous 21.7 mmol/L (24.0-30.0); PCO2 Venous 33.4 mmHg (38-42)
[2024-03-30 13:48] LABS: Albumin, Blood 3.9 g/dL (3.4-5.0); Albumin/Globulin Ratio 1.1 (0.8-1.8); Bilirubin, Total 1.2 mg/dL (0.1-1.0); Bun/Creatinine Ratio 37.5 (12.0-20.0); Calcium, Blood 9.3 mg/dL (8.5-10.1); Creatinine, Blood 0.96 mg/dL (0.60-1.20); Globulin, Blood 3.7 g/dL (2.2-4.0); Potassium, Blood 3.8 mmol/L (3.5-5.5); Total Protein, Blood 7.6 g/dL (6.4-8.2)
[2024-03-30 14:05] LABS: Beta-hydroxybutyrate 97.5 mg/dL (0.2-2.8)
[2024-03-30] MEDS ORDERED: Potassium Chl 20MEQ/Water100ML 100 ML IV ONE (14:10)
[2024-03-30] MEDS ORDERED: Insulin Human Regular 100 UNIT in NS 100 ML IV SCH (14:10)
[2024-03-30] MEDS ORDERED: Acetaminophen 325 MG TABLET PO PRN (15:50)
[2024-03-30] MEDS ORDERED: NS KCl 20mEq 1,000 ML IV SCH (15:50)
[2024-03-30] MEDS ORDERED: Ondansetron HCl 2 MG / ML 2ML Vial IV PRN (15:50)
[2024-03-30] MEDS ORDERED: Ondansetron 4 MG TAB PO PRN (15:50)
[2024-03-30] MEDS ORDERED: FLU VACC TS2024-25(6MOS UP)/PF 45 MCG/0.5 ML SYRINGE IM SCH (15:50)
[2024-03-30] MEDS ORDERED: Metoclopramide HCl 5MG / ML 2ML Vial IV PRN (16:05)
[2024-03-30] MEDS ORDERED: Metoclopramide HCl 5MG / ML 2ML Vial IV ONE (16:05)
[2024-03-30 16:18] LABS: Bun/Creatinine Ratio 42.3 (12.0-20.0); Calcium, Blood 8.5 mg/dL (8.5-10.1); Creatinine, Blood 0.73 mg/dL (0.60-1.20); Potassium, Blood 3.8 mmol/L (3.5-5.5)
--- NOTE | 2024-03-30 18:29 | NUR ---
CARE ASSUMPTION/ ICU SHIFT SUMMARY PT ARRIVED TO THE ICU AND WAS ABLE TO TRANSFER HIMSELF TO THE ICU BED. PT IS ALERT BUT APPEARS VISIBLY ILL IN THE POSITION IN BED W MINIMAL SPEECH. RESPIRATIONS ARE NORMAL W SPO2 >92% ON RM AIR. BP WNL AND STABLE. PT'S MONITOR SHOWING ST 110'S BUT HR UP TO 150 WHEN PT STOOD UP TO USE THE URINAL. PT HAS KCL INFUSING AT 200ML/HR. INSULIN GTT WAS AT 6 UNITS/HR FROM 5393-6528 BUT WAS TURNED DOWN TO 4 UNITS/HR UNTIL CHEMISTRY IS RESOLVED AND FLUIDS ARE CHANGED TO D5. DR. TONG GIVING VERBAL INSTRUCTIONS TO KEEP FLUIDS KCKL NOT D5 UNTIL CBG <200 AND 1845 CHEMISTRY SHOWS NA LEVEL. PT VOIDED 1000ML CLEAR YELLOW URINE SHORTLY AFTER ARRIVAL. PT'S MOTHER AT BEDSIDE UPON ARRIVAL ASSISTING W ADMISSION INFORMATION. WILL REPORT TO ONCOMING RN.
[2024-03-30 19:11] LABS: Bun/Creatinine Ratio 35.7 (12.0-20.0); Calcium, Blood 8.3 mg/dL (8.5-10.1); Creatinine, Blood 0.76 mg/dL (0.60-1.20); Potassium, Blood 3.6 mmol/L (3.5-5.5)
[2024-03-30] MEDS ORDERED: D5W-1/2NS 1,000 ML IV SCH (19:25)
[2024-03-30] MEDS ORDERED: Potassium Chloride 20 MEQ TabCR PO ONE (19:25)
--- NOTE | 2024-03-30 19:49 | NUR ---
ASSUMED CARE PT IS RESTING QUIETLY IN BED A&O X4. PT DENIES NAUSEA AT THIS TIME AND IS TOLERATING WATER WELL AT THIS TIME. HR IN THE 100'S, UP TO 130'S W/ EXERTION. MAP >65, SPO2 >92% ON RA. INSULIN GTT AND D5 1/2NS RUNNING PER ORDER.
[2024-03-30] MEDS ORDERED: Potassium Chloride 20 MEQ/15 ML UDC PO ONE (19:50)
[2024-03-30] MEDS ORDERED: NS 250 ML IV PRN (20:00)
[2024-03-30] MEDS ORDERED: Famotidine 10 MG/ML 2ML Vial IV SCH (21:00)
[2024-03-30] MEDS ORDERED: D5W-1/2NS KCl 20mEq 1,000 ML IV SCH (21:20)
[2024-03-30 22:06] LABS: Bun/Creatinine Ratio 33.3 (12.0-20.0); Calcium, Blood 7.9 mg/dL (8.5-10.1); Creatinine, Blood 0.66 mg/dL (0.60-1.20); Potassium, Blood 4.2 mmol/L (3.5-5.5)
[2024-03-31] VITALS (24 sets, daily range): BP systolic 106–135; BP diastolic 67–93
[2024-03-31 00:36] LABS: Bun/Creatinine Ratio 27.7 (12.0-20.0); Creatinine, Blood 0.69 mg/dL (0.60-1.20); Potassium, Blood 3.9 mmol/L (3.5-5.5)
[2024-03-31 03:58] LABS: BASOPHILS PERCENT AUTO 0 % (0-2); EOSINOPHILS PERCENT AUTO 0 % (0-6); Hematocrit 33.6 % (37.0-53.0); Hemoglobin 11.9 g/dL (13.5-17.5); IMMATURE GRAN ABSOLUTE AUTO 0.03 K/mm3 (0.00-0.10); IMMATURE GRAN PERCENT AUTO 0 % (0-1); LYMPHOCYTES ABSOLUTE AUTO 1.88 K/mm3 (0.84-5.20); LYMPHOCYTES PERCENT AUTO 22 % (21-46); MONOCYTES ABSOLUTE AUTO 0.67 K/mm3 (0.16-1.47); MONOCYTES PERCENT AUTO 8 % (4-13); Mean Corpuscular HGB 29.8 pg (26.0-34.0); Mean Corpuscular HGB Conc 35.4 g/dL (31.5-36.5); Mean Corpuscular Volume 84 fL (80-100); Mean Platelet Volume 9.1 fL (9.1-12.4); NEUTROPHILS ABSOLUTE AUTO 5.92 K/mm3 (1.96-9.15); NEUTROPHILS PERCENT AUTO 70 % (41-73); Platelet Count 212 K/mm3 (150-400); RDW Coefficient Variation 11.4 % (11.7-14.2); RDW Standard Deviation 35.3 fL (35.1-46.3)
[2024-03-31 04:17] LABS: Bun/Creatinine Ratio 24.7 (12.0-20.0); Calcium, Blood 7.7 mg/dL (8.5-10.1); Creatinine, Blood 0.65 mg/dL (0.60-1.20)
[2024-03-31 04:23] LABS: Source, Urine Clean Catch
[2024-03-31 04:32] LABS: Bilirubin, Urine Neg (Neg); Blood, Urine Neg (Neg); Glucose Qualitative, Urine 4+ (Neg); Ketones, Urine 4+ (Neg); Leukocyte Esterase, Urine Neg (Neg); Nitrite, Urine Neg (Neg); Protein, Urine 1+ (Neg); Specific Gravity, Urine 1.015 (1.003-1.022); Urobilinogen, Urine NORM (Normal)
[2024-03-31 04:51] LABS: Appearance, Urine Clear (Clear); Color, Urine Yellow (P-Yellow)
--- NOTE | 2024-03-31 05:15 | NUR ---
SHIFT SUMMARY PT RESTED QUIETLY T/O NIGHT. NO N/V AT TIME OF THIS NOTE W/ PT TOLERATING WATER INTAKE WELL. KCL ELIXIR GIVEN PER ORDER EARLIER IN SHIFT, WHICH PT DID NOT TOLERATE, DR TONG CALLED THIS RN EARLIER IN SHIFT AND STATED ONLY IV KCL FOR PT AND CHANGED FLUIDS FROM D5 1/2NS @ 250ML/HR TO D5 1/2NS W/ 20MEQ KCL @ 200ML/HR. PT STATES HE FEELS BETTER "LIKE I COULD GO HOME". VSS AT THIS TIME. INSULIN GTT INFUSING (SEE FLOWSHEET).
[2024-03-31 08:40] LABS: Bun/Creatinine Ratio 26.5 (12.0-20.0); Creatinine, Blood 0.42 mg/dL (0.60-1.20)
[2024-03-31] MEDS ORDERED: Enoxaparin 40 MG/0.4 ML SYR SC SCH (09:00)
[2024-03-31 11:36] LABS: Anion Gap 11 mmol/L (3-11); Blood Urea Nitrogen 8 mg/dL (8-24); Bun/Creatinine Ratio 26.3 (12.0-20.0); CO2, Blood 15 mmol/L (21-32); Chloride, Blood 120 mmol/L (98-108); Glomerular Filtration Rate 168 (60-); Glucose, Blood 234 mg/dL (70-99); Potassium, Blood 2.8 mmol/L (3.5-5.5); Sodium, Blood 143 mmol/L (136-145)
[2024-03-31 11:38] LABS: Calcium, Blood <5.0 mg/dL (8.5-10.1)
[2024-03-31] MEDS ORDERED: CALCIUM GLUC IN NACL, ISO-OSM 100 ML IV ONE (12:10)
[2024-03-31] MEDS ORDERED: Potassium Chloride 20 MEQ/15 ML UDC PO ONE (12:10)
[2024-03-31] MEDS ORDERED: Magnesium Sulf 2 GM/Water 50ML 50 ML IV SCH (12:30)
[2024-03-31] MEDS ORDERED: Potassium Chl 20MEQ/Water100ML 100 ML IV SCH (12:30)
--- NOTE | 2024-03-31 12:50 | NUR ---
Call placed to Dr Lane to discuss care. Insulin stopped per hospital policy due to K+ less than 3.3. Stopped D5 1/2 NS with 20 meq KCl- while patient patient receiving 10 meq/hr KCl piggyback.
--- NOTE | 2024-03-31 15:59 | NUR ---
PLEASE SEE DOWNTIME FORMS FOR ADDITIONAL INFORMATION RE: TODAYS CHARTING.
--- NOTE | 2024-03-31 17:30 | NUR ---
ARIS CONTINUES TO REFUSE TO TAKE IN ANY NUTRIENTS, HIS LUNCH TRAY SAT UNTOUCHED AND HE HAS AVOIDED HIS DINNER TRAY. HIS ELECTROLYTE REPLACEMENTS HAVE FINISHED AND AWAIT LAB RESULTS AT THIS TIME. MOM AT BEDSIDE.
[2024-03-31 17:36] LABS: Bun/Creatinine Ratio 15.7 (12.0-20.0); Creatinine, Blood 0.38 mg/dL (0.60-1.20); Potassium, Blood 3.1 mmol/L (3.5-5.5)
[2024-03-31 17:41] LABS: Calcium, Blood 5.6 mg/dL (8.5-10.1)
[2024-03-31] MEDS ORDERED: Potassium Chl 10MEQ/Water100ML 100 ML IV SCH (18:00)
[2024-03-31] MEDS ORDERED: Sodium Chloride 0.45% 1,000 ML IV SCH (18:00)
--- NOTE | 2024-03-31 18:10 | NUR ---
LAB RESULTS BACK,ORDERS RECEIVED FROM . ENCOURAGING PT TO EAT/DRINK, HE CONTINUES TO REFUSE. IVF OF 1/2NS @ 200ML/HR AND K+10MEQ X 2 GOING NOW, REPEAT LABS AT 2100 WITH CALL TO . PT UPSET THAT HE IS STILL HERE, PT EDUCATED THAT HE NEEDS INTAKE TO GET CORRECTED. CONTINUES TO REFUSE PO K+ LIQUID OR PILL FORM. MOM HAS LEFT.
--- NOTE | 2024-03-31 18:47 | NUR ---
ARIS ASKING TO SHOWER, TOLD THAT HE IS HAVING HIS POTASSIUM REPLACED AGAIN. ASKED IF THERE IS ANYTHING THAT HE WILL TOLERATE ORALLY. HE STATES, "I WON'T EAT HOSPITAL FOOD." I ENCOURAGED ANY INTAKE AND ASKED THAT HIS MOTHER GET SOMETHING THAT HE WOULD TOLERATE. HE STATED THAT HE WOULD DRINK POWERADE ZERO OR THE LIKE. MOM HAS GONE TO THE STORE, WITH VERBAL ENCOURAGEMENT TO GET THINGS HE LIKES SO THAT HE CAN GET BETTER. CONTINUED ATTEMPTS AT EDUCATION.
--- NOTE | 2024-03-31 20:50 | NUR ---
ASSUMED CARE OF PT AT 1900. REPORT RECEIVED AT BEDSIDE. PT PRESENTS IN BED. VERY FLAT AND WITHDRAWN AFFECT. MOTHER COMES TO ROOM. BRINGS PT ELECTROLYTE ZERO CALORIE DRINKS. PT NOTED TO HAVE VERY DECREASED APPETITE. MOTHER STATES THAT PT HAS ISSUES WITH SWALLOW AND WILL TAKE YOUGART TYPE FOODS AT HOME. PT COMPLETING SECOND OF TWO POTASSIUM INFUSIONS. PENDING 2100 LAB WHICH IS TO BE CALLED TO DR TONG. WILL REVIEW CHART AND PLAN OF CARE FOR THIS PT.
[2024-03-31 21:55] LABS: Bun/Creatinine Ratio 18.2 (12.0-20.0); Creatinine, Blood 0.6 mg/dL (0.60-1.20); Potassium, Blood 4.7 mmol/L (3.5-5.5)
[2024-03-31 21:58] LABS: Calcium, Blood 8.3 mg/dL (8.5-10.1)
[2024-03-31] MEDS ORDERED: NS 1,000 ML IV SCH (22:20)
--- NOTE | 2024-03-31 22:54 | NUR ---
CALL MADE TO DR TONG, LAB VALUES GIVEN. ORDERS RECEIVED. PT HAS BEEN ABLE TO REST. INFORMED PT THAT PLAN OF CARE WAS TO RESTART THE INSULIN DRIP, AND THAT HE WOULD GET FOLLOW UP LABS DONE AT 0200. PT VOICED DISAPOINTMENT STATING THAT HE FELT HE WAS GOING TO GET DISCHARGED TOMOROW. DID DISCUSS WITH PT THAT THIS WOULD BE READRESSED IN AM.
[2024-04-01] VITALS (13 sets, daily range): BP systolic 105–136; BP diastolic 64–102
[2024-04-01 02:28] LABS: BASOPHILS PERCENT AUTO 0 % (0-2); EOSINOPHILS ABSOLUTE AUTO 0.02 K/mm3 (0.00-0.68); EOSINOPHILS PERCENT AUTO 0 % (0-6); Hematocrit 35.6 % (37.0-53.0); Hemoglobin 12.8 g/dL (13.5-17.5); IMMATURE GRAN ABSOLUTE AUTO 0.01 K/mm3 (0.00-0.10); IMMATURE GRAN PERCENT AUTO 0 % (0-1); LYMPHOCYTES ABSOLUTE AUTO 2.01 K/mm3 (0.84-5.20); LYMPHOCYTES PERCENT AUTO 37 % (21-46); MONOCYTES ABSOLUTE AUTO 0.49 K/mm3 (0.16-1.47); MONOCYTES PERCENT AUTO 9 % (4-13); Mean Corpuscular HGB 30.4 pg (26.0-34.0); Mean Corpuscular Volume 85 fL (80-100); Mean Platelet Volume 9.2 fL (9.1-12.4); NEUTROPHILS ABSOLUTE AUTO 2.92 K/mm3 (1.96-9.15); NEUTROPHILS PERCENT AUTO 54 % (41-73); Platelet Count 188 K/mm3 (150-400); RDW Coefficient Variation 11.2 % (11.7-14.2); RDW Standard Deviation 34.5 fL (35.1-46.3); Red Blood Cell Count 4.21 M/mm3 (4.30-5.90); White Blood Cell Count 5.45 K/mm3 (4.00-11.30)
[2024-04-01 03:14] LABS: Beta-hydroxybutyrate 16.3 mg/dL (0.2-2.8)
[2024-04-01 03:22] LABS: Albumin, Blood 2.8 g/dL (3.4-5.0); Albumin/Globulin Ratio 1.1 (0.8-1.8); Bun/Creatinine Ratio 18.4 (12.0-20.0); Calcium, Blood 7.8 mg/dL (8.5-10.1); Creatinine, Blood 0.54 mg/dL (0.60-1.20); Globulin, Blood 2.6 g/dL (2.2-4.0); Potassium, Blood 3.5 mmol/L (3.5-5.5)
[2024-04-01 03:23] LABS: Total Protein, Blood 5.4 g/dL (6.4-8.2)
[2024-04-01] MEDS ORDERED: D5W-1/2NS 1,000 ML IV SCH (03:35)
[2024-04-01] MEDS ORDERED: Potassium Chl 20MEQ/Water100ML 100 ML IV SCH (04:00)
--- NOTE | 2024-04-01 05:12 | NUR ---
PT CONTINUES ON INSULIN DRIP. NEXT LAB TO BE DONE THIS AM AT 0630. PT HAS BEEN ABLE TO REST AND HAS BEEN COMPLIANT WITH GLUCOSE CHECKS. PT HAS BEEN INDEPENDENT IN BED. WILL CONTINUE Q 1 HOUR GLUCOSE CHECKS, AND ADJUST INSULIN APPROPRIATE. WILL CONTINUE TO MONITOR PT, AND WILL REPORT OFF TO ONCOMING RN.
[2024-04-01 06:59] LABS: Bun/Creatinine Ratio 15.1 (12.0-20.0); Calcium, Blood 7.8 mg/dL (8.5-10.1); Creatinine, Blood 0.6 mg/dL (0.60-1.20); Potassium, Blood 4.5 mmol/L (3.5-5.5)
[2024-04-01 13:32] LABS: Bun/Creatinine Ratio 12.2 (12.0-20.0); Calcium, Blood 8.2 mg/dL (8.5-10.1); Creatinine, Blood 0.57 mg/dL (0.60-1.20); Potassium, Blood 3.6 mmol/L (3.5-5.5)
[2024-04-01] MEDS ORDERED: Insulin Glargine-Yfgn 100 Unit/mL 3 ML SYR SC ONE (13:40)
[2024-04-01] MEDS ORDERED: FAMO20 PO (14:25)
[2024-04-01] MEDS ORDERED: Insulin Human Lispro 100 Units/ML 3ML Syringe SC SCH (16:30)
--- NOTE | 2024-04-01 16:35 | NUR ---
PATIENT DISCHARGED/SHIFT SUMMARY PATIENT DISCHARGED AT 1630. PATIENT IS ALERT AND ORIENTATED AND ABLE TO ANSWER QUESTIONS APPROPRIATELY. HE FOLLOWS COMMANDS AND CAN AMBULATE INDEPENDENTLY. PATIENT MOTHER IS AT BEDSIDE AND THEY ARE LEAVING VIA HER AUTOMOBILE. D/C'D SHANKAR MIDLINE AND RIGHT WRIST IV, IV TIPS WERE INTACT AND PATIENT RESPONDED WELL W/O COMPLAINT. PATIENT WAS PROVIDED WITH DISCHARGE INSTRUCTIONS AND FOLLOW UP PRECAUTIONS AND VERBALIZED UNDERSTANDING.
== END 2024-04-01 16:30 | disposition home or self-care (01) | DRG 639 ==
LOC: ER 11:56 → ICUE 11:57
PROVIDERS: Physician Assistant; Student in an Organized Health Care Education/Training Program; ADMIT Internal Medicine
DX: E10.10 Type 1 diabetes mellitus with ketoacidosis without coma (principal); K31.84 Gastroparesis; E87.6 Hypokalemia; E10.319 Type 1 diabetes mellitus with unspecified diabetic retinopathy without macular edema; K21.9 Gastro-esophageal reflux disease without esophagitis; F32.A Depression, unspecified; F90.9 Attention-deficit hyperactivity disorder, unspecified type; E10.43 Type 1 diabetes mellitus with diabetic autonomic (poly)neuropathy; E10.40 Type 1 diabetes mellitus with diabetic neuropathy, unspecified; D72.829 Elevated white blood cell count, unspecified; E83.51 Hypocalcemia; E86.0 Dehydration; Z79.4 Long term (current) use of insulin; Z79.899 Other long term (current) drug therapy; Z90.89 Acquired absence of other organs
CPT/HCPCS: 71046; 80048; 80053; 82010; 82248; 82803; 82947; 83735; 85025; 93005; 93010; 96360; 96361; 96365; 96375; 99284-25; A9270; C1751; G0378; J0612; J1815; J2405; J2765; J3475; J3480; J7030; J7042; J7050; J7120

== ENCOUNTER 2024-04-05 08:14 | Day surgery (SDC) | payer OTHER ==
[2024-04-05] MEDS ORDERED: Lactated Ringer's 1,000 ML IV SCH (08:40)
[2024-04-05 10:10] VITALS: BP 108/82
--- NOTE | 2024-04-05 10:25 | NUR ---
PT HAS AN ORDER FOR 2L IVF PRN AND PT STATED THAT HE WOULD ONLY LIKE TO RECEIVE 1L TODAY.
== END 2024-04-05 11:24 | disposition home or self-care (01) ==
LOC: ATC 08:14
DX: E86.0 Dehydration (principal); E10.51 Type 1 diabetes mellitus with diabetic peripheral angiopathy without gangrene; K21.9 Gastro-esophageal reflux disease without esophagitis; E10.43 Type 1 diabetes mellitus with diabetic autonomic (poly)neuropathy; K31.84 Gastroparesis; I48.0 Paroxysmal atrial fibrillation; F90.9 Attention-deficit hyperactivity disorder, unspecified type; F17.210 Nicotine dependence, cigarettes, uncomplicated; Z79.899 Other long term (current) drug therapy
CPT/HCPCS: 96360; J7120

== ENCOUNTER 2024-04-26 01:37 | Day surgery (SDC) | payer OTHER ==
[2024-04-26] MEDS ORDERED: Lactated Ringer's 1,000 ML IV SCH (07:00)
[2024-04-26 09:52] VITALS: BP 116/85
== END 2024-04-26 11:07 | disposition home or self-care (01) ==
LOC: ATC 01:37
DX: E86.0 Dehydration (principal); K21.9 Gastro-esophageal reflux disease without esophagitis; E10.43 Type 1 diabetes mellitus with diabetic autonomic (poly)neuropathy; K31.84 Gastroparesis; E10.319 Type 1 diabetes mellitus with unspecified diabetic retinopathy without macular edema; F90.9 Attention-deficit hyperactivity disorder, unspecified type; F17.290 Nicotine dependence, other tobacco product, uncomplicated; Z79.899 Other long term (current) drug therapy
CPT/HCPCS: 96360; J7120

== ENCOUNTER 2024-05-11 15:32 | Emergency (ER) | payer OTHER ==
[~2024-05-11] VITALS: Ht 177.8 cm; Wt 61.2 kg
[2024-05-11 17:20] LABS: Base Excess Venous 7.1 mmol/L; Bicarbonate Venous 30.3 mmol/L (24.0-30.0); PCO2 Venous 40.1 mmHg (38-42); pH Blood Venous 7.49 (7.34-7.37)
[2024-05-11 17:27] LABS: BASOPHILS ABSOLUTE AUTO 0.01 K/mm3 (0.00-0.23); BASOPHILS PERCENT AUTO 0 % (0-2); EOSINOPHILS ABSOLUTE AUTO 0.01 K/mm3 (0.00-0.68); EOSINOPHILS PERCENT AUTO 0 % (0-6); Hematocrit 45.4 % (37.0-53.0); Hemoglobin 15.6 g/dL (13.5-17.5); IMMATURE GRAN ABSOLUTE AUTO 0.01 K/mm3 (0.00-0.10); IMMATURE GRAN PERCENT AUTO 0 % (0-1); LYMPHOCYTES ABSOLUTE AUTO 1.29 K/mm3 (0.84-5.20); LYMPHOCYTES PERCENT AUTO 15 % (21-46); MONOCYTES ABSOLUTE AUTO 0.37 K/mm3 (0.16-1.47); MONOCYTES PERCENT AUTO 4 % (4-13); Mean Corpuscular HGB 30.2 pg (26.0-34.0); Mean Corpuscular HGB Conc 34.4 g/dL (31.5-36.5); Mean Corpuscular Volume 88 fL (80-100); Mean Platelet Volume 9.2 fL (9.1-12.4); NEUTROPHILS ABSOLUTE AUTO 7.11 K/mm3 (1.96-9.15); NEUTROPHILS PERCENT AUTO 81 % (41-73); Platelet Count 366 K/mm3 (150-400); RDW Coefficient Variation 12.7 % (11.7-14.2); RDW Standard Deviation 41.2 fL (35.1-46.3); Red Blood Cell Count 5.17 M/mm3 (4.30-5.90)
[2024-05-11 17:49] LABS: Albumin, Blood 4.1 g/dL (3.4-5.0); Albumin/Globulin Ratio 1.2 (0.8-1.8); Beta-hydroxybutyrate 17.5 mg/dL (0.2-2.8); Bilirubin, Total 1.1 mg/dL (0.1-1.0); Bun/Creatinine Ratio 30.6 (12.0-20.0); Calcium, Blood 9.2 mg/dL (8.5-10.1); Creatinine, Blood 0.75 mg/dL (0.60-1.20); Globulin, Blood 3.4 g/dL (2.2-4.0); Magnesium, Blood 1.8 mg/dL (1.6-2.4); Phosphorus, Blood 3.4 mg/dL (2.5-4.9); Potassium, Blood 4.2 mmol/L (3.5-5.5); Total Protein, Blood 7.5 g/dL (6.4-8.2)
[2024-05-11] MEDS ORDERED: Ondansetron HCl 2 MG / ML 2ML Vial IV ONE (20:20)
[2024-05-11] MEDS ORDERED: NS 1,000 ML IV SCH (20:20)
[2024-05-11 22:00] VITALS: BP 97/62
== END 2024-05-11 22:10 | disposition home or self-care (01) ==
LOC: ER 15:32
PROVIDERS: Emergency Medicine; Student in an Organized Health Care Education/Training Program
DX: E10.65 Type 1 diabetes mellitus with hyperglycemia (principal); R78.89 Finding of other specified substances, not normally found in blood; E10.43 Type 1 diabetes mellitus with diabetic autonomic (poly)neuropathy; K31.84 Gastroparesis; E10.42 Type 1 diabetes mellitus with diabetic polyneuropathy; I10 Essential (primary) hypertension; K21.9 Gastro-esophageal reflux disease without esophagitis; Z79.4 Long term (current) use of insulin; Z79.899 Other long term (current) drug therapy; F17.290 Nicotine dependence, other tobacco product, uncomplicated
CPT/HCPCS: 80053; 82010; 82803; 82947; 83735; 84100; 85025; 96361; 96374; 99283-25; J2405; J7030

== ENCOUNTER 2024-07-03 07:19 | Emergency (ER) | payer OTHER ==
[~2024-07-03] VITALS: Ht 165.1 cm; Wt 47.6 kg
[2024-07-03] MEDS ORDERED: NS 1,000 ML IV SCH (07:50)
[2024-07-03] MEDS ORDERED: Ondansetron HCl 2 MG / ML 2ML Vial IV ONE (08:15)
[2024-07-03 08:23] LABS: BASOPHILS ABSOLUTE AUTO 0.02 K/mm3 (0.00-0.23); BASOPHILS PERCENT AUTO 0 % (0-2); EOSINOPHILS ABSOLUTE AUTO 0.01 K/mm3 (0.00-0.68); EOSINOPHILS PERCENT AUTO 0 % (0-6); Hemoglobin 14.9 g/dL (13.5-17.5); IMMATURE GRAN ABSOLUTE AUTO 0.05 K/mm3 (0.00-0.10); IMMATURE GRAN PERCENT AUTO 0 % (0-1); LYMPHOCYTES ABSOLUTE AUTO 1.48 K/mm3 (0.84-5.20); LYMPHOCYTES PERCENT AUTO 12 % (21-46); MONOCYTES ABSOLUTE AUTO 0.71 K/mm3 (0.16-1.47); MONOCYTES PERCENT AUTO 6 % (4-13); Mean Corpuscular HGB 30.3 pg (26.0-34.0); Mean Corpuscular HGB Conc 34.7 g/dL (31.5-36.5); Mean Corpuscular Volume 87 fL (80-100); Mean Platelet Volume 8.8 fL (9.1-12.4); NEUTROPHILS ABSOLUTE AUTO 9.92 K/mm3 (1.96-9.15); NEUTROPHILS PERCENT AUTO 81 % (41-73); Platelet Count 420 K/mm3 (150-400); RDW Coefficient Variation 11.8 % (11.7-14.2); RDW Standard Deviation 38.2 fL (35.1-46.3); Red Blood Cell Count 4.92 M/mm3 (4.30-5.90); White Blood Cell Count 12.19 K/mm3 (4.00-11.30)
[2024-07-03 08:47] LABS: Beta-hydroxybutyrate 45.8 mg/dL (0.2-2.8)
[2024-07-03 09:03] LABS: Albumin, Blood 3.6 g/dL (3.4-5.0); Albumin/Globulin Ratio 0.9 (0.8-1.8); Bilirubin, Total 0.9 mg/dL (0.1-1.0); Bun/Creatinine Ratio 32.9 (12.0-20.0); Calcium, Blood 9.4 mg/dL (8.5-10.1); Creatinine, Blood 0.79 mg/dL (0.60-1.20); Globulin, Blood 4.1 g/dL (2.2-4.0); Magnesium, Blood 2.3 mg/dL (1.6-2.4); Phosphorus, Blood 2.1 mg/dL (2.5-4.9); Potassium, Blood 4.4 mmol/L (3.5-5.5); Total Protein, Blood 7.7 g/dL (6.4-8.2)
[2024-07-03 10:49] LABS: Bun/Creatinine Ratio 34.2 (12.0-20.0); Calcium, Blood 8.3 mg/dL (8.5-10.1); Creatinine, Blood 0.7 mg/dL (0.60-1.20); Potassium, Blood 4.6 mmol/L (3.5-5.5)
[2024-07-03 11:24] VITALS: BP 144/99
== END 2024-07-03 11:30 | disposition home or self-care (01) ==
LOC: ER 07:19
PROVIDERS: Student in an Organized Health Care Education/Training Program
DX: E10.10 Type 1 diabetes mellitus with ketoacidosis without coma (principal); E10.65 Type 1 diabetes mellitus with hyperglycemia; F17.290 Nicotine dependence, other tobacco product, uncomplicated; I10 Essential (primary) hypertension; K21.9 Gastro-esophageal reflux disease without esophagitis; E10.40 Type 1 diabetes mellitus with diabetic neuropathy, unspecified; Z79.4 Long term (current) use of insulin; Z79.899 Other long term (current) drug therapy
CPT/HCPCS: 80048; 80053; 82010; 82947; 83605; 83735; 84100; 85025; 96361; 96374; 99284-25; J2405; J7030

== ENCOUNTER 2024-07-04 03:03 | Day surgery (SDC) | payer OTHER ==
[2024-07-04] MEDS ORDERED: Lactated Ringer's 1,000 ML IV SCH (09:05)
[2024-07-04 10:08] VITALS: BP 135/105
== END 2024-07-04 11:44 | disposition home or self-care (01) ==
LOC: ATC 03:03
DX: E86.0 Dehydration (principal); K21.9 Gastro-esophageal reflux disease without esophagitis; E10.51 Type 1 diabetes mellitus with diabetic peripheral angiopathy without gangrene; Z79.899 Other long term (current) drug therapy
CPT/HCPCS: 96360; J7120

== ENCOUNTER 2024-07-06 05:54 | Day surgery (SDC) | payer OTHER ==
[2024-07-06] MEDS ORDERED: Lactated Ringer's 1,000 ML IV SCH (07:20)
[2024-07-06 15:10] VITALS: BP 111/83
== END 2024-07-06 16:10 | disposition home or self-care (01) ==
LOC: ATC 05:54
DX: E86.0 Dehydration (principal); E10.51 Type 1 diabetes mellitus with diabetic peripheral angiopathy without gangrene; F90.9 Attention-deficit hyperactivity disorder, unspecified type; K21.9 Gastro-esophageal reflux disease without esophagitis; K22.2 Esophageal obstruction
CPT/HCPCS: 96360; J7120

== ENCOUNTER 2024-07-13 06:51 | Day surgery (SDC) | payer OTHER ==
[2024-07-13] MEDS ORDERED: Lactated Ringer's 1,000 ML IV SCH (07:05)
[2024-07-13 16:24] VITALS: BP 109/74
== END 2024-07-13 16:24 | disposition home or self-care (01) ==
LOC: ATC 06:51
DX: E86.0 Dehydration (principal); E10.51 Type 1 diabetes mellitus with diabetic peripheral angiopathy without gangrene; K21.9 Gastro-esophageal reflux disease without esophagitis; F90.9 Attention-deficit hyperactivity disorder, unspecified type; G56.03 Carpal tunnel syndrome, bilateral upper limbs
CPT/HCPCS: 96360; J7120

== ENCOUNTER 2024-08-24 08:34 | Day surgery (SDC) | payer OTHER ==
[2024-08-24] MEDS ORDERED: Lactated Ringer's 1,000 ML IV SCH (09:40)
[2024-08-24 10:02] VITALS: BP 122/79
== END 2024-08-24 11:20 | disposition home or self-care (01) ==
LOC: ATC 08:34
DX: E86.0 Dehydration (principal); E10.43 Type 1 diabetes mellitus with diabetic autonomic (poly)neuropathy; K31.84 Gastroparesis; E10.51 Type 1 diabetes mellitus with diabetic peripheral angiopathy without gangrene; E10.319 Type 1 diabetes mellitus with unspecified diabetic retinopathy without macular edema; K21.9 Gastro-esophageal reflux disease without esophagitis; F90.9 Attention-deficit hyperactivity disorder, unspecified type; F17.290 Nicotine dependence, other tobacco product, uncomplicated; Z79.899 Other long term (current) drug therapy
CPT/HCPCS: 96360; J7120

== ENCOUNTER 2024-09-06 19:02 | Observation (INO) | payer OTHER ==
[~2024-09-06] VITALS: Ht 175.3 cm; Wt 60.4 kg
[2024-09-06] MEDS ORDERED: Ondansetron HCl 2 MG / ML 2ML Vial IV ONE (19:20)
[2024-09-06 19:34] LABS: BASOPHILS ABSOLUTE AUTO 0.02 K/mm3 (0.00-0.23); BASOPHILS PERCENT AUTO 0 % (0-2); EOSINOPHILS ABSOLUTE AUTO 0.01 K/mm3 (0.00-0.68); EOSINOPHILS PERCENT AUTO 0 % (0-6); Hematocrit 45.8 % (37.0-53.0); Hemoglobin 16.2 g/dL (13.5-17.5); IMMATURE GRAN ABSOLUTE AUTO 0.04 K/mm3 (0.00-0.10); IMMATURE GRAN PERCENT AUTO 0 % (0-1); LYMPHOCYTES ABSOLUTE AUTO 2.15 K/mm3 (0.84-5.20); LYMPHOCYTES PERCENT AUTO 20 % (21-46); MONOCYTES PERCENT AUTO 4 % (4-13); Mean Corpuscular HGB 29.9 pg (26.0-34.0); Mean Corpuscular HGB Conc 35.4 g/dL (31.5-36.5); Mean Corpuscular Volume 85 fL (80-100); Mean Platelet Volume 8.8 fL (9.1-12.4); NEUTROPHILS ABSOLUTE AUTO 8.33 K/mm3 (1.96-9.15); NEUTROPHILS PERCENT AUTO 76 % (41-73); Platelet Count 387 K/mm3 (150-400); RDW Standard Deviation 37.1 fL (35.1-46.3); Red Blood Cell Count 5.42 M/mm3 (4.30-5.90); White Blood Cell Count 10.95 K/mm3 (4.00-11.30)
[2024-09-06 19:40] LABS: Base Excess Venous -1.1 mmol/L; Bicarbonate Venous 24.6 mmol/L (24.0-30.0); PCO2 Venous 30.3 mmHg (38-42); pH Blood Venous 7.48 (7.34-7.37)
[2024-09-06 20:02] LABS: Magnesium, Blood 2.1 mg/dL (1.6-2.4)
[2024-09-06 20:07] LABS: Albumin, Blood 4.1 g/dL (3.4-5.0); Albumin/Globulin Ratio 1.1 (0.8-1.8); Bilirubin, Total 1.7 mg/dL (0.1-1.0); Bun/Creatinine Ratio 27.1 (12.0-20.0); Calcium, Blood 9.1 mg/dL (8.5-10.1); Creatinine, Blood 0.85 mg/dL (0.60-1.20); Globulin, Blood 3.6 g/dL (2.2-4.0); Phosphorus, Blood 2.5 mg/dL (2.5-4.9); Total Protein, Blood 7.7 g/dL (6.4-8.2)
[2024-09-06] MEDS ORDERED: NS 1,000 ML IV SCH (22:45)
[2024-09-06] MEDS ORDERED: Metoclopramide HCl 5MG / ML 2ML Vial IV ONE (22:45)
[2024-09-07] VITALS (14 sets, daily range): BP systolic 114–143; BP diastolic 71–99
[2024-09-07] MEDS ORDERED: Insulin Human Regular 100 UNIT in NS 100 ML IV SCH ×2 (00:30→02:50)
[2024-09-07] MEDS ORDERED: NS 1,000 ML IV SCH ×2 (00:30→01:50)
[2024-09-07] MEDS ORDERED: NS KCl 20mEq 1,000 ML IV ONE (01:35)
[2024-09-07] MEDS ORDERED: Metoclopramide HCl 5MG / ML 2ML Vial IV PRN (01:50)
[2024-09-07] MEDS ORDERED: Ondansetron HCl 2 MG / ML 2ML Vial IV PRN (01:50)
[2024-09-07] MEDS ORDERED: FLU VACC TS2024-25(6MOS UP)/PF 45 MCG/0.5 ML SYRINGE IM ONE (01:55)
[2024-09-07] MEDS ORDERED: FentaNYL Citrate 50 MCG/ML 2 ML Injection IV PRN (01:55)
[2024-09-07 03:17] LABS: BASOPHILS ABSOLUTE AUTO 0.02 K/mm3 (0.00-0.23); BASOPHILS PERCENT AUTO 0 % (0-2); EOSINOPHILS PERCENT AUTO 0 % (0-6); Hematocrit 40.7 % (37.0-53.0); Hemoglobin 14.5 g/dL (13.5-17.5); IMMATURE GRAN ABSOLUTE AUTO 0.03 K/mm3 (0.00-0.10); IMMATURE GRAN PERCENT AUTO 0 % (0-1); LYMPHOCYTES ABSOLUTE AUTO 2.46 K/mm3 (0.84-5.20); LYMPHOCYTES PERCENT AUTO 21 % (21-46); MONOCYTES ABSOLUTE AUTO 0.54 K/mm3 (0.16-1.47); MONOCYTES PERCENT AUTO 5 % (4-13); Mean Corpuscular HGB 30.6 pg (26.0-34.0); Mean Corpuscular HGB Conc 35.6 g/dL (31.5-36.5); Mean Corpuscular Volume 86 fL (80-100); Mean Platelet Volume 8.9 fL (9.1-12.4); NEUTROPHILS ABSOLUTE AUTO 8.69 K/mm3 (1.96-9.15); NEUTROPHILS PERCENT AUTO 74 % (41-73); Platelet Count 325 K/mm3 (150-400); RDW Coefficient Variation 11.9 % (11.7-14.2); RDW Standard Deviation 37.9 fL (35.1-46.3); Red Blood Cell Count 4.74 M/mm3 (4.30-5.90); White Blood Cell Count 11.74 K/mm3 (4.00-11.30)
[2024-09-07 03:31] LABS: Albumin, Blood 3.4 g/dL (3.4-5.0); Albumin/Globulin Ratio 1.1 (0.8-1.8); Bilirubin, Total 1.4 mg/dL (0.1-1.0); Bun/Creatinine Ratio 26.8 (12.0-20.0); Calcium, Blood 8.1 mg/dL (8.5-10.1); Creatinine, Blood 0.86 mg/dL (0.60-1.20); Potassium, Blood 3.8 mmol/L (3.5-5.5); Total Protein, Blood 6.4 g/dL (6.4-8.2)
--- NOTE | 2024-09-07 03:37 | NUR ---
ARRIVAL TO ICU PT ARRIVED TO ICU 10 AT 0230 VIA ED BED AND AMBULATED SELF TO ICU WITH MINIMAL ASSISTANCE. HE IS BEING ADMITTED WITH KETOSIS. CURRENTLY ON INSULIN GTT INFUSING AT 3UNITS/HR; SEE FLOWSHEET FOR TITRATIONS. A/O X4 AND ABLE TO MAKE HIS NEEDS KNOWN. SPO2 >97% ON RA; RR 16-20. AFEBRILE. HR 90-110. BP STABLE. MILDLY NAUSEAS BUT TOLERATING ICE CHIPS WELL. PT HAS NOT URINATED YET; URINAL AT BEDSIDE. SECOND BOLUS INFUSING NOW. SEE ADMISSION ASSESSMENT FOR FULL ASSESSMENT.
[2024-09-07] MEDS ORDERED: Insulin Glargine-Yfgn 100 Unit/mL 3 ML SYR SC SCH (04:25)
--- NOTE | 2024-09-07 06:25 | NUR ---
END OF SHIFT SUMMARY NO ACUTE EVENTS SINCE LAST NOTE. INSULIN GTT STOPPED AT 0610 AFTER GIVING LONG ACTING INSULIN. NS CONT TO INFUSE AT 100ML/HR. CONT TO BE A/O X4 AND MAKE HIS NEEDS KNOWN. SPO2 >97% ON RA. AFEBRILE. HR 90-100. BP STABLE. REGLAN GIVEN ONCE IN ED AND ONCE IN ICU FOR NAUSEA; PT REPORTS HELPFUL. USED URINAL SUCCESSFULLY. WILL REPORT TO AM RN WHEN AVAILABLE.
--- NOTE | 2024-09-07 07:00 | NUR ---
ASSUMPTION OF CARE PT RECEIVING NS 100ML/HR. PT WAKENS TO VERBAL STIMULI. HE IS A&OX4. HE DENIES NAUSEA AT THIS TIME. SINUS ON MONITOR WITH RATE IN 80S-120S. BP STABLE. URINAL AT BEDSIDE. CALL LIGHT WITHIN REACH.
[2024-09-07] MEDS ORDERED: Insulin Human Lispro 100 Units/ML 3ML Syringe SC SCH (07:30)
[2024-09-07] MEDS ORDERED: Enoxaparin 40 MG/0.4 ML SYR SC SCH (09:00)
[2024-09-07 09:02] LABS: Bun/Creatinine Ratio 25.6 (12.0-20.0); Calcium, Blood 7.9 mg/dL (8.5-10.1); Creatinine, Blood 0.78 mg/dL (0.60-1.20); Potassium, Blood 3.8 mmol/L (3.5-5.5)
[2024-09-07] MEDS ORDERED: Thiamine HCl 100 MG in NS 50 ML IV SCH (10:06)
--- NOTE | 2024-09-07 14:15 | NUR ---
DISCHARGE PT PROVIDED DISCHARGE INSTRUCTIONS AND FOLLOW UP APPOINTMENT. RX FAXED TO [facility]. PT DENIES ADDITIONAL QUESTIONS. PT DRESSED SELF AND COLLECTED BELONGINGS INCLUDING GLASSES AND KEYS. PT DECLINED WHEELCHAIR RIDE TO VEHICLE. PT AMBULATED WITH STEADY GAIT OUT OF DEPARTMENT WITH MOTHER.
== END 2024-09-07 14:15 | disposition home or self-care (01) ==
LOC: ER 19:02 → ICUE 19:03
PROVIDERS: Physician Assistant; ADMIT Internal Medicine
DX: E10.10 Type 1 diabetes mellitus with ketoacidosis without coma (principal); I10 Essential (primary) hypertension; K21.9 Gastro-esophageal reflux disease without esophagitis; E10.40 Type 1 diabetes mellitus with diabetic neuropathy, unspecified; F32.A Depression, unspecified; Z79.4 Long term (current) use of insulin; Z79.899 Other long term (current) drug therapy
CPT/HCPCS: 36415; 80048; 80053; 82010; 82803; 82947; 83735; 83880; 84100; 85025; 93005; 93010; 96374; 96375; 99285-25; A9270; G0378; J1650; J1815; J2405; J2765; J3411; J3480; J7030; J7050

== ENCOUNTER → 2024-10-20 | Outpatient (CLI) | payer OTHER ==
[2024-10-20 12:44] LABS: Microalb/Creat Ratio UR, Rand Unable to Calculate mg/g (0.000-30.000); Microalbumin, Random Urine <5.000 mg/L (0.000-20.000)
== END ==
LOC: LAB SHORT 08:35 → LAB 08:35
PROVIDERS: Family Medicine
DX: E10.65 Type 1 diabetes mellitus with hyperglycemia (principal); E10.11 Type 1 diabetes mellitus with ketoacidosis with coma; E10.69 Type 1 diabetes mellitus with other specified complication
CPT/HCPCS: 82043; 82570

== ENCOUNTER 2024-10-31 07:36 | Emergency (ER) | payer OTHER ==
[~2024-10-31] VITALS: Ht 175.3 cm; Wt 59.0 kg
[2024-10-31] MEDS ORDERED: Ondansetron HCl 2 MG / ML 2ML Vial IV PRN (08:10)
[2024-10-31 08:36] LABS: BASOPHILS ABSOLUTE AUTO 0.01 K/mm3 (0.00-0.23); BASOPHILS PERCENT AUTO 0 % (0-2); Base Excess Venous 4.6 mmol/L; Bicarbonate Venous 28.6 mmol/L (24.0-30.0); EOSINOPHILS PERCENT AUTO 0 % (0-6); Hematocrit 44.8 % (37.0-53.0); Hemoglobin 15.4 g/dL (13.5-17.5); IMMATURE GRAN ABSOLUTE AUTO 0.02 K/mm3 (0.00-0.10); IMMATURE GRAN PERCENT AUTO 0 % (0-1); LYMPHOCYTES ABSOLUTE AUTO 1.84 K/mm3 (0.84-5.20); LYMPHOCYTES PERCENT AUTO 20 % (21-46); MONOCYTES ABSOLUTE AUTO 0.24 K/mm3 (0.16-1.47); MONOCYTES PERCENT AUTO 3 % (4-13); Mean Corpuscular HGB 30.5 pg (26.0-34.0); Mean Corpuscular HGB Conc 34.4 g/dL (31.5-36.5); Mean Corpuscular Volume 89 fL (80-100); Mean Platelet Volume 9.3 fL (9.1-12.4); NEUTROPHILS ABSOLUTE AUTO 7.11 K/mm3 (1.96-9.15); NEUTROPHILS PERCENT AUTO 77 % (41-73); Platelet Count 312 K/mm3 (150-400); RDW Coefficient Variation 12.2 % (11.7-14.2); RDW Standard Deviation 39.7 fL (35.1-46.3); Red Blood Cell Count 5.05 M/mm3 (4.30-5.90); White Blood Cell Count 9.22 K/mm3 (4.00-11.30)
[2024-10-31] MEDS ORDERED: Lactated Ringer's 1,000 ML IV SCH (08:40)
[2024-10-31 09:00] LABS: Magnesium, Blood 1.9 mg/dL (1.6-2.4); Phosphorus, Blood 2.5 mg/dL (2.5-4.9)
[2024-10-31 09:10] LABS: Albumin, Blood 3.7 g/dL (3.4-5.0); Albumin/Globulin Ratio 0.9 (0.8-1.8); Bilirubin, Total 0.9 mg/dL (0.1-1.0); Calcium, Blood 8.9 mg/dL (8.5-10.1); Creatinine, Blood 0.7 mg/dL (0.60-1.20); Globulin, Blood 3.9 g/dL (2.2-4.0); Potassium, Blood 3.8 mmol/L (3.5-5.5); Total Protein, Blood 7.6 g/dL (6.4-8.2)
[2024-10-31 12:17] VITALS: BP 100/64
== END 2024-10-31 12:02 | disposition home or self-care (01) ==
LOC: ER 07:36
PROVIDERS: Physician Assistant; Student in an Organized Health Care Education/Training Program
DX: E10.65 Type 1 diabetes mellitus with hyperglycemia (principal); R11.2 Nausea with vomiting, unspecified; E86.0 Dehydration; I10 Essential (primary) hypertension; F17.290 Nicotine dependence, other tobacco product, uncomplicated; Z79.4 Long term (current) use of insulin
CPT/HCPCS: 80053; 82010; 82803; 82947; 83605; 83735; 84100; 85025; 96361; 96374; 99284-25; J2405; J7120

== ENCOUNTER 2024-11-01 08:31 | Emergency (ER) | payer OTHER ==
[~2024-11-01] VITALS: Ht 175.3 cm; Wt 59.0 kg
[2024-11-01 09:15] LABS: BASOPHILS ABSOLUTE AUTO 0.01 K/mm3 (0.00-0.23); BASOPHILS PERCENT AUTO 0 % (0-2); EOSINOPHILS PERCENT AUTO 0 % (0-6); Hematocrit 42.3 % (37.0-53.0); Hemoglobin 14.6 g/dL (13.5-17.5); IMMATURE GRAN ABSOLUTE AUTO 0.02 K/mm3 (0.00-0.10); IMMATURE GRAN PERCENT AUTO 0 % (0-1); LYMPHOCYTES ABSOLUTE AUTO 1.95 K/mm3 (0.84-5.20); LYMPHOCYTES PERCENT AUTO 24 % (21-46); MONOCYTES ABSOLUTE AUTO 0.31 K/mm3 (0.16-1.47); MONOCYTES PERCENT AUTO 4 % (4-13); Mean Corpuscular HGB 30.3 pg (26.0-34.0); Mean Corpuscular HGB Conc 34.5 g/dL (31.5-36.5); Mean Corpuscular Volume 88 fL (80-100); Mean Platelet Volume 9.1 fL (9.1-12.4); NEUTROPHILS ABSOLUTE AUTO 5.84 K/mm3 (1.96-9.15); NEUTROPHILS PERCENT AUTO 72 % (41-73); Platelet Count 309 K/mm3 (150-400); RDW Coefficient Variation 11.8 % (11.7-14.2); RDW Standard Deviation 37.9 fL (35.1-46.3); Red Blood Cell Count 4.82 M/mm3 (4.30-5.90); White Blood Cell Count 8.13 K/mm3 (4.00-11.30)
[2024-11-01] MEDS ORDERED: Ondansetron HCl 2 MG / ML 2ML Vial IV ONE (09:25)
[2024-11-01] MEDS ORDERED: NS 1,000 ML IV SCH (09:25)
[2024-11-01 09:38] LABS: Albumin, Blood 3.4 g/dL (3.4-5.0); Bilirubin, Total 0.9 mg/dL (0.1-1.0); Bun/Creatinine Ratio 20.7 (12.0-20.0); Calcium, Blood 8.7 mg/dL (8.5-10.1); Creatinine, Blood 0.68 mg/dL (0.60-1.20); Globulin, Blood 3.4 g/dL (2.2-4.0); Potassium, Blood 3.5 mmol/L (3.5-5.5); Total Protein, Blood 6.8 g/dL (6.4-8.2)
[2024-11-01 09:39] LABS: Base Excess Venous 9.2 mmol/L
[2024-11-01 10:45] VITALS: BP 112/77
== END 2024-11-01 11:08 | disposition home or self-care (01) ==
LOC: ER 08:31
PROVIDERS: Student in an Organized Health Care Education/Training Program
DX: R11.2 Nausea with vomiting, unspecified (principal); E10.9 Type 1 diabetes mellitus without complications; F17.290 Nicotine dependence, other tobacco product, uncomplicated; Z79.4 Long term (current) use of insulin
CPT/HCPCS: 80053; 82010; 82803; 85025; 96374; 99284-25; J2405; J7030

== ENCOUNTER 2024-11-02 08:45 | Day surgery (SDC) | payer OTHER ==
[2024-11-02] MEDS ORDERED: Lactated Ringer's 1,000 ML IV SCH (08:50)
[2024-11-02 10:13] VITALS: BP 139/104
[2024-11-02 10:36] VITALS: BP 129/90
== END 2024-11-02 11:57 | disposition home or self-care (01) ==
LOC: ATC 08:45
DX: E86.0 Dehydration (principal); F90.9 Attention-deficit hyperactivity disorder, unspecified type; K21.9 Gastro-esophageal reflux disease without esophagitis; E10.40 Type 1 diabetes mellitus with diabetic neuropathy, unspecified; E10.51 Type 1 diabetes mellitus with diabetic peripheral angiopathy without gangrene; G56.03 Carpal tunnel syndrome, bilateral upper limbs
CPT/HCPCS: 96360; 96361; J7120

== ENCOUNTER 2024-12-24 15:47 | Emergency (ER) | payer OTHER ==
[~2024-12-24] VITALS: Ht 162.6 cm; Wt 72.6 kg
[2024-12-24] MEDS ORDERED: NS 1,000 ML IV SCH (15:55)
[2024-12-24] MEDS ORDERED: Metoclopramide HCl 5MG / ML 2ML Vial IV ONE (15:55)
[2024-12-24 16:06] LABS: BASOPHILS ABSOLUTE AUTO 0.02 K/mm3 (0.00-0.23); BASOPHILS PERCENT AUTO 0 % (0-2); EOSINOPHILS ABSOLUTE AUTO 0.01 K/mm3 (0.00-0.68); EOSINOPHILS PERCENT AUTO 0 % (0-6); Hematocrit 38.8 % (37.0-53.0); Hemoglobin 13.8 g/dL (13.5-17.5); IMMATURE GRAN ABSOLUTE AUTO 0.04 K/mm3 (0.00-0.10); IMMATURE GRAN PERCENT AUTO 0 % (0-1); LYMPHOCYTES ABSOLUTE AUTO 2.41 K/mm3 (0.84-5.20); LYMPHOCYTES PERCENT AUTO 24 % (21-46); MONOCYTES ABSOLUTE AUTO 0.52 K/mm3 (0.16-1.47); MONOCYTES PERCENT AUTO 5 % (4-13); Mean Corpuscular HGB 30.5 pg (26.0-34.0); Mean Corpuscular HGB Conc 35.6 g/dL (31.5-36.5); Mean Corpuscular Volume 86 fL (80-100); Mean Platelet Volume 8.7 fL (9.1-12.4); NEUTROPHILS ABSOLUTE AUTO 7.23 K/mm3 (1.96-9.15); NEUTROPHILS PERCENT AUTO 71 % (41-73); Platelet Count 329 K/mm3 (150-400); RDW Coefficient Variation 11.8 % (11.7-14.2); Red Blood Cell Count 4.53 M/mm3 (4.30-5.90); White Blood Cell Count 10.23 K/mm3 (4.00-11.30)
[2024-12-24 16:08] LABS: Base Excess Venous -3.4 mmol/L; Bicarbonate Venous 22.2 mmol/L (24.0-30.0); PCO2 Venous 35.1 mmHg (38-42)
[2024-12-24 16:30] LABS: Albumin, Blood 3.5 g/dL (3.4-5.0); Albumin/Globulin Ratio 1.2 (0.8-1.8); Bilirubin, Total 1.5 mg/dL (0.1-1.0); Calcium, Blood 8.4 mg/dL (8.5-10.1); Creatinine, Blood 0.69 mg/dL (0.60-1.20); Globulin, Blood 2.9 g/dL (2.2-4.0); Potassium, Blood 3.6 mmol/L (3.5-5.5); Total Protein, Blood 6.4 g/dL (6.4-8.2)
[2024-12-24 17:45] VITALS: BP 125/88
[2024-12-24] MEDS ORDERED: METO10 PO (17:48)
[2024-12-25] MEDS ORDERED: METO10 PO (23:31)
== END 2024-12-24 17:57 | disposition home or self-care (01) ==
LOC: ER 15:47
PROVIDERS: Emergency Medicine
DX: R11.2 Nausea with vomiting, unspecified (principal); K31.84 Gastroparesis; K21.9 Gastro-esophageal reflux disease without esophagitis; E10.40 Type 1 diabetes mellitus with diabetic neuropathy, unspecified; I10 Essential (primary) hypertension; F17.290 Nicotine dependence, other tobacco product, uncomplicated; Z79.4 Long term (current) use of insulin
CPT/HCPCS: 80053; 82803; 83690; 85025; 96374; 99283-25; J2765; J7030

== ENCOUNTER 2024-12-25 20:30 | Emergency (ER) | payer OTHER ==
[~2024-12-25] VITALS: Ht 175.3 cm; Wt 59.0 kg
[2024-12-25 20:52] LABS: BASOPHILS ABSOLUTE AUTO 0.01 K/mm3 (0.00-0.23); BASOPHILS PERCENT AUTO 0 % (0-2); EOSINOPHILS ABSOLUTE AUTO 0.02 K/mm3 (0.00-0.68); EOSINOPHILS PERCENT AUTO 0 % (0-6); Hematocrit 40.8 % (37.0-53.0); Hemoglobin 14.5 g/dL (13.5-17.5); IMMATURE GRAN ABSOLUTE AUTO 0.02 K/mm3 (0.00-0.10); IMMATURE GRAN PERCENT AUTO 0 % (0-1); LYMPHOCYTES ABSOLUTE AUTO 3.13 K/mm3 (0.84-5.20); LYMPHOCYTES PERCENT AUTO 37 % (21-46); MONOCYTES ABSOLUTE AUTO 0.47 K/mm3 (0.16-1.47); MONOCYTES PERCENT AUTO 6 % (4-13); Mean Corpuscular HGB 29.7 pg (26.0-34.0); Mean Corpuscular HGB Conc 35.5 g/dL (31.5-36.5); Mean Corpuscular Volume 83 fL (80-100); Mean Platelet Volume 8.6 fL (9.1-12.4); NEUTROPHILS ABSOLUTE AUTO 4.93 K/mm3 (1.96-9.15); NEUTROPHILS PERCENT AUTO 58 % (41-73); Platelet Count 311 K/mm3 (150-400); RDW Coefficient Variation 11.5 % (11.7-14.2); Red Blood Cell Count 4.89 M/mm3 (4.30-5.90); White Blood Cell Count 8.58 K/mm3 (4.00-11.30)
[2024-12-25] MEDS ORDERED: DiphenhydrAMINE HCl 50 MG/ML 1ML Vial IV ONE (21:10)
[2024-12-25] MEDS ORDERED: NS 1,000 ML IV SCH (21:10)
[2024-12-25] MEDS ORDERED: Metoclopramide HCl 5MG / ML 2ML Vial IV ONE (21:10)
[2024-12-25 21:30] LABS: Base Excess Venous 5.4 mmol/L; PCO2 Venous 39.4 mmHg (38-42); pH Blood Venous 7.48 (7.34-7.37)
[2024-12-25 21:32] LABS: Albumin, Blood 3.7 g/dL (3.4-5.0); Albumin/Globulin Ratio 1.3 (0.8-1.8); Bilirubin, Total 1.2 mg/dL (0.1-1.0); Bun/Creatinine Ratio 12.6 (12.0-20.0); Calcium, Blood 8.5 mg/dL (8.5-10.1); Creatinine, Blood 0.63 mg/dL (0.60-1.20); Globulin, Blood 2.9 g/dL (2.2-4.0); Magnesium, Blood 1.9 mg/dL (1.6-2.4); Potassium, Blood 3.1 mmol/L (3.5-5.5); Total Protein, Blood 6.6 g/dL (6.4-8.2)
[2024-12-25] MEDS ORDERED: Potassium Chloride 20 MEQ TabCR PO ONE (22:45)
[2024-12-25] MEDS ORDERED: Potassium Chloride 20 MEQ/15 ML UDC PO ONE (22:50)
[2024-12-25 23:00] VITALS: BP 136/98
[2024-12-25] MEDS ORDERED: METO10 PO (23:31)
== END 2024-12-26 00:04 | disposition home or self-care (01) ==
LOC: ER 20:30
PROVIDERS: Student in an Organized Health Care Education/Training Program
DX: E10.65 Type 1 diabetes mellitus with hyperglycemia (principal); E10.40 Type 1 diabetes mellitus with diabetic neuropathy, unspecified; I10 Essential (primary) hypertension; K21.9 Gastro-esophageal reflux disease without esophagitis; F17.290 Nicotine dependence, other tobacco product, uncomplicated; Z79.4 Long term (current) use of insulin; Z79.899 Other long term (current) drug therapy
CPT/HCPCS: 80053; 82803; 83735; 85025; 93005; 93010; 96361; 96374; 96375; 99284-25; A9270; J1200; J2765; J7030

== ENCOUNTER 2024-12-27 00:51 | Day surgery (SDC) | payer OTHER ==
[2024-12-27] MEDS ORDERED: Lactated Ringer's 1,000 ML IV SCH (06:45)
[2024-12-27 07:49] VITALS: BP 119/83
== END 2024-12-27 09:29 | disposition home or self-care (01) ==
LOC: ATC 00:51
DX: E86.0 Dehydration (principal); K22.2 Esophageal obstruction; E10.319 Type 1 diabetes mellitus with unspecified diabetic retinopathy without macular edema; E10.51 Type 1 diabetes mellitus with diabetic peripheral angiopathy without gangrene; K21.00 Gastro-esophageal reflux disease with esophagitis, without bleeding; E10.43 Type 1 diabetes mellitus with diabetic autonomic (poly)neuropathy; K31.84 Gastroparesis; F17.210 Nicotine dependence, cigarettes, uncomplicated; Z79.4 Long term (current) use of insulin; Z79.899 Other long term (current) drug therapy
CPT/HCPCS: 96360; 96361; J7120

== ENCOUNTER → 2024-12-27 | Outpatient (CLI) | payer OTHER | LOC: LAB SHORT 16:50 → LAB 16:50 → LAB SHORT 12-28 15:03 | DX: M54.50 Low back pain, unspecified (principal) | CPT/HCPCS: 87086 ==

== ENCOUNTER 2025-01-05 02:58 | Day surgery (SDC) | payer OTHER ==
[2025-01-05 10:05] VITALS: BP 139/92
== END 2025-01-05 11:20 | disposition home or self-care (01) ==
LOC: ATC 02:58
DX: E86.0 Dehydration (principal); K21.9 Gastro-esophageal reflux disease without esophagitis; E10.42 Type 1 diabetes mellitus with diabetic polyneuropathy; E10.319 Type 1 diabetes mellitus with unspecified diabetic retinopathy without macular edema; E10.311 Type 1 diabetes mellitus with unspecified diabetic retinopathy with macular edema; E10.51 Type 1 diabetes mellitus with diabetic peripheral angiopathy without gangrene; F17.200 Nicotine dependence, unspecified, uncomplicated; Z79.899 Other long term (current) drug therapy; Z79.4 Long term (current) use of insulin
CPT/HCPCS: 96365; J7120

== ENCOUNTER 2025-02-10 07:27 | Emergency (ER) | payer OTHER ==
[~2025-02-10] VITALS: Ht 175.3 cm; Wt 59.0 kg
[2025-02-10 07:34] VITALS: BP 133/89
[2025-02-10] MEDS ORDERED: NS 1,000 ML IV SCH (07:35)
[2025-02-10] MEDS ORDERED: Ondansetron HCl 2 MG / ML 2ML Vial IV ONE (07:40)
[2025-02-10 07:47] LABS: BASOPHILS ABSOLUTE AUTO 0.03 K/mm3 (0.00-0.23); BASOPHILS PERCENT AUTO 0 % (0-2); EOSINOPHILS ABSOLUTE AUTO 0.03 K/mm3 (0.00-0.68); EOSINOPHILS PERCENT AUTO 0 % (0-6); Hematocrit 43.5 % (37.0-53.0); Hemoglobin 14.9 g/dL (13.5-17.5); IMMATURE GRAN ABSOLUTE AUTO 0.01 K/mm3 (0.00-0.10); IMMATURE GRAN PERCENT AUTO 0 % (0-1); LYMPHOCYTES ABSOLUTE AUTO 3.52 K/mm3 (0.84-5.20); LYMPHOCYTES PERCENT AUTO 32 % (21-46); MONOCYTES ABSOLUTE AUTO 0.71 K/mm3 (0.16-1.47); MONOCYTES PERCENT AUTO 7 % (4-13); Mean Corpuscular HGB Conc 34.3 g/dL (31.5-36.5); Mean Corpuscular Volume 87 fL (80-100); NEUTROPHILS ABSOLUTE AUTO 6.64 K/mm3 (1.96-9.15); NEUTROPHILS PERCENT AUTO 61 % (41-73); NRBC ABSOLUTE 0.00 K/mm3 (0.00-0.02); NRBC Auto 0.0 /100 WBC (0.0-0.2); Platelet Count 318 K/mm3 (150-400); RDW Coefficient Variation 11.4 % (11.7-14.2); RDW Standard Deviation 36.6 fL (35.1-46.3)
[2025-02-10 07:56] LABS: pH Blood Venous 7.44 (7.34-7.37)
[2025-02-10 08:07] LABS: Alanine Aminotransfer (ALT/SGP 43.0 U/L (12-78); Albumin, Blood 3.9 g/dL (3.4-5.0); Albumin/Globulin Ratio 1.2 (0.8-1.8); Anion Gap 12.0 mmol/L (3-11); Aspartate Aminotrans (AST/SGOT 28.0 U/L (12-37); Bilirubin, Total 1.5 mg/dL (0.1-1.0); Blood Urea Nitrogen 19.0 mg/dL (8-24); CO2, Blood 33.0 mmol/L (21-32); Calcium, Blood 9.0 mg/dL (8.5-10.1); Chloride, Blood 87.0 mmol/L (98-108); Creatinine, Blood 0.76 mg/dL (0.60-1.20); Globulin, Blood 3.3 g/dL (2.2-4.0); Glucose, Blood 293.0 mg/dL (70-99); Potassium, Blood 3.8 mmol/L (3.5-5.5); Sodium, Blood 128.0 mmol/L (136-145); Total Protein, Blood 7.2 g/dL (6.4-8.2)
[2025-02-10] MEDS ORDERED: ONDA4 PO (09:37)
== END 2025-02-10 09:48 | disposition home or self-care (01) ==
LOC: ER 07:27
PROVIDERS: Emergency Medicine
DX: E10.65 Type 1 diabetes mellitus with hyperglycemia (principal); I10 Essential (primary) hypertension; K21.9 Gastro-esophageal reflux disease without esophagitis; E10.40 Type 1 diabetes mellitus with diabetic neuropathy, unspecified; Z79.4 Long term (current) use of insulin; Z79.899 Other long term (current) drug therapy; F17.290 Nicotine dependence, other tobacco product, uncomplicated
CPT/HCPCS: 80053; 82010; 82803; 82947; 84100; 85025; 93005; 93010; 96361; 96374; 99284-25; J2405; J7030

== ENCOUNTER 2025-02-11 10:49 | Day surgery (SDC) | payer OTHER ==
[2025-02-11 11:15] VITALS: BP 144/80
== END 2025-02-11 12:28 | disposition home or self-care (01) ==
LOC: ATC 10:49
DX: E86.0 Dehydration (principal); K21.9 Gastro-esophageal reflux disease without esophagitis; E10.42 Type 1 diabetes mellitus with diabetic polyneuropathy; F17.210 Nicotine dependence, cigarettes, uncomplicated; Z79.4 Long term (current) use of insulin; Z79.899 Other long term (current) drug therapy
CPT/HCPCS: 96360; J7120

== ENCOUNTER 2025-02-14 07:25 | Emergency (ER) | payer OTHER ==
[~2025-02-14] VITALS: Ht 175.3 cm; Wt 58.0 kg
[2025-02-14] MEDS ORDERED: Pantoprazole Sodium 40 MG Injection IV ONE (07:40)
[2025-02-14] MEDS ORDERED: NS 1,000 ML IV SCH (07:40)
[2025-02-14] MEDS ORDERED: Metoclopramide HCl 5MG / ML 2ML Vial IV ONE (07:40)
[2025-02-14 07:57] LABS: BASOPHILS ABSOLUTE AUTO 0.04 K/mm3 (0.00-0.23); BASOPHILS PERCENT AUTO 1 % (0-2); EOSINOPHILS ABSOLUTE AUTO 0.05 K/mm3 (0.00-0.68); EOSINOPHILS PERCENT AUTO 1 % (0-6); Hematocrit 44.6 % (37.0-53.0); Hemoglobin 15.6 g/dL (13.5-17.5); IMMATURE GRAN ABSOLUTE AUTO 0.01 K/mm3 (0.00-0.10); IMMATURE GRAN PERCENT AUTO 0 % (0-1); LYMPHOCYTES ABSOLUTE AUTO 3.09 K/mm3 (0.84-5.20); LYMPHOCYTES PERCENT AUTO 42 % (21-46); MONOCYTES ABSOLUTE AUTO 0.46 K/mm3 (0.16-1.47); MONOCYTES PERCENT AUTO 6 % (4-13); Mean Corpuscular HGB Conc 35.0 g/dL (31.5-36.5); Mean Corpuscular Volume 86 fL (80-100); NEUTROPHILS ABSOLUTE AUTO 3.80 K/mm3 (1.96-9.15); NEUTROPHILS PERCENT AUTO 51 % (41-73); NRBC ABSOLUTE 0.00 K/mm3 (0.00-0.02); NRBC Auto 0.0 /100 WBC (0.0-0.2); Platelet Count 322 K/mm3 (150-400); RDW Coefficient Variation 11.7 % (11.7-14.2); RDW Standard Deviation 36.5 fL (35.1-46.3); pH Blood Venous 7.43 (7.34-7.37)
[2025-02-14 08:18] LABS: Alanine Aminotransfer (ALT/SGP 27.0 U/L (12-78); Albumin, Blood 3.6 g/dL (3.4-5.0); Albumin/Globulin Ratio 1.1 (0.8-1.8); Anion Gap 11.0 mmol/L (3-11); Aspartate Aminotrans (AST/SGOT 19.0 U/L (12-37); Bilirubin, Total 1.0 mg/dL (0.1-1.0); Blood Urea Nitrogen 10.0 mg/dL (8-24); CO2, Blood 29.0 mmol/L (21-32); Calcium, Blood 8.8 mg/dL (8.5-10.1); Chloride, Blood 95.0 mmol/L (98-108); Creatinine, Blood 0.92 mg/dL (0.60-1.20); Globulin, Blood 3.2 g/dL (2.2-4.0); Glucose, Blood 161.0 mg/dL (70-99); Potassium, Blood 3.3 mmol/L (3.5-5.5); Sodium, Blood 132.0 mmol/L (136-145); Total Protein, Blood 6.8 g/dL (6.4-8.2)
[2025-02-14 09:13] VITALS: BP 120/85
== END 2025-02-14 09:29 | disposition home or self-care (01) ==
LOC: ER 07:25
PROVIDERS: Emergency Medicine
DX: K21.9 Gastro-esophageal reflux disease without esophagitis (principal); E87.6 Hypokalemia; I10 Essential (primary) hypertension; E10.40 Type 1 diabetes mellitus with diabetic neuropathy, unspecified; F17.290 Nicotine dependence, other tobacco product, uncomplicated
CPT/HCPCS: 80053; 82803; 85025; 96361; 96374; 96375; 99283-25; A9270; J2470; J2765; J7030

== ENCOUNTER 2025-02-15 01:27 | Day surgery (SDC) | payer OTHER ==
[2025-02-15 07:41] VITALS: BP 114/79
== END 2025-02-15 08:41 | disposition home or self-care (01) ==
LOC: ATC 01:27
DX: E86.0 Dehydration (principal); E10.42 Type 1 diabetes mellitus with diabetic polyneuropathy; K21.9 Gastro-esophageal reflux disease without esophagitis; F17.210 Nicotine dependence, cigarettes, uncomplicated; Z79.899 Other long term (current) drug therapy
CPT/HCPCS: 96360; J7120

== ENCOUNTER 2025-04-19 08:03 | Emergency (ER) | payer OTHER ==
[~2025-04-19] VITALS: Ht 175.3 cm; Wt 68.0 kg
[2025-04-19 08:50] LABS: pH Blood Venous 7.45 (7.34-7.37)
[2025-04-19] MEDS ORDERED: Metoclopramide HCl 5MG / ML 2ML Vial IV ONE (09:00)
[2025-04-19] MEDS ORDERED: DiphenhydrAMINE HCl 50 MG/ML 1ML Vial IV ONE (09:00)
[2025-04-19 09:01] LABS: BASOPHILS ABSOLUTE AUTO 0.01 K/mm3 (0.00-0.23); BASOPHILS PERCENT AUTO 0 % (0-2); EOSINOPHILS ABSOLUTE AUTO 0.00 K/mm3 (0.00-0.68); EOSINOPHILS PERCENT AUTO 0 % (0-6); Hematocrit 45.6 % (37.0-53.0); Hemoglobin 16.2 g/dL (13.5-17.5); IMMATURE GRAN ABSOLUTE AUTO 0.02 K/mm3 (0.00-0.10); IMMATURE GRAN PERCENT AUTO 0 % (0-1); LYMPHOCYTES ABSOLUTE AUTO 1.66 K/mm3 (0.84-5.20); LYMPHOCYTES PERCENT AUTO 17 % (21-46); MONOCYTES ABSOLUTE AUTO 0.60 K/mm3 (0.16-1.47); MONOCYTES PERCENT AUTO 6 % (4-13); Mean Corpuscular HGB Conc 35.5 g/dL (31.5-36.5); Mean Corpuscular Volume 86 fL (80-100); NEUTROPHILS ABSOLUTE AUTO 7.52 K/mm3 (1.96-9.15); NEUTROPHILS PERCENT AUTO 77 % (41-73); NRBC ABSOLUTE 0.00 K/mm3 (0.00-0.02); NRBC Auto 0.0 /100 WBC (0.0-0.2); Platelet Count 342 K/mm3 (150-400); RDW Coefficient Variation 11.6 % (11.7-14.2); RDW Standard Deviation 36.2 fL (35.1-46.3)
[2025-04-19 09:34] LABS: Alanine Aminotransfer (ALT/SGP 36.0 U/L (12-78); Albumin, Blood 4.0 g/dL (3.4-5.0); Albumin/Globulin Ratio 1.1 (0.8-1.8); Anion Gap 18.0 mmol/L (3-11); Aspartate Aminotrans (AST/SGOT 20.0 U/L (12-37); Bilirubin, Total 1.7 mg/dL (0.1-1.0); Blood Urea Nitrogen 23.0 mg/dL (8-24); CO2, Blood 27.0 mmol/L (21-32); Calcium, Blood 8.9 mg/dL (8.5-10.1); Chloride, Blood 85.0 mmol/L (98-108); Creatinine, Blood 0.76 mg/dL (0.60-1.20); Globulin, Blood 3.7 g/dL (2.2-4.0); Glucose, Blood 284.0 mg/dL (70-99); Potassium, Blood 3.7 mmol/L (3.5-5.5); Sodium, Blood 126.0 mmol/L (136-145); Total Protein, Blood 7.7 g/dL (6.4-8.2)
[2025-04-19 12:30] VITALS: BP 113/82
== END 2025-04-19 13:07 | disposition home or self-care (01) ==
LOC: ER 08:03
PROVIDERS: Student in an Organized Health Care Education/Training Program
DX: E10.65 Type 1 diabetes mellitus with hyperglycemia (principal); E87.1 Hypo-osmolality and hyponatremia; R79.89 Other specified abnormal findings of blood chemistry; I10 Essential (primary) hypertension; K21.9 Gastro-esophageal reflux disease without esophagitis; E10.40 Type 1 diabetes mellitus with diabetic neuropathy, unspecified; E10.43 Type 1 diabetes mellitus with diabetic autonomic (poly)neuropathy; K31.84 Gastroparesis; F17.290 Nicotine dependence, other tobacco product, uncomplicated; Z79.4 Long term (current) use of insulin; Z79.899 Other long term (current) drug therapy
CPT/HCPCS: 80053; 82010; 82803; 82947; 85025; 93005; 93010; 96361; 96374; 96375; 99284-25; J1200; J2765; J7120

== ENCOUNTER 2025-04-20 11:35 | Day surgery (SDC) | payer OTHER ==
[2025-04-20 14:57] VITALS: BP 134/96
== END 2025-04-20 18:08 | disposition home or self-care (01) ==
LOC: ATC 11:35
DX: E86.0 Dehydration (principal); E10.42 Type 1 diabetes mellitus with diabetic polyneuropathy; E10.319 Type 1 diabetes mellitus with unspecified diabetic retinopathy without macular edema; E10.51 Type 1 diabetes mellitus with diabetic peripheral angiopathy without gangrene; E10.43 Type 1 diabetes mellitus with diabetic autonomic (poly)neuropathy; K21.9 Gastro-esophageal reflux disease without esophagitis; F17.210 Nicotine dependence, cigarettes, uncomplicated; Z79.899 Other long term (current) drug therapy
CPT/HCPCS: 96360; J7120

== ENCOUNTER 2025-04-21 07:40 | Day surgery (SDC) | payer OTHER ==
[2025-04-21 13:52] VITALS: BP 151/104
== END 2025-04-21 14:55 | disposition home or self-care (01) ==
LOC: ATC 07:40
DX: E86.0 Dehydration (principal); E10.42 Type 1 diabetes mellitus with diabetic polyneuropathy; F17.210 Nicotine dependence, cigarettes, uncomplicated; Z79.899 Other long term (current) drug therapy; Z79.4 Long term (current) use of insulin
CPT/HCPCS: 96360; J7120

== ENCOUNTER 2025-04-22 11:16 | Emergency (ER) | payer OTHER ==
[~2025-04-22] VITALS: Ht 172.7 cm; Wt 77.1 kg
[2025-04-22 11:47] LABS: pH Blood Venous 7.45 (7.34-7.37)
[2025-04-22 11:50] LABS: BASOPHILS ABSOLUTE AUTO 0.01 K/mm3 (0.00-0.23); BASOPHILS PERCENT AUTO 0 % (0-2); EOSINOPHILS ABSOLUTE AUTO 0.01 K/mm3 (0.00-0.68); EOSINOPHILS PERCENT AUTO 0 % (0-6); Hematocrit 43.8 % (37.0-53.0); Hemoglobin 15.7 g/dL (13.5-17.5); IMMATURE GRAN ABSOLUTE AUTO 0.01 K/mm3 (0.00-0.10); IMMATURE GRAN PERCENT AUTO 0 % (0-1); LYMPHOCYTES ABSOLUTE AUTO 2.24 K/mm3 (0.84-5.20); LYMPHOCYTES PERCENT AUTO 37 % (21-46); MONOCYTES ABSOLUTE AUTO 0.32 K/mm3 (0.16-1.47); MONOCYTES PERCENT AUTO 5 % (4-13); Mean Corpuscular HGB Conc 35.8 g/dL (31.5-36.5); Mean Corpuscular Volume 84 fL (80-100); NEUTROPHILS ABSOLUTE AUTO 3.46 K/mm3 (1.96-9.15); NEUTROPHILS PERCENT AUTO 57 % (41-73); NRBC ABSOLUTE 0.00 K/mm3 (0.00-0.02); NRBC Auto 0.0 /100 WBC (0.0-0.2); Platelet Count 319 K/mm3 (150-400); RDW Coefficient Variation 11.3 % (11.7-14.2); RDW Standard Deviation 34.5 fL (35.1-46.3)
[2025-04-22] MEDS ORDERED: NS 1,000 ML IV SCH (11:55)
[2025-04-22] MEDS ORDERED: Lidocaine 2% Viscous Soln 15 ML UDC PO ONE (12:00)
[2025-04-22 12:31] LABS: Alanine Aminotransfer (ALT/SGP 27.0 U/L (12-78); Albumin, Blood 3.6 g/dL (3.4-5.0); Albumin/Globulin Ratio 1.2 (0.8-1.8); Anion Gap 12.0 mmol/L (3-11); Aspartate Aminotrans (AST/SGOT 19.0 U/L (12-37); Bilirubin, Total 1.5 mg/dL (0.1-1.0); Blood Urea Nitrogen 12.0 mg/dL (8-24); CO2, Blood 28.0 mmol/L (21-32); Calcium, Blood 8.6 mg/dL (8.5-10.1); Chloride, Blood 92.0 mmol/L (98-108); Creatinine, Blood 0.75 mg/dL (0.60-1.20); Globulin, Blood 3.1 g/dL (2.2-4.0); Glucose, Blood 212.0 mg/dL (70-99); Potassium, Blood 3.4 mmol/L (3.5-5.5); Sodium, Blood 129.0 mmol/L (136-145); Total Protein, Blood 6.7 g/dL (6.4-8.2)
[2025-04-22 13:15] VITALS: BP 146/107
== END 2025-04-22 13:31 | disposition home or self-care (01) ==
LOC: ER 11:16
PROVIDERS: Emergency Medicine; Student in an Organized Health Care Education/Training Program
DX: K21.9 Gastro-esophageal reflux disease without esophagitis (principal); E87.6 Hypokalemia; E10.9 Type 1 diabetes mellitus without complications; F17.290 Nicotine dependence, other tobacco product, uncomplicated
CPT/HCPCS: 80053; 82803; 83690; 84484; 85025; 93005; 93010; 99284-25; A9270; J7030

== ENCOUNTER 2025-06-19 06:59 | Emergency (ER) | payer OTHER ==
[2025-06-19 08:20] LABS: BASOPHILS ABSOLUTE AUTO 0.01 K/mm3 (0.00-0.23); BASOPHILS PERCENT AUTO 0 % (0-2); EOSINOPHILS ABSOLUTE AUTO 0.01 K/mm3 (0.00-0.68); EOSINOPHILS PERCENT AUTO 0 % (0-6); Hematocrit 45.4 % (37.0-53.0); Hemoglobin 15.8 g/dL (13.5-17.5); IMMATURE GRAN ABSOLUTE AUTO 0.02 K/mm3 (0.00-0.10); IMMATURE GRAN PERCENT AUTO 0 % (0-1); LYMPHOCYTES ABSOLUTE AUTO 2.07 K/mm3 (0.84-5.20); LYMPHOCYTES PERCENT AUTO 25 % (21-46); MONOCYTES ABSOLUTE AUTO 0.45 K/mm3 (0.16-1.47); MONOCYTES PERCENT AUTO 5 % (4-13); Mean Corpuscular HGB Conc 34.8 g/dL (31.5-36.5); Mean Corpuscular Volume 85 fL (80-100); NEUTROPHILS ABSOLUTE AUTO 5.87 K/mm3 (1.96-9.15); NEUTROPHILS PERCENT AUTO 70 % (41-73); NRBC ABSOLUTE 0.00 K/mm3 (0.00-0.02); NRBC Auto 0.0 /100 WBC (0.0-0.2); Platelet Count 349 K/mm3 (150-400); RDW Coefficient Variation 11.5 % (11.7-14.2); RDW Standard Deviation 35.1 fL (35.1-46.3)
[2025-06-19 08:28] LABS: Alanine Aminotransfer (ALT/SGP 55.0 U/L (12-78); Albumin, Blood 4.1 g/dL (3.4-5.0); Albumin/Globulin Ratio 1.3 (0.8-1.8); Anion Gap 16.0 mmol/L (3-11); Aspartate Aminotrans (AST/SGOT 17.0 U/L (12-37); Bilirubin, Total 1.6 mg/dL (0.1-1.0); Blood Urea Nitrogen 21.0 mg/dL (8-24); CO2, Blood 29.0 mmol/L (21-32); Calcium, Blood 9.2 mg/dL (8.5-10.1); Chloride, Blood 85.0 mmol/L (98-108); Creatinine, Blood 0.92 mg/dL (0.60-1.20); Globulin, Blood 3.1 g/dL (2.2-4.0); Glucose, Blood 261.0 mg/dL (70-99); Potassium, Blood 3.6 mmol/L (3.5-5.5); Sodium, Blood 126.0 mmol/L (136-145); Total Protein, Blood 7.2 g/dL (6.4-8.2)
[2025-06-19 08:38] LABS: pH Blood Venous 7.46 (7.34-7.37)
== END 2025-06-19 09:09 | disposition left against medical advice (07) ==
LOC: ER 06:59
PROVIDERS: Student in an Organized Health Care Education/Training Program
DX: R11.2 Nausea with vomiting, unspecified (principal); E10.9 Type 1 diabetes mellitus without complications; Z53.29 Procedure and treatment not carried out because of patient's decision for other reasons; Z79.4 Long term (current) use of insulin
CPT/HCPCS: 80053; 82010; 82803; 82947; 83690; 85025; 93005; 93010; 96361; 96374; 99281; 99283-25; 99284-25; J2405; J2765; J7030; J7120

== ENCOUNTER 2025-06-21 15:35 | Day surgery (SDC) | payer OTHER ==
[2025-06-21 15:35] VITALS: BP 144/98
== END 2025-06-21 16:42 | disposition home or self-care (01) ==
LOC: ATC 15:35
DX: E86.0 Dehydration (principal); E10.43 Type 1 diabetes mellitus with diabetic autonomic (poly)neuropathy; E10.319 Type 1 diabetes mellitus with unspecified diabetic retinopathy without macular edema; E10.42 Type 1 diabetes mellitus with diabetic polyneuropathy; K21.9 Gastro-esophageal reflux disease without esophagitis; F17.210 Nicotine dependence, cigarettes, uncomplicated
CPT/HCPCS: 96360; J7120

== ENCOUNTER 2025-06-22 18:25 | Emergency (ER) | payer OTHER ==
[~2025-06-22] VITALS: Ht 175.3 cm; Wt 59.0 kg
[2025-06-22] MEDS ORDERED: Ondansetron HCl 2 MG / ML 2ML Vial IV ONE (18:45)
[2025-06-22 18:53] LABS: BASOPHILS ABSOLUTE AUTO 0.02 K/mm3 (0.00-0.23); BASOPHILS PERCENT AUTO 0 % (0-2); EOSINOPHILS ABSOLUTE AUTO 0.02 K/mm3 (0.00-0.68); EOSINOPHILS PERCENT AUTO 0 % (0-6); Hematocrit 41.1 % (37.0-53.0); Hemoglobin 14.6 g/dL (13.5-17.5); IMMATURE GRAN ABSOLUTE AUTO 0.01 K/mm3 (0.00-0.10); IMMATURE GRAN PERCENT AUTO 0 % (0-1); LYMPHOCYTES ABSOLUTE AUTO 2.85 K/mm3 (0.84-5.20); LYMPHOCYTES PERCENT AUTO 42 % (21-46); MONOCYTES ABSOLUTE AUTO 0.43 K/mm3 (0.16-1.47); MONOCYTES PERCENT AUTO 6 % (4-13); Mean Corpuscular HGB Conc 35.5 g/dL (31.5-36.5); Mean Corpuscular Volume 83 fL (80-100); NEUTROPHILS ABSOLUTE AUTO 3.48 K/mm3 (1.96-9.15); NEUTROPHILS PERCENT AUTO 51 % (41-73); NRBC ABSOLUTE 0.00 K/mm3 (0.00-0.02); NRBC Auto 0.0 /100 WBC (0.0-0.2); Platelet Count 347 K/mm3 (150-400); RDW Coefficient Variation 11.6 % (11.7-14.2); RDW Standard Deviation 35.1 fL (35.1-46.3)
[2025-06-22 19:24] LABS: Alanine Aminotransfer (ALT/SGP 39.0 U/L (12-78); Albumin, Blood 3.6 g/dL (3.4-5.0); Albumin/Globulin Ratio 1.3 (0.8-1.8); Anion Gap 9.0 mmol/L (3-11); Aspartate Aminotrans (AST/SGOT 23.0 U/L (12-37); Bilirubin, Total 1.0 mg/dL (0.1-1.0); Blood Urea Nitrogen 6.0 mg/dL (8-24); CO2, Blood 30.0 mmol/L (21-32); Calcium, Blood 9.1 mg/dL (8.5-10.1); Chloride, Blood 98.0 mmol/L (98-108); Creatinine, Blood 0.79 mg/dL (0.60-1.20); Globulin, Blood 2.7 g/dL (2.2-4.0); Glucose, Blood 95.0 mg/dL (70-99); Potassium, Blood 3.1 mmol/L (3.5-5.5); Sodium, Blood 134.0 mmol/L (136-145); Total Protein, Blood 6.3 g/dL (6.4-8.2)
[2025-06-22] MEDS ORDERED: NS 1,000 ML IV SCH (20:45)
[2025-06-22 21:14] LABS: pH Blood Venous 7.47 (7.34-7.37)
[2025-06-22 22:00] VITALS: BP 143/85
== END 2025-06-22 22:16 | disposition home or self-care (01) ==
LOC: ER 18:25
PROVIDERS: Emergency Medicine
DX: E87.6 Hypokalemia (principal); R11.2 Nausea with vomiting, unspecified; E71.32 Disorders of ketone metabolism; K21.9 Gastro-esophageal reflux disease without esophagitis; E10.40 Type 1 diabetes mellitus with diabetic neuropathy, unspecified; E10.43 Type 1 diabetes mellitus with diabetic autonomic (poly)neuropathy; K31.84 Gastroparesis; I10 Essential (primary) hypertension; F17.290 Nicotine dependence, other tobacco product, uncomplicated; Z79.4 Long term (current) use of insulin; Z79.899 Other long term (current) drug therapy
CPT/HCPCS: 80053; 82010; 82803; 85025; 96361; 96374; 99284-25; A9270; J2405; J7030